=== PATIENT | female | born 2005 | race Caucasian/White ===

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

== ENCOUNTER 2024-01-27 23:32 | Emergency (ER) | payer OTHER ==
--- OUTSIDE RECORDS SUMMARY | 2024-01-27 23:41 | XMS REPORT | Continuity of Care Document ---
Author Name Unknown Address [address] [facility] [address] [place] [address] [facility] thconnect Address [address] [facility]. 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 Role Phone Oul Maldonado Primary Care Physicia n OLU DA SILVA Attending Clinician Unavail ELAINE Vaughn Attending Clinician UnavailElaine Torres CNM Attending Clinician Doctor Unassigned, [place] Attending Clinician U cynthia Pryor RN, Leidy Attending Clinician UnavailSHREE Castro Attending Clinician Unavailable Marcos Quinn MD, Geeta Attending Clinician + GEETA CORONA Attending Clinician Yony Carpenter MD Attending Clinician [phone] Silvio Reyes MD Attending Clinician [phone] Olu Maldonado Attending Clinician + CAROLINE BOWER Attending Clinician CAROLINE Mccain Attending Clinician SAIDA Mcpherson Attending Clinician Unavailable Peng ROSA, Saida Diallo Attending Clinician [phone] Ultrasound, Ang-Mfm Attending Clinician Unavailgabby holloway GC_SWHAOMC_Black_D Attending Clinician Unavailab Alexandre Cancino DO Attending Clinician [phone] Mcwilliams LEAF CONDITIONER, Cecea R Attending Clinician + [phone] MCWILLIAMSDAYAHUNDA R Attending Clinician [facility]availab dian [facility] Sofia mateusz Petersen MD, Jaiden Attending Clinician [phone] JAIDEN PETERSEN Attending Clinician Unavailable JAIDEN PETERSEN Attending Clinician Unavailable JAGDEEP VELASQUEZ Attending Clinician Unavailable Jagdeep Velasquez PA-C Attending Clinician [phone] Ebjustin LEAF CONDITIONERTyler Attending Clinician [phone] Сергей LEAF CONDITIONERElke Attending Clinician [phone] ELKE BERGMAN Attending Clinician Unavailable 2, [facility] Attending Clinician Unavailable Braeden Hussein Attending Clinician Unavailabl maddi Lab, [facility] I Attending Clinician Unavailab Shree Maciel PA-C Attending Clinician [phone] Provider, [facility] Attending Clinician Un available BENJAMIN CONCEPCION Attending Clinician Unavailable Mckayla LEAF CONDITIONERBenjamin Attending Clinician [phone] Marcos Quinn MD, Geeta Admitting Clinician + GEETA CORONA Admitting Clinician CAROLINE Clemente Admitting Clinician SAIDA Mcpherson Admitting Clinician Unavailable Saida Rand MD Admitting Clinician [phone] Veronica Admitting Clinician Unavailab dian Payers Payer Name Policy Type Policy Number Effective Date Expirati on Date Source [facility] [id number] 2019 00:00:00 Problems Condition Name Condition Details Condition Category Status Onset Date Resolution Date Last Treatment Date Treating Clinician Comments Source Overweight (BMI 25.0-29.9) Overweight (BMI 25.0-29.9) Disease Active 7-13 00:00: 00 [facility] (spontaneo us vaginal delivery) (spontaneo us vaginal delivery) Disease Active 6- 00:00: 00 [facility] Single live Single live Disease Active 6 00:00: 00 [facility] Obstetrica l laceration Obstetrica l laceration Disease Active 6- 00:00: 00 [facility] Acute blood loss anemia Acute blood loss anemia Disease Active 6- 00:00: 00 [facility] 39 weeks gestation of 39 weeks gestation of Disease Active 5-31 00:00: 00 [facility] GBS (group B Streptococ cus carrier), +RV culture, currently GBS (group B Streptococ cus carrier), +RV culture, currently Disease Active 5-31 00:00: 00 [facility] Obesity (BMI 30-39.9) Obesity (BMI 30-39.9) Disease Active 5-22 00:00: 00 [facility] Anemia of mother in , antepartum Anemia of mother in , antepartum Disease Active 2-21 00:00: 00 [facility] Scoliosis Scoliosis Disease Active 2-21 00:00: 00 Overview: Formattin g of this note might be different from the original. Address Intrapart um [facility] Chlamydia infection affecting Chlamydia infection affecting Disease Active 2021-10 2-20 00:00: 00 Overview: Formattin g of this note might be different from the original. Drew neg [facility] Supervisio n of high risk , antepartum Supervisio n of high risk , antepartum Disease Active 9-27 00:00: 00 [facility] High risk teen in first trimester High risk teen in first trimester Disease Active 06-27 00:00: 00 [facility] Primigravi da in first trimester Primigravi da in first trimester Disease Active 06-27 00:00: 00 [facility] History of anxiety History of anxiety Disease Active 06-27 00:00: 00 [facility] No known active problems No known active problems Disease [facility] Allergies, Adverse Reactions, Alerts Allergy Name Allergy Type Status Severity Reaction(s) Onset Date Inactive Date Treating Clinician Comments Source No Known Allergie s DA Active U 01-18 00:00: 00 [facility] No Known Allergie s DA Active U 01-18 00:00: 00 [facility] NO KNOWN ALLERGIE S Drug Class Active [facility] Social History Social Habit Start Date Stop Date Quantity Comments Source ASSERTION 2022-06-11 00:00:00 [facility] Gender identity [facility] Sexual orientation [facility] Alcohol intake 2023-07-12 00:00:00 2023-07-12 00:00:00 Lifetime non-drinker (finding) [facility] History of Social function 2023-04-11 00:00:00 2023-04-11 00:00:00 [facility] Exposure to SARS-CoV-2 (event) 2023-02-17 00:00:00 2023-02-27 12:24:00 Not sure [facility] Tobacco use and exposure 2022-06-27 00:00:00 2022-06-27 00:00:00 Smokeless tobacco non-user [facility] Sex Assigned At 2005 00:00:00 2005 00:00:00 [facility] Smoking Status Start Date Stop Date Source Never smoked tobacco [facility] Medications Ordered Medication Name Filled Medication Name Start Date Stop Date Current Medication? Ordering Clinician Indication Dosage Frequency Signature (SIG) Comments Components Source metroNIDAZO LE 500 mg tablet 7-13 00:00: 00 04-20 04:59 :00 No [id number] 500mg Take 1 tablet by mouth in the morning and 1 tablet in the evening. Do all this for 7 days. [facility] Norethindro ne Acet-Ethiny l Est (ADDIE) 1.5-30 mg-mcg per tablet 04-11 00:00: 00 Yes [id number] 1{tbl} Take 1 tablet by mouth in the morning. [facility] [id number] fum-folic () 27 mg iron- 1 mg folic tablet 03-02 00:00: 00 Yes [id number] 1{tbl} Take 1 tablet by mouth in the morning. [facility] ferrous sulfate 325 mg (65 mg iron) tablet 03-02 00:00: 00 Yes [id number] 325mg Take 1 tablet by mouth in the morning. [facility] [id number] fum-folic () 27 mg iron- 1 mg folic tablet 03-02 00:00: 00 04-11 00:00 :00 No [id number] 1{tbl} Take 1 tablet by mouth in the morning. [facility] docusate 100 mg capsule 03-02 00:00: 00 04-11 00:00 :00 No [id number] 200mg Take 2 capsules by mouth once daily as needed for Constipati on. [facility] ibuprofen 600 mg tablet 03-02 00:00: 00 04-11 00:00 :00 No [id number] 600mg Take 1 tablet by mouth every 6 (six) hours as needed (Pain). Take with food or milk. [facility] varicella virus vaccine live (VARIVAX) injection and diluent vial 03-01 12:48: 14 Yes 1{each} 0.5 mL (1 Each), Subcutaneo us, ONCE-PRIOR TO DISCHARGE, 1 dose, Starting on Atiya 03/01/23 at 0748, Until Discontinu ed, Routine, Give vaccine prior to discharge [facility] rho(D) immune globulin (RHOGAM) syringe 300 mcg 03-01 06:35: 41 Yes 300ug 300 mcg, Intramuscu lar, ONCE, For 1 dose, Conditiona l, Routine [facility] ibuprofen (IBU) tablet 600 mg 03-01 06:35: 37 Yes 600mg 600 mg, Oral, Q6HPRN, Starting on Sun03/01/23 at 0135, Until Discontinu ed, Routine, Pain (scale 4-6), and pain 7-10 [facility] acetaminoph en (TYLENOL) tablet 650 mg 03-01 06:35: 37 Yes 650mg 650 mg, Oral, Q6HPRN, Starting on Sun03/01/23 at 0135, Until Discontinu ed, Routine, Pain (scale 1-3) [facility] diphenhydrA MINE (BENADRYL) tablet 25 mg 03-01 06:35: 37 Yes 25mg 25 mg, Oral, Q6HPRN, Starting on Sun03/01/23 at 013, Until Discontinu ed, Routine, Sleep, Itching [facility] ondansetron (ZOFRAN (PF)) injection 4 mg 03-01 06:35: 37 Yes 4mg 4 mg, Slow IV Push, Q8HPRN, Starting on Sun03/01/23 at 013, Until Discontinu ed, Routine, Nausea and Vomiting (N/V) [facility] simethicone (GAS RELIEF (SIMETHICON E)) chewable tablet 160 mg 03-01 06:35: 37 Yes 160mg 160 mg, Oral, PC+HSPRN, Starting on Sun03/01/23 at 0135, Until Discontinu ed, Routine, Gas [facility] docusate (COLACE) capsule 200 mg 03-01 06:35: 37 Yes 200mg 200 mg, Oral, QDAILYPRN, Starting on Sun03/01/23 at 0135, Until Discontinu ed, Routine, Constipati on [facility] magnesium hydroxide (MILK OF MAGNESIA) 400 mg/5 mL suspension 30 mL 03-01 06:35: 37 Yes 30mL 30 mL, Oral, QDAILYPRN, Starting on Sun03/01/23 at 0135, Until Discontinu ed, Routine, Constipati on [facility] benzocaine- menthol (DERMOPLAST ) 20-0.5 % topical spray 03-01 06:35: 37 Yes Topical, PRN, Starting on Sun03/01/23 at 0135, Until Discontinu ed, Routine, Perineum discomfort [facility] oxytocin (PITOCIN) 30 units in NS 500 mL IV infusion 02-28 22:29: 00 03-01 06:35 :39 No 2mU/min at 2-40 mL/hr, IV Infusion, TITRATE, Starting on Sun02/28/23 at 1729, Until Sun03/01/23 at 0135, JAMEL [facility] ropivacaine 0.2 % (NAROPIN (PF)) epidural infusion 02-28 17:40: 00 03-01 04:00 :18 No Epidural, CONTINUOUS PRN, Starting on Sun02/28/23 at 1240, Until Discontinu ed, Routine, Intra-op [facility] lidocaine-e pinephrine (XYLOCAINE W/EPINEPHRI NE) 2 %-1:200,000 injection 02-28 17:39: 00 03-01 04:00 :18 No Intravenou s, ONCE INTRA PROCEDURE, Starting on Sun02/28/23 at 1239, Until Discontinu ed, Routine, Intra-op [facility] lactated ringers IV infusion 500 mL 02-28 16:54: 54 02-28 17:19 :15 No 500mL at 999 mL/hr, 500 mL, IV Infusion, PRN - SEE INSTRUCTIO NS, 1 dose, Starting on Sun02/28/23 at 1154, Until Sun02/28/23 at 1219, Routine [facility] sodium citrate-cit lidya acid (BICITRA) 500-334 mg/5 mL solution 30 mL 02-28 16:54: 54 02-28 17:20 :00 No 30mL 30 mL, Oral, PRE-PROCED URE ONCE, 1 dose, Starting on Sun02/28/23 at 1154, Until Sun02/28/23 at 1220, Routine, Surgery/Pr ocedure [facility] lactated ringers IV infusion 500 mL 02-28 15:02: 38 03-01 06:35 :39 No 500mL at 999 mL/hr, 500 mL, IV Infusion, PRN - SEE INSTRUCTIO NS, Starting on Sun02/28/23 at 1002, Until Sun03/01/23 at 0135, Routine [facility] [id number]-[id number] IV infusion 1,000 mL 02-28 15:02: 38 03-01 06:35 :39 No 1000mL at 1-125 mL/hr, IV Infusion, TITRATE, Starting on Sun02/28/23 at 1002, Until Atiya 03/01/23 at 0135, Routine [facility] metroNIDAZO LE (FLAGYL) tablet 500 mg 02-01 03:55: 00 02-01 04:00 :00 No 500mg 500 mg, Oral, ONCE NOW, 1 dose, On Sun01/31/23 at 2300, Routine
Reason for Anti-Infec tive: Documented Infection< br>Documen patti Infection Site: Pelvic
Duration of Therapy: 7 days [facility] metroNIDAZO LE (FLAGYL) 500 mg tablet 02-01 00:00: 00 03-02 00:00 :00 No [id number] 500mg Take 1 tablet by mouth every 12 (twelve) hours. [facility] ferrous sulfate 325 mg (65 mg iron) tablet 11-21 00:00: 00 03-02 00:00 :00 No [id number] 325mg Take 1 tablet by mouth in the morning and 1 tablet in the evening. [facility] ascorbic acid, vitamin C, 500 mg tablet 11-21 00:00: 00 03-02 00:00 :00 No [id number] 500mg Take 1 tablet by mouth in the morning and 1 tablet at noon and 1 tablet in the evening. [facility] azithromyci n 500 mg tablet 06-29 00:00: 00 07-01 04:59 :00 No [id number] 1000mg Take 2 tablets by mouth in the morning for 1 day. [facility] vit 33-iron-fol ic-dha (SELECT-OB + DHA) 29 mg iron-1 mg -250 mg combo pack 9 00:00: 00 03-02 00:00 :00 No [id number] 1{packe t} Take 1 Packet by mouth in the morning. [facility] fluconazole (DIFLUCAN) 150 mg tablet 2020-10 2- 00:00: 00 06-29 00:00 :00 No [id number] Take one pill now and may repeat in 3 days if needed [facility] Norethindro ne Acet-Ethiny l Est (ADDIE) 1.5-30 mg-mcg per tablet 04-12 00:00: 00 Yes [id number] 1{tbl} Take 1 tablet by mouth daily. [facility] VYVANSE 40 mg capsule 04-08 00:00: 00 04-11 00:00 :00 No [facility] DENTA 5000 PLUS 1.1 % Crea 03-22 00:00: 00 03-02 00:00 :00 No BRUSH WITH A PEA SIZED AMOUNT [facility] Immunizations Ordered Immunization Name Filled Immunization Name Date Status Comments Source TDAP 2022-12-11 00:00:00 Completed [facility] TDAP 2022-12-11 00:00:00 Completed [facility] TDAP 2022-12-11 00:00:00 Completed [facility] TDAP 2022-12-11 00:00:00 Completed [facility] TDAP 2022-12-11 00:00:00 Completed [facility] TDAP 2022-12-11 00:00:00 Completed [facility] TDAP 2022-12-11 00:00:00 Completed [facility] TDAP 2022-12-11 00:00:00 Completed [facility] TDAP 2022-12-11 00:00:00 Completed [facility] TDAP 2022-12-11 00:00:00 [facility]pleted [facility] 2022-12-11 00:00:00 Completed [facility] TDAP 2022-12-11 00:00:00 Completed [facility] TDAP 2022-12-11 00:00:00 Completed [facility] TDAP 2022-12-11 00:00:00 Completed [facility] TDAP 2022-12-11 00:00:00 Completed [facility] TDAP 2022-12-11 00:00:00 Completed [facility] TDAP 2022-12-11 00:00:00 Completed [facility] TDAP 2022-12-11 00:00:00 Completed [facility] TDAP 2022-12-11 00:00:00 Completed [facility] TDAP 2022-12-11 00:00:00 Completed [facility] TDAP 2022-12-11 00:00:00 Completed [facility] TDAP 2022-12-11 00:00:00 Completed [facility] TDAP 2022-12-11 00:00:00 Completed [facility] TDAP 2022-12-11 00:00:00 Completed [facility] TDAP 2022-12-11 00:00:00 Completed [facility] TDAP 2022-12-11 00:00:00 Completed [facility] TDAP 2022-12-11 00:00:00 Completed [facility] TDAP 2022-12-11 00:00:00 Completed [facility] TDAP 2022-12-11 00:00:00 Completed [facility] TDAP 2022-12-11 00:00:00 Completed [facility] TDAP 2022-12-11 00:00:00 Completed [facility] HPV9 2018-08-29 00:00:00 Completed [facility] HPV9 2018-08-29 00:00:00 Completed [facility] HPV9 2018-08-29 00:00:00 Completed [facility] HPV9 2018-08-29 00:00:00 Completed [facility] HPV9 2018-08-29 00:00:00 [facility]pleted [facility] HPV9 2018-08-29 00:00:00 [facility]pleted [facility] HPV9 2018-08-29 00:00:00 Completed [facility] HPV9 2018-08-29 00:00:00 Completed [facility] HPV9 2018-08-29 00:00:00 Completed [facility] HPV9 2018-08-29 00:00:00 Completed [facility] HPV9 2018-08-29 00:00:00 Completed [facility] HPV9 2018-08-29 00:00:00 Completed [facility] HPV9 2018-08-29 00:00:00 Completed [facility] HPV9 2018-08-29 00:00:00 Completed [facility] HPV9 2018-08-29 00:00:00 Completed [facility] HPV9 2018-08-29 00:00:00 Completed [facility] HPV9 2018-08-29 00:00:00 Completed [facility] HPV9 2018-08-29 00:00:00 Completed [facility] HPV9 2018-08-29 00:00:00 Completed [facility] HPV9 2018-08-29 00:00:00 Completed [facility] HPV9 2018-08-29 00:00:00 Completed [facility] HPV9 2018-08-29 00:00:00 Completed [facility] HPV9 2018-08-29 00:00:00 Completed [facility] HPV9 2018-08-29 00:00:00 Completed [facility] HPV9 2018-08-29 00:00:00 Completed [facility] HPV9 2018-08-29 00:00:00 Completed [facility] HPV9 2018-08-29 00:00:00 Completed [facility] HPV9 2018-08-29 00:00:00 Completed [facility] HPV9 2018-08-29 00:00:00 Completed [facility] HPV9 2018-08-29 00:00:00 Completed [facility] HPV9 2018-08-29 00:00:00 Completed [facility] HPV9 2018-08-29 00:00:00 Completed [facility] HPV9 2017-01-02 00:00:00 Completed [facility] HPV9 2017-01-02 00:00:00 Completed [facility] HPV9 2017-01-02 00:00:00 Completed [facility] HPV9 2017-01-02 00:00:00 Completed [facility] HPV9 2017-01-02 00:00:00 Completed [facility] HPV9 2017-01-02 00:00:00 Completed [facility] HPV9 2017-01-02 00:00:00 Completed [facility] HPV9 2017-01-02 00:00:00 Completed [facility] HPV9 2017-01-02 00:00:00 Completed [facility] HPV9 2017-01-02 00:00:00 Completed [facility] HPV9 2017-01-02 00:00:00 Completed [facility] HPV9 2017-01-02 00:00:00 Completed [facility] HPV9 2017-01-02 00:00:00 Completed [facility] HPV9 2017-01-02 00:00:00 Completed [facility] HPV9 2017-01-02 00:00:00 Completed [facility] HPV9 2017-01-02 00:00:00 Completed [facility] HPV9 2017-01-02 00:00:00 Completed [facility] HPV9 2017-01-02 00:00:00 Completed [facility] HPV9 2017-01-02 00:00:00 Completed [facility] HPV9 2017-01-02 00:00:00 Completed [facility] HPV9 2017-01-02 00:00:00 Completed [facility] HPV9 2017-01-02 00:00:00 Completed [facility] HPV9 2017-01-02 00:00:00 Completed [facility] HPV9 2017-01-02 00:00:00 Completed [facility] HPV9 2017-01-02 00:00:00 Completed [facility] HPV9 2017-01-02 00:00:00 Completed [facility] HPV9 2017-01-02 00:00:00 Completed [facility] HPV9 2017-01-02 00:00:00 Completed [facility] HPV9 2017-01-02 00:00:00 Completed [facility] HPV9 2017-01-02 00:00:00 Completed [facility] HPV9 2017-01-02 00:00:00 Completed [facility] HPV9 2017-01-02 00:00:00 Completed [facility] TDAP 2016-05-18 00:00:00 Completed [facility] TDAP 2016-05-18 00:00:00 Completed [facility] TDAP 2016-05-18 00:00:00 Completed [facility] TDAP 2016-05-18 00:00:00 Completed [facility] TDAP 2016-05-18 00:00:00 Completed [facility] TDAP 2016-05-18 00:00:00 Completed [facility] TDAP 2016-05-18 00:00:00 Completed [facility] TDAP 2016-05-18 00:00:00 Completed [facility] TDAP 2016-05-18 00:00:00 Completed [facility] TDAP 2016-05-18 00:00:00 Completed [facility] TDAP 2016-05-18 00:00:00 Completed [facility] TDAP 2016-05-18 00:00:00 Completed [facility] TDAP 2016-05-18 00:00:00 Completed [facility] TDAP 2016-05-18 00:00:00 Completed [facility] TDAP 2016-05-18 00:00:00 Completed [facility] TDAP 2016-05-18 00:00:00 Completed [facility] TDAP 2016-05-18 00:00:00 Completed [facility] TDAP 2016-05-18 00:00:00 Completed [facility] TDAP 2016-05-18 00:00:00 Completed [facility] TDAP 2016-05-18 00:00:00 Completed [facility] TDAP 2016-05-18 00:00:00 Completed [facility] TDAP 2016-05-18 00:00:00 Completed [facility] TDAP 2016-05-18 00:00:00 Completed [facility] TDAP 2016-05-18 00:00:00 Completed [facility] TDAP 2016-05-18 00:00:00 Completed [facility] TDAP 2016-05-18 00:00:00 Completed [facility] TDAP 2016-05-18 00:00:00 Completed [facility] TDAP 2016-05-18 00:00:00 Completed [facility] TDAP 2016-05-18 00:00:00 Completed [facility] TDAP 2016-05-18 00:00:00 Completed [facility] TDAP 2016-05-18 00:00:00 Completed [facility] TDAP 2016-05-18 00:00:00 Completed [facility] HPV 2016-05-12 00:00:00 Completed [facility] Meningococcal Polysaccharide (groups A, C, Y and W-135) conjugate vaccine (MCV4P) 2016-05-12 00:00:00 Completed [facility] HPV 2016-05-12 00:00:00 Completed [facility] Meningococcal Polysaccharide (groups A, C, Y and W-135) conjugate vaccine (MCV4P) 2016-05-12 00:00:00 Completed [facility] HPV 2016-05-12 00:00:00 Completed [facility] Meningococcal Polysaccharide (groups A, C, Y and W-135) conjugate vaccine (MCV4P) 2016-05-12 00:00:00 Completed [facility] HPV 2016-05-12 00:00:00 Completed [facility] Meningococcal Polysaccharide (groups A, C, Y and W-135) conjugate vaccine (MCV4P) 2016-05-12 00:00:00 Completed [facility] HPV 2016-05-12 00:00:00 Completed [facility] Meningococcal Polysaccharide (groups A, C, Y and W-135) conjugate vaccine (MCV4P) 2016-05-12 00:00:00 Completed [facility] HPV 2016-05-12 00:00:00 Completed [facility] Meningococcal Polysaccharide (groups A, C, Y and W-135) conjugate vaccine (MCV4P) 2016-05-12 00:00:00 Completed [facility] HPV 2016-05-12 00:00:00 Completed [facility] Meningococcal Polysaccharide (groups A, C, Y and W-135) conjugate vaccine (MCV4P) 2016-05-12 00:00:00 Completed [facility] HPV 2016-05-12 00:00:00 Completed [facility] Meningococcal Polysaccharide (groups A, C, Y and W-135) conjugate vaccine (MCV4P) 2016-05-12 00:00:00 Completed [facility] HPV 2016-05-12 00:00:00 Completed [facility] Meningococcal Polysaccharide (groups A, C, Y and W-135) conjugate vaccine (MCV4P) 2016-05-12 00:00:00 Completed [facility] HPV 2016-05-12 00:00:00 Completed [facility] Meningococcal Polysaccharide (groups A, C, Y and W-135) conjugate vaccine (MCV4P) 2016-05-12 00:00:00 Completed [facility] HPV 2016-05-12 00:00:00 Completed [facility] Meningococcal Polysaccharide (groups A, C, Y and W-135) conjugate vaccine (MCV4P) 2016-05-12 00:00:00 Completed [facility] HPV 2016-05-12 00:00:00 Completed [facility] Meningococcal Polysaccharide (groups A, C, Y and W-135) conjugate vaccine (MCV4P) 2016-05-12 00:00:00 Completed [facility] HPV 2016-05-12 00:00:00 Completed [facility] Meningococcal Polysaccharide (groups A, C, Y and W-135) conjugate vaccine (MCV4P) 2016-05-12 00:00:00 Completed [facility] HPV 2016-05-12 00:00:00 Completed [facility] Meningococcal Polysaccharide (groups A, C, Y and W-135) conjugate vaccine (MCV4P) 2016-05-12 00:00:00 Completed [facility] HPV 2016-05-12 00:00:00 Completed [facility] Meningococcal Polysaccharide (groups A, C, Y and W-135) conjugate vaccine (MCV4P) 2016-05-12 00:00:00 Completed [facility] HPV 2016-05-12 00:00:00 Completed [facility] Meningococcal Polysaccharide (groups A, C, Y and W-135) conjugate vaccine (MCV4P) 2016-05-12 00:00:00 Completed [facility] HPV 2016-05-12 00:00:00 Completed [facility] Meningococcal Polysaccharide (groups A, C, Y and W-135) conjugate vaccine (MCV4P) 2016-05-12 00:00:00 Completed [facility] HPV 2016-05-12 00:00:00 Completed [facility] Meningococcal Polysaccharide (groups A, C, Y and W-135) conjugate vaccine (MCV4P) 2016-05-12 00:00:00 Completed [facility] HPV 2016-05-12 00:00:00 Completed [facility] Meningococcal Polysaccharide (groups A, C, Y and W-135) conjugate vaccine (MCV4P) 2016-05-12 00:00:00 Completed [facility] HPV 2016-05-12 00:00:00 Completed [facility] Meningococcal Polysaccharide (groups A, C, Y and W-135) conjugate vaccine (MCV4P) 2016-05-12 00:00:00 Completed [facility] HPV 2016-05-12 00:00:00 Completed [facility] Meningococcal Polysaccharide (groups A, C, Y and W-135) conjugate vaccine (MCV4P) 2016-05-12 00:00:00 Completed [facility] HPV 2016-05-12 00:00:00 Completed [facility] Meningococcal Polysaccharide (groups A, C, Y and W-135) conjugate vaccine (MCV4P) 2016-05-12 00:00:00 Completed [facility] HPV 2016-05-12 00:00:00 Completed [facility] Meningococcal Polysaccharide (groups A, C, Y and W-135) conjugate vaccine (MCV4P) 2016-05-12 00:00:00 Completed [facility] HPV 2016-05-12 00:00:00 Completed [facility] Meningococcal Polysaccharide (groups A, C, Y and W-135) conjugate vaccine (MCV4P) 2016-05-12 00:00:00 Completed [facility] HPV 2016-05-12 00:00:00 Completed [facility] Meningococcal Polysaccharide (groups A, C, Y and W-135) conjugate vaccine (MCV4P) 2016-05-12 00:00:00 Completed [facility] HPV 2016-05-12 00:00:00 Completed [facility] Meningococcal Polysaccharide (groups A, C, Y and W-135) conjugate vaccine (MCV4P) 2016-05-12 00:00:00 Completed [facility] HPV 2016-05-12 00:00:00 Completed [facility] Meningococcal Polysaccharide (groups A, C, Y and W-135) conjugate vaccine (MCV4P) 2016-05-12 00:00:00 Completed [facility] HPV 2016-05-12 00:00:00 Completed [facility] Meningococcal Polysaccharide (groups A, C, Y and W-135) conjugate vaccine (MCV4P) 2016-05-12 00:00:00 Completed [facility] HPV 2016-05-12 00:00:00 Completed [facility] Meningococcal Polysaccharide (groups A, C, Y and W-135) conjugate vaccine (MCV4P) 2016-05-12 00:00:00 Completed [facility] HPV 2016-05-12 00:00:00 Completed [facility] Meningococcal Polysaccharide (groups A, C, Y and W-135) conjugate vaccine (MCV4P) 2016-05-12 00:00:00 Completed [facility] HPV 2016-05-12 00:00:00 Completed [facility] Meningococcal Polysaccharide (groups A, C, Y and W-135) conjugate vaccine (MCV4P) 2016-05-12 00:00:00 Completed [facility] HPV 2016-05-12 00:00:00 Completed [facility] Meningococcal Polysaccharide (groups A, C, Y and W-135) conjugate vaccine (MCV4P) 2016-05-12 00:00:00 Completed [facility] IPV 2008-04-23 00:00:00 Completed [facility] Varicella (varivax)(chicken pox) 2008-04-23 00:00:00 Completed [facility] DTaP, Unspecified Formulation 2008-04-23 00:00:00 Completed [facility] MMR 2008-04-23 00:00:00 Completed [facility] IPV 2008-04-23 00:00:00 Completed [facility] Varicella (varivax)(chicken pox) 2008-04-23 00:00:00 Completed [facility] DTaP, Unspecified Formulation 2008-04-23 00:00:00 Completed [facility] MMR 2008-04-23 00:00:00 Completed [facility] IPV 2008-04-23 00:00:00 Completed [facility] Varicella (varivax)(chicken pox) 2008-04-23 00:00:00 Completed [facility] DTaP, Unspecified Formulation 2008-04-23 00:00:00 Completed [facility] MMR 2008-04-23 00:00:00 Completed [facility] IPV 2008-04-23 00:00:00 Completed [facility] Varicella (varivax)(chicken pox) 2008-04-23 00:00:00 Completed [facility] DTaP, Unspecified Formulation 2008-04-23 00:00:00 Completed [facility] MMR 2008-04-23 00:00:00 Completed [facility] IPV 2008-04-23 00:00:00 Completed [facility] Varicella (varivax)(chicken pox) 2008-04-23 00:00:00 Completed [facility] DTaP, Unspecified Formulation 2008-04-23 00:00:00 Completed [facility] MMR 2008-04-23 00:00:00 Completed [facility] IPV 2008-04-23 00:00:00 Completed [facility] Varicella (varivax)(chicken pox) 2008-04-23 00:00:00 Completed [facility] DTaP, Unspecified Formulation 2008-04-23 00:00:00 Completed [facility] MMR 2008-04-23 00:00:00 Completed [facility] IPV 2008-04-23 00:00:00 Completed [facility] Varicella (varivax)(chicken pox) 2008-04-23 00:00:00 Completed [facility] DTaP, Unspecified Formulation 2008-04-23 00:00:00 Completed [facility] MMR 2008-04-23 00:00:00 Completed [facility] IPV 2008-04-23 00:00:00 Completed [facility] Varicella (varivax)(chicken pox) 2008-04-23 00:00:00 Completed [facility] DTaP, Unspecified Formulation 2008-04-23 00:00:00 Completed [facility] MMR 2008-04-23 00:00:00 Completed [facility] IPV 2008-04-23 00:00:00 Completed [facility] Varicella (varivax)(chicken pox) 2008-04-23 00:00:00 Completed [facility] DTaP, Unspecified Formulation 2008-04-23 00:00:00 Completed [facility] MMR 2008-04-23 00:00:00 Completed [facility] IPV 2008-04-23 00:00:00 Completed [facility] Varicella (varivax)(chicken pox) 2008-04-23 00:00:00 Completed [facility] DTaP, Unspecified Formulation 2008-04-23 00:00:00 Completed [facility] MMR 2008-04-23 00:00:00 Completed [facility] IPV 2008-04-23 00:00:00 Completed [facility] Varicella (varivax)(chicken pox) 2008-04-23 00:00:00 Completed [facility] DTaP, Unspecified Formulation 2008-04-23 00:00:00 Completed [facility] MMR 2008-04-23 00:00:00 Completed [facility] IPV 2008-04-23 00:00:00 Completed [facility] Varicella (varivax)(chicken pox) 2008-04-23 00:00:00 Completed [facility] DTaP, Unspecified Formulation 2008-04-23 00:00:00 Completed [facility] MMR 2008-04-23 00:00:00 Completed [facility] IPV 2008-04-23 00:00:00 Completed [facility] Varicella (varivax)(chicken pox) 2008-04-23 00:00:00 Completed [facility] DTaP, Unspecified Formulation 2008-04-23 00:00:00 Completed [facility] MMR 2008-04-23 00:00:00 Completed [facility] IPV 2008-04-23 00:00:00 Completed [facility] Varicella (varivax)(chicken pox) 2008-04-23 00:00:00 Completed [facility] DTaP, Unspecified Formulation 2008-04-23 00:00:00 Completed [facility] MMR 2008-04-23 00:00:00 Completed [facility] IPV 2008-04-23 00:00:00 Completed [facility] Varicella (varivax)(chicken pox) 2008-04-23 00:00:00 Completed [facility] DTaP, Unspecified Formulation 2008-04-23 00:00:00 Completed [facility] MMR 2008-04-23 00:00:00 Completed [facility] IPV 2008-04-23 00:00:00 Completed [facility] Varicella (varivax)(chicken pox) 2008-04-23 00:00:00 Completed [facility] DTaP, Unspecified Formulation 2008-04-23 00:00:00 Completed [facility] MMR 2008-04-23 00:00:00 Completed [facility] IPV 2008-04-23 00:00:00 Completed [facility] Varicella (varivax)(chicken pox) 2008-04-23 00:00:00 Completed [facility] DTaP, Unspecified Formulation 2008-04-23 00:00:00 Completed [facility] MMR 2008-04-23 00:00:00 Completed [facility] IPV 2008-04-23 00:00:00 Completed [facility] Varicella (varivax)(chicken pox) 2008-04-23 00:00:00 Completed [facility] DTaP, Unspecified Formulation 2008-04-23 00:00:00 Completed [facility] MMR 2008-04-23 00:00:00 Completed [facility] IPV 2008-04-23 00:00:00 Completed [facility] Varicella (varivax)(chicken pox) 2008-04-23 00:00:00 Completed [facility] DTaP, Unspecified Formulation 2008-04-23 00:00:00 Completed [facility] MMR 2008-04-23 00:00:00 Completed [facility] IPV 2008-04-23 00:00:00 Completed [facility] Varicella (varivax)(chicken pox) 2008-04-23 00:00:00 Completed [facility] DTaP, Unspecified Formulation 2008-04-23 00:00:00 Completed [facility] MMR 2008-04-23 00:00:00 Completed [facility] IPV 2008-04-23 00:00:00 Completed [facility] Varicella (varivax)(chicken pox) 2008-04-23 00:00:00 Completed [facility] DTaP, Unspecified Formulation 2008-04-23 00:00:00 Completed [facility] MMR 2008-04-23 00:00:00 Completed [facility] IPV 2008-04-23 00:00:00 Completed [facility] Varicella (varivax)(chicken pox) 2008-04-23 00:00:00 Completed [facility] DTaP, Unspecified Formulation 2008-04-23 00:00:00 Completed [facility] MMR 2008-04-23 00:00:00 Completed [facility] IPV 2008-04-23 00:00:00 Completed [facility] Varicella (varivax)(chicken pox) 2008-04-23 00:00:00 Completed [facility] DTaP, Unspecified Formulation 2008-04-23 00:00:00 Completed [facility] MMR 2008-04-23 00:00:00 Completed [facility] IPV 2008-04-23 00:00:00 Completed [facility] Varicella (varivax)(chicken pox) 2008-04-23 00:00:00 Completed [facility] DTaP, Unspecified Formulation 2008-04-23 00:00:00 Completed [facility] MMR 2008-04-23 00:00:00 Completed [facility] IPV 2008-04-23 00:00:00 Completed [facility] Varicella (varivax)(chicken pox) 2008-04-23 00:00:00 Completed [facility] DTaP, Unspecified Formulation 2008-04-23 00:00:00 Completed [facility] MMR 2008-04-23 00:00:00 Completed [facility] IPV 2008-04-23 00:00:00 Completed [facility] Varicella (varivax)(chicken pox) 2008-04-23 00:00:00 Completed [facility] DTaP, Unspecified Formulation 2008-04-23 00:00:00 Completed [facility] MMR 2008-04-23 00:00:00 Completed [facility] IPV 2008-04-23 00:00:00 Completed [facility] Varicella (varivax)(chicken pox) 2008-04-23 00:00:00 Completed [facility] DTaP, Unspecified Formulation 2008-04-23 00:00:00 Completed [facility] MMR 2008-04-23 00:00:00 Completed [facility] IPV 2008-04-23 00:00:00 Completed [facility] Varicella (varivax)(chicken pox) 2008-04-23 00:00:00 Completed [facility] DTaP, Unspecified Formulation 2008-04-23 00:00:00 Completed [facility] MMR 2008-04-23 00:00:00 Completed [facility] IPV 2008-04-23 00:00:00 Completed [facility] Varicella (varivax)(chicken pox) 2008-04-23 00:00:00 Completed [facility] DTaP, Unspecified Formulation 2008-04-23 00:00:00 Completed [facility] MMR 2008-04-23 00:00:00 Completed [facility] IPV 2008-04-23 00:00:00 Completed [facility] Varicella (varivax)(chicken pox) 2008-04-23 00:00:00 Completed [facility] DTaP, Unspecified Formulation 2008-04-23 00:00:00 Completed [facility] MMR 2008-04-23 00:00:00 Completed [facility] IPV 2008-04-23 00:00:00 Completed [facility] Varicella (varivax)(chicken pox) 2008-04-23 00:00:00 Completed [facility] DTaP, Unspecified Formulation 2008-04-23 00:00:00 Completed [facility] MMR 2008-04-23 00:00:00 Completed [facility] IPV 2008-04-23 00:00:00 Completed [facility] Varicella (varivax)(chicken pox) 2008-04-23 00:00:00 Completed [facility] DTaP, Unspecified Formulation 2008-04-23 00:00:00 Completed [facility] MMR 2008-04-23 00:00:00 Completed [facility] HEPATITIS A 2007-04-16 00:00:00 Completed [facility] HEPATITIS A 2007-04-16 00:00:00 Completed [facility] HEPATITIS A 2007-04-16 00:00:00 Completed [facility] HEPATITIS A 2007-04-16 00:00:00 Completed [facility] HEPATITIS A 2007-04-16 00:00:00 Completed [facility] HEPATITIS A 2007-04-16 00:00:00 Completed [facility] HEPATITIS A 2007-04-16 00:00:00 Completed [facility] HEPATITIS A 2007-04-16 00:00:00 Completed [facility] HEPATITIS A 2007-04-16 00:00:00 Completed [facility] HEPATITIS A 2007-04-16 00:00:00 Completed [facility] HEPATITIS A 2007-04-16 00:00:00 Completed [facility] HEPATITIS A 2007-04-16 00:00:00 Completed [facility] HEPATITIS A 2007-04-16 00:00:00 Completed [facility] HEPATITIS A 2007-04-16 00:00:00 Completed [facility] HEPATITIS A 2007-04-16 00:00:00 Completed [facility] HEPATITIS A 2007-04-16 00:00:00 Completed [facility] HEPATITIS A 2007-04-16 00:00:00 Completed [facility] HEPATITIS A 2007-04-16 00:00:00 Completed [facility] HEPATITIS A 2007-04-16 00:00:00 Completed [facility] HEPATITIS A 2007-04-16 00:00:00 Completed [facility] HEPATITIS A 2007-04-16 00:00:00 Completed [facility] HEPATITIS A 2007-04-16 00:00:00 Completed [facility] HEPATITIS A 2007-04-16 00:00:00 Completed [facility] HEPATITIS A 2007-04-16 00:00:00 Completed [facility] HEPATITIS A 2007-04-16 00:00:00 Completed [facility] HEPATITIS A 2007-04-16 00:00:00 Completed [facility] HEPATITIS A 2007-04-16 00:00:00 Completed [facility] HEPATITIS A 2007-04-16 00:00:00 Completed [facility] HEPATITIS A 2007-04-16 00:00:00 Completed [facility] HEPATITIS A 2007-04-16 00:00:00 Completed [facility] HEPATITIS A 2007-04-16 00:00:00 Completed [facility] HEPATITIS A 2007-04-16 00:00:00 Completed [facility] Pneumococcal 7 Conjugate, PCV7 (Prevnar7) 2006-11-01 00:00:00 Completed [facility] DTaP, Unspecified Formulation 2006-11-01 00:00:00 Completed [facility] HIB 4 Dose Schedule 2006-11-01 00:00:00 Completed [facility] MMR 2006-11-01 00:00:00 Completed [facility] Pneumococcal 7 Conjugate, PCV7 (Prevnar7) 2006-11-01 00:00:00 Completed [facility] DTaP, Unspecified Formulation 2006-11-01 00:00:00 Completed [facility] HIB 4 Dose Schedule 2006-11-01 00:00:00 Completed [facility] MMR 2006-11-01 00:00:00 Completed [facility] Pneumococcal 7 Conjugate, PCV7 (Prevnar7) 2006-11-01 00:00:00 Completed [facility] DTaP, Unspecified Formulation 2006-11-01 00:00:00 Completed [facility] HIB 4 Dose Schedule 2006-11-01 00:00:00 Completed [facility] MMR 2006-11-01 00:00:00 Completed [facility] Pneumococcal 7 Conjugate, PCV7 (Prevnar7) 2006-11-01 00:00:00 Completed [facility] DTaP, Unspecified Formulation 2006-11-01 00:00:00 Completed [facility] HIB 4 Dose Schedule 2006-11-01 00:00:00 Completed [facility] MMR 2006-11-01 00:00:00 Completed [facility] Pneumococcal 7 Conjugate, PCV7 (Prevnar7) 2006-11-01 00:00:00 Completed [facility] DTaP, Unspecified Formulation 2006-11-01 00:00:00 Completed [facility] HIB 4 Dose Schedule 2006-11-01 00:00:00 Completed [facility] MMR 2006-11-01 00:00:00 Completed [facility] Pneumococcal 7 Conjugate, PCV7 (Prevnar7) 2006-11-01 00:00:00 Completed [facility] DTaP, Unspecified Formulation 2006-11-01 00:00:00 Completed [facility] HIB 4 Dose Schedule 2006-11-01 00:00:00 Completed [facility] MMR 2006-11-01 00:00:00 Completed [facility] Pneumococcal 7 Conjugate, PCV7 (Prevnar7) 2006-11-01 00:00:00 Completed [facility] DTaP, Unspecified Formulation 2006-11-01 00:00:00 Completed [facility] HIB 4 Dose Schedule 2006-11-01 00:00:00 Completed [facility] MMR 2006-11-01 00:00:00 Completed [facility] Pneumococcal 7 Conjugate, PCV7 (Prevnar7) 2006-11-01 00:00:00 Completed [facility] DTaP, Unspecified Formulation 2006-11-01 00:00:00 Completed [facility] HIB 4 Dose Schedule 2006-11-01 00:00:00 Completed [facility] MMR 2006-11-01 00:00:00 Completed [facility] Pneumococcal 7 Conjugate, PCV7 (Prevnar7) 2006-11-01 00:00:00 Completed [facility] DTaP, Unspecified Formulation 2006-11-01 00:00:00 Completed [facility] HIB 4 Dose Schedule 2006-11-01 00:00:00 Completed [facility] MMR 2006-11-01 00:00:00 Completed [facility] Pneumococcal 7 Conjugate, PCV7 (Prevnar7) 2006-11-01 00:00:00 Completed [facility] DTaP, Unspecified Formulation 2006-11-01 00:00:00 Completed [facility] HIB 4 Dose Schedule 2006-11-01 00:00:00 Completed [facility] MMR 2006-11-01 00:00:00 Completed [facility] Pneumococcal 7 Conjugate, PCV7 (Prevnar7) 2006-11-01 00:00:00 Completed [facility] DTaP, Unspecified Formulation 2006-11-01 00:00:00 Completed [facility] HIB 4 Dose Schedule 2006-11-01 00:00:00 Completed [facility] MMR 2006-11-01 00:00:00 Completed [facility] Pneumococcal 7 Conjugate, PCV7 (Prevnar7) 2006-11-01 00:00:00 Completed [facility] DTaP, Unspecified Formulation 2006-11-01 00:00:00 Completed [facility] HIB 4 Dose Schedule 2006-11-01 00:00:00 Completed [facility] MMR 2006-11-01 00:00:00 Completed [facility] Pneumococcal 7 Conjugate, PCV7 (Prevnar7) 2006-11-01 00:00:00 Completed [facility] DTaP, Unspecified Formulation 2006-11-01 00:00:00 Completed [facility] HIB 4 Dose Schedule 2006-11-01 00:00:00 Completed [facility] MMR 2006-11-01 00:00:00 Completed [facility] Pneumococcal 7 Conjugate, PCV7 (Prevnar7) 2006-11-01 00:00:00 Completed [facility] DTaP, Unspecified Formulation 2006-11-01 00:00:00 Completed [facility] HIB 4 Dose Schedule 2006-11-01 00:00:00 Completed [facility] MMR 2006-11-01 00:00:00 Completed [facility] Pneumococcal 7 Conjugate, PCV7 (Prevnar7) 2006-11-01 00:00:00 Completed [facility] DTaP, Unspecified Formulation 2006-11-01 00:00:00 Completed [facility] HIB 4 Dose Schedule 2006-11-01 00:00:00 Completed [facility] MMR 2006-11-01 00:00:00 Completed [facility] Pneumococcal 7 Conjugate, PCV7 (Prevnar7) 2006-11-01 00:00:00 Completed [facility] DTaP, Unspecified Formulation 2006-11-01 00:00:00 Completed [facility] HIB 4 Dose Schedule 2006-11-01 00:00:00 Completed [facility] MMR 2006-11-01 00:00:00 Completed [facility] Pneumococcal 7 Conjugate, PCV7 (Prevnar7) 2006-11-01 00:00:00 Completed [facility] DTaP, Unspecified Formulation 2006-11-01 00:00:00 Completed [facility] HIB 4 Dose Schedule 2006-11-01 00:00:00 Completed [facility] MMR 2006-11-01 00:00:00 Completed [facility] Pneumococcal 7 Conjugate, PCV7 (Prevnar7) 2006-11-01 00:00:00 Completed [facility] DTaP, Unspecified Formulation 2006-11-01 00:00:00 Completed [facility] HIB 4 Dose Schedule 2006-11-01 00:00:00 Completed [facility] MMR 2006-11-01 00:00:00 Completed [facility] Pneumococcal 7 Conjugate, PCV7 (Prevnar7) 2006-11-01 00:00:00 Completed [facility] DTaP, Unspecified Formulation 2006-11-01 00:00:00 Completed [facility] HIB 4 Dose Schedule 2006-11-01 00:00:00 Completed [facility] MMR 2006-11-01 00:00:00 Completed [facility] Pneumococcal 7 Conjugate, PCV7 (Prevnar7) 2006-11-01 00:00:00 Completed [facility] DTaP, Unspecified Formulation 2006-11-01 00:00:00 Completed [facility] HIB 4 Dose Schedule 2006-11-01 00:00:00 Completed [facility] MMR 2006-11-01 00:00:00 Completed [facility] Pneumococcal 7 Conjugate, PCV7 (Prevnar7) 2006-11-01 00:00:00 Completed [facility] DTaP, Unspecified Formulation 2006-11-01 00:00:00 Completed [facility] HIB 4 Dose Schedule 2006-11-01 00:00:00 Completed [facility] MMR 2006-11-01 00:00:00 Completed [facility] Pneumococcal 7 Conjugate, PCV7 (Prevnar7) 2006-11-01 00:00:00 Completed [facility] DTaP, Unspecified Formulation 2006-11-01 00:00:00 Completed [facility] HIB 4 Dose Schedule 2006-11-01 00:00:00 Completed [facility] MMR 2006-11-01 00:00:00 Completed [facility] Pneumococcal 7 Conjugate, PCV7 (Prevnar7) 2006-11-01 00:00:00 Completed [facility] DTaP, Unspecified Formulation 2006-11-01 00:00:00 Completed [facility] HIB 4 Dose Schedule 2006-11-01 00:00:00 Completed [facility] MMR 2006-11-01 00:00:00 Completed [facility] Pneumococcal 7 Conjugate, PCV7 (Prevnar7) 2006-11-01 00:00:00 Completed [facility] DTaP, Unspecified Formulation 2006-11-01 00:00:00 Completed [facility] HIB 4 Dose Schedule 2006-11-01 00:00:00 Completed [facility] MMR 2006-11-01 00:00:00 Completed [facility] Pneumococcal 7 Conjugate, PCV7 (Prevnar7) 2006-11-01 00:00:00 Completed [facility] DTaP, Unspecified Formulation 2006-11-01 00:00:00 Completed [facility] HIB 4 Dose Schedule 2006-11-01 00:00:00 Completed [facility] MMR 2006-11-01 00:00:00 Completed [facility] Pneumococcal 7 Conjugate, PCV7 (Prevnar7) 2006-11-01 00:00:00 Completed [facility] DTaP, Unspecified Formulation 2006-11-01 00:00:00 Completed [facility] HIB 4 Dose Schedule 2006-11-01 00:00:00 Completed [facility] MMR 2006-11-01 00:00:00 Completed [facility] Pneumococcal 7 Conjugate, PCV7 (Prevnar7) 2006-11-01 00:00:00 Completed [facility] DTaP, Unspecified Formulation 2006-11-01 00:00:00 Completed [facility] HIB 4 Dose Schedule 2006-11-01 00:00:00 Completed [facility] MMR 2006-11-01 00:00:00 Completed [facility] Pneumococcal 7 Conjugate, PCV7 (Prevnar7) 2006-11-01 00:00:00 Completed [facility] DTaP, Unspecified Formulation 2006-11-01 00:00:00 Completed [facility] HIB 4 Dose Schedule 2006-11-01 00:00:00 Completed [facility] MMR 2006-11-01 00:00:00 Completed [facility] Pneumococcal 7 Conjugate, PCV7 (Prevnar7) 2006-11-01 00:00:00 Completed [facility] DTaP, Unspecified Formulation 2006-11-01 00:00:00 Completed [facility] HIB 4 Dose Schedule 2006-11-01 00:00:00 Completed [facility] MMR 2006-11-01 00:00:00 Completed [facility] Pneumococcal 7 Conjugate, PCV7 (Prevnar7) 2006-11-01 00:00:00 Completed [facility] DTaP, Unspecified Formulation 2006-11-01 00:00:00 Completed [facility] HIB 4 Dose Schedule 2006-11-01 00:00:00 Completed [facility] MMR 2006-11-01 00:00:00 Completed [facility] Pneumococcal 7 Conjugate, PCV7 (Prevnar7) 2006-11-01 00:00:00 Completed [facility] DTaP, Unspecified Formulation 2006-11-01 00:00:00 Completed [facility] HIB 4 Dose Schedule 2006-11-01 00:00:00 Completed [facility] MMR 2006-11-01 00:00:00 Completed [facility] Pneumococcal 7 Conjugate, PCV7 (Prevnar7) 2006-11-01 00:00:00 Completed [facility] DTaP, Unspecified Formulation 2006-11-01 00:00:00 Completed [facility] HIB 4 Dose Schedule 2006-11-01 00:00:00 Completed [facility] MMR 2006-11-01 00:00:00 Completed [facility] HEPATITIS A 2006-04-02 00:00:00 Completed [facility] HEPATITIS A 2006-04-02 00:00:00 Completed [facility] HEPATITIS A 2006-04-02 00:00:00 Completed [facility] HEPATITIS A 2006-04-02 00:00:00 Completed [facility] HEPATITIS A 2006-04-02 00:00:00 Completed [facility] HEPATITIS A 2006-04-02 00:00:00 Completed [facility] HEPATITIS A 2006-04-02 00:00:00 Completed [facility] HEPATITIS A 2006-04-02 00:00:00 Completed [facility] HEPATITIS A 2006-04-02 00:00:00 Completed [facility] HEPATITIS A 2006-04-02 00:00:00 Completed [facility] HEPATITIS A 2006-04-02 00:00:00 Completed [facility] HEPATITIS A 2006-04-02 00:00:00 Completed [facility] HEPATITIS A 2006-04-02 00:00:00 Completed [facility] HEPATITIS A 2006-04-02 00:00:00 Completed [facility] HEPATITIS A 2006-04-02 00:00:00 Completed [facility] HEPATITIS A 2006-04-02 00:00:00 Completed [facility] HEPATITIS A 2006-04-02 00:00:00 Completed [facility] HEPATITIS A 2006-04-02 00:00:00 Completed [facility] HEPATITIS A 2006-04-02 00:00:00 Completed [facility] HEPATITIS A 2006-04-02 00:00:00 Completed [facility] HEPATITIS A 2006-04-02 00:00:00 Completed [facility] HEPATITIS A 2006-04-02 00:00:00 Completed [facility] HEPATITIS A 2006-04-02 00:00:00 Completed [facility] HEPATITIS A 2006-04-02 00:00:00 Completed [facility] HEPATITIS A 2006-04-02 00:00:00 Completed [facility] HEPATITIS A 2006-04-02 00:00:00 Completed [facility] HEPATITIS A 2006-04-02 00:00:00 Completed [facility] HEPATITIS A 2006-04-02 00:00:00 Completed [facility] HEPATITIS A 2006-04-02 00:00:00 Completed [facility] HEPATITIS A 2006-04-02 00:00:00 Completed [facility] HEPATITIS A 2006-04-02 00:00:00 Completed [facility] HEPATITIS A 2006-04-02 00:00:00 Completed [facility] IPV 2005-04-04 00:00:00 Completed [facility] Varicella (varivax)(chicken pox) 2005-04-04 00:00:00 Completed [facility] IPV 2005-04-04 00:00:00 Completed [facility] Varicella (varivax)(chicken pox) 2005-04-04 00:00:00 Completed [facility] IPV 2005-04-04 00:00:00 Completed [facility] Varicella (varivax)(chicken pox) 2005-04-04 00:00:00 Completed [facility] IPV 2005-04-04 00:00:00 Completed [facility] Varicella (varivax)(chicken pox) 2005-04-04 00:00:00 Completed [facility] IPV 2005-04-04 00:00:00 Completed [facility] Varicella (varivax)(chicken pox) 2005-04-04 00:00:00 Completed [facility] IPV 2005-04-04 00:00:00 Completed [facility] Varicella (varivax)(chicken pox) 2005-04-04 00:00:00 Completed [facility] IPV 2005-04-04 00:00:00 Completed [facility] Varicella (varivax)(chicken pox) 2005-04-04 00:00:00 Completed [facility] IPV 2005-04-04 00:00:00 Completed [facility] Varicella (varivax)(chicken pox) 2005-04-04 00:00:00 Completed [facility] IPV 2005-04-04 00:00:00 Completed [facility] Varicella (varivax)(chicken pox) 2005-04-04 00:00:00 Completed [facility] IPV 2005-04-04 00:00:00 Completed [facility] Varicella (varivax)(chicken pox) 2005-04-04 00:00:00 Completed [facility] IPV 2005-04-04 00:00:00 Completed [facility] Varicella (varivax)(chicken pox) 2005-04-04 00:00:00 Completed [facility] IPV 2005-04-04 00:00:00 Completed [facility] Varicella (varivax)(chicken pox) 2005-04-04 00:00:00 Completed [facility] IPV 2005-04-04 00:00:00 Completed [facility] Varicella (varivax)(chicken pox) 2005-04-04 00:00:00 Completed [facility] IPV 2005-04-04 00:00:00 Completed [facility] Varicella (varivax)(chicken pox) 2005-04-04 00:00:00 Completed [facility] IPV 2005-04-04 00:00:00 Completed [facility] Varicella (varivax)(chicken pox) 2005-04-04 00:00:00 Completed [facility] IPV 2005-04-04 00:00:00 Completed [facility] Varicella (varivax)(chicken pox) 2005-04-04 00:00:00 Completed [facility] IPV 2005-04-04 00:00:00 Completed [facility] Varicella (varivax)(chicken pox) 2005-04-04 00:00:00 Completed [facility] IPV 2005-04-04 00:00:00 Completed [facility] Varicella (varivax)(chicken pox) 2005-04-04 00:00:00 Completed [facility] IPV 2005-04-04 00:00:00 Completed [facility] Varicella (varivax)(chicken pox) 2005-04-04 00:00:00 Completed [facility] IPV 2005-04-04 00:00:00 Completed [facility] Varicella (varivax)(chicken pox) 2005-04-04 00:00:00 Completed [facility] IPV 2005-04-04 00:00:00 Completed [facility] Varicella (varivax)(chicken pox) 2005-04-04 00:00:00 Completed [facility] IPV 2005-04-04 00:00:00 Completed [facility] Varicella (varivax)(chicken pox) 2005-04-04 00:00:00 Completed [facility] IPV 2005-04-04 00:00:00 Completed [facility] Varicella (varivax)(chicken pox) 2005-04-04 00:00:00 Completed [facility] IPV 2005-04-04 00:00:00 Completed [facility] Varicella (varivax)(chicken pox) 2005-04-04 00:00:00 Completed [facility] IPV 2005-04-04 00:00:00 Completed [facility] Varicella (varivax)(chicken pox) 2005-04-04 00:00:00 Completed [facility] IPV 2005-04-04 00:00:00 Completed [facility] Varicella (varivax)(chicken pox) 2005-04-04 00:00:00 Completed [facility] IPV 2005-04-04 00:00:00 Completed [facility] Varicella (varivax)(chicken pox) 2005-04-04 00:00:00 Completed [facility] IPV 2005-04-04 00:00:00 Completed [facility] Varicella (varivax)(chicken pox) 2005-04-04 00:00:00 Completed [facility] IPV 2005-04-04 00:00:00 Completed [facility] Varicella (varivax)(chicken pox) 2005-04-04 00:00:00 Completed [facility] IPV 2005-04-04 00:00:00 Completed [facility] Varicella (varivax)(chicken pox) 2005-04-04 00:00:00 Completed [facility] IPV 2005-04-04 00:00:00 Completed [facility] Varicella (varivax)(chicken pox) 2005-04-04 00:00:00 Completed [facility] IPV 2005-04-04 00:00:00 Completed [facility] Varicella (varivax)(chicken pox) 2005-04-04 00:00:00 Completed [facility] Pediarix (dtap/hep B/ipv) 2004 00:00:00 Completed [facility] HIB 4 Dose Schedule 2004 00:00:00 Completed [facility] Pediarix (dtap/hep B/ipv) 2004 00:00:00 Completed [facility] HIB 4 Dose Schedule 2004 00:00:00 Completed [facility] Pediarix (dtap/hep B/ipv) 2004 00:00:00 Completed [facility] HIB 4 Dose Schedule 2004 00:00:00 Completed [facility] Pediarix (dtap/hep B/ipv) 2004 00:00:00 Completed [facility] HIB 4 Dose Schedule 2004 00:00:00 Completed [facility] Pediarix (dtap/hep B/ipv) 2004 00:00:00 Completed [facility] HIB 4 Dose Schedule 2004 00:00:00 Completed [facility] Pediarix (dtap/hep B/ipv) 2004 00:00:00 Completed [facility] HIB 4 Dose Schedule 2004 00:00:00 Completed [facility] Pediarix (dtap/hep B/ipv) 2004 00:00:00 Completed [facility] HIB 4 Dose Schedule 2004 00:00:00 Completed [facility] Pediarix (dtap/hep B/ipv) 2004 00:00:00 Completed [facility] HIB 4 Dose Schedule 2004 00:00:00 Completed [facility] Pediarix (dtap/hep B/ipv) 2004 00:00:00 Completed [facility] HIB 4 Dose Schedule 2004 00:00:00 Completed [facility] Pediarix (dtap/hep B/ipv) 2004 00:00:00 Completed [facility] HIB 4 Dose Schedule 2004 00:00:00 Completed [facility] Pediarix (dtap/hep B/ipv) 2004 00:00:00 Completed [facility] HIB 4 Dose Schedule 2004 00:00:00 Completed [facility] Pediarix (dtap/hep B/ipv) 2004 00:00:00 Completed [facility] HIB 4 Dose Schedule 2004 00:00:00 Completed [facility] Pediarix (dtap/hep B/ipv) 2004 00:00:00 Completed [facility] HIB 4 Dose Schedule 2004 00:00:00 Completed [facility] Pediarix (dtap/hep B/ipv) 2004 00:00:00 Completed [facility] HIB 4 Dose Schedule 2004 00:00:00 Completed [facility] Pediarix (dtap/hep B/ipv) 2004 00:00:00 Completed [facility] HIB 4 Dose Schedule 2004 00:00:00 Completed [facility] Pediarix (dtap/hep B/ipv) 2004 00:00:00 Completed [facility] HIB 4 Dose Schedule 2004 00:00:00 Completed [facility] Pediarix (dtap/hep B/ipv) 2004 00:00:00 Completed [facility] HIB 4 Dose Schedule 2004 00:00:00 Completed [facility] Pediarix (dtap/hep B/ipv) 2004 00:00:00 Completed [facility] HIB 4 Dose Schedule 2004 00:00:00 Completed [facility] Pediarix (dtap/hep B/ipv) 2004 00:00:00 Completed [facility] HIB 4 Dose Schedule 2004 00:00:00 Completed [facility] Pediarix (dtap/hep B/ipv) 2004 00:00:00 Completed [facility] HIB 4 Dose Schedule 2004 00:00:00 Completed [facility] Pediarix (dtap/hep B/ipv) 2004 00:00:00 Completed [facility] HIB 4 Dose Schedule 2004 00:00:00 Completed [facility] Pediarix (dtap/hep B/ipv) 2004 00:00:00 Completed [facility] HIB 4 Dose Schedule 2004 00:00:00 Completed [facility] Pediarix (dtap/hep B/ipv) 2004 00:00:00 Completed [facility] HIB 4 Dose Schedule 2004 00:00:00 Completed [facility] Pediarix (dtap/hep B/ipv) 2004 00:00:00 Completed [facility] HIB 4 Dose Schedule 2004 00:00:00 Completed [facility] Pediarix (dtap/hep B/ipv) 2004 00:00:00 Completed [facility] HIB 4 Dose Schedule 2004 00:00:00 Completed [facility] Pediarix (dtap/hep B/ipv) 2004 00:00:00 Completed [facility] HIB 4 Dose Schedule 2004 00:00:00 Completed [facility] Pediarix (dtap/hep B/ipv) 2004 00:00:00 Completed [facility] HIB 4 Dose Schedule 2004 00:00:00 Completed [facility] Pediarix (dtap/hep B/ipv) 2004 00:00:00 Completed [facility] HIB 4 Dose Schedule 2004 00:00:00 Completed [facility] Pediarix (dtap/hep B/ipv) 2004 00:00:00 Completed [facility] HIB 4 Dose Schedule 2004 00:00:00 Completed [facility] Pediarix (dtap/hep B/ipv) 2004 00:00:00 Completed [facility] HIB 4 Dose Schedule 2004 00:00:00 Completed [facility] Pediarix (dtap/hep B/ipv) 2004 00:00:00 Completed [facility] HIB 4 Dose Schedule 2004 00:00:00 Completed [facility] Pediarix (dtap/hep B/ipv) 2004 00:00:00 Completed [facility] HIB 4 Dose Schedule 2004 00:00:00 Completed [facility] DTaP, Unspecified Formulation 2004 00:00:00 Completed [facility] Pneumococcal 7 Conjugate, PCV7 (Prevnar7) 2004 00:00:00 Completed [facility] DTaP, Unspecified Formulation 2004 00:00:00 Completed [facility] Pneumococcal 7 Conjugate, PCV7 (Prevnar7) 2004 00:00:00 Completed [facility] DTaP, Unspecified Formulation 2004 00:00:00 Completed [facility] Pneumococcal 7 Conjugate, PCV7 (Prevnar7) 2004 00:00:00 Completed [facility] DTaP, Unspecified Formulation 2004 00:00:00 Completed [facility] Pneumococcal 7 Conjugate, PCV7 (Prevnar7) 2004 00:00:00 Completed [facility] DTaP, Unspecified Formulation 2004 00:00:00 Completed [facility] Pneumococcal 7 Conjugate, PCV7 (Prevnar7) 2004 00:00:00 Completed [facility] DTaP, Unspecified Formulation 2004 00:00:00 Completed [facility] Pneumococcal 7 Conjugate, PCV7 (Prevnar7) 2004 00:00:00 Completed [facility] DTaP, Unspecified Formulation 2004 00:00:00 Completed [facility] Pneumococcal 7 Conjugate, PCV7 (Prevnar7) 2004 00:00:00 Completed [facility] DTaP, Unspecified Formulation 2004 00:00:00 Completed [facility] Pneumococcal 7 Conjugate, PCV7 (Prevnar7) 2004 00:00:00 Completed [facility] DTaP, Unspecified Formulation 2004 00:00:00 Completed [facility] Pneumococcal 7 Conjugate, PCV7 (Prevnar7) 2004 00:00:00 Completed [facility] DTaP, Unspecified Formulation 2004 00:00:00 Completed [facility] Pneumococcal 7 Conjugate, PCV7 (Prevnar7) 2004 00:00:00 Completed [facility] DTaP, Unspecified Formulation 2004 00:00:00 Completed [facility] Pneumococcal 7 Conjugate, PCV7 (Prevnar7) 2004 00:00:00 Completed [facility] DTaP, Unspecified Formulation 2004 00:00:00 Completed [facility] Pneumococcal 7 Conjugate, PCV7 (Prevnar7) 2004 00:00:00 Completed [facility] DTaP, Unspecified Formulation 2004 00:00:00 Completed [facility] Pneumococcal 7 Conjugate, PCV7 (Prevnar7) 2004 00:00:00 Completed [facility] DTaP, Unspecified Formulation 2004 00:00:00 Completed [facility] Pneumococcal 7 Conjugate, PCV7 (Prevnar7) 2004 00:00:00 Completed [facility] DTaP, Unspecified Formulation 2004 00:00:00 Completed [facility] Pneumococcal 7 Conjugate, PCV7 (Prevnar7) 2004 00:00:00 Completed [facility] DTaP, Unspecified Formulation 2004 00:00:00 Completed [facility] Pneumococcal 7 Conjugate, PCV7 (Prevnar7) 2004 00:00:00 Completed [facility] DTaP, Unspecified Formulation 2004 00:00:00 Completed [facility] Pneumococcal 7 Conjugate, PCV7 (Prevnar7) 2004 00:00:00 Completed [facility] DTaP, Unspecified Formulation 2004 00:00:00 Completed [facility] Pneumococcal 7 Conjugate, PCV7 (Prevnar7) 2004 00:00:00 Completed [facility] DTaP, Unspecified Formulation 2004 00:00:00 Completed [facility] Pneumococcal 7 Conjugate, PCV7 (Prevnar7) 2004 00:00:00 Completed [facility] DTaP, Unspecified Formulation 2004 00:00:00 Completed [facility] Pneumococcal 7 Conjugate, PCV7 (Prevnar7) 2004 00:00:00 Completed [facility] DTaP, Unspecified Formulation 2004 00:00:00 Completed [facility] Pneumococcal 7 Conjugate, PCV7 (Prevnar7) 2004 00:00:00 Completed [facility] DTaP, Unspecified Formulation 2004 00:00:00 Completed [facility] Pneumococcal 7 Conjugate, PCV7 (Prevnar7) 2004 00:00:00 Completed [facility] DTaP, Unspecified Formulation 2004 00:00:00 Completed [facility] Pneumococcal 7 Conjugate, PCV7 (Prevnar7) 2004 00:00:00 Completed [facility] DTaP, Unspecified Formulation 2004 00:00:00 Completed [facility] Pneumococcal 7 Conjugate, PCV7 (Prevnar7) 2004 00:00:00 Completed [facility] DTaP, Unspecified Formulation 2004 00:00:00 Completed [facility] Pneumococcal 7 Conjugate, PCV7 (Prevnar7) 2004 00:00:00 Completed [facility] DTaP, Unspecified Formulation 2004 00:00:00 Completed [facility] Pneumococcal 7 Conjugate, PCV7 (Prevnar7) 2004 00:00:00 Completed [facility] DTaP, Unspecified Formulation 2004 00:00:00 Completed [facility] Pneumococcal 7 Conjugate, PCV7 (Prevnar7) 2004 00:00:00 Completed [facility] DTaP, Unspecified Formulation 2004 00:00:00 Completed [facility] Pneumococcal 7 Conjugate, PCV7 (Prevnar7) 2004 00:00:00 Completed [facility] DTaP, Unspecified Formulation 2004 00:00:00 Completed [facility] Pneumococcal 7 Conjugate, PCV7 (Prevnar7) 2004 00:00:00 Completed [facility] DTaP, Unspecified Formulation 2004 00:00:00 Completed [facility] Pneumococcal 7 Conjugate, PCV7 (Prevnar7) 2004 00:00:00 Completed [facility] DTaP, Unspecified Formulation 2004 00:00:00 Completed [facility] Pneumococcal 7 Conjugate, PCV7 (Prevnar7) 2004 00:00:00 Completed [facility] DTaP, Unspecified Formulation 2004 00:00:00 Completed [facility] Pneumococcal 7 Conjugate, PCV7 (Prevnar7) 2004 00:00:00 Completed [facility] HIB 4 Dose Schedule 2004 00:00:00 Completed [facility] Pneumococcal 7 Conjugate, PCV7 (Prevnar7) 2004 00:00:00 Completed [facility] HIB 4 Dose Schedule 2004 00:00:00 Completed [facility] Pneumococcal 7 Conjugate, PCV7 (Prevnar7) 2004 00:00:00 Completed [facility] HIB 4 Dose Schedule 2004 00:00:00 Completed [facility] Pneumococcal 7 Conjugate, PCV7 (Prevnar7) 2004 00:00:00 Completed [facility] HIB 4 Dose Schedule 2004 00:00:00 Completed [facility] Pneumococcal 7 Conjugate, PCV7 (Prevnar7) 2004 00:00:00 Completed [facility] HIB 4 Dose Schedule 2004 00:00:00 Completed [facility] Pneumococcal 7 Conjugate, PCV7 (Prevnar7) 2004 00:00:00 Completed [facility] HIB 4 Dose Schedule 2004 00:00:00 Completed [facility] Pneumococcal 7 Conjugate, PCV7 (Prevnar7) 2004 00:00:00 Completed [facility] HIB 4 Dose Schedule 2004 00:00:00 Completed [facility] Pneumococcal 7 Conjugate, PCV7 (Prevnar7) 2004 00:00:00 Completed [facility] HIB 4 Dose Schedule 2004 00:00:00 Completed [facility] Pneumococcal 7 Conjugate, PCV7 (Prevnar7) 2004 00:00:00 Completed [facility] HIB 4 Dose Schedule 2004 00:00:00 Completed [facility] Pneumococcal 7 Conjugate, PCV7 (Prevnar7) 2004 00:00:00 Completed [facility] HIB 4 Dose Schedule 2004 00:00:00 Completed [facility] Pneumococcal 7 Conjugate, PCV7 (Prevnar7) 2004 00:00:00 Completed [facility] HIB 4 Dose Schedule 2004 00:00:00 Completed [facility] Pneumococcal 7 Conjugate, PCV7 (Prevnar7) 2004 00:00:00 Completed [facility] HIB 4 Dose Schedule 2004 00:00:00 Completed [facility] Pneumococcal 7 Conjugate, PCV7 (Prevnar7) 2004 00:00:00 Completed [facility] HIB 4 Dose Schedule 2004 00:00:00 Completed [facility] Pneumococcal 7 Conjugate, PCV7 (Prevnar7) 2004 00:00:00 Completed [facility] HIB 4 Dose Schedule 2004 00:00:00 Completed [facility] Pneumococcal 7 Conjugate, PCV7 (Prevnar7) 2004 00:00:00 Completed [facility] HIB 4 Dose Schedule 2004 00:00:00 Completed [facility] Pneumococcal 7 Conjugate, PCV7 (Prevnar7) 2004 00:00:00 Completed [facility] HIB 4 Dose Schedule 2004 00:00:00 Completed [facility] Pneumococcal 7 Conjugate, PCV7 (Prevnar7) 2004 00:00:00 Completed [facility] HIB 4 Dose Schedule 2004 00:00:00 Completed [facility] Pneumococcal 7 Conjugate, PCV7 (Prevnar7) 2004 00:00:00 Completed [facility] HIB 4 Dose Schedule 2004 00:00:00 Completed [facility] Pneumococcal 7 Conjugate, PCV7 (Prevnar7) 2004 00:00:00 Completed [facility] HIB 4 Dose Schedule 2004 00:00:00 Completed [facility] Pneumococcal 7 Conjugate, PCV7 (Prevnar7) 2004 00:00:00 Completed [facility] HIB 4 Dose Schedule 2004 00:00:00 Completed [facility] Pneumococcal 7 Conjugate, PCV7 (Prevnar7) 2004 00:00:00 Completed [facility] HIB 4 Dose Schedule 2004 00:00:00 Completed [facility] Pneumococcal 7 Conjugate, PCV7 (Prevnar7) 2004 00:00:00 Completed [facility] HIB 4 Dose Schedule 2004 00:00:00 Completed [facility] Pneumococcal 7 Conjugate, PCV7 (Prevnar7) 2004 00:00:00 Completed [facility] HIB 4 Dose Schedule 2004 00:00:00 Completed [facility] Pneumococcal 7 Conjugate, PCV7 (Prevnar7) 2004 00:00:00 Completed [facility] HIB 4 Dose Schedule 2004 00:00:00 Completed [facility] Pneumococcal 7 Conjugate, PCV7 (Prevnar7) 2004 00:00:00 Completed [facility] HIB 4 Dose Schedule 2004 00:00:00 Completed [facility] Pneumococcal 7 Conjugate, PCV7 (Prevnar7) 2004 00:00:00 Completed [facility] HIB 4 Dose Schedule 2004 00:00:00 Completed [facility] Pneumococcal 7 Conjugate, PCV7 (Prevnar7) 2004 00:00:00 Completed [facility] HIB 4 Dose Schedule 2004 00:00:00 Completed [facility] Pneumococcal 7 Conjugate, PCV7 (Prevnar7) 2004 00:00:00 Completed [facility] HIB 4 Dose Schedule 2004 00:00:00 Completed [facility] Pneumococcal 7 Conjugate, PCV7 (Prevnar7) 2004 00:00:00 Completed [facility] HIB 4 Dose Schedule 2004 00:00:00 Completed [facility] Pneumococcal 7 Conjugate, PCV7 (Prevnar7) 2004 00:00:00 Completed [facility] HIB 4 Dose Schedule 2004 00:00:00 Completed [facility] Pneumococcal 7 Conjugate, PCV7 (Prevnar7) 2004 00:00:00 Completed [facility] HIB 4 Dose Schedule 2004 00:00:00 Completed [facility] Pneumococcal 7 Conjugate, PCV7 (Prevnar7) 2004 00:00:00 Completed [facility] HIB 4 Dose Schedule 2004 00:00:00 Completed [facility] Pneumococcal 7 Conjugate, PCV7 (Prevnar7) 2004 00:00:00 Completed [facility] Pneumococcal 7 Conjugate, PCV7 (Prevnar7) 2004 00:00:00 Completed [facility] Pediarix (dtap/hep B/ipv) 2004 00:00:00 Completed [facility] HIB 4 Dose Schedule 2004 00:00:00 Completed [facility] Pneumococcal 7 Conjugate, PCV7 (Prevnar7) 2004 00:00:00 Completed [facility] Pediarix (dtap/hep B/ipv) 2004 00:00:00 Completed [facility] HIB 4 Dose Schedule 2004 00:00:00 Completed [facility] Pneumococcal 7 Conjugate, PCV7 (Prevnar7) 2004 00:00:00 Completed [facility] Pediarix (dtap/hep B/ipv) 2004 00:00:00 Completed [facility] HIB 4 Dose Schedule 2004 00:00:00 Completed [facility] Pneumococcal 7 Conjugate, PCV7 (Prevnar7) 2004 00:00:00 Completed [facility] Pediarix (dtap/hep B/ipv) 2004 00:00:00 Completed [facility] HIB 4 Dose Schedule 2004 00:00:00 Completed [facility] Pneumococcal 7 Conjugate, PCV7 (Prevnar7) 2004 00:00:00 Completed [facility] Pediarix (dtap/hep B/ipv) 2004 00:00:00 Completed [facility] HIB 4 Dose Schedule 2004 00:00:00 Completed [facility] Pneumococcal 7 Conjugate, PCV7 (Prevnar7) 2004 00:00:00 Completed [facility] Pediarix (dtap/hep B/ipv) 2004 00:00:00 Completed [facility] HIB 4 Dose Schedule 2004 00:00:00 Completed [facility] Pneumococcal 7 Conjugate, PCV7 (Prevnar7) 2004 00:00:00 Completed [facility] Pediarix (dtap/hep B/ipv) 2004 00:00:00 Completed [facility] HIB 4 Dose Schedule 2004 00:00:00 Completed [facility] Pneumococcal 7 Conjugate, PCV7 (Prevnar7) 2004 00:00:00 Completed [facility] Pediarix (dtap/hep B/ipv) 2004 00:00:00 Completed [facility] HIB 4 Dose Schedule 2004 00:00:00 Completed [facility] Pneumococcal 7 Conjugate, PCV7 (Prevnar7) 2004 00:00:00 Completed [facility] Pediarix (dtap/hep B/ipv) 2004 00:00:00 Completed [facility] HIB 4 Dose Schedule 2004 00:00:00 Completed [facility] Pneumococcal 7 Conjugate, PCV7 (Prevnar7) 2004 00:00:00 Completed [facility] Pediarix (dtap/hep B/ipv) 2004 00:00:00 Completed [facility] HIB 4 Dose Schedule 2004 00:00:00 Completed [facility] Pneumococcal 7 Conjugate, PCV7 (Prevnar7) 2004 00:00:00 Completed [facility] Pediarix (dtap/hep B/ipv) 2004 00:00:00 Completed [facility] HIB 4 Dose Schedule 2004 00:00:00 Completed [facility] Pneumococcal 7 Conjugate, PCV7 (Prevnar7) 2004 00:00:00 Completed [facility] Pediarix (dtap/hep B/ipv) 2004 00:00:00 Completed [facility] HIB 4 Dose Schedule 2004 00:00:00 Completed [facility] Pneumococcal 7 Conjugate, PCV7 (Prevnar7) 2004 00:00:00 Completed [facility] Pediarix (dtap/hep B/ipv) 2004 00:00:00 Completed [facility] HIB 4 Dose Schedule 2004 00:00:00 Completed [facility] Pneumococcal 7 Conjugate, PCV7 (Prevnar7) 2004 00:00:00 Completed [facility] Pediarix (dtap/hep B/ipv) 2004 00:00:00 Completed [facility] HIB 4 Dose Schedule 2004 00:00:00 Completed [facility] Pneumococcal 7 Conjugate, PCV7 (Prevnar7) 2004 00:00:00 Completed [facility] Pediarix (dtap/hep B/ipv) 2004 00:00:00 Completed [facility] HIB 4 Dose Schedule 2004 00:00:00 Completed [facility] Pneumococcal 7 Conjugate, PCV7 (Prevnar7) 2004 00:00:00 Completed [facility] Pediarix (dtap/hep B/ipv) 2004 00:00:00 Completed [facility] HIB 4 Dose Schedule 2004 00:00:00 Completed [facility] Pneumococcal 7 Conjugate, PCV7 (Prevnar7) 2004 00:00:00 Completed [facility] Pediarix (dtap/hep B/ipv) 2004 00:00:00 Completed [facility] HIB 4 Dose Schedule 2004 00:00:00 Completed [facility] Pneumococcal 7 Conjugate, PCV7 (Prevnar7) 2004 00:00:00 Completed [facility] Pediarix (dtap/hep B/ipv) 2004 00:00:00 Completed [facility] HIB 4 Dose Schedule 2004 00:00:00 Completed [facility] Pneumococcal 7 Conjugate, PCV7 (Prevnar7) 2004 00:00:00 Completed [facility] Pediarix (dtap/hep B/ipv) 2004 00:00:00 Completed [facility] HIB 4 Dose Schedule 2004 00:00:00 Completed [facility] Pneumococcal 7 Conjugate, PCV7 (Prevnar7) 2004 00:00:00 Completed [facility] Pediarix (dtap/hep B/ipv) 2004 00:00:00 Completed [facility] HIB 4 Dose Schedule 2004 00:00:00 Completed [facility] Pneumococcal 7 Conjugate, PCV7 (Prevnar7) 2004 00:00:00 Completed [facility] Pediarix (dtap/hep B/ipv) 2004 00:00:00 Completed [facility] HIB 4 Dose Schedule 2004 00:00:00 Completed [facility] Pneumococcal 7 Conjugate, PCV7 (Prevnar7) 2004 00:00:00 Completed [facility] Pediarix (dtap/hep B/ipv) 2004 00:00:00 Completed [facility] HIB 4 Dose Schedule 2004 00:00:00 Completed [facility] Pneumococcal 7 Conjugate, PCV7 (Prevnar7) 2004 00:00:00 Completed [facility] Pediarix (dtap/hep B/ipv) 2004 00:00:00 Completed [facility] HIB 4 Dose Schedule 2004 00:00:00 Completed [facility] Pneumococcal 7 Conjugate, PCV7 (Prevnar7) 2004 00:00:00 Completed [facility] Pediarix (dtap/hep B/ipv) 2004 00:00:00 Completed [facility] HIB 4 Dose Schedule 2004 00:00:00 Completed [facility] Pneumococcal 7 Conjugate, PCV7 (Prevnar7) 2004 00:00:00 Completed [facility] Pediarix (dtap/hep B/ipv) 2004 00:00:00 Completed [facility] HIB 4 Dose Schedule 2004 00:00:00 Completed [facility] Pneumococcal 7 Conjugate, PCV7 (Prevnar7) 2004 00:00:00 Completed [facility] Pediarix (dtap/hep B/ipv) 2004 00:00:00 Completed [facility] HIB 4 Dose Schedule 2004 00:00:00 Completed [facility] Pneumococcal 7 Conjugate, PCV7 (Prevnar7) 2004 00:00:00 Completed [facility] Pediarix (dtap/hep B/ipv) 2004 00:00:00 Completed [facility] HIB 4 Dose Schedule 2004 00:00:00 Completed [facility] Pneumococcal 7 Conjugate, PCV7 (Prevnar7) 2004 00:00:00 Completed [facility] Pediarix (dtap/hep B/ipv) 2004 00:00:00 Completed [facility] HIB 4 Dose Schedule 2004 00:00:00 Completed [facility] Pneumococcal 7 Conjugate, PCV7 (Prevnar7) 2004 00:00:00 Completed [facility] Pediarix (dtap/hep B/ipv) 2004 00:00:00 Completed [facility] HIB 4 Dose Schedule 2004 00:00:00 Completed [facility] Pneumococcal 7 Conjugate, PCV7 (Prevnar7) 2004 00:00:00 Completed [facility] Pediarix (dtap/hep B/ipv) 2004 00:00:00 Completed [facility] HIB 4 Dose Schedule 2004 00:00:00 Completed [facility] Pneumococcal 7 Conjugate, PCV7 (Prevnar7) 2004 00:00:00 Completed [facility] Pediarix (dtap/hep B/ipv) 2004 00:00:00 Completed [facility] HIB 4 Dose Schedule 2004 00:00:00 Completed [facility] Pneumococcal 7 Conjugate, PCV7 (Prevnar7) 2004 00:00:00 Completed [facility] Pediarix (dtap/hep B/ipv) 2004 00:00:00 Completed [facility] HIB 4 Dose Schedule 2004 00:00:00 Completed [facility] Hep B, Adol or Pedi Dosage 2004 00:00:00 Completed [facility] Hep B, Adol or Pedi Dosage 2004 00:00:00 Completed [facility] Hep B, Adol or Pedi Dosage 2004 00:00:00 Completed [facility] Hep B, Adol or Pedi Dosage 2004 00:00:00 Completed [facility] Hep B, Adol or Pedi Dosage 2004 00:00:00 Completed [facility] Hep B, Adol or Pedi Dosage 2004 00:00:00 Completed [facility] Hep B, Adol or Pedi Dosage 2004 00:00:00 Completed [facility] Hep B, Adol or Pedi Dosage 2004 00:00:00 Completed [facility] Hep B, Adol or Pedi Dosage 2004 00:00:00 Completed [facility] Hep B, Adol or Pedi Dosage 2004 00:00:00 Completed [facility] Hep B, Adol or Pedi Dosage 2004 00:00:00 Completed [facility] Hep B, Adol or Pedi Dosage 2004 00:00:00 Completed [facility] Hep B, Adol or Pedi Dosage 2004 00:00:00 Completed [facility] Hep B, Adol or Pedi Dosage 2004 00:00:00 Completed [facility] Hep B, Adol or Pedi Dosage 2004 00:00:00 Completed [facility] Hep B, Adol or Pedi Dosage 2004 00:00:00 Completed [facility] Hep B, Adol or Pedi Dosage 2004 00:00:00 Completed [facility] Hep B, Adol or Pedi Dosage 2004 00:00:00 Completed [facility] Hep B, Adol or Pedi Dosage 2004 00:00:00 Completed [facility] Hep B, Adol or Pedi Dosage 2004 00:00:00 Completed [facility] Hep B, Adol or Pedi Dosage 2004 00:00:00 Completed [facility] Hep B, Adol or Pedi Dosage 2004 00:00:00 Completed [facility] Hep B, Adol or Pedi Dosage 2004 00:00:00 Completed [facility] Hep B, Adol or Pedi Dosage 2004 00:00:00 Completed [facility] Hep B, Adol or Pedi Dosage 2004 00:00:00 Completed [facility] Hep B, Adol or Pedi Dosage 2004 00:00:00 Completed [facility] Hep B, Adol or Pedi Dosage 2004 00:00:00 Completed [facility] Hep B, Adol or Pedi Dosage 2004 00:00:00 Completed [facility] Hep B, Adol or Pedi Dosage 2004 00:00:00 Completed [facility] Hep B, Adol or Pedi Dosage 2004 00:00:00 Completed [facility] Hep B, Adol or Pedi Dosage 2004 00:00:00 Completed [facility] Hep B, Adol or Pedi Dosage 2004 00:00:00 Completed [facility] DTaP, Unspecified Formulation Unknown Completed [facility] DTaP, Unspecified Formulation Unknown Completed [facility] DTaP, Unspecified Formulation Unknown Completed [facility] Pediarix (dtap/hep B/ipv) Unknown Completed [facility] Pediarix (dtap/hep B/ipv) Unknown Completed [facility] HEPATITIS A Unknown Completed [facility] HEPATITIS A Unknown Completed [facility] Hep B, Adol or Pedi Dosage Unknown Completed [facility] HIB 4 Dose Schedule Unknown Completed [facility] HIB 4 Dose Schedule Unknown Completed [facility] HIB 4 Dose Schedule Unknown Completed [facility] HIB 4 Dose Schedule Unknown Completed [facility] HPV Unknown Completed [facility] HPV9 Unknown Completed [facility] HPV9 Unknown Completed [facility] Meningococcal Polysaccharide (groups A, C, Y and W-135) conjugate vaccine (MCV4P) Unknown Completed [facility] MMR Unknown Completed [facility] MMR Unknown Completed [facility] Pneumococcal 7 Conjugate, PCV7 (Prevnar7) Unknown Completed [facility] Pneumococcal 7 Conjugate, PCV7 (Prevnar7) Unknown Completed [facility] Pneumococcal 7 Conjugate, PCV7 (Prevnar7) Unknown Completed [facility] Pneumococcal 7 Conjugate, PCV7 (Prevnar7) Unknown Completed [facility] IPV Unknown Completed [facility] IPV Unknown Completed [facility] TDAP Unknown Completed [facility] Varicella (varivax)(chicken pox) Unknown Completed [facility] Varicella (varivax)(chicken pox) Unknown Completed [facility] TDAP Unknown Completed [facility] DTaP, Unspecified Formulation Unknown Completed [facility] DTaP, Unspecified Formulation Unknown Completed [facility] DTaP, Unspecified Formulation Unknown Completed [facility] Pediarix (dtap/hep B/ipv) Unknown Completed [facility] Pediarix (dtap/hep B/ipv) Unknown Completed [facility] HEPATITIS A Unknown Completed [facility] HEPATITIS A Unknown Completed [facility] Hep B, Adol or Pedi Dosage Unknown Completed [facility] HIB 4 Dose Schedule Unknown Completed [facility] HIB 4 Dose Schedule Unknown Completed [facility] HIB 4 Dose Schedule Unknown Completed [facility] HIB 4 Dose Schedule Unknown Completed [facility] HPV Unknown Completed [facility] HPV9 Unknown Completed [facility] HPV9 Unknown Completed [facility] Meningococcal Polysaccharide (groups A, C, Y and W-135) conjugate vaccine (MCV4P) Unknown Completed [facility] MMR Unknown Completed [facility] MMR Unknown Completed [facility] Pneumococcal 7 Conjugate, PCV7 (Prevnar7) Unknown Completed [facility] Pneumococcal 7 Conjugate, PCV7 (Prevnar7) Unknown Completed [facility] Pneumococcal 7 Conjugate, PCV7 (Prevnar7) Unknown Completed [facility] Pneumococcal 7 Conjugate, PCV7 (Prevnar7) Unknown Completed [facility] IPV Unknown Completed [facility] IPV Unknown Completed [facility] TDAP Unknown Completed [facility] Varicella (varivax)(chicken pox) Unknown Completed [facility] Varicella (varivax)(chicken pox) Unknown Completed [facility] TDAP Unknown Completed [facility] DTaP, Unspecified Formulation Unknown Completed [facility] DTaP, Unspecified Formulation Unknown Completed [facility] DTaP, Unspecified Formulation Unknown Completed [facility] Pediarix (dtap/hep B/ipv) Unknown Completed [facility] Pediarix (dtap/hep B/ipv) Unknown Completed [facility] HEPATITIS A Unknown Completed [facility] HEPATITIS A Unknown Completed [facility] Hep B, Adol or Pedi Dosage Unknown Completed [facility] HIB 4 Dose Schedule Unknown Completed [facility] HIB 4 Dose Schedule Unknown Completed [facility] HIB 4 Dose Schedule Unknown Completed [facility] HIB 4 Dose Schedule Unknown Completed [facility] HPV Unknown Completed [facility] HPV9 Unknown Completed [facility] HPV9 Unknown Completed [facility] Meningococcal Polysaccharide (groups A, C, Y and W-135) conjugate vaccine (MCV4P) Unknown Completed [facility] MMR Unknown Completed [facility] MMR Unknown Completed [facility] Pneumococcal 7 Conjugate, PCV7 (Prevnar7) Unknown Completed [facility] Pneumococcal 7 Conjugate, PCV7 (Prevnar7) Unknown Completed [facility] Pneumococcal 7 Conjugate, PCV7 (Prevnar7) Unknown Completed [facility] Pneumococcal 7 Conjugate, PCV7 (Prevnar7) Unknown Completed [facility] IPV Unknown Completed [facility] IPV Unknown Completed [facility] TDAP Unknown Completed [facility] Varicella (varivax)(chicken pox) Unknown Completed [facility] Varicella (varivax)(chicken pox) Unknown Completed [facility] TDAP Unknown Completed [facility] Vital Signs Vital Name Observation Time Observation Value Comments S ource Systolic blood pressure 2023-07-12 18:14:00 130 mm[Hg] [facility] Diastolic blood pressure 2023-07-12 18:14:00 81 mm[Hg] [facility] Heart rate 2023-07-12 18:14:00 87 /min [facility] Body temperature 2023-07-12 18:14:00 36.67 Priya [facility] Respiratory rate 2023-07-12 18:14:00 18 /min [facility] Body height 2023-07-12 18:14:00 170.2 cm [facility] Body weight 2023-07-12 18:14:00 79.833 kg [facility] BMI 2023-07-12 18:14:00 27.57 kg/m2 [facility] Systolic blood pressure 2023-04-11 19:44:00 109 mm[Hg] [facility] Diastolic blood pressure 2023-04-11 19:44:00 65 mm[Hg] [facility] Heart rate 2023-04-11 19:44:00 82 [facility] 2023-04-11 19:44:00 36.11 Priya [facility] Respiratory rate 2023-04-11 19:44:00 18 /min [facility] Body height 2023-04-11 19:44:00 170.2 cm [facility] Body weight 2023-04-11 19:44:00 82.243 kg [facility] BMI 2023-04-11 19:44:00 28.40 kg/m2 [facility] Systolic blood pressure 2023-03-21 15:27:00 114 mm[Hg] [facility] Diastolic blood pressure 2023-03-21 15:27:00 76 mm[Hg] [facility] Heart rate 2023-03-21 15:27:00 61 /[facility] Body temperature 2023-03-21 15:27:00 36.78 Priya [facility] Respiratory rate 2023-03-21 15:27:00 18 /min [facility] Body height 2023-03-21 15:27:00 170.2 cm [facility] Body weight 2023-03-21 15:27:00 81.194 kg [facility] BMI 2023-03-21 15:27:00 28.04 kg/m2 [facility] Body mass index (BMI) [Percentile] Per age and sex 2023-03-21 15:27:00 90.72 % [facility] Systolic blood pressure 2023-03-02 13:33:00 104 mm[Hg] [facility] Diastolic blood pressure 2023-03-02 13:33:00 56 mm[Hg] [facility] Heart rate 2023-03-02 13:33:00 68 /min [facility] Body temperature 2023-03-02 13:33:00 36.89 Priya [facility] Respiratory rate 2023-03-02 13:33:00 18 /min [facility] Oxygen saturation in Arterial blood by Pulse oximetry 2023-03-02 13:33:00 95 /min [facility] Body height 2023-02-28 14:33:00 170.2 cm [facility] Body weight 2023-02-28 14:33:00 91.717 kg [facility] BMI 2023-02-28 14:33:00 31.67 kg/m2 [facility] Body mass index (BMI) [Percentile] Per age and sex 2023-02-28 14:33:00 95.64 % [facility] Systolic blood pressure 2023-02-27 17:43:00 120 mm[Hg] [facility] Diastolic blood pressure 2023-02-27 17:43:00 74 mm[Hg] [facility] Heart rate 2023-02-27 17:43:00 82 /min [facility] Body temperature 2023-02-27 17:43:00 36.39 Priya [facility] Respiratory rate 2023-02-27 17:43:00 18 /min [facility] Body height 2023-02-27 17:43:00 170.2 cm [facility] Body weight 2023-02-27 17:43:00 91.371 kg [facility] BMI 2023-02-27 17:43:00 31.55 kg/m2 [facility] Body mass index (BMI) [Percentile] Per age and sex 2023-02-27 17:43:00 95.55 % [facility] Systolic blood pressure 2023-02-24 04:50:00 106 mm[Hg] [facility] Diastolic blood pressure 2023-02-24 04:50:00 62 mm[Hg] [facility] Heart rate 2023-02-24 04:50:00 65 /min [facility] Oxygen saturation in Arterial blood by Pulse oximetry 2023-02-24 04:50:00 99 /min [facility] Body temperature 2023-02-24 04:45:00 36.61 Priya [facility] Respiratory rate 2023-02-24 04:24:00 18 /min [facility] Body height 2023-02-24 04:24:00 170.2 cm [facility] Body weight 2023-02-24 04:24:00 89.948 kg [facility] BMI 2023-02-24 04:24:00 31.06 kg/m2 [facility] Body mass index (BMI) [Percentile] Per age and sex 2023-02-24 04:24:00 95.13 % [facility] Systolic blood pressure 2023-02-21 17:52:00 117 mm[Hg] [facility] Diastolic blood pressure 2023-02-21 17:52:00 70 mm[Hg] [facility] Heart rate 2023-02-21 17:52:00 74 /[facility] Body temperature 2023-02-21 17:52:00 36.39 Priya [facility] Respiratory rate 2023-02-21 17:52:00 20 /min [facility] Body height 2023-02-21 17:52:00 170.2 cm [facility] Body weight 2023-02-21 17:52:00 89.812 kg [facility] BMI 2023-02-21 17:52:00 31.01 kg/m2 [facility] Body mass index (BMI) [Percentile] Per age and sex 2023-02-21 17:52:00 95.09 % [facility] Heart rate 2023-02-20 02:30:00 68 /min [facility] Oxygen saturation in Arterial blood by Pulse oximetry 2023-02-20 02:30:00 100 /min [facility] Systolic blood pressure 2023-02-20 00:45:00 109 mm[Hg] [facility] Diastolic blood pressure 2023-02-20 00:45:00 61 mm[Hg] [facility] Body temperature 2023-02-20 00:33:00 37.61 Priya [facility] Respiratory rate 2023-02-20 00:33:00 18 /min [facility] Body height 2023-02-20 00:33:00 170.2 cm [facility] Body weight 2023-02-20 00:09:00 89.858 kg [facility] BMI 2023-02-20 00:09:00 31.02 kg/m2 [facility] Body mass index (BMI) [Percentile] Per age and sex 2023-02-20 00:09:00 95.10 % [facility] Systolic blood pressure 2023-02-14 20:48:00 125 mm[Hg] [facility] Diastolic blood pressure 2023-02-14 20:48:00 79 mm[Hg] [facility] Heart rate 2023-02-14 20:48:00 99 /min [facility] Body temperature 2023-02-14 20:48:00 35.17 Priya [facility] Respiratory rate 2023-02-14 20:48:00 18 /min [facility] Body height 2023-02-14 20:48:00 170.2 cm [facility] Body weight 2023-02-14 20:48:00 89.223 kg [facility] BMI 2023-02-14 20:48:00 30.81 kg/m2 [facility] Body mass index (BMI) [Percentile] Per age and sex 2023-02-14 20:48:00 94.91 % [facility] Systolic blood pressure 2023-02-07 19:05:00 120 mm[Hg] [facility] Diastolic blood pressure 2023-02-07 19:05:00 90 mm[Hg] [facility] Heart rate 2023-02-07 19:05:00 98 /min [facility] Body temperature 2023-02-07 19:05:00 35.89 Priya [facility] Respiratory rate 2023-02-07 19:05:00 18 /min [facility] Body height 2023-02-07 19:05:00 170.2 cm [facility] Body weight 2023-02-07 19:05:00 88.27 kg [facility] BMI 2023-02-07 19:05:00 30.48 kg/m2 [facility] Body mass index (BMI) [Percentile] Per age and sex 2023-02-07 19:05:00 94.58 % [facility] Systolic blood pressure 2023-02-01 02:46:00 134 mm[Hg] [facility] Diastolic blood pressure 2023-02-01 02:46:00 85 mm[Hg] [facility] Heart rate 2023-02-01 02:46:00 99 /min [facility] Body temperature 2023-02-01 02:46:00 36.89 Priya [facility] Respiratory rate 2023-02-01 02:46:00 18 /min [facility] Body height 2023-02-01 02:46:00 170.2 cm [facility] Body weight 2023-02-01 02:46:00 88.043 kg [facility] BMI 2023-02-01 02:46:00 30.40 kg/m2 [facility] Body mass index (BMI) [Percentile] Per age and sex 2023-02-01 02:46:00 94.51 % [facility] Oxygen saturation in Arterial blood by Pulse oximetry 2023-02-01 02:46:00 99 /min [facility] Systolic blood pressure 2023-01-24 19:58:00 113 mm[Hg] [facility] Diastolic blood pressure 2023-01-24 19:58:00 64 mm[Hg] [facility] Heart rate 2023-01-24 19:58:00 78 /min [facility] Body temperature 2023-01-24 19:58:00 36.11 Priya [facility] Respiratory rate 2023-01-24 19:58:00 18 /min [facility] Body height 2023-01-24 19:58:00 170.2 cm [facility] Body weight 2023-01-24 19:58:00 86.183 kg [facility] BMI 2023-01-24 19:58:00 29.76 kg/m2 [facility] Body mass index (BMI) [Percentile] Per age and sex 2023-01-24 19:58:00 93.76 % [facility] Systolic blood pressure 2023-01-08 20:11:00 127 mm[Hg] [facility] Diastolic blood pressure 2023-01-08 20:11:00 74 mm[Hg] [facility] Heart rate 2023-01-08 20:11:00 87 /min [facility] Body temperature 2023-01-08 20:11:00 36.17 Priya [facility] Respiratory rate 2023-01-08 20:11:00 18 /min [facility] Body height 2023-01-08 20:11:00 170.2 cm [facility] Body weight 2023-01-08 20:11:00 84.46 kg [facility] BMI 2023-01-08 20:11:00 29.16 kg/m2 [facility] Body mass index (BMI) [Percentile] Per age and sex 2023-01-08 20:11:00 92.95 % [facility] Systolic blood pressure 2022-12-25 19:37:00 121 mm[Hg] [facility] Diastolic blood pressure 2022-12-25 19:37:00 74 mm[Hg] [facility] Heart rate 2022-12-25 19:37:00 101 /min [facility] Body temperature 2022-12-25 19:37:00 36.22 Priya [facility] Respiratory rate 2022-12-25 19:37:00 18 /min [facility] Body weight 2022-12-25 19:37:00 82.963 kg [facility] Systolic blood pressure 2022-12-11 17:56:00 96 mm[Hg] [facility] Diastolic blood pressure 2022-12-11 17:56:00 64 mm[Hg] [facility] Heart rate 2022-12-11 17:56:00 70 /min [facility] Body temperature 2022-12-11 17:56:00 35.72 Priya [facility] Respiratory rate 2022-12-11 17:56:00 18 /min [facility] Body height 2022-12-11 17:56:00 170.2 cm [facility] Body weight 2022-12-11 17:56:00 81.058 kg [facility] BMI 2022-12-11 17:56:00 27.99 kg/m2 [facility] Body mass index (BMI) [Percentile] Per age and sex 2022-12-11 17:56:00 90.92 % [facility] Systolic blood pressure 2022-11-20 19:01:00 114 mm[Hg] [facility] Diastolic blood pressure 2022-11-20 19:01:00 59 mm[Hg] [facility] Heart rate 2022-11-20 19:01:00 82 /min [facility] Body temperature 2022-11-20 19:01:00 36.61 Priya [facility] Respiratory rate 2022-11-20 19:01:00 16 /min [facility] Body height 2022-11-20 19:01:00 170.2 cm [facility] Body weight 2022-11-20 19:01:00 76.522 kg [facility] BMI 2022-11-20 19:01:00 26.42 kg/m2 [facility] Body mass index (BMI) [Percentile] Per age and sex 2022-11-20 19:01:00 86.76 % [facility] Systolic blood pressure 2022-10-23 21:30:00 110 mm[Hg] [facility] Diastolic blood pressure 2022-10-23 21:30:00 72 mm[Hg] [facility] Heart rate 2022-10-23 21:30:00 85 /min [facility] Body temperature 2022-10-23 21:30:00 36.39 Priya [facility] Respiratory rate 2022-10-23 21:30:00 18 /min [facility] Body height 2022-10-23 21:30:00 170.2 cm [facility] Body weight 2022-10-23 21:30:00 73.284 kg [facility] BMI 2022-10-23 21:30:00 25.30 kg/m2 [facility] Body mass index (BMI) [Percentile] Per age and sex 2022-10-23 21:30:00 82.42 % [facility] Systolic blood pressure 2022-09-19 21:42:00 114 mm[Hg] [facility] Diastolic blood pressure 2022-09-19 21:42:00 81 mm[Hg] [facility] Heart rate 2022-09-19 21:42:00 88 /min [facility] Body temperature 2022-09-19 21:42:00 36.89 Priya [facility] Respiratory rate 2022-09-19 21:42:00 18 /min [facility] Body height 2022-09-19 21:42:00 170.2 cm [facility] Body weight 2022-09-19 21:42:00 72.15 kg [facility] BMI 2022-09-19 21:42:00 24.91 kg/m2 [facility] Body mass index (BMI) [Percentile] Per age and sex 2022-09-19 21:42:00 80.66 % [facility] Systolic blood pressure 2022-08-22 22:11:00 125 mm[Hg] [facility] Diastolic blood pressure 2022-08-22 22:11:00 84 mm[Hg] [facility] Heart rate 2022-08-22 22:11:00 84 /min [facility] Body temperature 2022-08-22 22:11:00 36.28 Priya [facility] Respiratory rate 2022-08-22 22:11:00 18 /min [facility] Body height 2022-08-22 22:11:00 170.2 cm [facility] Body weight 2022-08-22 22:11:00 70.478 kg [facility] BMI 2022-08-22 22:11:00 24.34 kg/m2 [facility] Body mass index (BMI) [Percentile] Per age and sex 2022-08-22 22:11:00 77.58 % [facility] Systolic blood pressure 2022-07-25 19:39:00 130 mm[Hg] [facility] Diastolic blood pressure 2022-07-25 19:39:00 68 mm[Hg] [facility] Heart rate 2022-07-25 19:39:00 80 /min [facility] Body temperature 2022-07-25 19:39:00 37.06 Priya [facility] Respiratory rate 2022-07-25 19:39:00 18 /min [facility] Body height 2022-07-25 19:39:00 170.2 cm [facility] Body weight 2022-07-25 19:39:00 71.385 kg [facility] BMI 2022-07-25 19:39:00 24.65 kg/m2 [facility] Body mass index (BMI) [Percentile] Per age and sex 2022-07-25 19:39:00 79.58 % [facility] Systolic blood pressure 2022-06-27 19:42:00 123 mm[Hg] [facility] Diastolic blood pressure 2022-06-27 19:42:00 72 mm[Hg] [facility] Heart rate 2022-06-27 19:42:00 72 /min Un[facility] Body temperature 2022-06-27 19:42:00 36.67 Priya [facility] Respiratory rate 2022-06-27 19:42:00 18 /min [facility] Body height 2022-06-27 19:42:00 170.2 cm [facility] Body weight 2022-06-27 19:42:00 69.57 kg [facility] BMI 2022-06-27 19:42:00 24.02 kg/m2 [facility] Body mass index (BMI) [Percentile] Per age and sex 2022-06-27 19:42:00 75.89 % [facility] Systolic blood pressure 2021-11-28 20:44:00 125 mm[Hg] [facility] Diastolic blood pressure 2021-11-28 20:44:00 84 mm[Hg] [facility] Heart rate 2021-11-28 20:44:00 99 /min [facility] Body temperature 2021-11-28 20:44:00 36.94 Priya [facility] Respiratory rate 2021-11-28 20:44:00 18 /min [facility] Body height 2021-11-28 20:44:00 170.2 cm [facility] Body weight 2021-11-28 20:44:00 62.596 kg [facility] BMI 2021-11-28 20:44:00 21.61 kg/m2 [facility] Body mass index (BMI) [Percentile] Per age and sex 2021-11-28 20:44:00 55.74 % [place] [facility] Procedures Procedure Date / Time Performed Performing Clinicia n Source POCT TEST 2023-07-12 18:29:00 Emma Zhang [facility] PATIENT FINANCIAL POLICY 2023-07-12 18:05:06 Doctor Unassigned, [place] [facility] GALV ONLY - VAGINAL PATHOGENS BY NUCLEIC ACID TESTING 2023-04-11 20:35:00 Elaine Zhang [facility] POCT TEST 2023-04-11 20:34:00 Emma Zhang [facility] CBC WITH DIFF 2023-03-21 16:42:00 Elaine Zhang [facility] CBC WITH DIFF 2023-03-01 09:42:00 Bernadette Wall [facility] VENOUS CORD GAS 2023-03-01 03:15:00 Mariajose Cortez [facility] CENTRAL NEURAXIAL BLOCK 2023-02-28 17:35:00 Yony Valiente [facility] CBC WITH DIFF 2023-02-28 15:06:00 Mariajose Cortez [facility] HEPATITIS B SURFACE ANTIGEN 2023-02-28 15:06:00 Diego Mariajose [facility] HB ABO GROUPING 2023-02-28 15:06:00 Diego Mariajose [facility] RHO (D) IMMUNE GLOBULIN 2023-02-28 15:06:00 Bernadette Wall [facility] SYPHILIS IGG/IGM 2023-02-28 15:06:00 Mariajose Cortez [facility] HOSPITAL ADMISSION 2023-02-28 05:01:00 Doctor Un assigned, [place] [facility] POCT URINALYSIS 2023-02-27 17:44:00 Ezequiel Mcwilliams [facility] ADC ONLY - FERN TEST 2023-02-24 05:32:00 Caroline Bower [facility] ASSIGNMENT OF BENEFITS 2023-02-24 04:18:27 Docto r Unassigned, [place] [facility] NON-STRESS TEST 2023-02-21 18:39:51 Laron Da Silva [facility] POCT URINALYSIS 2023-02-21 00:00:00 Ezequiel Mcwilliams [facility] ASSIGNMENT OF BENEFITS 2023-02-20 00:00:06 Docto r Unassigned, [place] [facility] CONSENT/REFUSAL FOR DIAGNOSIS AND TREATMENT 2023-02-19 23:59:41 Doctor Unassigned, [place] [facility] POCT URINALYSIS 2023-02-14 20:49:00 Ezequiel Mcwilliams [facility] POCT URINALYSIS 2023-02-07 19:12:00 Ezequiel Mcwilliams [facility] ADC ONLY - FERN TEST 2023-02-01 03:11:00 Saida Rand [facility] NOTICE OF PRIVACY PRACTICES 2023-02-01 02:26:54 Doctor Unassigned, [place] [facility] ASSIGNMENT OF BENEFITS 2023-02-01 02:21:13 Docto r Unassigned, [place] [facility] L&D VISIT (NON-DELIVERED) 2023-01-31 05:01:00 Doctor Unassigned, [place] [facility] POCT URINALYSIS 2023-01-24 20:00:00 Ezequiel Mcwilliams [facility] POCT URINALYSIS 2023-01-08 20:12:00 Ezequiel Mcwilliams [facility] POCT URINALYSIS 2022-12-25 19:38:00 Ezequiel Mcwilliams [facility] TDAP VACCINE, >11 YRS, IM 2022-12-11 18:22:35 Olu Da Silva [facility] POCT URINALYSIS 2022-12-11 18:01:00 Ezequiel Mcwilliams [facility] GLUCOSE 1 HOUR POST PRANDIAL 2022-11-20 07:56:00 Olu Da Silva [facility] CBC WITH DIFF 2022-11-20 07:56:00 Olu Da Silva [facility] POCT URINALYSIS 2022-11-20 00:00:00 Ezequiel Mcwilliams [facility] POCT URINALYSIS 2022-10-23 21:31:00 Ezequiel Mcwilliams [facility] POCT URINALYSIS 2022-09-19 21:44:00 Ezequiel Mcwilliams [facility] POCT URINALYSIS 2022-08-22 22:12:00 Ezequiel Mcwilliams [facility] POCT URINALYSIS 2022-07-25 19:40:00 Ezequiel Mcwilliams [facility] POCT TEST 2022-06-27 19:36:00 Charly Mcwilliams [facility] POCT URINALYSIS W/O SPECIFIC GRAVITY 2022-06-27 19:36:00 Ezequiel Mcwilliams [facility] ASSIGNMENT OF BENEFITS 2022-06-27 19:11:21 Docto r Unassigned, [place] [facility] POCT TEST 2021-11-28 00:00:00 Christopher Velasquez [facility] Encounters Start Date/Time End Date/Time Encounter Type Admission Type Attending [facility] Care Facility Care Department Encounter ID Source 2023-07-12 13:30:00 2023-07-12 13:48:13 Outpatient R ELAINE ZHANG [facility] [id number] [facility] 2023-07-12 13:30:00 2023-07-12 13:48:13 Office Visit Elaine Zhang [facility] 1.2.840.114 350.1.13.10 4.2.7.2.686 [id number] [facility] 2023-07-12 00:00:00 2023-07-12 00:00:00 Orders Only Doctor Unassigned, [place] [facility] 1.840.114 350.1.13.10 4.2.7.2.686 [id number] [facility] 2023-04-12 00:00:00 2023-04-12 00:00:00 Telephone Elaine Zhang [facility] 1.0.114 350.1.13.10 4.2.7.2.686 [id number] [facility] 2023-04-11 14:15:00 2023-04-11 15:22:39 Outpatient R ELAINE ZHANG [facility] [id number] [facility] 2023-04-11 14:15:00 2023-04-11 15:22:39 [facility] 1.0.114 350.1.13.10 4.2.7.2.686 [id number] [facility] 2023-03-26 00:00:00 2023-03-26 00:00:00 Nurse Triage Leidy Pryor [facility] 1.840.114 350.1.13.10 4.2.7.2.686 [id number] [facility] 2023-03-21 10:30:00 2023-03-21 11:39:29 Outpatient R ELAINE ZHANG [facility] [id number] [facility] 2023-03-21 10:30:00 2023-03-21 11:39:29 Routine Visit Elaine Zhang [facility] 1.840.114 350.1.13.10 4.2.7.2.686 [id number] [facility] 2023-02-28 09:22:00 2023-03-02 16:40:00 Hospital Encounter Marcos peter [facility] 1.2.840.114 350.1.13.10 4.2.7.2.686 [id number] [facility] 2023-02-28 09:22:00 2023-03-02 16:40:00 Inpatient X MARCOS Peter [facility] [id number] [facility] 2023-02-28 12:20:00 2023-02-28 23:00:00 Anesthesia Event Yony Valiente [facility] 1.2.840.114 350.1.13.10 4.2.7.2.686 [id number] [facility] 2023-02-28 00:00:00 2023-02-28 00:00:00 Orders Only Doctor Unassigned, [place] [facility] 1.2.840.114 350.1.13.10 4.2.7.2.686 [id number] [facility] 2023-02-27 12:45:00 2023-02-27 13:06:14 Outpatient R OLU DA SILVA [facility] [id number] [facility] 2023-02-27 12:45:00 2023-02-27 13:06:14 Routine Visit Olu Da Silva [facility] 1.2.840.114 350.1.13.10 4.2.7.2.686 [id number] [facility] 2023-02-23 23:37:00 2023-02-24 01:00:00 Outpatient P LINCOLN-AURY S, CAROLINE LINCOLN-AURY S, CAROLINE [facility] [id number] [facility] 2023-02-23 23:37:00 2023-02-24 01:00:00 Hospital Encounter Lincoln-Aury s, Caroline [facility] 1.2.840.114 350.1.13.10 4.2.7.2.686 [id number] [facility] 2023-02-23 00:00:00 2023-02-23 00:00:00 Orders Only Doctor Unassigned, [place] [facility] 1.2.840.114 350.1.13.10 4.2.7.2.686 [id number] [facility] 2023-02-21 15:00:00 2023-02-21 15:00:00 Routine Visit Olu Da Silva [facility] 1.2840.114 350.1.13.10 4.2.7.2.686 [id number] [facility] 2023-02-21 15:00:00 2023-02-21 13:50:28 Outpatient R OLU DA SILVA [facility] [id number] [facility] 2023-02-21 00:00:00 2023-02-21 00:00:00 Telephone Olu Da Silva [facility] 1.2840.114 350.1.13.10 4.2.7.2.686 [id number] [facility] 2023-02-19 19:13:00 2023-02-19 21:33:00 Outpatient X LINCOLN-AURY S, CAROLINE LINCOLN-AURY S, CAROLINE [facility] [id number] [facility] 2023-02-19 19:13:00 2023-02-19 21:33:00 Emergency Lincoln-Aury s, Caroline [facility] 1.2840.114 350.1.13.10 4.2.7.2.686 [id number] [facility] 2023-02-19 00:00:00 2023-02-19 00:00:00 Telephone Olu Da Silva [facility] 1.284.114 350.1.13.10 4.2.7.2.686 [id number] [facility] 2023-02-19 00:00:00 2023-02-19 00:00:00 Orders Only Doctor Unassigned, [place] [facility] 1.0.114 350.1.13.10 4.2.7.2.686 [id number] [facility] 2023-02-14 15:45:00 2023-02-14 16:05:13 Routine Visit Olu Da Silva [facility] 1.840.114 350.1.13.10 4.2.7.2.686 [id number] [facility] 2023-02-14 15:45:00 2023-02-14 16:05:13 Outpatient R OLU DA SILVA [facility] [id number] [facility] 2023-02-09 00:00:00 2023-02-09 00:00:00 Telephone Olu Da Silva [facility] 1.84.114 350.1.13.10 4.2.7.2.686 [id number] [facility] 2023-02-07 14:15:00 2023-02-07 14:37:07 Outpatient R OLU DA SILVA [facility] [id number] [facility] 2023-02-07 14:15:00 2023-02-07 14:37:07 Routine Visit Olu Da Silva [facility] 1.84.114 350.1.13.10 4.2.7.2.686 [id number] [facility] 2023-01-31 21:27:00 2023-01-31 23:03:00 Outpatient X SAIDA RAND [facility] [id number] [facility] 2023-01-31 21:27:00 2023-01-31 23:03:00 Emergency Saida Rand [facility] 1.840.114 350.1.13.10 4.2.7.2.686 [id number] [facility] 2023-01-31 00:00:00 2023-01-31 00:00:00 Orders Only Doctor Unassigned, [place] [facility] 1.840.114 350.1.13.10 4.2.7.2.686 [id number] [facility] 2023-01-24 15:00:00 2023-01-24 15:20:50 Outpatient R OLU DA SILVA [facility] [id number] [facility] 2023-01-24 15:00:00 2023-01-24 15:20:50 Routine Visit Olu Da Silva [facility] 1.0.114 350.1.13.10 4.2.7.2.686 [id number] [facility] 2023-01-08 15:15:00 2023-01-08 15:27:33 Outpatient R OLU DA SILVA [facility] [id number] [facility] 2023-01-08 15:15:00 2023-01-08 15:27:33 Routine Visit Olu Da Silva [facility] 1.0.114 350.1.13.10 4.2.7.2.686 [id number] [facility] 2022-12-28 15:15:00 2022-12-28 16:00:00 Industrial Hygiene Technician Visit Ultrasound, Ang-Mfm Marcos Dutta romeGeeta [facility] 1..840.114 350.1.13.10 4.2.7.2.686 [id number] [facility] 2022-12-28 15:15:00 2022-12-28 15:15:00 Outpatient P MARCOS DUTTA GEETA Peter [facility] [id number] [facility] 2022-12-25 14:45:00 2022-12-25 14:52:51 Outpatient R OLU DA SILVA [facility] [id number] [facility] 2022-12-25 14:45:00 2022-12-25 14:52:51 Routine Visit Olu Da Silva [facility] .840.114 350.1.13.10 4.2.7.2.686 [id number] [facility] 2022-12-20 14:45:00 2022-12-20 14:45:00 Outpatient P MARCOS DUTTA GEETA Peter [facility] [id number] [facility] 2022-12-12 00:00:00 2022-12-12 00:00:00 Outpatient GC_S[facility]AOMC_ Black_D [facility] [id number] [facility] 2022-12-11 12:45:00 2022-12-11 13:47:04 Outpatient R OLU DA SILVA [facility] [id number] [facility] 2022-12-11 12:45:00 2022-12-11 13:47:04 Routine Visit Olu Da Silva [facility] ..840.114 350.1.13.10 4.2.7.2.686 [id number] [facility] 2022-11-20 12:45:00 2022-11-20 14:00:54 Outpatient R OLU DA SILVA [facility] [id number] [facility] 2022-11-20 12:45:00 2022-11-20 14:00:54 Routine Visit Olu Da Silva [facility] [id number] 350.1.13.10 [id number] [id number] [facility] 2022-11-14 09:00:00 2022-11-14 09:00:00 Outpatient R OLU DA SILVA [facility] [id number] [facility] 2022-11-03 00:00:00 2022-11-03 00:00:00 Case Management Elaine Zhang [facility] 1..840.114 350.1.13.10 [id number] [id number] [facility] 2022-10-23 15:30:00 2022-10-23 16:03:50 Outpatient R OLU DA SILVA [facility] [id number] [facility] 2022-10-23 15:30:00 2022-10-23 16:03:50 Routine Visit Olu Da Silva [facility] ..840.114 350.1.13.10 4.2.7.2.686 [id number] [facility] 2022-10-17 14:00:00 2022-10-17 14:00:00 Outpatient R OLU DA SILVA [facility] [id number] [facility] 2022-10-13 13:00:00 2022-10-13 14:00:00 Industrial Hygiene Technician Visit Ultrasound, Alexandre Gunn [facility] 1..840.114 350.1.13.10 4.2.7.2.686 [id number] [facility] 2022-10-13 13:00:00 2022-10-13 13:00:00 Outpatient P ALEXANDRE SO [facility] [id number] [facility] 2022-09-19 15:45:00 2022-09-19 16:08:33 Outpatient R OLU DA SILVA [facility] [id number] [facility] 2022-09-19 15:45:00 2022-09-19 16:08:33 Routine Visit Olu Da Silva [facility] 1..840.114 350.1.13.10 4.2.7.2.686 [id number] [facility] 2022-09-14 13:00:00 2022-09-14 13:00:00 Outpatient P SARAYALEXANDRE CHURCH [facility] [id number] [facility] 2022-08-22 15:45:00 2022-08-22 16:30:53 Outpatient R OLU DA SILVA [facility] [id number] [facility] 2022-08-22 15:45:00 2022-08-22 16:30:53 Routine Visit Olu Da Silva Roshunda R [facility] 1..840.114 350.1.13.10 4.2.7.2.686 [id number] [facility] 2022-08-22 15:45:00 2022-08-22 15:45:00 Outpatient EZEQUIEL CARTER [facility] [id number] [facility] 2022-07-28 00:00:00 2022-07-28 00:00:00 Abstract Olu Da Silva [facility] 1..840.114 350.1.13.10 4.2.7.2.686 [id number] [facility] 2022-07-25 14:30:00 2022-07-25 15:15:16 Outpatient R EZEQUIEL MCWILLIAMS [facility] [id number] [facility] 2022-07-25 14:30:00 2022-07-25 15:15:16 Routine Visit Provider, Ezequiel Mansfield [facility] 1..840.114 350.1.13.10 4.2.7.2.686 [id number] [facility] 2022-07-19 08:30:00 2022-07-19 09:00:00 Industrial Hygiene Technician Visit Ultrasound, Jaiden Murcia [facility] 1..840.114 350.1.13.10 4.2.7.2.686 [id number] [facility] 2022-07-19 08:30:00 2022-07-19 08:30:00 Outpatient JAIDEN HALL SANGEETA [facility] [id number] [facility] 2022-06-29 00:00:00 2022-06-29 00:00:00 Telephone Ezequiel Mcwilliams [facility] ..840.114 350.1.13.10 4.2.7.2.686 [id number] [facility] 2022-06-27 14:45:00 2022-06-27 15:49:45 Outpatient R EZEQUIEL MCWILLIAMS [facility] [id number] [facility] 2022-06-27 14:45:00 2022-06-27 15:49:45 Initial Visit Ezequiel Mcwilliams [facility] 1.2840.114 350.1.13.10 4.2.7.2.686 [id number] 107 [id number] [facility] 2022-06-27 00:00:00 2022-06-27 00:00:00 Orders Only Doctor Unassigned, [place] [facility] 1.2840.114 350.1.13.10 4.2.7.2.686 [id number] [facility] 2022-04-12 13:30:00 2022-04-12 13:30:00 Outpatient R [facility]ON [facility] [id number] [facility] 2021-11-28 14:30:00 2021-11-28 14:55:01 Office Visit Ron [facility] 1.840.114 350.1.13.10 4.2.7.2.686 [id number] [facility] 2021-11-28 14:30:00 2021-11-28 14:55:01 Outpatient R [facility] [id number] [facility] 2021-11-28 14:30:00 2021-11-28 14:30:00 Outpatient Nahomy VELASQUEZ [facility] [id number] [facility] 2021-11-28 00:00:00 2021-11-28 00:00:00 Orders Only Doctor Unassigned, [place] [facility] 1.20.114 350.1.13.10 4.2.7.2.686 [id number] [facility] 2021-11-23 00:00:00 2021-11-23 00:00:00 Telephone Finnpearljosh [facility] 1.2.840.114 350.1.13.10 4.2.7.2.686 [id number] [facility] 2021-09-09 00:00:00 2021-09-09 00:00:00 Letter (Out) [facility] 1.2.840.114 350.1.13.10 4.2.7.2.686 [id number] [facility] 2021-09-08 16:47:28 2021-09-08 17:07:28 Urgent Care Tyler Ontiveros [facility] MICKEY[facility] 1..840.114 350.1.13.10 4.2.7.2.686 [id number] [facility] 2021-09-08 17:00:00 2021-09-08 17:00:00 Outpatient R ELKE BERGMAN [facility] [id number] [facility] 2021-09-08 00:00:00 2021-09-08 00:00:00 Telephone Jagdeep Velasquez [facility] 1..840.114 350.1.13.10 4.2.7.2.686 [id number] [facility] 2021-07-27 00:00:00 2021-07-27 00:00:00 Telephone Jagdeep Velasquez [facility] 1..840.114 350.1.13.10 4.2.7.2.686 [id number] [facility] 2021-06-17 16:00:00 2021-06-17 16:00:00 Outpatient R [facility] [id number] [facility] 2021-05-24 00:00:00 2021-05-24 00:00:00 Case Management Pauljosh Jagdeep [facility] 1..840.114 350.1.13.10 4.2.7.2.686 [id number] [facility] 2021-05-23 14:39:42 2021-05-23 14:54:42 Industrial Hygiene Technician Visit 2, Adc Lab Jagdeep Velasquez [facility] Billy Vazquez [facility] 1.2.840.114 350.1.13.10 4.2.7.2.686 [id number] [facility] 2021-05-23 14:45:00 2021-05-23 14:45:00 Outpatient R [facility] [id number] [facility] 2021-05-23 14:30:00 2021-05-23 14:30:00 Outpatient R JAGDEEP VELASQUEZ [facility] [id number] [facility] 2021-05-23 00:00:00 2021-05-23 00:00:00 Case Management Jagdeep Velasquez [facility] 1.2.840.114 350.1.13.10 4.2.7.2.686 [id number] [facility] 2021-04-21 00:00:00 2021-04-21 00:00:00 Telephone [facility] [place] 1.2.840.114 350.1.13.10 4.2.7.2.686 [id number] [facility] 2021-04-14 00:00:00 2021-04-14 00:00:00 Case Management Jagdeep Velasquez [facility] 1.2.840.114 350.1.13.10 4.2.7.2.686 [id number] [facility] 2021-04-12 12:43:44 2021-04-12 14:08:08 Office Visit Jagdeep Velasquez [facility] 1.2.840.114 350.1.13.10 4.2.7.2.686 [id number] 134 [id number] [facility] 2021-04-12 13:00:00 2021-04-12 13:00:00 Outpatient R JAGDEEP VELASQUEZ [facility] [id number] [facility] 2021-04-12 00:00:00 2021-04-12 00:00:00 Orders Only Doctor Unassigned, [place] [facility] 1..114 350.1.13.10 4.2.7.2.686 [id number] [facility] 2021-01-14 11:10:21 2021-01-14 11:10:21 Outpatient Braeden Hussein [facility] [id number] [facility] 2020-10-08 18:30:00 2020-10-08 18:30:00 Outpatient R [facility] [id number] [facility] 2020-10-08 17:51:43 2020-10-08 18:11:43 Laboratory Only Lab, [facility] Fam Pob I Arslan [facility] 1.114 350.1.13.10 4.2.7.2.686 [id number] [facility] 2020-10-08 17:51:43 2020-10-08 18:11:43 Laboratory Only Lab, [facility] 1.114 350.1.13.10 4.2.7.2.686 [id number] 2020-07-21 00:00:00 2020-07-21 00:00:00 Telephone Provider, Jeramie Urgent [facility] Office [facility] .114 350.1.13.10 4.2.7.2.686 [id number] [facility] 2020-07-21 00:00:00 2020-07-21 00:00:00 Telephone Provider, [facility] Office [facility] 1.114 350.1.13.10 4.2.7.2.686 [id number] 2020-07-20 15:20:00 2020-07-20 15:20:00 Outpatient R BENJAMIN CONCEPCION [facility] [id number] [facility] 2020-07-20 14:50:44 2020-07-20 15:10:44 Laboratory Only Lab, Adc Fam Pob Benjamin Dominique [facility] Office [facility] 1.114 350.1.13.10 4.2.7.2.686 [id number] [facility] 2020-07-20 14:50:44 2020-07-20 15:10:44 Laboratory Only Lab, Adc Fam Pob I [facility] Office [facility] 1.114 350.1.13.10 4.2.7.2.686 [id number] Results Test Description Test Time Test Comments Results Result Co mments Source [facility] [id number] 18:29:00* Test Item Value Reference Range Interpretation Comme nts POCT PREG (test code = 1605) Negative On board controls acceptable with C Line (test code = 3574) Yes POCT PREG LOT # (test code = 3575) POCT PREG TEST DATE ( test code = 3576[id number] 20:34:00* Test Item Value Reference Range Interpretation Comme nts POCT PREG (test code = 1605) Negative On board controls acceptable with C Line (test code = 3574) Yes POCT PREG LOT # (test code = 3575) POCT PREG TEST DATE ( test code = 3576) [facility] [id number] 20:34:00* Test Item Value Reference Range Interpretation Comme nts POCT PREG (test code = 1605) Negative On board controls acceptable with C Line (test code = 3574) Yes POCT PREG LOT # (test code = 3575) POCT PREG TEST DATE ( test code = 3576) [facility] WITH [id number] 05:34:01* Test Item Value Reference Range Interpretation Comme nts WBC (test code = 6690-2) 8.24 See_Comment [Automated messa ge] The system which generated this result transmitted reference range: 4.50 - 13.50 10*3/?L. The reference range was not used to interpret this result as normal/abnormal. RBC (test code = 789-8) 4.15 See_Comment [Automated messa ge] The system which generated this result transmitted reference range: 4.10 - 5.10 10*6/?L. The reference range was not used to interpret this result as normal/abnormal. HGB (test code = 718-7) 11.1 g/dL 12.0-16.0 L HCT (test code = 4544-3) 36.6 % 36.0-45.0 MCV (test code = 787-2) 88.2 fL 78.0-95.0 MCH (test code = 785-6) 26.7 pg 26.0-32.0 MCHC (test code = 786-4) 30.3 g/dL 32.0-36.0 L RDW-SD (test code = 63601-6) 43.4 fL 38.5-49.0 RDW-CV (test code = 788-0) 13.4 % 11.5-14.0 PLT (test code = 777-3) 459 See_Comment H [Automated messa ge] The system which generated this result transmitted reference range: 135 - 361 10*3/?L. The reference range was not used to interpret this result as normal/abnormal. MPV (test code = 98488-9) 11.2 fL 9.4-13.3 NRBC/100 WBC (test code = 1897199078) 0.0 See_Comment [Automated me ssage] The system which generated this result transmitted reference range: 0.0 - 10.0 /100 WBCs. The reference range was not used to interpret this result as normal/abnormal. NRBC x10^3 (test code = 2403768693) See_Comment [Automated messa ge] The system which generated this result transmitted reference range: 10*3/?L. The reference range was not used to interpret this result as normal/abnormal. GRAN MAT (NEUT) % (test code = 770-8) 56.6 % IMM GRAN % (test code = 9263167646) 0.20 % LYMPH % (test code = 736-9) 28.6 % MONO % (test code = 5905-5) 6.2 % EOS % (test code = 713-8) 7.3 % BASO % (test code = 706-2) 1.1 % GRAN MAT x10^3(ANC) (test code = 4058725563) 4.66 10*3/uL 1.50-10.30 IMM GRAN x10^3 (test code = 3827946173) 0.00-0.06 LYMPH x10^3 (test code = 731-0) 2.36 10*3/uL 0.70-7.40 MONO x10^3 (test code = 742-7) 0.51 10*3/uL 0.00-0.50 H EOS x10^3 (test code = 711-2) 0.60 10*3/uL 0.00-0.40 H BASO x10^3 (test code = 704-7) 0.09 10*3/uL 0.00-0.10 Lab Interpretation (test code = 72642-9) [facility] [id number] 06:47:31* Test Item Value Reference Range Interpretation Comme nts RHIG CANDIDATE? (test code = 5188) No- see comment Patient is not a candidate for RhIg- Patient is Rh Positive.Performed at [facility] Laboratory Services - [facility] [address] [place] [address]Fafj Free: [phone] No. [id number] [facility] Cord [id number] 03:30:20* Test Item Value Reference Range Interpretation Comme nts VENOUS BASE EXCESS, CORD (test code = 7129163058) -4.8 mEq/L VENOUS PH, CORD (test code = 8748766616) 7.32 7.25-7.45 VENOUS PC02, CORD (test code = 9226583962) 42 See_Comment [Automated messa ge] The system which generated this result transmitted reference range: 27 - 49 mmHg. The reference range was not used to interpret this result as normal/abnormal. VENOUS PO2, CORD (test code = 0318190558) 23 See_Comment [Automated me ssage] The system which generated this result transmitted reference range: 17 - 41 mmHg. The reference range was not used to interpret this result as normal/abnormal. VENOUS BICARBONATE, CORD (test code = 6542734666) 21 See_Comment QUES [Automated message] The system which generated this result transmitted reference range: 12 - 29 mEq/L. The reference range was not used to interpret this result as normal/abnormal. [facility] [id number] 03:29:55* Test Item Value Reference Range Interpretation Comme nts BASE EXCESS, CORD (test code = 2625681184) -2.7 mEq/L QUES AC PH, CORD (BEAKER) (test code = 8284972366) 7.27 7.18-7.38 PC02, CORD (test code = 9210304540) 56 See_Comment [Automated messa ge] The system which generated this result transmitted reference range: 32 - 66 mmHg. The reference range was not used to interpret this result as normal/abnormal. PO2, CORD (test code = 0002446681) 18 See_Comment [Automated messa ge] The system which generated this result transmitted reference range: 10 - 30 mmHg. The reference range was not used to interpret this result as normal/abnormal. BICARBONATE, CORD (test code = 6889944782) 26 See_Comment [Automated messa ge] The system which generated this result transmitted reference range: 17 - 27 mEq/L. The reference range was not used to interpret this result as normal/abnormal. [facility] URINALYSIS W SPECIFIC [id number] 17:44:00* Test Item Value Reference Range Interpretation Comme nts POCT U SP GRAV (test code = 3255) . 1.005-1.025 POCT PH U (test code = 3254) . 5-8 POCT U LEUK EST (test code = 3263) . Negative - N egative POCT U NIT (test code = 3262) . Negative - Negati ve POCT U PROT (test code = 3259) 1+ Negative - Negat fozia POCT U GLU (test code = 3256) Neg Negative - Negati ve POCT U KETONE (test code = 3258) . Negative - Neg ative POCT U UROBILI (test code = 3260) . 0.2-1 POCT U BILI (test code = 3261) . Negative - Negat fozia POCT U BLD (test code = 3257) . Negative - Negati ve POCT U COLOR (test code = 3266) . POCT U APPEAR (test code = 3267) ... [facility] URINALYSIS W SPECIFIC [id number] 17:54:00* Test Item Value Reference Range Interpretation Comme nts POCT U SP GRAV (test code = 3255) . 1.005-1.025 POCT PH U (test code = 3254) . 5-8 POCT U LEUK EST (test code = 3263) . Negative - Negative POCT U NIT (test code = 3262) . Negative - Negati ve POCT U PROT (test code = 3259) trace Negative - Negat fozia POCT U GLU (test code = 3256) negative Negative - Negati ve POCT U KETONE (test code = 3258) . Negative - Neg ative POCT U UROBILI (test code = 3260) . 0.2-1 POCT U BILI (test code = 3261) . Negative - Negat fozia POCT U BLD (test code = 3257) . Negative - Negati ve POCT U COLOR (test code = 3266) . POCT U APPEAR (test code = 3267) . [facility] URINALYSIS W SPECIFIC [id number] 20:50:00* Test Item Value Reference Range Interpretation Comme nts POCT U SP GRAV (test code = 3255) . 1.005-1.025 POCT PH U (test code = 3254) . 5-8 POCT U LEUK EST (test code = 3263) . Negative - N egative POCT U NIT (test code = 3262) . Negative - Negati ve POCT U PROT (test code = 3259) TRACE Negative - Negat fozia POCT U GLU (test code = 3256) NEG Negative - Negati ve POCT U KETONE (test code = 3258) . Negative - Neg ative POCT U UROBILI (test code = 3260) . 0.2-1 POCT U BILI (test code = 3261) . Negative - Negat fozia POCT U BLD (test code = 3257) . Negative - Negati ve POCT U COLOR (test code = 3266) . POCT U APPEAR (test code = 3267) . [facility] URINALYSIS W SPECIFIC [id number] 19:13:00* Test Item Value Reference Range Interpretation Comme nts POCT U SP GRAV (test code = 3255) . 1.005-1.025 POCT PH U (test code = 3254) . 5-8 POCT U LEUK EST (test code = 3263) . Negative - N egative POCT U NIT (test code = 3262) . Negative - Negati ve POCT U PROT (test code = 3259) trace Negative - Negat fozia POCT U GLU (test code = 3256) neg Negative - Negati ve POCT U KETONE (test code = 3258) . Negative - Neg ative POCT U UROBILI (test code = 3260) . 0.2-1 POCT U BILI (test code = 3261) . Negative - Negat fozia POCT U BLD (test code = 3257) . Negative - Negati ve POCT U COLOR (test code = 3266) . POCT U APPEAR (test code = 3267) . [facility] URINALYSIS W SPECIFIC [id number] 20:00:00* Test Item Value Reference Range Interpretation Comme nts POCT U SP GRAV (test code = 3255) . 1.005-1.025 POCT PH U (test code = 3254) . 5-8 POCT U LEUK EST (test code = 3263) . Negative - N egative POCT U NIT (test code = 3262) . Negative - Negati ve POCT U PROT (test code = 3259) trace Negative - Negat fozia POCT U GLU (test code = 3256) neg Negative - Negati ve POCT U KETONE (test code = 3258) . Negative - Neg ative POCT U UROBILI (test code = 3260) . 0.2-1 POCT U BILI (test code = 3261) . Negative - Negat fozia POCT U BLD (test code = 3257) . Negative - Negati ve POCT U COLOR (test code = 3266) . POCT U APPEAR (test code = 3267) . [facility] URINALYSIS W SPECIFIC [id number] 20:00:00* Test Item Value Reference Range Interpretation Comme nts POCT U SP GRAV (test code = 3255) . 1.005-1.025 POCT PH U (test code = 3254) . 5-8 POCT U LEUK EST (test code = 3263) . Negative - N egative POCT U NIT (test code = 3262) . Negative - Negati ve POCT U PROT (test code = 3259) trace Negative - Negat fozia POCT U GLU (test code = 3256) neg Negative - Negati ve POCT U KETONE (test code = 3258) . Negative - Neg ative POCT U UROBILI (test code = 3260) . 0.2-1 POCT U BILI (test code = 3261) . Negative - Negat fozia POCT U BLD (test code = 3257) . Negative - Negati ve POCT U COLOR (test code = 3266) . POCT U APPEAR (test code = 3267) . [facility] URINALYSIS W SPECIFIC [id number] 20:00:00* Test Item Value Reference Range Interpretation Comme nts POCT U SP GRAV (test code = 3255) . 1.005-1.025 POCT PH U (test code = 3254) . 5-8 POCT U LEUK EST (test code = 3263) . Negative - N egative POCT U NIT (test code = 3262) . Negative - Negati ve POCT U PROT (test code = 3259) trace Negative - Negat fozia POCT U GLU (test code = 3256) neg Negative - Negati ve POCT U KETONE (test code = 3258) . Negative - Neg ative POCT U UROBILI (test code = 3260) . 0.2-1 POCT U BILI (test code = 3261) . Negative - Negat fozia POCT U BLD (test code = 3257) . Negative - Negati ve POCT U COLOR (test code = 3266) . POCT U APPEAR (test code = 3267) . [facility] URINALYSIS W SPECIFIC [id number] 20:13:00* Test Item Value Reference Range Interpretation Comme nts POCT U SP GRAV (test code = 3255) . 1.005-1.025 POCT PH U (test code = 3254) . 5-8 POCT U LEUK EST (test code = 3263) . Negative - N egative POCT U NIT (test code = 3262) . Negative - Negati ve POCT U PROT (test code = 3259) trace Negative - Negat fozia POCT U GLU (test code = 3256) neg Negative - Negati ve POCT U KETONE (test code = 3258) . Negative - Neg ative POCT U UROBILI (test code = 3260) . 0.2-1 POCT U BILI (test code = 3261) . Negative - Negat fozia POCT U BLD (test code = 3257) . Negative - Negati ve POCT U COLOR (test code = 3266) . POCT U APPEAR (test code = 3267) . [facility] URINALYSIS W SPECIFIC [id number] 19:39:00* Test Item Value Reference Range Interpretation Comme nts POCT U SP GRAV (test code = 3255) * 1.005-1.025 POCT PH U (test code = 3254) * 5-8 POCT U LEUK EST (test code = 3263) * Negative - Negative POCT U NIT (test code = 3262) * Negative - Negati ve POCT U PROT (test code = 3259) trace Negative - Negat fozia POCT U GLU (test code = 3256) negative Negative - Negati ve POCT U KETONE (test code = 3258) * Negative - Neg ative POCT U UROBILI (test code = 3260) * 0.2-1 POCT U BILI (test code = 3261) * Negative - Negat fozia POCT U BLD (test code = 3257) * Negative - Negati ve POCT U COLOR (test code = 3266) POCT U APPEAR (test code = 3267) [facility] URINALYSIS W SPECIFIC [id number] 18:01:00* Test Item Value Reference Range Interpretation Comme nts POCT U SP GRAV (test code = 3255) . 1.005-1.025 POCT PH U (test code = 3254) . 5-8 POCT U LEUK EST (test code = 3263) . Negative - N egative POCT U NIT (test code = 3262) . Negative - Negati ve POCT U PROT (test code = 3259) trace Negative - Negat fozia POCT U GLU (test code = 3256) neg Negative - Negati ve POCT U KETONE (test code = 3258) . Negative - Neg ative POCT U UROBILI (test code = 3260) . 0.2-1 POCT U BILI (test code = 3261) . Negative - Negat fozia POCT U BLD (test code = 3257) . Negative - Negati ve POCT U COLOR (test code = 3266) . POCT U APPEAR (test code = 3267) . [facility] with [id number] 07:52:47* Test Item Value Reference Range Interpretation Comme nts WBC (test code = 6690-2) 11.13 See_Comment [Automated Graph Storya ge] The system which generated this result transmitted reference range: 4.50 - 13.50 10*3/?L. The reference range was not used to interpret this result as normal/abnormal. RBC (test code = 789-8) 3.39 See_Comment L [Automated Graph Storya ge] The system which generated this result transmitted reference range: 4.10 - 5.10 10*6/?L. The reference range was not used to interpret this result as normal/abnormal. HGB (test code = 718-7) 10.3 g/dL 12.0-16.0 L HCT (test code = 4544-3) 31.2 % 36.0-45.0 L MCV (test code = 787-2) 92.0 fL 78.0-95.0 MCH (test code = 785-6) 30.4 pg 26.0-32.0 MCHC (test code = 786-4) 33.0 g/dL 32.0-36.0 RDW-SD (test code = 16937-0) 43.4 fL 38.5-49.0 RDW-CV (test code = 788-0) 13.0 % 11.5-14.0 PLT (test code = 777-3) 367 See_Comment H [Automated messa ge] The system which generated this result transmitted reference range: 135 - 361 10*3/?L. The reference range was not used to interpret this result as normal/abnormal. MPV (test code = 70465-4) 10.5 fL 9.4-13.3 NRBC/100 WBC (test code = [id number]) 0.0 See_Comment [Automated me ssage] The system which generated this result transmitted reference range: 0.0 - 10.0 /100 WBCs. The reference range was not used to interpret this result as normal/abnormal. NRBC x10^3 (test code = [id number]) See_Comment [Automated messa ge] The system which generated this result transmitted reference range: 10*3/?L. The reference range was not used to interpret this result as normal/abnormal. GRAN MAT (NEUT) % (test code = 770-8) 69.0 % IMM GRAN % (test code = [id number]) 0.50 % LYMPH % (test code = 736-9) 21.1 % MONO % (test code = 5905-5) 5.5 % EOS % (test code = 713-8) 3.5 % BASO % (test code = 706-2) 0.4 % GRAN MAT x10^3(ANC) (test code = [id number]) 7.67 10*3/uL 1.50-10.30 IMM GRAN x10^3 (test code = 0811589566) 0.06 10*3/uL 0.00-0.06 LYMPH x10^3 (test code = 731-0) 2.35 10*3/uL 0.70-7.40 MONO x10^3 (test code = 742-7) 0.61 10*3/uL 0.00-0.50 H EOS x10^3 (test code = 711-2) 0.39 10*3/uL 0.00-0.40 BASO x10^3 (test code = 704-7) 0.05 10*3/uL 0.00-0.10 Lab Interpretation (test code = 98393-6) [facility] [id number] 06:41:02* Test Item Value Reference Range Interpretation Comme nts GLUC 1 HR (test code = 3156308044) 88 mg/dL 120-170 L Lab Interpretation (test cod e = 94763-2) [facility]CIFIC [id number] 19:03:00* Test Item Value Reference Range Interpretation Comme nts POCT U SP GRAV (test code = 3255) . 1.005-1.025 POCT PH U (test code = 3254) . 5-8 POCT U LEUK EST (test code = 3263) . Negative - Negative POCT U NIT (test code = 3262) . Negative - Negati ve POCT U PROT (test code = 3259) trace Negative - Negat fozia POCT U GLU (test code = 3256) negative Negative - Negati ve POCT U KETONE (test code = 3258) . Negative - Neg ative POCT U UROBILI (test code = 3260) . 0.2-1 POCT U BILI (test code = 3261) . Negative - Negat fozia POCT U BLD (test code = 3257) . Negative - Negati ve POCT U COLOR (test code = 3266) . POCT U APPEAR (test code = 3267) . [facility]IFIC [id number] 21:31:00* Test Item Value Reference Range Interpretation Comme nts POCT U SP GRAV (test code = 3255) . 1.005-1.025 POCT PH U (test code = 3254) . 5-8 POCT U LEUK EST (test code = 3263) . Negative - N egative POCT U NIT (test code = 3262) . Negative - Negati ve POCT U PROT (test code = 3259) Trace Negative - Negat fozia POCT U GLU (test code = 3256) Neg Negative - Negati ve POCT U KETONE (test code = 3258) . Negative - Neg ative POCT U UROBILI (test code = 3260) . 0.2-1 POCT U BILI (test code = 3261) . Negative - Negat fozia POCT U BLD (test code = 3257) . Negative - Negati ve POCT U COLOR (test code = 3266) . POCT U APPEAR (test code = 3267) . [facility] URINALYSIS W SPECIFIC [id number] 21:44:00* Test Item Value Reference Range Interpretation Comme nts POCT U SP GRAV (test code = 3255) . 1.005-1.025 POCT PH U (test code = 3254) . 5-8 POCT U LEUK EST (test code = 3263) . Negative - N egative POCT U NIT (test code = 3262) . Negative - Negati ve POCT U PROT (test code = 3259) Trace Negative - Negat fozia POCT U GLU (test code = 3256) Neg Negative - Negati ve POCT U KETONE (test code = 3258) . Negative - Neg ative POCT U UROBILI (test code = 3260) . 0.2-1 POCT U BILI (test code = 3261) . Negative - Negat fozia POCT U BLD (test code = 3257) . Negative - Negati ve POCT U COLOR (test code = 3266) . POCT U APPEAR (test code = 3267) [facility] URINALYSIS W SPECIFIC [id number] 22:12:00* Test Item Value Reference Range Interpretation Comme nts POCT U SP GRAV (test code = 3255) . 1.005-1.025 POCT PH U (test code = 3254) . 5-8 POCT U LEUK EST (test code = 3263) . Negative - N egative POCT U NIT (test code = 3262) . Negative - Negati ve POCT U PROT (test code = 3259) Trace Negative - Negat fozia POCT U GLU (test code = 3256) Neg Negative - Negati ve POCT U KETONE (test code = 3258) . Negative - Neg ative POCT U UROBILI (test code = 3260) . 0.2-1 POCT U BILI (test code = 3261) . Negative - Negat fozia POCT U BLD (test code = 3257) . Negative - Negati ve POCT U COLOR (test code = 3266) POCT U APPEAR (test code = 3267) [facility] URINALYSIS W SPECIFIC [id number] 19:40:00* Test Item Value Reference Range Interpretation Comme nts POCT U SP GRAV (test code = 3255) . 1.005-1.025 POCT PH U (test code = 3254) . 5-8 POCT U LEUK EST (test code = 3263) . Negative - N egative POCT U NIT (test code = 3262) . Negative - Negati ve POCT U PROT (test code = 3259) Trace Negative - Negat fozia POCT U GLU (test code = 3256) Neg Negative - Negati ve POCT U KETONE (test code = 3258) . Negative - Neg ative POCT U UROBILI (test code = 3260) . 0.2-1 POCT U BILI (test code = 3261) . Negative - Negat fozia POCT U BLD (test code = 3257) . Negative - Negati ve POCT U COLOR (test code = 3266) POCT U APPEAR (test code = 3267) [facility] [id number] 19:36:00* Test Item Value Reference Range Interpretation Comme nts POCT PREG (test code = 1605) Positive On board controls acceptable with C Line (test code = 3574) Yes POCT PREG LOT # (test code = 3575) POCT PREG TEST DATE ( test code = 3576) [facility] URINALYSIS W/O SPECIFIC [id number] 19:36:00* Test Item Value Reference Range Interpretation Comme nts POCT PH U (test code = 3254) 5 mg/dl 5-8 POCT U LEUK EST (test code = 3263) Trace Negative - Negative POCT U NIT (test code = 3262) Neg Negative - Negati ve POCT U PROT (test code = 3259) Trace Negative - Negat fozia POCT U GLU (test code = 3256) Neg Negative - Negati ve POCT U KETONE (test code = 3258) None Negative - Neg ative POCT U BLD (test code = 3257) Trace Negative - Negati ve [facility] [id number] 21:24:00* Test Item Value Reference Range Interpretation Comme nts POCT PREG (test code = 1605) Negative On board controls acceptable with C Line (test code = 3574) Yes POCT PREG LOT # (test code = 3575) POCT PREG TEST DATE ( test code = 3576) [facility] [id number] 21:24:00* Test Item Value Reference Range Interpretation Comme nts POCT PREG (test code = 1605) Negative On board controls acceptable with C Line (test code = 3574) Yes POCT PREG LOT # (test code = 3575) POCT PREG TEST DATE ( test code = 3576) [facility]ympt[facility] [id number] 15:05:00 * Test Item Value Reference Range Interpretation Comme nts COVID 19 Asymptomatic IH AG (test code = COVNONPUIAG) NEGATIVE NEGATIVE This test has be en authorized only for the detection ofproteins from SARS-CoV-2, not for any other viruses orpathogens. Negative results should be treated as presumptive andconfirmed with a molecular assay, if necessary for patientmanagement. Negative results do not rule out COVID-19 andshould not be used as the sole basis for treatment orpatient management decisions, including infection controldecisions. Negative results should be considered in thecontext of a patient's recent exposures, history and thepresence of clinical signs and symptoms consistent withCOVID-19. This test has not been FDA cleared or approved; the test hasbeen authorized by FDA under an Emergency Use Authorization(EUA) for use by laboratories certified under the CLIA thatmeet the requirements to perform moderate, high or waivedcomplexity tests. This test is authorized for use at thePoint of Care (POC), i.e., in patient care settingsoperating under a CLIA Certificate of Waiver, Certificate ofCompliance, or Certificate of Accreditation. This test is only authorized for the duration of thedeclaration that circumstances exist justifying theauthorization of emergency use of in vitro diagnostic testsfor detection and/or diagnosis of COVID-19 under Jkashsz926(b)(1) of the Act, 21 U.S.C. 360bbb-3(b)(1), unless theauthorization is terminated or revoked sooner. UR HCG [id number] 12:36:00* Test Item Value Reference Range Interpretation Comme nts UR HCG QUAL (test code = HCGQLU) NEGATIVE 1. Very dilute u rine specimens, as indicated by a lowspecific gravity, may not contain hospital insurance representative levels ofhCG. 2. False negative results may occur when the levels of hCGare below the sensitivity level of the test. If is still suspected, a first morningurine specimen should be collected 48 hours later andtested. Notes Date/Time Note Provider Source 2021-01-18 17:01:00 [id number]:[id number] 1:[id number] [place] [id number] PATIENT NAME: CATRACHITO ALBA ADMIT DATE: 01/18/21ACCOUNT NO: [id number] ROOM NO: AGE: 15 SEX: F ADMITTING PHYSICIAN: ATTENDING PHYSICIAN: Braeden Hussein Jr, MD PREOPERATIVE DIAGNOSES: Adenotonsillar hypertrophy and chronic infection. POSTOPERATIVE DIAGNOSES: Adenotonsillar hypertrophy and chronic infection. PROCEDURES: Tonsil and adenoidectomy. SURGEON: Braeden Hussein Jr, MD ANESTHESIA: General. DESCRIPTION OF PROCEDURE: The child was positioned in the standard fashion fororopharyngeal surgery. The tonsils were removed using a Coblator using anintracapsular technique. The palate was retracted superiorly. The adenoidswere removed using a suction cautery. Good hemostasis was obtained, 0.2%ropivacaine was widely infiltrated into the peripharyngeal musculature. Thechild tolerated the procedure without complication and was awoken and taken torecovery in stable fashion. Dictated By: Braeden Hussein Jr, MD WT: OP:F.DAYSI/FEMI/NTSDD: 01/18/2021 17:01:33DT: 01/18/2021 20:58:54Conf#: [id number]/DID#: [id number] Authenticated and Edited by Braeden Hussein MD On 02/09/21 7:46:38 AM at 0749 PATIENT NAME: CATRACHITO ALBA [id number]:58:[id number] lable for patient [id number]:49:57 [facility]
[2024-01-28 00:32] LABS: Specific Gravity 1.015 (1.005-1.030)
[2024-01-28 00:41] LABS: Sqamous Epithelial <5 /HPF (None Seen); Urine Bacteria None Seen /HPF (<20); Urine Culture Reflex Order NOT NEEDED; Urine Micro Reflex YN NO BILL MICROSCOPIC; Urine Mucus Slight /HPF (None Seen); Urine RBC <5 /HPF (None Seen); Urine WBC <5 /HPF (<5)
--- NOTE | 2024-01-28 00:57 | ER ---
Nurse's Notes [facility] Name: Angela Dong Age: 18 yrs Sex: Female : 2005 Arrival Date: 01/27/2024 Time: 23:32 Bed 15 Private MD: Diagnosis: Encounter for screening for infections with a predominantly sexual mode of transmission;Encounter for test, result positive Presentation: 01/26 23:54 Chief complaint: Patient states: Found out that she was exposed to an STD 12/29/23. cm10 Unknown what STD, no symptoms. Pt also reports that she had a positive test at home 1 week ago, no bleeding, no pain. Coronavirus screen: Client denies travel out of the [place] in the last 14 days. At this time, the client does not indicate any symptoms associated with coronavirus-19. Ebola Screen: Patient denies travel to an Ebola-affected area in the 21 days before illness onset. No symptoms or risks identified at this time. Initial Sepsis Screen: Does the patient meet any 2 criteria? HR > 90 bpm. Does the patient have a suspected source of infection? No. Patient's initial sepsis screen is negative. Risk Assessment: Do you want to hurt yourself or someone else? Patient reports no desire to harm self or others. Onset of symptoms was January 27, 2024. 23:54 Method Of Arrival: Ambulatory cm10 23:54 Acuity: CECILIA 4 cm10 Triage Assessment: 23:56 General: Appears in no apparent distress. comfortable, Behavior is calm, cooperative. cm10 Pain: Denies pain. GI: No deficits noted. No signs and/or symptoms were reported involving the gastrointestinal system. 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 - Infectious Disease History:: Denies. - Social history:: Smoking status: Reported history of juuling and/or vaping. Screenin/29 00:53 [facility] ED Fall Risk Assessment (Adult) History of falling in the last 3 months, ha1 including since admission No falls in past 3 months (0 pts) Confusion or Disorientation No (0 pts) Intoxicated or Sedated No (0 pts) Impaired Gait No (0 pts) Mobility Assist Device Used No (0 pt) Altered Elimination No (0 pt) Score/Fall Risk Level 0 - 2 = Low Risk Oriented to surroundings, Maintained a safe environment, Educated pt \T\ family on fall prevention, incl call for assistance when getting out of bed, Hourly rounding (assess needs \T\ fall precautionary measures) done. Abuse screen: Denies threats or abuse. Denies injuries from another. Nutritional screening: No deficits noted. Tuberculosis screening: No symptoms or risk factors identified. Assessment: 01/26 23:40 General: Appears comfortable, Behavior is calm, cooperative. Pain: Denies pain. Neuro: ha1 Level of Consciousness is awake, alert, obeys commands, Oriented to person, place, time, situation. Cardiovascular: Patient's skin is warm and dry. Respiratory: Airway is patent Respiratory effort is even, unlabored, Respiratory pattern is regular, symmetrical. GI: No signs and/or symptoms were reported involving the gastrointestinal system. : Reports possible exposure to STD. Musculoskeletal: Circulation, motion, and sensation intact. Range of motion: intact in all extremities. 01/27 00:40 Reassessment: Patient and/or family updated on plan of care and expected duration. Pain ha1 level reassessed. Patient is alert, oriented x 3, equal unlabored respirations, skin warm/dry/pink. Vital Signs: 01/26 23:54 BP 99 / 88; Pulse 91; Resp 18; Temp 98.4; Pulse Ox 99% on R/A; Pain 0/10; cm10 01/27 00:30 BP 101 / 79; Pulse 81; Resp 17 S; Pulse Ox 99% on R/A; ha1 01/26 23:54 Pain Scale: Adult cm10 ED Course: 01/26 23:37 Patient arrived in ED. ra3 23:40 Patient has correct armband on for positive identification. Bed in low position. Call ha1 light in reach. Side rails up X 1. 23:43 Alexnadre Choudhury PA is PHCP. cp 23:43 Serge Marie MD is Attending Physician. cp 23:51 Denia Varela, RN is Primary Nurse. ha1 23:56 Triage completed. cm10 23:56 Arm band placed on Patient placed in an exam room, on a stretcher. cm10 01/27 00:54 No provider procedures requiring assistance completed. Patient did not have IV access ha1 during this emergency room visit. 01:07 Provided Education on: medication administration . ha1 Administered Medications: 00:46 Drug: AZITHromycin PO 1 grams PO once Route: PO; ha1 01:06 Follow up: Response: No adverse reaction ha1 00:54 Not Given (Patient Refused): rocephin (ceftriaxone)250 mg IM once cp Medication: 00:54 VIS not applicable for this client. ha1 Outcome: 00:56 Discharge ordered by MD. cp 01:07 Discharged to home ambulatory, ha1 01:07 Condition: stable 01:07 Discharge instructions given to patient, Instructed on discharge instructions, follow up and referral plans. safe sex practices, Demonstrated understanding of instructions, follow-up care, 01:08 Patient left the ED. ha1 Signatures: Alexandre Choudhury PA PA Denia Perez, RN RN 1 Maris Olson RN RN 10 Mary Alice Laird 3
--- NOTE | 2024-01-28 00:57 | EDPHYS ---
Physician Documentation [facility] Name: Angela Dong Age: 18 yrs Sex: Female : 2005 Arrival Date: 01/27/2024 Time: 23:32 Bed 15 Private MD: ED Physician Serge Marie HPI: 01/26 23:55 This 18 yrs old Female presents to ER via Ambulatory with complaints of STD Exposure - cp psbl 5wks preg. 23:55 The patient presents with a possible exposure to a sexually transmitted disease, cp gonorrhea, chlamydia, herpes, positive home test 1 week ago. Associated signs and symptoms: Pertinent negatives: cramping, fever, vaginal bleeding, vaginal discharge, vomiting, abdominal pain. Severity of symptoms: in the emergency department the symptoms. The patient is sexually active. The patient's method of control includes nothing. 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 - Infectious Disease History:: Denies. - Social history:: Smoking status: Reported history of juuling and/or vaping. ROS: 23:57 All other systems are negative, cp Exam: 23:57 Head/Face: Normocephalic, atraumatic. cp 23:57 Constitutional: The patient appears in no acute distress, alert, awake, comfortable, non-toxic, well developed, well nourished, 23:57 Eyes: Periorbital structures: appear normal, Conjunctiva: normal, no exudate, no injection, Sclera: no appreciated abnormality, Lids and lashes: appear normal, bilaterally, 23:57 ENT: External ear(s): are unremarkable, Nose: is normal, Mouth: Lips: moist, Oral mucosa: pink and intact, moist, Posterior pharynx: Airway: no evidence of obstruction, patent, 23:57 Chest/axilla: Inspection: normal, 23:57 Cardiovascular: Rate: normal, 23:57 Respiratory: the patient does not display signs of respiratory distress, Respirations: normal, no use of accessory muscles, no retractions, labored breathing, is not present, 23:57 Abdomen/GI: Exam negative for discomfort, distension, guarding, Inspection: abdomen appears normal, 23:57 Back: pain, is absent, ROM is normal, Vital Signs: 23:54 BP 99 / 88; Pulse 91; Resp 18; Temp 98.4; Pulse Ox 99% on R/A; Pain 0/10; cm10 01/27 00:30 BP 101 / 79; Pulse 81; Resp 17 S; Pulse Ox 99% on R/A; ha1 01/26 23:54 Pain Scale: Adult cm10 MDM: 01/26 23:43 Patient medically screened. cp 01/27 00:55 Data reviewed: vital signs, nurses notes, lab test result(s), and as a result, I will cp discharge patient. 00:55 I considered the following discharge prescriptions or medication management in the emergency department Medications were administered in the Emergency Department. See MAR. Counseling: I had a detailed discussion with the patient and/or guardian regarding the historical points, exam findings, and any diagnostic results supporting the discharge/admit diagnosis, lab results, the need for outpatient follow up, an OB/Gyne specialist, to return to the emergency department if symptoms worsen or persist or if there are any questions or concerns that arise at home. 01/26 23:53 Order name: Urine Microscopic Only; Complete Time: 00:44 cp 01/26 23:53 Order name: Test, Urine; Complete Time: 00:44 cp 01/27 00:44 Interpretation: Reviewed. cp Administered Medications: 00:46 Drug: AZITHromycin PO 1 grams PO once Route: PO; ha1 01:06 Follow up: Response: No adverse reaction ha1 00:54 Not Given (Patient Refused): rocephin (ceftriaxone)250 mg IM once cp Disposition Summary: 01/28/24 00:56 Discharge Ordered Notes: Location: Home cp Problem: new cp Symptoms: have improved cp Condition: Stable cp Diagnosis - Encounter for screening for infections with a predominantly sexual mode of cp transmission - Encounter for test, result positive cp Followup: cp - With: Private Physician - When: 2 - 3 days - Reason: Recheck today's complaints Discharge Instructions: - Discharge Summary Sheet cp - and Sexually Transmitted Infections cp - Home Test Information cp - Health Maintenance, Female cp - Warning Signs During cp - Preventing Sexually Transmitted Infections, Adult cp Forms: - Medication Reconciliation Form cp - Antibiotic Education cp - Prescription Opioid Use cp - Patient Portal Instructions cp - Leadership Thank You Letter cp Addendum: 01/29/2024 21:18 Co-signature as Attending Physician, Serge Marie MD I agree with the assessment s p4 and plan of care. I reviewed the patient's care provided by the Advanced Practice Provider and agree with the diagnosis and treatment plan. Signatures: Dispatcher [employer] EDPA Alexandre Choudhury PA PA cp Ayala, Heidy, RN RN ha1 Serge Marie MD MD sp4 Maris Olson RN RN cm10
[2024-01-28] MEDS ORDERED: AZITHROMYCIN 250 MG TAB ONE (01:02)
[2024-01-28 01:33] VITALS: BP 101/79; TEMP 98.4; O2SAT 99
== END 2024-01-28 01:08 | disposition home or self-care (01) ==
LOC: ER 23:32
DX: Z11.3 Encounter for screening for infections with a predominantly sexual mode of transmission (principal); Z32.01 Encounter for pregnancy test, result positive
CPT/HCPCS: 81015; 81025; 99283

== ENCOUNTER 2024-03-23 00:08 | Emergency (ER) | payer OTHER, SELFPAY ==
--- OUTSIDE RECORDS SUMMARY | 2024-03-23 00:25 | XMS REPORT | Continuity of Care Document ---
Author Name Unknown Address [address] [facility] [address] [place] [address] [facility] thconnect Address [address] [facility] [place] [address] Care Team Providers Care Deputy Chief Executive Name Role Phone OLU DA SILVA Primary Care Physician Unav ailable OLU DA SILVA Attending Clinician Unavail able Rekha Olu MORAN Attending Clinician + , [facility] Room Attending Clinician UnavailJaiden Chaves MD Attending Clinician [phone] JAIDEN PETERSEN Attending Clinician Unavailable JAIDEN PETERSEN Attending Clinician Unavailable Lab, [facility] Attending Clinician Unavailable ELAINE ZHANG Attending Clinician Elaine Franklin CNM Attending Clinician [phone] Doctor Unassigned, [place] Attending Clinician U cynthia Pryor RN, Leidy Attending Clinician UnavailSHREE Castro Attending Clinician Unavailable Marcos Quinn MD, Geeta Attending Clinician + GEETA CORONA Attending Clinician Luke Valiente MD, Yony Attending Clinician [phone] Stephanie ROSA, Silvio Yates Attending Clinician + [phone] CAROLINE BOWER Attending Clinician CAROLINE Mccain Attending Clinician SAIDA Mcpherson Attending Clinician Unavailable Peng ROSA, Saida Diallo Attending Clinician [phone] Ultrasound, [facility] Attending Clinician Unavaila ble GC_SWHAOMC_Black_D Attending Clinician Unavailab Alexandre Cancino DO Attending Clinician [phone] Klever PARTS PROCESSOREzequiel Stewart Attending Clinician + [phone] EZEQUIEL MCWILLIAMS Attending Clinician Unavailab le Provider, [facility] Temp Attending Clinician Sofia JAGDEEP Key Attending Clinician Unavailable Jagdeep Velasquez PA-C Attending Clinician [phone] [place] PARTS PROCESSORTyler Attending Clinician [phone] Elke Storey Attending Clinician [phone] ELKE BERGMAN Attending Clinician Unavailable 2, [facility] Attending Clinician Unavailable Braeden Hussein Attending Clinician Unavailabl e Lab, [facility] Attending Clinician Unavailab Shree Maciel PA-C Attending Clinician [phone] Provider, [facility] Attending Clinician Un available BENJAMIN CONCEPCION Attending Clinician Unavailable Anehanane PARTS PROCESSOR, Benjamin Attending Clinician [phone] Marcos Quinn MD, Geeta Admitting Clinician + GEETA CORONA Admitting Clinician CAROLINE Clemente Admitting Clinician SAIDA Mcpherson Admitting Clinician Unavailable Peng ROSA, Saida Diallo Admitting Clinician [phone] [email or web address]_Edenilson Admitting Clinician Unavailab le Payers Payer Name Policy Type Policy Number Effective Date Expirati on Date Source [facility] [id number] 2019 00:00:00 Problems Condition Name Condition Details Condition Category Status Onset Date Resolution Date Last Treatment Date Treating Clinician Comments Source Chlamydia infection during Chlamydia infection during Disease Active 01-30 00:00: 00 Overview: Formattin g of this note might be different from the original. Pending melquiades [facility] Susceptibl e to varicella (non-immun e), currently Susceptibl e to varicella (non-immun e), currently Disease Active 01-29 00:00: 00 Overview: Formattin g of this note might be different from the original. Address pp [facility] Supervisio n of high-risk Supervisio n of high-risk Disease Active 01-28 00:00: 00 [facility] Multiparit y Multiparit y Disease Active 01-28 00:00: 00 [facility] Overweight (BMI 25.0-29.9) Overweight (BMI 25.0-29.9) Disease Active 7-13 00:00: 00 [facility] (spontaneo us vaginal delivery) (spontaneo us vaginal delivery) Disease Active 03-01 00:00: 00 [facility] Single live Single live Disease Active 03-01 00:00: 00 [facility] Obstetrica l laceration Obstetrica l laceration Disease Active 03-01 00:00: 00 [facility] Acute blood loss anemia Acute blood loss anemia Disease Active 03-01 00:00: 00 [facility] 39 weeks gestation of 39 weeks gestation of Disease Active 02-28 00:00: 00 [facility] GBS (group B Streptococ cus carrier), +RV culture, currently GBS (group B Streptococ cus carrier), +RV culture, currently Disease Active - 00:00: 00 [facility] Obesity (BMI 30-39.9) Obesity (BMI 30-39.9) Disease Active 2023-0 5-22 00:00: 00 [facility] Anemia of mother in , antepartum Anemia of mother in , antepartum Disease Active 2-21 00:00: 00 [facility] Scoliosis Scoliosis Disease Active 2-21 00:00: 00 Overview: Formattin g of this note might be different from the original. Address Intrapart um [facility] Chlamydia infection affecting Chlamydia infection affecting Disease Active 2021-10 2 00:00: 00 Overview: Formattin g of this note might be different from the original. Melquiades neg [facility] Supervisio n of high risk , antepartum Supervisio n of high risk , antepartum Disease Active 06-27 00:00: 00 [facility] High risk teen in first trimester High risk teen in first trimester Disease Active 06-27 00:00: 00 [facility] Primigravi da in first trimester Primigravi da in first trimester Disease Active 06-27 00:00: 00 [facility] History of anxiety History of anxiety Disease Active 06-27 00:00: 00 [facility] No known active problems No known active problems Disease [facility] Allergies, Adverse Reactions, Alerts Allergy Name Allergy Type Status Severity Reaction(s) Onset Date Inactive Date Treating Clinician Comments Source No Known Allergie s DA Active U 01-18 00:00: 00 [facility] No Known Allergie s DA Active U 20 00:00: 00 [facility] NO KNOWN ALLERGIE S Drug Class Active [facility] Social History Social Habit Start Date Stop Date Quantity Comments Source ASSERTION 2023-12-30 00:00:00 [facility] Gender identity [facility] Alcoholic beverage intake 2024-02-26 00:00:00 2024-02-26 00:00:00 Lifetime non-drinker (finding) [facility] History of Social function 2024-01-29 00:00:00 2024-01-29 00:00:00 [facility] Alcohol intake 2024-01-29 00:00:00 2024-01-29 00:00:00 Lifetime non-drinker (finding) [facility] Exposure to SARS-CoV-2 (event) 2023-02-17 00:00:00 2023-02-27 12:24:00 Not sure [facility] Tobacco use and exposure 2022-06-27 00:00:00 2022-06-27 00:00:00 Smokeless tobacco non-user [facility] Sex assigned at 2004 00:00:00 2005 00:00:00 [facility] Smoking Status Start Date Stop Date Source Never smoked tobacco [facility] Medications Ordered Medication Name Filled Medication Name Start Date Stop Date Current Medication? Ordering Clinician Indication Dosage Frequency Signature (SIG) Comments Components Source azithromyci n 500 mg tablet 01-30 00:00: 00 01-31 04:59 :00 Yes [id number] 1000mg Take 2 tablets by mouth once now for 1 dose. [facility] metroNIDAZO LE 500 mg tablet 04-12 00:00: 00 04-20 04:59 :00 No [id number] 500mg Take 1 tablet by mouth in the morning and 1 tablet in the evening. Do all this for 7 days. [facility] Norethindro ne Acet-Ethiny l Est (ADDIE) 1.5-30 mg-mcg per tablet -12 00:00: 00 01-28 00:00 :00 No [id number] 1{tbl} Take 1 tablet by mouth in the morning. [facility] [id number] fum-folic () 27 mg iron- 1 mg folic tablet 03-02 00:00: 00 Yes [id number] 1{tbl} Take 1 tablet by mouth in the morning. [facility] ferrous sulfate 325 mg (65 mg iron) tablet 03-02 00:00: 00 Yes [id number] 325mg Take 1 tablet by mouth in the morning. [facility] [id number] fum-folic () 27 mg iron- 1 mg folic tablet 03-02 00:00: 00 04-11 00:00 :00 No [id number] 1{tbl} Take 1 tablet by mouth in the morning. [facility] docusate 100 mg capsule 03-02 00:00: 00 04-11 00:00 :00 No [id number] 200mg Take 2 capsules by mouth once daily as needed for Constipati on. [facility] ibuprofen 600 mg tablet 03-02 00:00: 00 04-11 00:00 :00 No [id number] 600mg Take 1 tablet by mouth every 6 (six) hours as needed (Pain). Take with food or milk. [facility] varicella virus vaccine live (VARIVAX) injection and diluent vial 03-01 12:48: 14 Yes 1{each} 0.5 mL (1 Each), Subcutaneo us, ONCE-PRIOR TO DISCHARGE, 1 dose, Starting on Sun03/01/23 at 0748, Until Discontinu ed, Routine, Give vaccine prior to discharge [facility] rho(D) immune globulin (RHOGAM) syringe 300 mcg 03-01 06:35: 41 Yes 300ug 300 mcg, Intramuscu lar, ONCE, For 1 dose, Conditiona l, Routine [facility] ibuprofen (IBU) tablet 600 mg 03-01 06:35: 37 Yes 600mg 600 mg, Oral, Q6HPRN, Starting on Sun03/01/23 at 0135, Until Discontinu ed, Routine, Pain (scale 4-6), and pain 7-10 [facility] acetaminoph en (TYLENOL) tablet 650 mg 03-01 06:35: 37 Yes 650mg 650 mg, Oral, Q6HPRN, Starting on Sun03/01/23 at 0135, Until Discontinu ed, Routine, Pain (scale 1-3) [facility] diphenhydrA MINE (BENADRYL) tablet 25 mg 03-01 06:35: 37 Yes 25mg 25 mg, Oral, Q6HPRN, Starting on Sun03/01/23 at 0135, Until Discontinu ed, Routine, Sleep, Itching [facility] ondansetron (ZOFRAN (PF)) injection 4 mg 03-01 06:35: 37 Yes 4mg 4 mg, Slow IV Push, Q8HPRN, Starting on Sun03/01/23 at 0135, Until Discontinu ed, Routine, Nausea and Vomiting (N/V) [facility] simethicone (GAS RELIEF (SIMETHICON E)) chewable tablet 160 mg 03-01 06:35: 37 Yes 160mg 160 mg, Oral, PC+HSPRN, Starting on Sun03/01/23 at 013, Until Discontinu ed, Routine, Gas [facility] docusate (COLACE) capsule 200 mg 03-01 06:35: 37 Yes 200mg 200 mg, Oral, QDAILYPRN, Starting on Sun03/01/23 at 013, Until Discontinu ed, Routine, Constipati on [facility] magnesium hydroxide (MILK OF MAGNESIA) 400 mg/5 mL suspension 30 mL 03-01 06:35: 37 Yes 30mL 30 mL, Oral, QDAILYPRN, Starting on Sun03/01/23 at 0135, Until Discontinu ed, Routine, Constipati on [facility] benzocaine- menthol (DERMOPLAST ) 20-0.5 % topical spray 03-01 06:35: 37 Yes Topical, PRN, Starting on Sun03/01/23 at 0135, Until Discontinu ed, Routine, Perineum discomfort [facility] oxytocin (PITOCIN) 30 units in NS 500 mL IV infusion 02-28 22:29: 00 03-01 06:35 :39 No 2mU/min at 2-40 mL/hr, IV Infusion, TITRATE, Starting on Sun02/28/23 at 1729, Until Sun03/01/23 at 0135, JAMEL [facility] ropivacaine 0.2 % (NAROPIN (PF)) epidural infusion 02-28 17:40: 00 03-01 04:00 :18 No Epidural, CONTINUOUS PRN, Starting on Sun02/28/23 at 1240, Until Discontinu ed, Routine, Intra-op [facility] lidocaine-e pinephrine (XYLOCAINE W/EPINEPHRI NE) 2 %-1:200,000 injection 02-28 17:39: 00 03-01 04:00 :18 No Intravenou s, ONCE INTRA PROCEDURE, Starting on Sun02/28/23 at 1239, Until Discontinu ed, Routine, Intra-op [facility] lactated ringers IV infusion 500 mL 02-28 16:54: 54 02-28 17:19 :15 No 500mL at 999 mL/hr, 500 mL, IV Infusion, PRN - SEE INSTRUCTIO NS, 1 dose, Starting on Sun02/28/23 at 1154, Until Sun02/28/23 at 1219, Routine [facility] sodium citrate-cit lidya acid (BICITRA) 500-334 mg/5 mL solution 30 mL 02-28 16:54: 54 02-28 17:20 :00 No 30mL 30 mL, Oral, PRE-PROCED URE ONCE, 1 dose, Starting on Sun02/28/23 at 1154, Until Sun02/28/23 at 1220, Routine, Surgery/Pr ocedure [facility] lactated ringers IV infusion 500 mL 02-28 15:02: 38 03-01 06:35 :39 No 500mL at 999 mL/hr, 500 mL, IV Infusion, PRN - SEE INSTRUCTIO NS, Starting on Sun02/28/23 at 1002, Until Atiya 03/01/23 at 0135, Routine [facility] D5W-LR IV infusion 1,000 mL 02-28 15:02: 38 03-01 06:35 :39 No 1000mL at 1-125 mL/hr, IV Infusion, TITRATE, Starting on Sun02/28/23 at 1002, Until Atiya 03/01/23 at 0135, Routine [facility] metroNIDAZO LE (FLAGYL) tablet 500 mg 02-01 03:55: 00 02-01 04:00 :00 No 500mg 500 mg, Oral, ONCE NOW, 1 dose, On Sun01/31/23 at 2300, Routine
Reason for Anti-Infec tive: Documented Infection< br>Documen patti Infection Site: Pelvic
Duration of Therapy: 7 days [facility] metroNIDAZO LE (FLAGYL) 500 mg tablet 02-01 00:00: 00 03-02 00:00 :00 No [id number] 500mg Take 1 tablet by mouth every 12 (twelve) hours. [facility] ferrous sulfate 325 mg (65 mg iron) tablet 11-21 00:00: 00 03-02 00:00 :00 No [id number] 325mg Take 1 tablet by mouth in the morning and 1 tablet in the evening. [facility] ascorbic acid, vitamin C, 500 mg tablet 11-21 00:00: 00 03-02 00:00 :00 No [id number] 500mg Take 1 tablet by mouth in the morning and 1 tablet at noon and 1 tablet in the evening. [facility] azithromyci n 500 mg tablet 06-29 00:00: 00 07-01 04:59 :00 No [id number] 1000mg Take 2 tablets by mouth in the morning for 1 day. [facility] vit 33-iron-fol ic-dha (SELECT-OB + DHA) 29 mg iron-1 mg -250 mg combo pack 06-27 00:00: 00 03-02 00:00 :00 No [id number] 1{packe t} Take 1 Packet by mouth in the morning. [facility] fluconazole (DIFLUCAN) 150 mg tablet 2020-10 00:00: 00 06-29 00:00 :00 No [id number] Take one pill now and may repeat in 3 days if needed [facility] Norethindro ne Acet-Ethiny l Est (ADDIE) 1.5-30 mg-mcg per tablet 04-12 00:00: 00 Yes [id number] 1{tbl} Take 1 tablet by mouth daily. [facility] VYVANSE 40 mg capsule 04-08 00:00: 00 04-11 00:00 :00 No [facility] DENTA 5000 PLUS 1.1 % Crea 03-22 00:00: 00 03-02 00:00 :00 No BRUSH WITH A PEA SIZED AMOUNT [facility] Immunizations Ordered Immunization Name Filled Immunization Name Date Status Comments Source TDAP 2022-12-11 00:00:00 Completed [facility] TDAP 2022-12-11 00:00:00 Completed [facility] TDAP 2022-12-11 00:00:00 Completed [facility] TDAP 2022-12-11 00:00:00 Completed [facility] TDAP 2022-12-11 00:00:00 Completed [facility] TDAP 2022-12-11 00:00:00 Completed [facility] TDAP 2022-12-11 00:00:00 Completed [facility] TDAP 2022-12-11 00:00:00 Completed [facility] TDAP 2022-12-11 00:00:00 Completed [facility] TDAP 2022-12-11 00:00:00 Completed [facility] TDAP 2022-12-11 00:00:00 Completed [facility] TDAP 2022-12-11 00:00:00 Completed [facility] TDAP 2022-12-11 00:00:00 Completed [facility] TDAP 2022-12-11 00:00:00 Completed [facility] TDAP 2022-12-11 00:00:00 Completed [facility] TDAP 2022-12-11 00:00:00 Completed [facility] TDAP 2022-12-11 00:00:00 Completed [facility] TDAP 2022-12-11 00:00:00 Completed [facility] TDAP 2022-12-11 00:00:00 Completed [facility] TDAP 2022-12-11 00:00:00 Completed [facility] TDAP 2022-12-11 00:00:00 Completed [facility] TDAP 2022-12-11 00:00:00 Completed [facility] TDAP 2022-12-11 00:00:00 Completed [facility] TDAP 2022-12-11 00:00:00 Completed [facility] TDAP 2022-12-11 00:00:00 Completed [facility] TDAP 2022-12-11 00:00:00 Completed [facility] TDAP 2022-12-11 00:00:00 Completed [facility] TDAP 2022-12-11 00:00:00 Completed [facility] TDAP 2022-12-11 00:00:00 Completed [facility] TDAP 2022-12-11 00:00:00 Completed [facility] TDAP 2022-12-11 00:00:00 Completed [facility] HPV9 2018-08-29 00:00:00 Completed [facility] HPV9 2018-08-29 00:00:00 Completed [facility] HPV9 2018-08-29 00:00:00 Completed [facility] HPV9 2018-08-29 00:00:00 Completed [facility] HPV9 2018-08-29 00:00:00 Completed [facility] HPV9 2018-08-29 00:00:00 Completed [facility] HPV9 2018-08-29 00:00:00 Completed [facility] HPV9 2018-08-29 00:00:00 Completed [facility] HPV9 2018-08-29 00:00:00 Completed [facility] HPV9 2018-08-29 00:00:00 Completed [facility] HPV9 2018-08-29 00:00:00 Completed [facility] HPV9 2018-08-29 00:00:00 Completed [facility] HPV9 2018-08-29 00:00:00 Completed [facility] HPV9 2018-08-29 00:00:00 Completed [facility] HPV9 2018-08-29 00:00:00 Completed [facility] HPV9 2018-08-29 00:00:00 Completed [facility] HPV9 2018-08-29 00:00:00 Completed [facility] HPV9 2018-08-29 00:00:00 Completed [facility] HPV9 2018-08-29 00:00:00 Completed [facility] HPV9 2018-08-29 00:00:00 Completed [facility] HPV9 2018-08-29 00:00:00 Completed [facility] HPV9 2018-08-29 00:00:00 Completed [facility] HPV9 2018-08-29 00:00:00 Completed [facility] HPV9 2018-08-29 00:00:00 Completed [facility] HPV9 2018-08-29 00:00:00 Completed [facility] HPV9 2018-08-29 00:00:00 Completed [facility] HPV9 2018-08-29 00:00:00 Completed [facility] HPV9 2018-08-29 00:00:00 Completed [facility] HPV9 2018-08-29 00:00:00 Completed [facility] HPV9 2018-08-29 00:00:00 Completed [facility] HPV9 2018-08-29 00:00:00 Completed [facility] HPV9 2018-08-29 00:00:00 Completed [facility] HPV9 2017-01-02 00:00:00 Completed [facility] HPV9 2017-01-02 00:00:00 Completed [facility] HPV9 2017-01-02 00:00:00 Completed [facility] HPV9 2017-01-02 00:00:00 Completed [facility] HPV9 2017-01-02 00:00:00 Completed [facility] HPV9 2017-01-02 00:00:00 Completed [facility] HPV9 2017-01-02 00:00:00 Completed [facility] HPV9 2017-01-02 00:00:00 Completed [facility] HPV9 2017-01-02 00:00:00 Completed [facility] HPV9 2017-01-02 00:00:00 Completed [facility] HPV9 2017-01-02 00:00:00 Completed [facility] HPV9 2017-01-02 00:00:00 Completed [facility] HPV9 2017-01-02 00:00:00 Completed [facility] HPV9 2017-01-02 00:00:00 Completed [facility] HPV9 2017-01-02 00:00:00 Completed [facility] HPV9 2017-01-02 00:00:00 Completed [facility] HPV9 2017-01-02 00:00:00 Completed [facility] HPV9 2017-01-02 00:00:00 Completed [facility] HPV9 2017-01-02 00:00:00 Completed [facility] HPV9 2017-01-02 00:00:00 Completed [facility] HPV9 2017-01-02 00:00:00 Completed [facility] HPV9 2017-01-02 00:00:00 Completed [facility] HPV9 2017-01-02 00:00:00 Completed [facility] HPV9 2017-01-02 00:00:00 Completed [facility] HPV9 2017-01-02 00:00:00 Completed [facility] HPV9 2017-01-02 00:00:00 Completed [facility] HPV9 2017-01-02 00:00:00 Completed [facility] HPV9 2017-01-02 00:00:00 Completed [facility] HPV9 2017-01-02 00:00:00 Completed [facility] HPV9 2017-01-02 00:00:00 Completed [facility] HPV9 2017-01-02 00:00:00 Completed [facility] HPV9 2017-01-02 00:00:00 Completed [facility] TDAP 2016-05-18 00:00:00 Completed [facility] TDAP 2016-05-18 00:00:00 Completed [facility] TDAP 2016-05-18 00:00:00 Completed [facility] TDAP 2016-05-18 00:00:00 Completed [facility] TDAP 2016-05-18 00:00:00 Completed [facility] TDAP 2016-05-18 00:00:00 Completed [facility] TDAP 2016-05-18 00:00:00 Completed [facility] TDAP 2016-05-18 00:00:00 Completed [facility] TDAP 2016-05-18 00:00:00 Completed [facility] TDAP 2016-05-18 00:00:00 Completed [facility] TDAP 2016-05-18 00:00:00 Completed [facility] TDAP 2016-05-18 00:00:00 Completed [facility] TDAP 2016-05-18 00:00:00 Completed [facility] TDAP 2016-05-18 00:00:00 Completed [facility] TDAP 2016-05-18 00:00:00 Completed [facility] TDAP 2016-05-18 00:00:00 Completed [facility] TDAP 2016-05-18 00:00:00 Completed [facility] TDAP 2016-05-18 00:00:00 Completed [facility] TDAP 2016-05-18 00:00:00 Completed [facility] TDAP 2016-05-18 00:00:00 Completed [facility] TDAP 2016-05-18 00:00:00 Completed [facility] TDAP 2016-05-18 00:00:00 Completed [facility] TDAP 2016-05-18 00:00:00 Completed [facility] TDAP 2016-05-18 00:00:00 Completed [facility] TDAP 2016-05-18 00:00:00 Completed [facility] TDAP 2016-05-18 00:00:00 Completed [facility] TDAP 2016-05-18 00:00:00 Completed [facility] TDAP 2016-05-18 00:00:00 Completed [facility] TDAP 2016-05-18 00:00:00 Completed [facility] TDAP 2016-05-18 00:00:00 Completed [facility] TDAP 2016-05-18 00:00:00 Completed [facility] TDAP 2016-05-18 00:00:00 Completed [facility] HPV 2016-05-12 00:00:00 Completed [facility] Meningococcal Polysaccharide (groups A, C, Y and W-135) conjugate vaccine (MCV4P) 2016-05-12 00:00:00 Completed [facility] HPV 2016-05-12 00:00:00 Completed [facility] Meningococcal Polysaccharide (groups A, C, Y and W-135) conjugate vaccine (MCV4P) 2016-05-12 00:00:00 Completed [facility] HPV 2016-05-12 00:00:00 Completed [facility] Meningococcal Polysaccharide (groups A, C, Y and W-135) conjugate vaccine (MCV4P) 2016-05-12 00:00:00 Completed [facility] HPV 2016-05-12 00:00:00 Completed [facility] Meningococcal Polysaccharide (groups A, C, Y and W-135) conjugate vaccine (MCV4P) 2016-05-12 00:00:00 Completed [facility] HPV 2016-05-12 00:00:00 Completed [facility] Meningococcal Polysaccharide (groups A, C, Y and W-135) conjugate vaccine (MCV4P) 2016-05-12 00:00:00 Completed [facility] HPV 2016-05-12 00:00:00 Completed [facility] Meningococcal Polysaccharide (groups A, C, Y and W-135) conjugate vaccine (MCV4P) 2016-05-12 00:00:00 Completed [facility] HPV 2016-05-12 00:00:00 Completed [facility] Meningococcal Polysaccharide (groups A, C, Y and W-135) conjugate vaccine (MCV4P) 2016-05-12 00:00:00 Completed [facility] HPV 2016-05-12 00:00:00 Completed [facility] Meningococcal Polysaccharide (groups A, C, Y and W-135) conjugate vaccine (MCV4P) 2016-05-12 00:00:00 Completed [facility] HPV 2016-05-12 00:00:00 Completed [facility] Meningococcal Polysaccharide (groups A, C, Y and W-135) conjugate vaccine (MCV4P) 2016-05-12 00:00:00 Completed [facility] HPV 2016-05-12 00:00:00 Completed [facility] Meningococcal Polysaccharide (groups A, C, Y and W-135) conjugate vaccine (MCV4P) 2016-05-12 00:00:00 Completed [facility] HPV 2016-05-12 00:00:00 Completed [facility] Meningococcal Polysaccharide (groups A, C, Y and W-135) conjugate vaccine (MCV4P) 2016-05-12 00:00:00 Completed [facility] HPV 2016-05-12 00:00:00 Completed [facility] Meningococcal Polysaccharide (groups A, C, Y and W-135) conjugate vaccine (MCV4P) 2016-05-12 00:00:00 Completed [facility] HPV 2016-05-12 00:00:00 Completed [facility] Meningococcal Polysaccharide (groups A, C, Y and W-135) conjugate vaccine (MCV4P) 2016-05-12 00:00:00 Completed [facility] HPV 2016-05-12 00:00:00 Completed [facility] Meningococcal Polysaccharide (groups A, C, Y and W-135) conjugate vaccine (MCV4P) 2016-05-12 00:00:00 Completed [facility] HPV 2016-05-12 00:00:00 Completed [facility] Meningococcal Polysaccharide (groups A, C, Y and W-135) conjugate vaccine (MCV4P) 2016-05-12 00:00:00 Completed [facility] HPV 2016-05-12 00:00:00 Completed [facility] Meningococcal Polysaccharide (groups A, C, Y and W-135) conjugate vaccine (MCV4P) 2016-05-12 00:00:00 Completed [facility] HPV 2016-05-12 00:00:00 Completed [facility] Meningococcal Polysaccharide (groups A, C, Y and W-135) conjugate vaccine (MCV4P) 2016-05-12 00:00:00 Completed [facility] HPV 2016-05-12 00:00:00 Completed [facility] Meningococcal Polysaccharide (groups A, C, Y and W-135) conjugate vaccine (MCV4P) 2016-05-12 00:00:00 Completed [facility] HPV 2016-05-12 00:00:00 Completed [facility] Meningococcal Polysaccharide (groups A, C, Y and W-135) conjugate vaccine (MCV4P) 2016-05-12 00:00:00 Completed [facility] HPV 2016-05-12 00:00:00 Completed [facility] Meningococcal Polysaccharide (groups A, C, Y and W-135) conjugate vaccine (MCV4P) 2016-05-12 00:00:00 Completed [facility] HPV 2016-05-12 00:00:00 Completed [facility] Meningococcal Polysaccharide (groups A, C, Y and W-135) conjugate vaccine (MCV4P) 2016-05-12 00:00:00 Completed [facility] HPV 2016-05-12 00:00:00 Completed [facility] Meningococcal Polysaccharide (groups A, C, Y and W-135) conjugate vaccine (MCV4P) 2016-05-12 00:00:00 Completed [facility] HPV 2016-05-12 00:00:00 Completed [facility] Meningococcal Polysaccharide (groups A, C, Y and W-135) conjugate vaccine (MCV4P) 2016-05-12 00:00:00 Completed [facility] HPV 2016-05-12 00:00:00 Completed [facility] Meningococcal Polysaccharide (groups A, C, Y and W-135) conjugate vaccine (MCV4P) 2016-05-12 00:00:00 Completed [facility] HPV 2016-05-12 00:00:00 Completed [facility] Meningococcal Polysaccharide (groups A, C, Y and W-135) conjugate vaccine (MCV4P) 2016-05-12 00:00:00 Completed [facility] HPV 2016-05-12 00:00:00 Completed [facility] Meningococcal Polysaccharide (groups A, C, Y and W-135) conjugate vaccine (MCV4P) 2016-05-12 00:00:00 Completed [facility] HPV 2016-05-12 00:00:00 Completed [facility] Meningococcal Polysaccharide (groups A, C, Y and W-135) conjugate vaccine (MCV4P) 2016-05-12 00:00:00 Completed [facility] HPV 2016-05-12 00:00:00 Completed [facility] Meningococcal Polysaccharide (groups A, C, Y and W-135) conjugate vaccine (MCV4P) 2016-05-12 00:00:00 Completed [facility] HPV 2016-05-12 00:00:00 Completed [facility] Meningococcal Polysaccharide (groups A, C, Y and W-135) conjugate vaccine (MCV4P) 2016-05-12 00:00:00 Completed [facility] HPV 2016-05-12 00:00:00 Completed [facility] Meningococcal Polysaccharide (groups A, C, Y and W-135) conjugate vaccine (MCV4P) 2016-05-12 00:00:00 Completed [facility] HPV 2016-05-12 00:00:00 Completed [facility] Meningococcal Polysaccharide (groups A, C, Y and W-135) conjugate vaccine (MCV4P) 2016-05-12 00:00:00 Completed [facility] HPV 2016-05-12 00:00:00 Completed [facility] Meningococcal Polysaccharide (groups A, C, Y and W-135) conjugate vaccine (MCV4P) 2016-05-12 00:00:00 Completed [facility] Varicella (varivax)(chicken pox) 2008-04-23 00:00:00 Completed [facility] DTaP, Unspecified Formulation 2008-04-23 00:00:00 Completed [facility] MMR 2008-04-23 00:00:00 Completed [facility] IPV 2008-04-23 00:00:00 Completed [facility] Varicella (varivax)(chicken pox) 2008-04-23 00:00:00 Completed [facility] DTaP, Unspecified Formulation 2008-04-23 00:00:00 Completed [facility] MMR 2008-04-23 00:00:00 Completed [facility] IPV 2008-04-23 00:00:00 Completed [facility] Varicella (varivax)(chicken pox) 2008-04-23 00:00:00 Completed [facility] DTaP, Unspecified Formulation 2008-04-23 00:00:00 Completed [facility] MMR 2008-04-23 00:00:00 Completed [facility] IPV 2008-04-23 00:00:00 Completed [facility] Varicella (varivax)(chicken pox) 2008-04-23 00:00:00 Completed [facility] DTaP, Unspecified Formulation 2008-04-23 00:00:00 Completed [facility] MMR 2008-04-23 00:00:00 Completed [facility] IPV 2008-04-23 00:00:00 Completed [facility] Varicella (varivax)(chicken pox) 2008-04-23 00:00:00 Completed [facility] DTaP, Unspecified Formulation 2008-04-23 00:00:00 Completed [facility] MMR 2008-04-23 00:00:00 Completed [facility] IPV 2008-04-23 00:00:00 Completed [facility] Varicella (varivax)(chicken pox) 2008-04-23 00:00:00 Completed [facility] DTaP, Unspecified Formulation 2008-04-23 00:00:00 Completed [facility] MMR 2008-04-23 00:00:00 Completed [facility] IPV 2008-04-23 00:00:00 Completed [facility] Varicella (varivax)(chicken pox) 2008-04-23 00:00:00 Completed [facility] DTaP, Unspecified Formulation 2008-04-23 00:00:00 Completed [facility] MMR 2008-04-23 00:00:00 Completed [facility] IPV 2008-04-23 00:00:00 Completed [facility] Varicella (varivax)(chicken pox) 2008-04-23 00:00:00 Completed [facility] DTaP, Unspecified Formulation 2008-04-23 00:00:00 Completed [facility] MMR 2008-04-23 00:00:00 Completed [facility] IPV 2008-04-23 00:00:00 Completed [facility] Varicella (varivax)(chicken pox) 2008-04-23 00:00:00 Completed [facility] DTaP, Unspecified Formulation 2008-04-23 00:00:00 Completed [facility] MMR 2008-04-23 00:00:00 Completed [facility] IPV 2008-04-23 00:00:00 Completed [facility] Varicella (varivax)(chicken pox) 2008-04-23 00:00:00 Completed [facility] DTaP, Unspecified Formulation 2008-04-23 00:00:00 Completed [facility] MMR 2008-04-23 00:00:00 Completed [facility] IPV 2008-04-23 00:00:00 Completed [facility] Varicella (varivax)(chicken pox) 2008-04-23 00:00:00 Completed [facility] DTaP, Unspecified Formulation 2008-04-23 00:00:00 Completed [facility] MMR 2008-04-23 00:00:00 Completed [facility] IPV 2008-04-23 00:00:00 Completed [facility] Varicella (varivax)(chicken pox) 2008-04-23 00:00:00 Completed [facility] DTaP, Unspecified Formulation 2008-04-23 00:00:00 Completed [facility] MMR 2008-04-23 00:00:00 Completed [facility] IPV 2008-04-23 00:00:00 Completed [facility] Varicella (varivax)(chicken pox) 2008-04-23 00:00:00 Completed [facility] DTaP, Unspecified Formulation 2008-04-23 00:00:00 Completed [facility] MMR 2008-04-23 00:00:00 Completed [facility] IPV 2008-04-23 00:00:00 Completed [facility] Varicella (varivax)(chicken pox) 2008-04-23 00:00:00 Completed [facility] DTaP, Unspecified Formulation 2008-04-23 00:00:00 Completed [facility] MMR 2008-04-23 00:00:00 Completed [facility] IPV 2008-04-23 00:00:00 Completed [facility] Varicella (varivax)(chicken pox) 2008-04-23 00:00:00 Completed [facility] DTaP, Unspecified Formulation 2008-04-23 00:00:00 Completed [facility] MMR 2008-04-23 00:00:00 Completed [facility] IPV 2008-04-23 00:00:00 Completed [facility] Varicella (varivax)(chicken pox) 2008-04-23 00:00:00 Completed [facility] DTaP, Unspecified Formulation 2008-04-23 00:00:00 Completed [facility] MMR 2008-04-23 00:00:00 Completed [facility] IPV 2008-04-23 00:00:00 Completed [facility] Varicella (varivax)(chicken pox) 2008-04-23 00:00:00 Completed [facility] DTaP, Unspecified Formulation 2008-04-23 00:00:00 Completed [facility] MMR 2008-04-23 00:00:00 Completed [facility] IPV 2008-04-23 00:00:00 Completed [facility] Varicella (varivax)(chicken pox) 2008-04-23 00:00:00 Completed [facility] DTaP, Unspecified Formulation 2008-04-23 00:00:00 Completed [facility] MMR 2008-04-23 00:00:00 Completed [facility] IPV 2008-04-23 00:00:00 Completed [facility] Varicella (varivax)(chicken pox) 2008-04-23 00:00:00 Completed [facility] DTaP, Unspecified Formulation 2008-04-23 00:00:00 Completed [facility] MMR 2008-04-23 00:00:00 Completed [facility] IPV 2008-04-23 00:00:00 Completed [facility] Varicella (varivax)(chicken pox) 2008-04-23 00:00:00 Completed [facility] DTaP, Unspecified Formulation 2008-04-23 00:00:00 Completed [facility] MMR 2008-04-23 00:00:00 Completed [facility] IPV 2008-04-23 00:00:00 Completed [facility] Varicella (varivax)(chicken pox) 2008-04-23 00:00:00 Completed [facility] DTaP, Unspecified Formulation 2008-04-23 00:00:00 Completed [facility] MMR 2008-04-23 00:00:00 Completed [facility] IPV 2008-04-23 00:00:00 Completed [facility] Varicella (varivax)(chicken pox) 2008-04-23 00:00:00 Completed [facility] DTaP, Unspecified Formulation 2008-04-23 00:00:00 Completed [facility] MMR 2008-04-23 00:00:00 Completed [facility] IPV 2008-04-23 00:00:00 Completed [facility] Varicella (varivax)(chicken pox) 2008-04-23 00:00:00 Completed [facility] DTaP, Unspecified Formulation 2008-04-23 00:00:00 Completed [facility] MMR 2008-04-23 00:00:00 Completed [facility] IPV 2008-04-23 00:00:00 Completed [facility] Varicella (varivax)(chicken pox) 2008-04-23 00:00:00 Completed [facility] DTaP, Unspecified Formulation 2008-04-23 00:00:00 Completed [facility] MMR 2008-04-23 00:00:00 Completed [facility] IPV 2008-04-23 00:00:00 Completed [facility] Varicella (varivax)(chicken pox) 2008-04-23 00:00:00 Completed [facility] DTaP, Unspecified Formulation 2008-04-23 00:00:00 Completed [facility] MMR 2008-04-23 00:00:00 Completed [facility] IPV 2008-04-23 00:00:00 Completed [facility] Varicella (varivax)(chicken pox) 2008-04-23 00:00:00 Completed [facility] DTaP, Unspecified Formulation 2008-04-23 00:00:00 Completed [facility] MMR 2008-04-23 00:00:00 Completed [facility] IPV 2008-04-23 00:00:00 Completed [facility] Varicella (varivax)(chicken pox) 2008-04-23 00:00:00 Completed [facility] DTaP, Unspecified Formulation 2008-04-23 00:00:00 Completed [facility] MMR 2008-04-23 00:00:00 Completed [facility] IPV 2008-04-23 00:00:00 Completed [facility] Varicella (varivax)(chicken pox) 2008-04-23 00:00:00 Completed [facility] DTaP, Unspecified Formulation 2008-04-23 00:00:00 Completed [facility] MMR 2008-04-23 00:00:00 Completed [facility] IPV 2008-04-23 00:00:00 Completed [facility] Varicella (varivax)(chicken pox) 2008-04-23 00:00:00 Completed [facility] DTaP, Unspecified Formulation 2008-04-23 00:00:00 Completed [facility] MMR 2008-04-23 00:00:00 Completed [facility] IPV 2008-04-23 00:00:00 Completed [facility] Varicella (varivax)(chicken pox) 2008-04-23 00:00:00 Completed [facility] DTaP, Unspecified Formulation 2008-04-23 00:00:00 Completed [facility] MMR 2008-04-23 00:00:00 Completed [facility] IPV 2008-04-23 00:00:00 Completed [facility] Varicella (varivax)(chicken pox) 2008-04-23 00:00:00 Completed [facility] DTaP, Unspecified Formulation 2008-04-23 00:00:00 Completed [facility] MMR 2008-04-23 00:00:00 Completed [facility] IPV 2008-04-23 00:00:00 Completed [facility] Varicella (varivax)(chicken pox) 2008-04-23 00:00:00 Completed [facility] DTaP, Unspecified Formulation 2008-04-23 00:00:00 Completed [facility] MMR 2008-04-23 00:00:00 Completed [facility] IPV 2008-04-23 00:00:00 Completed [facility] HEPATITIS A 2007-04-16 00:00:00 Completed [facility] HEPATITIS A 2007-04-16 00:00:00 Completed [facility] HEPATITIS A 2007-04-16 00:00:00 Completed [facility] HEPATITIS A 2007-04-16 00:00:00 Completed [facility] HEPATITIS A 2007-04-16 00:00:00 Completed [facility] HEPATITIS A 2007-04-16 00:00:00 Completed [facility] HEPATITIS A 2007-04-16 00:00:00 Completed [facility] HEPATITIS A 2007-04-16 00:00:00 Completed [facility] HEPATITIS A 2007-04-16 00:00:00 Completed [facility] HEPATITIS A 2007-04-16 00:00:00 Completed [facility] HEPATITIS A 2007-04-16 00:00:00 Completed [facility] HEPATITIS A 2007-04-16 00:00:00 Completed [facility] HEPATITIS A 2007-04-16 00:00:00 Completed [facility] HEPATITIS A 2007-04-16 00:00:00 Completed [facility] HEPATITIS A 2007-04-16 00:00:00 Completed [facility] HEPATITIS A 2007-04-16 00:00:00 Completed [facility] HEPATITIS A 2007-04-16 00:00:00 Completed [facility] HEPATITIS A 2007-04-16 00:00:00 Completed [facility] HEPATITIS A 2007-04-16 00:00:00 Completed [facility] HEPATITIS A 2007-04-16 00:00:00 Completed [facility] HEPATITIS A 2007-04-16 00:00:00 Completed [facility] HEPATITIS A 2007-04-16 00:00:00 Completed [facility] HEPATITIS A 2007-04-16 00:00:00 Completed [facility] HEPATITIS A 2007-04-16 00:00:00 Completed [facility] HEPATITIS A 2007-04-16 00:00:00 Completed [facility] HEPATITIS A 2007-04-16 00:00:00 Completed [facility] HEPATITIS A 2007-04-16 00:00:00 Completed [facility] HEPATITIS A 2007-04-16 00:00:00 Completed [facility] HEPATITIS A 2007-04-16 00:00:00 Completed [facility] HEPATITIS A 2007-04-16 00:00:00 Completed [facility] HEPATITIS A 2007-04-16 00:00:00 Completed [facility] HEPATITIS A 2007-04-16 00:00:00 Completed [facility] Pneumococcal 7 Conjugate, PCV7 (Prevnar7) 2006-11-01 00:00:00 Completed [facility] DTaP, Unspecified Formulation 2006-11-01 00:00:00 Completed [facility] HIB 4 Dose Schedule 2006-11-01 00:00:00 Completed [facility] MMR 2006-11-01 00:00:00 Completed [facility] Pneumococcal 7 Conjugate, PCV7 (Prevnar7) 2006-11-01 00:00:00 Completed [facility] DTaP, Unspecified Formulation 2006-11-01 00:00:00 Completed [facility] HIB 4 Dose Schedule 2006-11-01 00:00:00 Completed [facility] MMR 2006-11-01 00:00:00 Completed [facility] Pneumococcal 7 Conjugate, PCV7 (Prevnar7) 2006-11-01 00:00:00 Completed [facility] DTaP, Unspecified Formulation 2006-11-01 00:00:00 Completed [facility] HIB 4 Dose Schedule 2006-11-01 00:00:00 Completed [facility] MMR 2006-11-01 00:00:00 Completed [facility] Pneumococcal 7 Conjugate, PCV7 (Prevnar7) 2006-11-01 00:00:00 Completed [facility] DTaP, Unspecified Formulation 2006-11-01 00:00:00 Completed [facility] HIB 4 Dose Schedule 2006-11-01 00:00:00 Completed [facility] MMR 2006-11-01 00:00:00 Completed [facility] Pneumococcal 7 Conjugate, PCV7 (Prevnar7) 2006-11-01 00:00:00 Completed [facility] DTaP, Unspecified Formulation 2006-11-01 00:00:00 Completed [facility] HIB 4 Dose Schedule 2006-11-01 00:00:00 Completed [facility] MMR 2006-11-01 00:00:00 Completed [facility] Pneumococcal 7 Conjugate, PCV7 (Prevnar7) 2006-11-01 00:00:00 Completed [facility] DTaP, Unspecified Formulation 2006-11-01 00:00:00 Completed [facility] HIB 4 Dose Schedule 2006-11-01 00:00:00 Completed [facility] MMR 2006-11-01 00:00:00 Completed [facility] Pneumococcal 7 Conjugate, PCV7 (Prevnar7) 2006-11-01 00:00:00 Completed [facility] DTaP, Unspecified Formulation 2006-11-01 00:00:00 Completed [facility] HIB 4 Dose Schedule 2006-11-01 00:00:00 Completed [facility] MMR 2006-11-01 00:00:00 Completed [facility] Pneumococcal 7 Conjugate, PCV7 (Prevnar7) 2006-11-01 00:00:00 Completed [facility] DTaP, Unspecified Formulation 2006-11-01 00:00:00 Completed [facility] HIB 4 Dose Schedule 2006-11-01 00:00:00 Completed [facility] MMR 2006-11-01 00:00:00 Completed [facility] Pneumococcal 7 Conjugate, PCV7 (Prevnar7) 2006-11-01 00:00:00 Completed [facility] DTaP, Unspecified Formulation 2006-11-01 00:00:00 Completed [facility] HIB 4 Dose Schedule 2006-11-01 00:00:00 Completed [facility] MMR 2006-11-01 00:00:00 Completed [facility] Pneumococcal 7 Conjugate, PCV7 (Prevnar7) 2006-11-01 00:00:00 Completed [facility] DTaP, Unspecified Formulation 2006-11-01 00:00:00 Completed [facility] HIB 4 Dose Schedule 2006-11-01 00:00:00 Completed [facility] MMR 2006-11-01 00:00:00 Completed [facility] Pneumococcal 7 Conjugate, PCV7 (Prevnar7) 2006-11-01 00:00:00 Completed [facility] DTaP, Unspecified Formulation 2006-11-01 00:00:00 Completed [facility] HIB 4 Dose Schedule 2006-11-01 00:00:00 Completed [facility] MMR 2006-11-01 00:00:00 Completed [facility] Pneumococcal 7 Conjugate, PCV7 (Prevnar7) 2006-11-01 00:00:00 Completed [facility] DTaP, Unspecified Formulation 2006-11-01 00:00:00 Completed [facility] HIB 4 Dose Schedule 2006-11-01 00:00:00 Completed [facility] MMR 2006-11-01 00:00:00 Completed [facility] Pneumococcal 7 Conjugate, PCV7 (Prevnar7) 2006-11-01 00:00:00 Completed [facility] DTaP, Unspecified Formulation 2006-11-01 00:00:00 Completed [facility] HIB 4 Dose Schedule 2006-11-01 00:00:00 Completed [facility] MMR 2006-11-01 00:00:00 Completed [facility] Pneumococcal 7 Conjugate, PCV7 (Prevnar7) 2006-11-01 00:00:00 Completed [facility] DTaP, Unspecified Formulation 2006-11-01 00:00:00 Completed [facility] HIB 4 Dose Schedule 2006-11-01 00:00:00 Completed [facility] MMR 2006-11-01 00:00:00 Completed [facility] Pneumococcal 7 Conjugate, PCV7 (Prevnar7) 2006-11-01 00:00:00 Completed [facility] DTaP, Unspecified Formulation 2006-11-01 00:00:00 Completed [facility] HIB 4 Dose Schedule 2006-11-01 00:00:00 Completed [facility] MMR 2006-11-01 00:00:00 Completed [facility] Pneumococcal 7 Conjugate, PCV7 (Prevnar7) 2006-11-01 00:00:00 Completed [facility] DTaP, Unspecified Formulation 2006-11-01 00:00:00 Completed [facility] HIB 4 Dose Schedule 2006-11-01 00:00:00 Completed [facility] MMR 2006-11-01 00:00:00 Completed [facility] Pneumococcal 7 Conjugate, PCV7 (Prevnar7) 2006-11-01 00:00:00 Completed [facility] DTaP, Unspecified Formulation 2006-11-01 00:00:00 Completed [facility] HIB 4 Dose Schedule 2006-11-01 00:00:00 Completed [facility] MMR 2006-11-01 00:00:00 Completed [facility] Pneumococcal 7 Conjugate, PCV7 (Prevnar7) 2006-11-01 00:00:00 Completed [facility] DTaP, Unspecified Formulation 2006-11-01 00:00:00 Completed [facility] HIB 4 Dose Schedule 2006-11-01 00:00:00 Completed [facility] MMR 2006-11-01 00:00:00 Completed [facility] Pneumococcal 7 Conjugate, PCV7 (Prevnar7) 2006-11-01 00:00:00 Completed [facility] DTaP, Unspecified Formulation 2006-11-01 00:00:00 Completed [facility] HIB 4 Dose Schedule 2006-11-01 00:00:00 Completed [facility] MMR 2006-11-01 00:00:00 Completed [facility] Pneumococcal 7 Conjugate, PCV7 (Prevnar7) 2006-11-01 00:00:00 Completed [facility] DTaP, Unspecified Formulation 2006-11-01 00:00:00 Completed [facility] HIB 4 Dose Schedule 2006-11-01 00:00:00 Completed [facility] MMR 2006-11-01 00:00:00 Completed [facility] Pneumococcal 7 Conjugate, PCV7 (Prevnar7) 2006-11-01 00:00:00 Completed [facility] DTaP, Unspecified Formulation 2006-11-01 00:00:00 Completed [facility] HIB 4 Dose Schedule 2006-11-01 00:00:00 Completed [facility] MMR 2006-11-01 00:00:00 Completed [facility] Pneumococcal 7 Conjugate, PCV7 (Prevnar7) 2006-11-01 00:00:00 Completed [facility] DTaP, Unspecified Formulation 2006-11-01 00:00:00 Completed [facility] HIB 4 Dose Schedule 2006-11-01 00:00:00 Completed [facility] MMR 2006-11-01 00:00:00 Completed [facility] Pneumococcal 7 Conjugate, PCV7 (Prevnar7) 2006-11-01 00:00:00 Completed [facility] DTaP, Unspecified Formulation 2006-11-01 00:00:00 Completed [facility] HIB 4 Dose Schedule 2006-11-01 00:00:00 Completed [facility] MMR 2006-11-01 00:00:00 Completed [facility] Pneumococcal 7 Conjugate, PCV7 (Prevnar7) 2006-11-01 00:00:00 Completed [facility] DTaP, Unspecified Formulation 2006-11-01 00:00:00 Completed [facility] HIB 4 Dose Schedule 2006-11-01 00:00:00 Completed [facility] MMR 2006-11-01 00:00:00 Completed [facility] Pneumococcal 7 Conjugate, PCV7 (Prevnar7) 2006-11-01 00:00:00 Completed [facility] DTaP, Unspecified Formulation 2006-11-01 00:00:00 Completed [facility] HIB 4 Dose Schedule 2006-11-01 00:00:00 Completed [facility] MMR 2006-11-01 00:00:00 Completed [facility] Pneumococcal 7 Conjugate, PCV7 (Prevnar7) 2006-11-01 00:00:00 Completed [facility] DTaP, Unspecified Formulation 2006-11-01 00:00:00 Completed [facility] HIB 4 Dose Schedule 2006-11-01 00:00:00 Completed [facility] MMR 2006-11-01 00:00:00 Completed [facility] Pneumococcal 7 Conjugate, PCV7 (Prevnar7) 2006-11-01 00:00:00 Completed [facility] DTaP, Unspecified Formulation 2006-11-01 00:00:00 Completed [facility] HIB 4 Dose Schedule 2006-11-01 00:00:00 Completed [facility] MMR 2006-11-01 00:00:00 Completed [facility] Pneumococcal 7 Conjugate, PCV7 (Prevnar7) 2006-11-01 00:00:00 Completed [facility] DTaP, Unspecified Formulation 2006-11-01 00:00:00 Completed [facility] HIB 4 Dose Schedule 2006-11-01 00:00:00 Completed [facility] MMR 2006-11-01 00:00:00 Completed [facility] Pneumococcal 7 Conjugate, PCV7 (Prevnar7) 2006-11-01 00:00:00 Completed [facility] DTaP, Unspecified Formulation 2006-11-01 00:00:00 Completed [facility] HIB 4 Dose Schedule 2006-11-01 00:00:00 Completed [facility] MMR 2006-11-01 00:00:00 Completed [facility] Pneumococcal 7 Conjugate, PCV7 (Prevnar7) 2006-11-01 00:00:00 Completed [facility] DTaP, Unspecified Formulation 2006-11-01 00:00:00 Completed [facility] HIB 4 Dose Schedule 2006-11-01 00:00:00 Completed [facility] MMR 2006-11-01 00:00:00 Completed [facility] Pneumococcal 7 Conjugate, PCV7 (Prevnar7) 2006-11-01 00:00:00 Completed [facility] DTaP, Unspecified Formulation 2006-11-01 00:00:00 Completed [facility] HIB 4 Dose Schedule 2006-11-01 00:00:00 Completed [facility] MMR 2006-11-01 00:00:00 Completed [facility] Pneumococcal 7 Conjugate, PCV7 (Prevnar7) 2006-11-01 00:00:00 Completed [facility] DTaP, Unspecified Formulation 2006-11-01 00:00:00 Completed [facility] HIB 4 Dose Schedule 2006-11-01 00:00:00 Completed [facility] MMR 2006-11-01 00:00:00 Completed [facility] HEPATITIS A 2006-04-02 00:00:00 Completed [facility] HEPATITIS A 2006-04-02 00:00:00 Completed [facility] HEPATITIS A 2006-04-02 00:00:00 Completed [facility] HEPATITIS A 2006-04-02 00:00:00 Completed [facility] HEPATITIS A 2006-04-02 00:00:00 Completed [facility] HEPATITIS A 2006-04-02 00:00:00 Completed [facility] HEPATITIS A 2006-04-02 00:00:00 Completed [facility] HEPATITIS A 2006-04-02 00:00:00 Completed [facility] HEPATITIS A 2006-04-02 00:00:00 Completed [facility] HEPATITIS A 2006-04-02 00:00:00 Completed [facility] HEPATITIS A 2006-04-02 00:00:00 Completed [facility] HEPATITIS A 2006-04-02 00:00:00 Completed [facility] HEPATITIS A 2006-04-02 00:00:00 Completed [facility] HEPATITIS A 2006-04-02 00:00:00 Completed [facility] HEPATITIS A 2006-04-02 00:00:00 Completed [facility] HEPATITIS A 2006-04-02 00:00:00 Completed [facility] HEPATITIS A 2006-04-02 00:00:00 Completed [facility] HEPATITIS A 2006-04-02 00:00:00 Completed [facility] HEPATITIS A 2006-04-02 00:00:00 Completed [facility] HEPATITIS A 2006-04-02 00:00:00 Completed [facility] HEPATITIS A 2006-04-02 00:00:00 Completed [facility] HEPATITIS A 2006-04-02 00:00:00 Completed [facility] HEPATITIS A 2006-04-02 00:00:00 Completed [facility] HEPATITIS A 2006-04-02 00:00:00 Completed [facility] HEPATITIS A 2006-04-02 00:00:00 Completed [facility] HEPATITIS A 2006-04-02 00:00:00 Completed [facility] HEPATITIS A 2006-04-02 00:00:00 Completed [facility] HEPATITIS A 2006-04-02 00:00:00 Completed [facility] HEPATITIS A 2006-04-02 00:00:00 Completed [facility] HEPATITIS A 2006-04-02 00:00:00 Completed [facility] HEPATITIS A 2006-04-02 00:00:00 Completed [facility] HEPATITIS A 2006-04-02 00:00:00 Completed [facility] IPV 2005-04-04 00:00:00 Completed [facility] Varicella (varivax)(chicken pox) 2005-04-04 00:00:00 Completed [facility] IPV 2005-04-04 00:00:00 Completed [facility] Varicella (varivax)(chicken pox) 2005-04-04 00:00:00 Completed [facility] IPV 2005-04-04 00:00:00 Completed [facility] Varicella (varivax)(chicken pox) 2005-04-04 00:00:00 Completed [facility] IPV 2005-04-04 00:00:00 Completed [facility] Varicella (varivax)(chicken pox) 2005-04-04 00:00:00 Completed [facility] IPV 2005-04-04 00:00:00 Completed [facility] Varicella (varivax)(chicken pox) 2005-04-04 00:00:00 Completed [facility] IPV 2005-04-04 00:00:00 Completed [facility] Varicella (varivax)(chicken pox) 2005-04-04 00:00:00 Completed [facility] IPV 2005-04-04 00:00:00 Completed [facility] Varicella (varivax)(chicken pox) 2005-04-04 00:00:00 Completed [facility] IPV 2005-04-04 00:00:00 Completed [facility] Varicella (varivax)(chicken pox) 2005-04-04 00:00:00 Completed [facility] IPV 2005-04-04 00:00:00 Completed [facility] Varicella (varivax)(chicken pox) 2005-04-04 00:00:00 Completed [facility] IPV 2005-04-04 00:00:00 Completed [facility] Varicella (varivax)(chicken pox) 2005-04-04 00:00:00 Completed [facility] IPV 2005-04-04 00:00:00 Completed [facility] Varicella (varivax)(chicken pox) 2005-04-04 00:00:00 Completed [facility] IPV 2005-04-04 00:00:00 Completed [facility] Varicella (varivax)(chicken pox) 2005-04-04 00:00:00 Completed [facility] IPV 2005-04-04 00:00:00 Completed [facility] Varicella (varivax)(chicken pox) 2005-04-04 00:00:00 Completed [facility] IPV 2005-04-04 00:00:00 Completed [facility] Varicella (varivax)(chicken pox) 2005-04-04 00:00:00 Completed [facility] IPV 2005-04-04 00:00:00 Completed [facility] Varicella (varivax)(chicken pox) 2005-04-04 00:00:00 Completed [facility] IPV 2005-04-04 00:00:00 Completed [facility] Varicella (varivax)(chicken pox) 2005-04-04 00:00:00 Completed [facility] IPV 2005-04-04 00:00:00 Completed [facility] Varicella (varivax)(chicken pox) 2005-04-04 00:00:00 Completed [facility] IPV 2005-04-04 00:00:00 Completed [facility] Varicella (varivax)(chicken pox) 2005-04-04 00:00:00 Completed [facility] IPV 2005-04-04 00:00:00 Completed [facility] Varicella (varivax)(chicken pox) 2005-04-04 00:00:00 Completed [facility] IPV 2005-04-04 00:00:00 Completed [facility] Varicella (varivax)(chicken pox) 2005-04-04 00:00:00 Completed [facility] IPV 2005-04-04 00:00:00 Completed [facility] Varicella (varivax)(chicken pox) 2005-04-04 00:00:00 Completed [facility] IPV 2005-04-04 00:00:00 Completed [facility] Varicella (varivax)(chicken pox) 2005-04-04 00:00:00 Completed [facility] IPV 2005-04-04 00:00:00 Completed [facility] Varicella (varivax)(chicken pox) 2005-04-04 00:00:00 Completed [facility] IPV 2005-04-04 00:00:00 Completed [facility] Varicella (varivax)(chicken pox) 2005-04-04 00:00:00 Completed [facility] IPV 2005-04-04 00:00:00 Completed [facility] Varicella (varivax)(chicken pox) 2005-04-04 00:00:00 Completed [facility] IPV 2005-04-04 00:00:00 Completed [facility] Varicella (varivax)(chicken pox) 2005-04-04 00:00:00 Completed [facility] IPV 2005-04-04 00:00:00 Completed [facility] Varicella (varivax)(chicken pox) 2005-04-04 00:00:00 Completed [facility] IPV 2005-04-04 00:00:00 Completed [facility] Varicella (varivax)(chicken pox) 2005-04-04 00:00:00 Completed [facility] IPV 2005-04-04 00:00:00 Completed [facility] Varicella (varivax)(chicken pox) 2005-04-04 00:00:00 Completed [facility] IPV 2005-04-04 00:00:00 Completed [facility] Varicella (varivax)(chicken pox) 2005-04-04 00:00:00 Completed [facility] IPV 2005-04-04 00:00:00 Completed [facility] Varicella (varivax)(chicken pox) 2005-04-04 00:00:00 Completed [facility] IPV 2005-04-04 00:00:00 Completed [facility] Varicella (varivax)(chicken pox) 2005-04-04 00:00:00 Completed [facility] Pediarix (dtap/hep B/ipv) 2004 00:00:00 Completed [facility] HIB 4 Dose Schedule 2004 00:00:00 Completed [facility] Pediarix (dtap/hep B/ipv) 2004 00:00:00 Completed [facility] HIB 4 Dose Schedule 2004 00:00:00 Completed [facility] Pediarix (dtap/hep B/ipv) 2004 00:00:00 Completed [facility] HIB 4 Dose Schedule 2004 00:00:00 Completed [facility] Pediarix (dtap/hep B/ipv) 2004 00:00:00 Completed [facility] HIB 4 Dose Schedule 2004 00:00:00 Completed [facility] Pediarix (dtap/hep B/ipv) 2004 00:00:00 Completed [facility] HIB 4 Dose Schedule 2004 00:00:00 Completed [facility] Pediarix (dtap/hep B/ipv) 2004 00:00:00 Completed [facility] HIB 4 Dose Schedule 2004 00:00:00 Completed [facility] Pediarix (dtap/hep B/ipv) 2004 00:00:00 Completed [facility] HIB 4 Dose Schedule 2004 00:00:00 Completed [facility] Pediarix (dtap/hep B/ipv) 2004 00:00:00 Completed [facility] HIB 4 Dose Schedule 2004 00:00:00 Completed [facility] Pediarix (dtap/hep B/ipv) 2004 00:00:00 Completed [facility] HIB 4 Dose Schedule 2004 00:00:00 Completed [facility] Pediarix (dtap/hep B/ipv) 2004 00:00:00 Completed [facility] HIB 4 Dose Schedule 2004 00:00:00 Completed [facility] Pediarix (dtap/hep B/ipv) 2004 00:00:00 Completed [facility] HIB 4 Dose Schedule 2004 00:00:00 Completed [facility] Pediarix (dtap/hep B/ipv) 2004 00:00:00 Completed [facility] HIB 4 Dose Schedule 2004 00:00:00 Completed [facility] Pediarix (dtap/hep B/ipv) 2004 00:00:00 Completed [facility] HIB 4 Dose Schedule 2004 00:00:00 Completed [facility] Pediarix (dtap/hep B/ipv) 2004 00:00:00 Completed [facility] HIB 4 Dose Schedule 2004 00:00:00 Completed [facility] Pediarix (dtap/hep B/ipv) 2004 00:00:00 Completed [facility] HIB 4 Dose Schedule 2004 00:00:00 Completed [facility] Pediarix (dtap/hep B/ipv) 2004 00:00:00 Completed [facility] HIB 4 Dose Schedule 2004 00:00:00 Completed [facility] Pediarix (dtap/hep B/ipv) 2004 00:00:00 Completed [facility] HIB 4 Dose Schedule 2004 00:00:00 Completed [facility] Pediarix (dtap/hep B/ipv) 2004 00:00:00 Completed [facility] HIB 4 Dose Schedule 2004 00:00:00 Completed [facility] Pediarix (dtap/hep B/ipv) 2004 00:00:00 Completed [facility] HIB 4 Dose Schedule 2004 00:00:00 Completed [facility] Pediarix (dtap/hep B/ipv) 2004 00:00:00 Completed [facility] HIB 4 Dose Schedule 2004 00:00:00 Completed [facility] Pediarix (dtap/hep B/ipv) 2004 00:00:00 Completed [facility] HIB 4 Dose Schedule 2004 00:00:00 Completed [facility] Pediarix (dtap/hep B/ipv) 2004 00:00:00 Completed [facility] HIB 4 Dose Schedule 2004 00:00:00 Completed [facility] Pediarix (dtap/hep B/ipv) 2004 00:00:00 Completed [facility] HIB 4 Dose Schedule 2004 00:00:00 Completed [facility] Pediarix (dtap/hep B/ipv) 2004 00:00:00 Completed [facility] HIB 4 Dose Schedule 2004 00:00:00 Completed [facility] Pediarix (dtap/hep B/ipv) 2004 00:00:00 Completed [facility] HIB 4 Dose Schedule 2004 00:00:00 Completed [facility] Pediarix (dtap/hep B/ipv) 2004 00:00:00 Completed [facility] HIB 4 Dose Schedule 2004 00:00:00 Completed [facility] Pediarix (dtap/hep B/ipv) 2004 00:00:00 Completed [facility] HIB 4 Dose Schedule 2004 00:00:00 Completed [facility] Pediarix (dtap/hep B/ipv) 2004 00:00:00 Completed [facility] HIB 4 Dose Schedule 2004 00:00:00 Completed [facility] Pediarix (dtap/hep B/ipv) 2004 00:00:00 Completed [facility] HIB 4 Dose Schedule 2004 00:00:00 Completed [facility] Pediarix (dtap/hep B/ipv) 2004 00:00:00 Completed [facility] HIB 4 Dose Schedule 2004 00:00:00 Completed [facility] Pediarix (dtap/hep B/ipv) 2004 00:00:00 Completed [facility] HIB 4 Dose Schedule 2004 00:00:00 Completed [facility] Pediarix (dtap/hep B/ipv) 2004 00:00:00 Completed [facility] HIB 4 Dose Schedule 2004 00:00:00 Completed [facility] DTaP, Unspecified Formulation 2004 00:00:00 Completed [facility] Pneumococcal 7 Conjugate, PCV7 (Prevnar7) 2004 00:00:00 Completed [facility] DTaP, Unspecified Formulation 2004 00:00:00 Completed [facility] Pneumococcal 7 Conjugate, PCV7 (Prevnar7) 2004 00:00:00 Completed [facility] DTaP, Unspecified Formulation 2004 00:00:00 Completed [facility] Pneumococcal 7 Conjugate, PCV7 (Prevnar7) 2004 00:00:00 Completed [facility] DTaP, Unspecified Formulation 2004 00:00:00 Completed [facility] Pneumococcal 7 Conjugate, PCV7 (Prevnar7) 2004 00:00:00 Completed [facility] DTaP, Unspecified Formulation 2004 00:00:00 Completed [facility] Pneumococcal 7 Conjugate, PCV7 (Prevnar7) 2004 00:00:00 Completed [facility] DTaP, Unspecified Formulation 2004 00:00:00 Completed [facility] Pneumococcal 7 Conjugate, PCV7 (Prevnar7) 2004 00:00:00 Completed [facility] DTaP, Unspecified Formulation 2004 00:00:00 Completed [facility] Pneumococcal 7 Conjugate, PCV7 (Prevnar7) 2004 00:00:00 Completed [facility] DTaP, Unspecified Formulation 2004 00:00:00 Completed [facility] Pneumococcal 7 Conjugate, PCV7 (Prevnar7) 2004 00:00:00 Completed [facility] DTaP, Unspecified Formulation 2004 00:00:00 Completed [facility] Pneumococcal 7 Conjugate, PCV7 (Prevnar7) 2004 00:00:00 Completed [facility] DTaP, Unspecified Formulation 2004 00:00:00 Completed [facility] Pneumococcal 7 Conjugate, PCV7 (Prevnar7) 2004 00:00:00 Completed [facility] DTaP, Unspecified Formulation 2004 00:00:00 Completed [facility] Pneumococcal 7 Conjugate, PCV7 (Prevnar7) 2004 00:00:00 Completed [facility] DTaP, Unspecified Formulation 2004 00:00:00 Completed [facility] Pneumococcal 7 Conjugate, PCV7 (Prevnar7) 2004 00:00:00 Completed [facility] DTaP, Unspecified Formulation 2004 00:00:00 Completed [facility] Pneumococcal 7 Conjugate, PCV7 (Prevnar7) 2004 00:00:00 Completed [facility] DTaP, Unspecified Formulation 2004 00:00:00 Completed [facility] Pneumococcal 7 Conjugate, PCV7 (Prevnar7) 2004 00:00:00 Completed [facility] DTaP, Unspecified Formulation 2004 00:00:00 Completed [facility] Pneumococcal 7 Conjugate, PCV7 (Prevnar7) 2004 00:00:00 Completed [facility] DTaP, Unspecified Formulation 2004 00:00:00 Completed [facility] Pneumococcal 7 Conjugate, PCV7 (Prevnar7) 2004 00:00:00 Completed [facility] DTaP, Unspecified Formulation 2004 00:00:00 Completed [facility] Pneumococcal 7 Conjugate, PCV7 (Prevnar7) 2004 00:00:00 Completed [facility] DTaP, Unspecified Formulation 2004 00:00:00 Completed [facility] Pneumococcal 7 Conjugate, PCV7 (Prevnar7) 2004 00:00:00 Completed [facility] DTaP, Unspecified Formulation 2004 00:00:00 Completed [facility] Pneumococcal 7 Conjugate, PCV7 (Prevnar7) 2004 00:00:00 Completed [facility] DTaP, Unspecified Formulation 2004 00:00:00 Completed [facility] Pneumococcal 7 Conjugate, PCV7 (Prevnar7) 2004 00:00:00 Completed [facility] DTaP, Unspecified Formulation 2004 00:00:00 Completed [facility] Pneumococcal 7 Conjugate, PCV7 (Prevnar7) 2004 00:00:00 Completed [facility] DTaP, Unspecified Formulation 2004 00:00:00 Completed [facility] Pneumococcal 7 Conjugate, PCV7 (Prevnar7) 2004 00:00:00 Completed [facility] DTaP, Unspecified Formulation 2004 00:00:00 Completed [facility] Pneumococcal 7 Conjugate, PCV7 (Prevnar7) 2004 00:00:00 Completed [facility] DTaP, Unspecified Formulation 2004 00:00:00 Completed [facility] Pneumococcal 7 Conjugate, PCV7 (Prevnar7) 2004 00:00:00 Completed [facility] DTaP, Unspecified Formulation 2004 00:00:00 Completed [facility] Pneumococcal 7 Conjugate, PCV7 (Prevnar7) 2004 00:00:00 Completed [facility] DTaP, Unspecified Formulation 2004 00:00:00 Completed [facility] Pneumococcal 7 Conjugate, PCV7 (Prevnar7) 2004 00:00:00 Completed [facility] DTaP, Unspecified Formulation 2004 00:00:00 Completed [facility] Pneumococcal 7 Conjugate, PCV7 (Prevnar7) 2004 00:00:00 Completed [facility] DTaP, Unspecified Formulation 2004 00:00:00 [facility] [facility] Pneumococcal 7 Conjugate, PCV7 (Prevnar7) 2004 00:00:00 Completed [facility] DTaP, Unspecified Formulation 2004 00:00:00 Completed [facility] Pneumococcal 7 Conjugate, PCV7 (Prevnar7) 2004 00:00:00 Completed [facility] DTaP, Unspecified Formulation 2004 00:00:00 Completed [facility] Pneumococcal 7 Conjugate, PCV7 (Prevnar7) 2004 00:00:00 Completed [facility] DTaP, Unspecified Formulation 2004 00:00:00 Completed [facility] Pneumococcal 7 Conjugate, PCV7 (Prevnar7) 2004 00:00:00 Completed [facility] DTaP, Unspecified Formulation 2004 00:00:00 Completed [facility] Pneumococcal 7 Conjugate, PCV7 (Prevnar7) 2004 00:00:00 Completed [facility] HIB 4 Dose Schedule 2004 00:00:00 Completed [facility] Pneumococcal 7 Conjugate, PCV7 (Prevnar7) 2004 00:00:00 Completed [facility] HIB 4 Dose Schedule 2004 00:00:00 Completed [facility] Pneumococcal 7 Conjugate, PCV7 (Prevnar7) 2004 00:00:00 Completed [facility] HIB 4 Dose Schedule 2004 00:00:00 Completed [facility] Pneumococcal 7 Conjugate, PCV7 (Prevnar7) 2004 00:00:00 Completed [facility] HIB 4 Dose Schedule 2004 00:00:00 Completed [facility] Pneumococcal 7 Conjugate, PCV7 (Prevnar7) 2004 00:00:00 Completed [facility] HIB 4 Dose Schedule 2004 00:00:00 Completed [facility] Pneumococcal 7 Conjugate, PCV7 (Prevnar7) 2004 00:00:00 Completed [facility] HIB 4 Dose Schedule 2004 00:00:00 Completed [facility] Pneumococcal 7 Conjugate, PCV7 (Prevnar7) 2004 00:00:00 Completed [facility] HIB 4 Dose Schedule 2004 00:00:00 Completed [facility] Pneumococcal 7 Conjugate, PCV7 (Prevnar7) 2004 00:00:00 Completed [facility] HIB 4 Dose Schedule 2004 00:00:00 Completed [facility] Pneumococcal 7 Conjugate, PCV7 (Prevnar7) 2004 00:00:00 Completed [facility] HIB 4 Dose Schedule 2004 00:00:00 Completed [facility] Pneumococcal 7 Conjugate, PCV7 (Prevnar7) 2004 00:00:00 Completed [facility] HIB 4 Dose Schedule 2004 00:00:00 Completed [facility] Pneumococcal 7 Conjugate, PCV7 (Prevnar7) 2004 00:00:00 Completed [facility] HIB 4 Dose Schedule 2004 00:00:00 Completed [facility] Pneumococcal 7 Conjugate, PCV7 (Prevnar7) 2004 00:00:00 Completed [facility] HIB 4 Dose Schedule 2004 00:00:00 Completed [facility] Pneumococcal 7 Conjugate, PCV7 (Prevnar7) 2004 00:00:00 Completed [facility] HIB 4 Dose Schedule 2004 00:00:00 Completed [facility] Pneumococcal 7 Conjugate, PCV7 (Prevnar7) 2004 00:00:00 Completed [facility] HIB 4 Dose Schedule 2004 00:00:00 Completed [facility] Pneumococcal 7 Conjugate, PCV7 (Prevnar7) 2004 00:00:00 Completed [facility] HIB 4 Dose Schedule 2004 00:00:00 Completed [facility] Pneumococcal 7 Conjugate, PCV7 (Prevnar7) 2004 00:00:00 Completed [facility] HIB 4 Dose Schedule 2004 00:00:00 Completed [facility] Pneumococcal 7 Conjugate, PCV7 (Prevnar7) 2004 00:00:00 Completed [facility] HIB 4 Dose Schedule 2004 00:00:00 Completed [facility] Pneumococcal 7 Conjugate, PCV7 (Prevnar7) 2004 00:00:00 Completed [facility] HIB 4 Dose Schedule 2004 00:00:00 Completed [facility] Pneumococcal 7 Conjugate, PCV7 (Prevnar7) 2004 00:00:00 Completed [facility] HIB 4 Dose Schedule 2004 00:00:00 Completed [facility] Pneumococcal 7 Conjugate, PCV7 (Prevnar7) 2004 00:00:00 Completed [facility] HIB 4 Dose Schedule 2004 00:00:00 Completed [facility] Pneumococcal 7 Conjugate, PCV7 (Prevnar7) 2004 00:00:00 Completed [facility] HIB 4 Dose Schedule 2004 00:00:00 Completed [facility] Pneumococcal 7 Conjugate, PCV7 (Prevnar7) 2004 00:00:00 Completed [facility] HIB 4 Dose Schedule 2004 00:00:00 Completed [facility] Pneumococcal 7 Conjugate, PCV7 (Prevnar7) 2004 00:00:00 Completed [facility] HIB 4 Dose Schedule 2004 00:00:00 Completed [facility] Pneumococcal 7 Conjugate, PCV7 (Prevnar7) 2004 00:00:00 Completed [facility] HIB 4 Dose Schedule 2004 00:00:00 Completed [facility] Pneumococcal 7 Conjugate, PCV7 (Prevnar7) 2004 00:00:00 Completed [facility] HIB 4 Dose Schedule 2004 00:00:00 Completed [facility] Pneumococcal 7 Conjugate, PCV7 (Prevnar7) 2004 00:00:00 Completed [facility] HIB 4 Dose Schedule 2004 00:00:00 Completed [facility] Pneumococcal 7 Conjugate, PCV7 (Prevnar7) 2004 00:00:00 Completed [facility] HIB 4 Dose Schedule 2004 00:00:00 Completed [facility] Pneumococcal 7 Conjugate, PCV7 (Prevnar7) 2004 00:00:00 Completed [facility] HIB 4 Dose Schedule 2004 00:00:00 Completed [facility] Pneumococcal 7 Conjugate, PCV7 (Prevnar7) 2004 00:00:00 Completed [facility] HIB 4 Dose Schedule 2004 00:00:00 Completed [facility] Pneumococcal 7 Conjugate, PCV7 (Prevnar7) 2004 00:00:00 Completed [facility] HIB 4 Dose Schedule 2004 00:00:00 Completed [facility] Pneumococcal 7 Conjugate, PCV7 (Prevnar7) 2004 00:00:00 Completed [facility] HIB 4 Dose Schedule 2004 00:00:00 Completed [facility] Pneumococcal 7 Conjugate, PCV7 (Prevnar7) 2004 00:00:00 Completed [facility] HIB 4 Dose Schedule 2004 00:00:00 Completed [facility] Pneumococcal 7 Conjugate, PCV7 (Prevnar7) 2004 00:00:00 Completed [facility] Pneumococcal 7 Conjugate, PCV7 (Prevnar7) 2004 00:00:00 Completed [facility] Pediarix (dtap/hep B/ipv) 2004 00:00:00 Completed [facility] HIB 4 Dose Schedule 2004 00:00:00 Completed [facility] Pneumococcal 7 Conjugate, PCV7 (Prevnar7) 2004 00:00:00 Completed [facility] Pediarix (dtap/hep B/ipv) 2004 00:00:00 Completed [facility] HIB 4 Dose Schedule 2004 00:00:00 Completed [facility] Pneumococcal 7 Conjugate, PCV7 (Prevnar7) 2004 00:00:00 Completed [facility] Pediarix (dtap/hep B/ipv) 2004 00:00:00 Completed [facility] HIB 4 Dose Schedule 2004 00:00:00 Completed [facility] Pneumococcal 7 Conjugate, PCV7 (Prevnar7) 2004 00:00:00 Completed [facility] Pediarix (dtap/hep B/ipv) 2004 00:00:00 Completed [facility] HIB 4 Dose Schedule 2004 00:00:00 Completed [facility] Pneumococcal 7 Conjugate, PCV7 (Prevnar7) 2004 00:00:00 Completed [facility] Pediarix (dtap/hep B/ipv) 2004 00:00:00 Completed [facility] HIB 4 Dose Schedule 2004 00:00:00 Completed [facility] Pneumococcal 7 Conjugate, PCV7 (Prevnar7) 2004 00:00:00 Completed [facility] Pediarix (dtap/hep B/ipv) 2004 00:00:00 Completed [facility] HIB 4 Dose Schedule 2004 00:00:00 Completed [facility] Pneumococcal 7 Conjugate, PCV7 (Prevnar7) 2004 00:00:00 Completed [facility] Pediarix (dtap/hep B/ipv) 2004 00:00:00 Completed [facility] HIB 4 Dose Schedule 2004 00:00:00 Completed [facility] Pneumococcal 7 Conjugate, PCV7 (Prevnar7) 2004 00:00:00 Completed [facility] Pediarix (dtap/hep B/ipv) 2004 00:00:00 Completed [facility] HIB 4 Dose Schedule 2004 00:00:00 Completed [facility] Pneumococcal 7 Conjugate, PCV7 (Prevnar7) 2004 00:00:00 Completed [facility] Pediarix (dtap/hep B/ipv) 2004 00:00:00 Completed [facility] HIB 4 Dose Schedule 2004 00:00:00 Completed [facility] Pneumococcal 7 Conjugate, PCV7 (Prevnar7) 2004 00:00:00 Completed [facility] Pediarix (dtap/hep B/ipv) 2004 00:00:00 Completed [facility] HIB 4 Dose Schedule 2004 00:00:00 Completed [facility] Pneumococcal 7 Conjugate, PCV7 (Prevnar7) 2004 00:00:00 Completed [facility] Pediarix (dtap/hep B/ipv) 2004 00:00:00 Completed [facility] HIB 4 Dose Schedule 2004 00:00:00 Completed [facility] Pneumococcal 7 Conjugate, PCV7 (Prevnar7) 2004 00:00:00 Completed [facility] Pediarix (dtap/hep B/ipv) 2004 00:00:00 Completed [facility] HIB 4 Dose Schedule 2004 00:00:00 Completed [facility] Pneumococcal 7 Conjugate, PCV7 (Prevnar7) 2004 00:00:00 Completed [facility] Pediarix (dtap/hep B/ipv) 2004 00:00:00 Completed [facility] HIB 4 Dose Schedule 2004 00:00:00 Completed [facility] Pneumococcal 7 Conjugate, PCV7 (Prevnar7) 2004 00:00:00 Completed [facility] Pediarix (dtap/hep B/ipv) 2004 00:00:00 Completed [facility] HIB 4 Dose Schedule 2004 00:00:00 Completed [facility] Pneumococcal 7 Conjugate, PCV7 (Prevnar7) 2004 00:00:00 Completed [facility] Pediarix (dtap/hep B/ipv) 2004 00:00:00 Completed [facility] HIB 4 Dose Schedule 2004 00:00:00 Completed [facility] Pneumococcal 7 Conjugate, PCV7 (Prevnar7) 2004 00:00:00 Completed [facility] Pediarix (dtap/hep B/ipv) 2004 00:00:00 Completed [facility] HIB 4 Dose Schedule 2004 00:00:00 Completed [facility] Pneumococcal 7 Conjugate, PCV7 (Prevnar7) 2004 00:00:00 Completed [facility] Pediarix (dtap/hep B/ipv) 2004 00:00:00 Completed [facility] HIB 4 Dose Schedule 2004 00:00:00 Completed [facility] Pneumococcal 7 Conjugate, PCV7 (Prevnar7) 2004 00:00:00 Completed [facility] Pediarix (dtap/hep B/ipv) 2004 00:00:00 Completed [facility] HIB 4 Dose Schedule 2004 00:00:00 Completed [facility] Pneumococcal 7 Conjugate, PCV7 (Prevnar7) 2004 00:00:00 Completed [facility] Pediarix (dtap/hep B/ipv) 2004 00:00:00 Completed [facility] HIB 4 Dose Schedule 2004 00:00:00 Completed [facility] Pneumococcal 7 Conjugate, PCV7 (Prevnar7) 2004 00:00:00 Completed [facility] Pediarix (dtap/hep B/ipv) 2004 00:00:00 Completed [facility] HIB 4 Dose Schedule 2004 00:00:00 Completed [facility] Pneumococcal 7 Conjugate, PCV7 (Prevnar7) 2004 00:00:00 Completed [facility] Pediarix (dtap/hep B/ipv) 2004 00:00:00 Completed [facility] HIB 4 Dose Schedule 2004 00:00:00 Completed [facility] Pneumococcal 7 Conjugate, PCV7 (Prevnar7) 2004 00:00:00 Completed [facility] Pediarix (dtap/hep B/ipv) 2004 00:00:00 Completed [facility] HIB 4 Dose Schedule 2004 00:00:00 Completed [facility] Pneumococcal 7 Conjugate, PCV7 (Prevnar7) 2004 00:00:00 Completed [facility] Pediarix (dtap/hep B/ipv) 2004 00:00:00 Completed [facility] HIB 4 Dose Schedule 2004 00:00:00 Completed [facility] Pneumococcal 7 Conjugate, PCV7 (Prevnar7) 2004 00:00:00 Completed [facility] Pediarix (dtap/hep B/ipv) 2004 00:00:00 Completed [facility] HIB 4 Dose Schedule 2004 00:00:00 Completed [facility] Pneumococcal 7 Conjugate, PCV7 (Prevnar7) 2004 00:00:00 Completed [facility] Pediarix (dtap/hep B/ipv) 2004 00:00:00 Completed [facility] HIB 4 Dose Schedule 2004 00:00:00 Completed [facility] Pneumococcal 7 Conjugate, PCV7 (Prevnar7) 2004 00:00:00 Completed [facility] Pediarix (dtap/hep B/ipv) 2004 00:00:00 Completed [facility] HIB 4 Dose Schedule 2004 00:00:00 Completed [facility] Pneumococcal 7 Conjugate, PCV7 (Prevnar7) 2004 00:00:00 Completed [facility] Pediarix (dtap/hep B/ipv) 2004 00:00:00 Completed [facility] HIB 4 Dose Schedule 2004 00:00:00 Completed [facility] Pneumococcal 7 Conjugate, PCV7 (Prevnar7) 2004 00:00:00 Completed [facility] Pediarix (dtap/hep B/ipv) 2004 00:00:00 Completed [facility] HIB 4 Dose Schedule 2004 00:00:00 Completed [facility] Pneumococcal 7 Conjugate, PCV7 (Prevnar7) 2004 00:00:00 Completed [facility] Pediarix (dtap/hep B/ipv) 2004 00:00:00 Completed [facility] HIB 4 Dose Schedule 2004 00:00:00 Completed [facility] Pneumococcal 7 Conjugate, PCV7 (Prevnar7) 2004 00:00:00 Completed [facility] Pediarix (dtap/hep B/ipv) 2004 00:00:00 Completed [facility] HIB 4 Dose Schedule 2004 00:00:00 Completed [facility] Pneumococcal 7 Conjugate, PCV7 (Prevnar7) 2004 00:00:00 Completed [facility] Pediarix (dtap/hep B/ipv) 2004 00:00:00 Completed [facility] HIB 4 Dose Schedule 2004 00:00:00 Completed [facility] Pneumococcal 7 Conjugate, PCV7 (Prevnar7) 2004 00:00:00 Completed [facility] Pediarix (dtap/hep B/ipv) 2004 00:00:00 Completed [facility] HIB 4 Dose Schedule 2004 00:00:00 Completed [facility] Hep B, Adol or Pedi Dosage 2004 00:00:00 Completed [facility] Hep B, Adol or Pedi Dosage 2004 00:00:00 Completed [facility] Hep B, Adol or Pedi Dosage 2004 00:00:00 Completed [facility] Hep B, Adol or Pedi Dosage 2004 00:00:00 Completed [facility] Hep B, Adol or Pedi Dosage 2004 00:00:00 Completed [facility] Hep B, Adol or Pedi Dosage 2004 00:00:00 Completed [facility] Hep B, Adol or Pedi Dosage 2004 00:00:00 Completed [facility] Hep B, Adol or Pedi Dosage 2004 00:00:00 Completed [facility] Hep B, Adol or Pedi Dosage 2004 00:00:00 Completed [facility] Hep B, Adol or Pedi Dosage 2004 00:00:00 Completed [facility] Hep B, Adol or Pedi Dosage 2004 00:00:00 Completed [facility] Hep B, Adol or Pedi Dosage 2004 00:00:00 Completed [facility] Hep B, Adol or Pedi Dosage 2004 00:00:00 Completed [facility] Hep B, Adol or Pedi Dosage 2004 00:00:00 Completed [facility] Hep B, Adol or Pedi Dosage 2004 00:00:00 Completed [facility] Hep B, Adol or Pedi Dosage 2004 00:00:00 Completed [facility] Hep B, Adol or Pedi Dosage 2004 00:00:00 Completed [facility] Hep B, Adol or Pedi Dosage 2004 00:00:00 Completed [facility] Hep B, Adol or Pedi Dosage 2004 00:00:00 Completed [facility] Hep B, Adol or Pedi Dosage 2004 00:00:00 Completed [facility] Hep B, Adol or Pedi Dosage 2004 00:00:00 Completed [facility] Hep B, Adol or Pedi Dosage 2004 00:00:00 Completed [facility] Hep B, Adol or Pedi Dosage 2004 00:00:00 Completed [facility] Hep B, Adol or Pedi Dosage 2004 00:00:00 Completed [facility] Hep B, Adol or Pedi Dosage 2004 00:00:00 Completed [facility] Hep B, Adol or Pedi Dosage 2004 00:00:00 Completed [facility] Hep B, Adol or Pedi Dosage 2004 00:00:00 Completed [facility] Hep B, Adol or Pedi Dosage 2004 00:00:00 Completed [facility] Hep B, Adol or Pedi Dosage 2004 00:00:00 Completed [facility] Hep B, Adol or Pedi Dosage 2004 00:00:00 Completed [facility] Hep B, Adol or Pedi Dosage 2004 00:00:00 Completed [facility] Hep B, Adol or Pedi Dosage 2004 00:00:00 Completed [facility] DTaP, Unspecified Formulation Unknown Completed [facility] DTaP, Unspecified Formulation Unknown Completed [facility] DTaP, Unspecified Formulation Unknown Completed [facility] Pediarix (dtap/hep B/ipv) Unknown Completed [facility] Pediarix (dtap/hep B/ipv) Unknown Completed [facility] HEPATITIS A Unknown Completed [facility] HEPATITIS A Unknown Completed [facility] Hep B, Adol or Pedi Dosage Unknown Completed [facility] HIB 4 Dose Schedule Unknown Completed [facility] HIB 4 Dose Schedule Unknown Completed [facility] HIB 4 Dose Schedule Unknown Completed [facility] HIB 4 Dose Schedule Unknown Completed [facility] HPV Unknown Completed [facility] HPV9 Unknown Completed [facility] HPV9 Unknown Completed [facility] Meningococcal Polysaccharide (groups A, C, Y and W-135) conjugate vaccine (MCV4P) Unknown Completed [facility] MMR Unknown Completed [facility] MMR Unknown Completed [facility] Pneumococcal 7 Conjugate, PCV7 (Prevnar7) Unknown Completed [facility] Pneumococcal 7 Conjugate, PCV7 (Prevnar7) Unknown Completed [facility] Pneumococcal 7 Conjugate, PCV7 (Prevnar7) Unknown Completed [facility] Pneumococcal 7 Conjugate, PCV7 (Prevnar7) Unknown Completed [facility] IPV Unknown Completed [facility] IPV Unknown Completed [facility] TDAP Unknown Completed [facility] Varicella (varivax)(chicken pox) Unknown Completed [facility] Varicella (varivax)(chicken pox) Unknown Completed [facility] TDAP Unknown Completed [facility] DTaP, Unspecified Formulation Unknown Completed [facility] DTaP, Unspecified Formulation Unknown Completed [facility] DTaP, Unspecified Formulation Unknown Completed [facility] Pediarix (dtap/hep B/ipv) Unknown Completed [facility] Pediarix (dtap/hep B/ipv) Unknown Completed [facility] HEPATITIS A Unknown Completed [facility] HEPATITIS A Unknown Completed [facility] Hep B, Adol or Pedi Dosage Unknown Completed [facility] HIB 4 Dose Schedule Unknown Completed [facility] HIB 4 Dose Schedule Unknown Completed [facility] HIB 4 Dose Schedule Unknown Completed [facility] HIB 4 Dose Schedule Unknown Completed [facility] HPV Unknown Completed [facility] HPV9 Unknown Completed [facility] HPV9 Unknown Completed [facility] Meningococcal Polysaccharide (groups A, C, Y and W-135) conjugate vaccine (MCV4P) Unknown Completed [facility] MMR Unknown Completed [facility] MMR Unknown Completed [facility] Pneumococcal 7 Conjugate, PCV7 (Prevnar7) Unknown Completed [facility] Pneumococcal 7 Conjugate, PCV7 (Prevnar7) Unknown Completed [facility] Pneumococcal 7 Conjugate, PCV7 (Prevnar7) Unknown Completed [facility] Pneumococcal 7 Conjugate, PCV7 (Prevnar7) Unknown Completed [facility] IPV Unknown Completed [facility] IPV Unknown Completed [facility] TDAP Unknown Completed [facility] Varicella (varivax)(chicken pox) Unknown Completed [facility] Varicella (varivax)(chicken pox) Unknown Completed [facility] TDAP Unknown Completed [facility] DTaP, Unspecified Formulation Unknown Completed [facility] DTaP, Unspecified Formulation Unknown Completed [facility] DTaP, Unspecified Formulation Unknown Completed [facility] Pediarix (dtap/hep B/ipv) Unknown Completed [facility] Pediarix (dtap/hep B/ipv) Unknown Completed [facility] HEPATITIS A Unknown Completed [facility] HEPATITIS A Unknown Completed [facility] Hep B, Adol or Pedi Dosage Unknown Completed [facility] HIB 4 Dose Schedule Unknown Completed [facility] HIB 4 Dose Schedule Unknown Completed [facility] HIB 4 Dose Schedule Unknown Completed [facility] HIB 4 Dose Schedule Unknown Completed [facility] HPV Unknown Completed [facility] HPV9 Unknown Completed [facility] HPV9 Unknown Completed [facility] Meningococcal Polysaccharide (groups A, C, Y and W-135) conjugate vaccine (MCV4P) Unknown Completed [facility] MMR Unknown Completed [facility] MMR Unknown Completed [facility] Pneumococcal 7 Conjugate, PCV7 (Prevnar7) Unknown Completed [facility] Pneumococcal 7 Conjugate, PCV7 (Prevnar7) Unknown Completed [facility] Pneumococcal 7 Conjugate, PCV7 (Prevnar7) Unknown Completed [facility] Pneumococcal 7 Conjugate, PCV7 (Prevnar7) Unknown Completed [facility] IPV Unknown Completed [facility] IPV Unknown Completed [facility] TDAP Unknown Completed [facility] Varicella (varivax)(chicken pox) Unknown Completed [facility] Varicella (varivax)(chicken pox) Unknown Completed [facility] TDAP Unknown Completed [facility] DTaP, Unspecified Formulation Unknown Completed [facility] DTaP, Unspecified Formulation Unknown Completed [facility] DTaP, Unspecified Formulation Unknown Completed [facility] Pediarix (dtap/hep B/ipv) Unknown Completed [facility] Pediarix (dtap/hep B/ipv) Unknown Completed [facility] HEPATITIS A Unknown Completed [facility] HEPATITIS A Unknown Completed [facility] Hep B, Adol or Pedi Dosage Unknown Completed [facility] HIB 4 Dose Schedule Unknown Completed [facility] HIB 4 Dose Schedule Unknown Completed [facility] HIB 4 Dose Schedule Unknown Completed [facility] HIB 4 Dose Schedule Unknown Completed [facility] HPV Unknown Completed [facility] HPV9 Unknown Completed [facility] HPV9 Unknown Completed [facility] Meningococcal Polysaccharide (groups A, C, Y and W-135) conjugate vaccine (MCV4P) Unknown Completed [facility] MMR Unknown Completed [facility] MMR Unknown Completed [facility] Pneumococcal 7 Conjugate, PCV7 (Prevnar7) Unknown Completed [facility] Pneumococcal 7 Conjugate, PCV7 (Prevnar7) Unknown Completed [facility] Pneumococcal 7 Conjugate, PCV7 (Prevnar7) Unknown Completed [facility] Pneumococcal 7 Conjugate, PCV7 (Prevnar7) Unknown Completed [facility] IPV Unknown Completed [facility] IPV Unknown Completed [facility] TDAP Unknown Completed [facility] Varicella (varivax)(chicken pox) Unknown Completed [facility] Varicella (varivax)(chicken pox) Unknown Completed [facility] TDAP Unknown Completed [facility] DTaP, Unspecified Formulation Unknown Completed [facility] DTaP, Unspecified Formulation Unknown Completed [facility] DTaP, Unspecified Formulation Unknown Completed [facility] Pediarix (dtap/hep B/ipv) Unknown Completed [facility] Pediarix (dtap/hep B/ipv) Unknown Completed [facility] HEPATITIS A Unknown Completed [facility] HEPATITIS A Unknown Completed [facility] Hep B, Adol or Pedi Dosage Unknown Completed [facility] HIB 4 Dose Schedule Unknown Completed [facility] HIB 4 Dose Schedule Unknown Completed [facility] HIB 4 Dose Schedule Unknown Completed [facility] HIB 4 Dose Schedule Unknown Completed [facility] HPV Unknown Completed [facility] HPV9 Unknown Completed [facility] HPV9 Unknown Completed [facility] Meningococcal Polysaccharide (groups A, C, Y and W-135) conjugate vaccine (MCV4P) Unknown Completed [facility] MMR Unknown Completed [facility] MMR Unknown Completed [facility] Pneumococcal 7 Conjugate, PCV7 (Prevnar7) Unknown Completed [facility] Pneumococcal 7 Conjugate, PCV7 (Prevnar7) Unknown Completed [facility] Pneumococcal 7 Conjugate, PCV7 (Prevnar7) Unknown Completed [facility] Pneumococcal 7 Conjugate, PCV7 (Prevnar7) Unknown Completed [facility] IPV Unknown Completed [facility] IPV Unknown Completed [facility] TDAP Unknown Completed [facility] Varicella (varivax)(chicken pox) Unknown Completed [facility] Varicella (varivax)(chicken pox) Unknown Completed [facility] TDAP Unknown Completed [facility] DTaP, Unspecified Formulation Unknown Completed [facility] DTaP, Unspecified Formulation Unknown Completed [facility] DTaP, Unspecified Formulation Unknown Completed [facility] Pediarix (dtap/hep B/ipv) Unknown Completed [facility] Pediarix (dtap/hep B/ipv) Unknown Completed [facility] HEPATITIS A Unknown Completed [facility] HEPATITIS A Unknown Completed [facility] Hep B, Adol or Pedi Dosage Unknown Completed [facility] HIB 4 Dose Schedule Unknown Completed [facility] HIB 4 Dose Schedule Unknown Completed [facility] HIB 4 Dose Schedule Unknown Completed [facility] HIB 4 Dose Schedule Unknown Completed [facility] HPV Unknown Completed [facility] HPV9 Unknown Completed [facility] HPV9 Unknown Completed [facility] Meningococcal Polysaccharide (groups A, C, Y and W-135) conjugate vaccine (MCV4P) Unknown Completed [facility] MMR Unknown Completed [facility] MMR Unknown Completed [facility] Pneumococcal 7 Conjugate, PCV7 (Prevnar7) Unknown Completed [facility] Pneumococcal 7 Conjugate, PCV7 (Prevnar7) Unknown Completed [facility] Pneumococcal 7 Conjugate, PCV7 (Prevnar7) Unknown Completed [facility] Pneumococcal 7 Conjugate, PCV7 (Prevnar7) Unknown Completed [facility] IPV Unknown Completed [facility] IPV Unknown Completed [facility] TDAP Unknown Completed [facility] Varicella (varivax)(chicken pox) Unknown Completed [facility] Varicella (varivax)(chicken pox) Unknown Completed [facility] TDAP Unknown Completed [facility] DTaP, Unspecified Formulation Unknown Completed [facility] DTaP, Unspecified Formulation Unknown Completed [facility] DTaP, Unspecified Formulation Unknown Completed [facility] Pediarix (dtap/hep B/ipv) Unknown Completed [facility] Pediarix (dtap/hep B/ipv) Unknown Completed [facility] HEPATITIS A Unknown Completed [facility] HEPATITIS A Unknown Completed [facility] Hep B, Adol or Pedi Dosage Unknown Completed [facility] HIB 4 Dose Schedule Unknown Completed [facility] HIB 4 Dose Schedule Unknown Completed [facility] HIB 4 Dose Schedule Unknown Completed [facility] HIB 4 Dose Schedule Unknown Completed [facility] HPV Unknown Completed [facility] HPV9 Unknown Completed [facility] HPV9 Unknown Completed [facility] Meningococcal Polysaccharide (groups A, C, Y and W-135) conjugate vaccine (MCV4P) Unknown Completed [facility] MMR Unknown Completed [facility] MMR Unknown Completed [facility] Pneumococcal 7 Conjugate, PCV7 (Prevnar7) Unknown Completed [facility] Pneumococcal 7 Conjugate, PCV7 (Prevnar7) Unknown Completed [facility] Pneumococcal 7 Conjugate, PCV7 (Prevnar7) Unknown Completed [facility] Pneumococcal 7 Conjugate, PCV7 (Prevnar7) Unknown Completed [facility] IPV Unknown Completed [facility] IPV Unknown Completed [facility] TDAP Unknown Completed [facility] Varicella (varivax)(chicken pox) Unknown Completed [facility] Varicella (varivax)(chicken pox) Unknown Completed [facility] TDAP Unknown Completed [facility] DTaP, Unspecified Formulation Unknown Completed [facility] DTaP, Unspecified Formulation Unknown Completed [facility] DTaP, Unspecified Formulation Unknown Completed [facility] Pediarix (dtap/hep B/ipv) Unknown Completed [facility] Pediarix (dtap/hep B/ipv) Unknown Completed [facility] HEPATITIS A Unknown Completed [facility] HEPATITIS A Unknown Completed [facility] Hep B, Adol or Pedi Dosage Unknown Completed [facility] HIB 4 Dose Schedule Unknown Completed [facility] HIB 4 Dose Schedule Unknown Completed [facility] HIB 4 Dose Schedule Unknown Completed [facility] HIB 4 Dose Schedule Unknown Completed [facility] HPV Unknown Completed [facility] HPV9 Unknown Completed [facility] HPV9 Unknown Completed [facility] Meningococcal Polysaccharide (groups A, C, Y and W-135) conjugate vaccine (MCV4P) Unknown Completed [facility] MMR Unknown Completed [facility] MMR Unknown Completed [facility] Pneumococcal 7 Conjugate, PCV7 (Prevnar7) Unknown Completed [facility] Pneumococcal 7 Conjugate, PCV7 (Prevnar7) Unknown Completed [facility] Pneumococcal 7 Conjugate, PCV7 (Prevnar7) Unknown Completed [facility] Pneumococcal 7 Conjugate, PCV7 (Prevnar7) Unknown Completed [facility] IPV Unknown Completed [facility] IPV Unknown Completed [facility] TDAP Unknown Completed [facility] Varicella (varivax)(chicken pox) Unknown Completed [facility] Varicella (varivax)(chicken pox) Unknown Completed [facility] TDAP Unknown Completed [facility] DTaP, Unspecified Formulation Unknown Completed [facility] DTaP, Unspecified Formulation Unknown Completed [facility] DTaP, Unspecified Formulation Unknown Completed [facility] Pediarix (dtap/hep B/ipv) Unknown Completed [facility] Pediarix (dtap/hep B/ipv) Unknown Completed [facility] HEPATITIS A Unknown Completed [facility] HEPATITIS A Unknown Completed [facility] Hep B, Adol or Pedi Dosage Unknown Completed [facility] HIB 4 Dose Schedule Unknown Completed [facility] HIB 4 Dose Schedule Unknown Completed [facility] HIB 4 Dose Schedule Unknown Completed [facility] HIB 4 Dose Schedule Unknown Completed [facility] HPV Unknown Completed [facility] HPV9 Unknown Completed [facility] HPV9 Unknown Completed [facility] Meningococcal Polysaccharide (groups A, C, Y and W-135) conjugate vaccine (MCV4P) Unknown Completed [facility] MMR Unknown Completed [facility] MMR Unknown Completed [facility] Pneumococcal 7 Conjugate, PCV7 (Prevnar7) Unknown Completed [facility] Pneumococcal 7 Conjugate, PCV7 (Prevnar7) Unknown Completed [facility] Pneumococcal 7 Conjugate, PCV7 (Prevnar7) Unknown Completed [facility] Pneumococcal 7 Conjugate, PCV7 (Prevnar7) Unknown Completed [facility] IPV Unknown Completed [facility] IPV Unknown Completed [facility] TDAP Unknown Completed [facility] Varicella (varivax)(chicken pox) Unknown Completed [facility] Varicella (varivax)(chicken pox) Unknown Completed [facility] TDAP Unknown Completed [facility] DTaP, Unspecified Formulation Unknown Completed [facility] DTaP, Unspecified Formulation Unknown Completed [facility] DTaP, Unspecified Formulation Unknown Completed [facility] Pediarix (dtap/hep B/ipv) Unknown Completed [facility] Pediarix (dtap/hep B/ipv) Unknown Completed [facility] HEPATITIS A Unknown Completed [facility] HEPATITIS A Unknown Completed [facility] Hep B, Adol or Pedi Dosage Unknown Completed [facility] HIB 4 Dose Schedule Unknown Completed [facility] HIB 4 Dose Schedule Unknown Completed [facility] HIB 4 Dose Schedule Unknown Completed [facility] HIB 4 Dose Schedule Unknown Completed [facility] HPV Unknown Completed [facility] HPV9 Unknown Completed [facility] HPV9 Unknown Completed [facility] Meningococcal Polysaccharide (groups A, C, Y and W-135) conjugate vaccine (MCV4P) Unknown Completed [facility] MMR Unknown Completed [facility] MMR Unknown Completed [facility] Pneumococcal 7 Conjugate, PCV7 (Prevnar7) Unknown Completed [facility] Pneumococcal 7 Conjugate, PCV7 (Prevnar7) Unknown Completed [facility] Pneumococcal 7 Conjugate, PCV7 (Prevnar7) Unknown Completed [facility] Pneumococcal 7 Conjugate, PCV7 (Prevnar7) Unknown Completed [facility] IPV Unknown Completed [facility] IPV Unknown Completed [facility] TDAP Unknown Completed [facility] Varicella (varivax)(chicken pox) Unknown Completed [facility] Varicella (varivax)(chicken pox) Unknown Completed [facility] TDAP Unknown Completed [facility] DTaP, Unspecified Formulation Unknown Completed [facility] DTaP, Unspecified Formulation Unknown Completed [facility] DTaP, Unspecified Formulation Unknown Completed [facility] Pediarix (dtap/hep B/ipv) Unknown Completed [facility] Pediarix (dtap/hep B/ipv) Unknown Completed [facility] HEPATITIS A Unknown Completed [facility] HEPATITIS A Unknown Completed [facility] Hep B, Adol or Pedi Dosage Unknown Completed [facility] HIB 4 Dose Schedule Unknown Completed [facility] HIB 4 Dose Schedule Unknown Completed [facility] HIB 4 Dose Schedule Unknown Completed [facility] HIB 4 Dose Schedule Unknown Completed [facility] HPV Unknown Completed [facility] HPV9 Unknown Completed [facility] HPV9 Unknown Completed [facility] Meningococcal Polysaccharide (groups A, C, Y and W-135) conjugate vaccine (MCV4P) Unknown Completed [facility] MMR Unknown Completed [facility] MMR Unknown Completed [facility] Pneumococcal 7 Conjugate, PCV7 (Prevnar7) Unknown Completed [facility] Pneumococcal 7 Conjugate, PCV7 (Prevnar7) Unknown Completed [facility] Pneumococcal 7 Conjugate, PCV7 (Prevnar7) Unknown Completed [facility] Pneumococcal 7 Conjugate, PCV7 (Prevnar7) Unknown Completed [facility] IPV Unknown Completed [facility] IPV Unknown Completed [facility] TDAP Unknown Completed [facility] Varicella (varivax)(chicken pox) Unknown Completed [facility] Varicella (varivax)(chicken pox) Unknown Completed [facility] TDAP Unknown Completed [facility] DTaP, Unspecified Formulation Unknown Completed [facility] DTaP, Unspecified Formulation Unknown Completed [facility] DTaP, Unspecified Formulation Unknown Completed [facility] Pediarix (dtap/hep B/ipv) Unknown Completed [facility] Pediarix (dtap/hep B/ipv) Unknown Completed [facility] HEPATITIS A Unknown Completed [facility] HEPATITIS A Unknown Completed [facility] Hep B, Adol or Pedi Dosage Unknown Completed [facility] HIB 4 Dose Schedule Unknown Completed [facility] HIB 4 Dose Schedule Unknown Completed [facility] HIB 4 Dose Schedule Unknown Completed [facility] HIB 4 Dose Schedule Unknown Completed [facility] HPV Unknown Completed [facility] HPV9 Unknown Completed [facility] HPV9 Unknown Completed [facility] Meningococcal Polysaccharide (groups A, C, Y and W-135) conjugate vaccine (MCV4P) Unknown Completed [facility] MMR Unknown Completed [facility] MMR Unknown Completed [facility] Pneumococcal 7 Conjugate, PCV7 (Prevnar7) Unknown Completed [facility] Pneumococcal 7 Conjugate, PCV7 (Prevnar7) Unknown Completed [facility] Pneumococcal 7 Conjugate, PCV7 (Prevnar7) Unknown Completed [facility] Pneumococcal 7 Conjugate, PCV7 (Prevnar7) Unknown Completed [facility] IPV Unknown Completed [facility] IPV Unknown Completed [facility] TDAP Unknown Completed [facility] Varicella (varivax)(chicken pox) Unknown Completed [facility] Varicella (varivax)(chicken pox) Unknown Completed [facility] TDAP Unknown Completed [facility] Vital Signs Vital Name Observation Time Observation Value Comments S ource Systolic blood pressure 2024-02-26 17:26:00 126 mm[Hg] [facility] Diastolic blood pressure 2024-02-26 17:26:00 78 mm[Hg] [facility] Heart rate 2024-02-26 17:26:00 84 [facility] Body temperature 2024-02-26 17:26:00 36.56 Priya [facility] Respiratory rate 2024-02-26 17:26:00 18 /min [facility] Body weight 2024-02-26 17:26:00 [facility]39 [facility] 2024-01-29 18:44:00 92 mm[Hg] [facility] Diastolic blood pressure 2024-01-29 18:44:00 61 mm[Hg] [facility] Heart rate 2024-01-29 18:44:00 61 /min [facility] 2024-01-29 18:44:00 36.56 Priya [facility] Body height 2024-01-29 18:44:00 170.2 cm [facility] weight 2024-01-29 18:44:00 74.662 kg [facility] BMI 2024-01-29 18:44:00 25.78 kg/m2 [facility] Systolic blood pressure 2023-07-12 18:14:00 130 mm[Hg] [facility] Diastolic blood pressure 2023-07-12 18:14:00 81 mm[Hg] [facility] Heart rate 2023-07-12 18:14:00 87 /min [facility] 2023-07-12 18:14:00 36.67 Priya [facility] Respiratory rate 2023-07-12 18:14:00 18 /min [facility] Body height 2023-07-12 18:14:00 170.2 cm [facility] Body weight 2023-07-12 18:14:00 79.833 kg [facility] BMI 2023-07-12 18:14:00 27.57 kg/m2 [facility] Systolic blood pressure 2023-04-11 19:44:00 109 mm[Hg] [facility] Diastolic blood pressure 2023-04-11 19:44:00 65 mm[Hg] [facility] Heart rate 2023-04-11 19:44:00 82 /min Unive [facility] Body temperature 2023-04-11 19:44:00 36.11 Priya [facility] Respiratory rate 2023-04-11 19:44:00 18 /min [facility] Body height 2023-04-11 19:44:00 170.2 cm [facility] weight 2023-04-11 19:44:00 82.243 kg [facility] BMI 2023-04-11 19:44:00 28.40 kg/m2 [facility] Systolic blood pressure 2023-03-21 15:27:00 114 mm[Hg] [facility] Diastolic blood pressure 2023-03-21 15:27:00 76 mm[Hg] [facility] Heart rate 2023-03-21 15:27:00 61 /min [facility] Body temperature 2023-03-21 15:27:00 36.78 Priya [facility] Respiratory rate 2023-03-21 15:27:00 18 /min [facility] Body height 2023-03-21 15:27:00 170.2 cm [facility] Body weight 2023-03-21 15:27:00 81.194 kg [facility] BMI 2023-03-21 15:27:00 28.04 kg/m2 [facility] Body mass index (BMI) [Percentile] Per age and sex 2023-03-21 15:27:00 90.72 % [facility] Systolic blood pressure 2023-03-02 13:33:00 104 mm[Hg] [facility] Diastolic blood pressure 2023-03-02 13:33:00 56 mm[Hg] [facility] Heart rate 2023-03-02 13:33:00 68 /min [facility] Body temperature 2023-03-02 13:33:00 36.89 Priya [facility] Respiratory rate 2023-03-02 13:33:00 18 /min [facility] Oxygen saturation in Arterial blood by Pulse oximetry 2023-03-02 13:33:00 95 /min [facility] Body height 2023-02-28 14:33:00 170.2 cm [facility] Body weight 2023-02-28 14:33:00 91.717 kg [facility] BMI 2023-02-28 14:33:00 31.67 kg/m2 [facility] Body mass index (BMI) [Percentile] Per age and sex 2023-02-28 14:33:00 95.64 % [facility] Systolic blood pressure 2023-02-27 17:43:00 120 mm[Hg] [facility] Diastolic blood pressure 2023-02-27 17:43:00 74 mm[Hg] [facility] Heart rate 2023-02-27 17:43:00 82 /[facility] Body temperature 2023-02-27 17:43:00 36.39 Priya [facility] Respiratory rate 2023-02-27 17:43:00 18 /min [facility] Body height 2023-02-27 17:43:00 170.2 cm [facility] Body weight 2023-02-27 17:43:00 91.371 kg [facility] BMI 2023-02-27 17:43:00 31.55 kg/m2 [facility] Body mass index (BMI) [Percentile] Per age and sex 2023-02-27 17:43:00 95.55 % [facility] Systolic blood pressure 2023-02-24 04:50:00 106 mm[Hg] [facility] Diastolic blood pressure 2023-02-24 04:50:00 62 mm[Hg] [facility] Heart rate 2023-02-24 04:50:00 65 /min [facility] Oxygen saturation in Arterial blood by Pulse oximetry 2023-02-24 04:50:00 99 /min [facility] Body temperature 2023-02-24 04:45:00 36.61 Priya [facility] Respiratory rate 2023-02-24 04:24:00 18 /min [facility] Body height 2023-02-24 04:24:00 170.2 cm [facility] Body weight 2023-02-24 04:24:00 89.948 kg [facility] BMI 2023-02-24 04:24:00 31.06 kg/m2 [facility] Body mass index (BMI) [Percentile] Per age and sex 2023-02-24 04:24:00 95.13 % [facility] Systolic blood pressure 2023-02-21 17:52:00 117 mm[Hg] [facility] Diastolic blood pressure 2023-02-21 17:52:00 70 mm[Hg] [facility] Heart rate 2023-02-21 17:52:00 74 /min [facility] Body temperature 2023-02-21 17:52:00 36.39 Priya [facility] Respiratory rate 2023-02-21 17:52:00 20 /min [facility] Body height 2023-02-21 17:52:00 170.2 cm [facility] Body weight 2023-02-21 17:52:00 89.812 kg [facility] BMI 2023-02-21 17:52:00 31.01 kg/m2 [facility] Body mass index (BMI) [Percentile] Per age and sex 2023-02-21 17:52:00 95.09 % [facility] Heart rate 2023-02-20 02:30:00 68 /min [facility] Oxygen saturation in Arterial blood by Pulse oximetry 2023-02-20 02:30:00 100 /min [facility] Systolic blood pressure 2023-02-20 00:45:00 109 mm[Hg] [facility] Diastolic blood pressure 2023-02-20 00:45:00 61 mm[Hg] [facility] Body temperature 2023-02-20 00:33:00 37.61 Priya [facility] Respiratory rate 2023-02-20 00:33:00 18 /min [facility] Body height 2023-02-20 00:33:00 170.2 cm [facility] Body weight 2023-02-20 00:09:00 89.858 kg [facility] BMI 2023-02-20 00:09:00 31.02 kg/m2 [facility] Body mass index (BMI) [Percentile] Per age and sex 2023-02-20 00:09:00 95.10 % [facility] Systolic blood pressure 2023-02-14 20:48:00 125 mm[Hg] [facility] Diastolic blood pressure 2023-02-14 20:48:00 79 mm[Hg] [facility] Heart rate 2023-02-14 20:48:00 99 /min Unive [facility] Body temperature 2023-02-14 20:48:00 35.17 Priya [facility] Respiratory rate 2023-02-14 20:48:00 18 /min [facility] Body height 2023-02-14 20:48:00 170.2 cm [facility] Body weight 2023-02-14 20:48:00 89.223 kg [facility] BMI 2023-02-14 20:48:00 30.81 kg/m2 [facility] Body mass index (BMI) [Percentile] Per age and sex 2023-02-14 20:48:00 94.91 % [facility] Systolic blood pressure 2023-02-07 19:05:00 120 mm[Hg] [facility] Diastolic blood pressure 2023-02-07 19:05:00 90 mm[Hg] [facility] Heart rate 2023-02-07 19:05:00 98 /min Unive [facility] Body temperature 2023-02-07 19:05:00 35.89 Priya [facility] Respiratory rate 2023-02-07 19:05:00 18 /min [facility] Body height 2023-02-07 19:05:00 170.2 cm [facility] Body weight 2023-02-07 19:05:00 88.27 kg [facility] BMI 2023-02-07 19:05:00 30.48 kg/m2 [facility] Body mass index (BMI) [Percentile] Per age and sex 2023-02-07 19:05:00 94.58 % [facility] Systolic blood pressure 2023-02-01 02:46:00 134 mm[Hg] [facility] Diastolic blood pressure 2023-02-01 02:46:00 85 mm[Hg] [facility] Heart rate 2023-02-01 02:46:00 99 /min Unive [facility] Body temperature 2023-02-01 02:46:00 36.89 Priya [facility] Respiratory rate 2023-02-01 02:46:00 18 /min [facility] Body height 2023-02-01 02:46:00 170.2 cm [facility] Body weight 2023-02-01 02:46:00 88.043 kg [facility] BMI 2023-02-01 02:46:00 30.40 kg/m2 [facility] Body mass index (BMI) [Percentile] Per age and sex 2023-02-01 02:46:00 94.51 % [facility] Oxygen saturation in Arterial blood by Pulse oximetry 2023-02-01 02:46:00 99 /min [facility] Systolic blood pressure 2023-01-24 19:58:00 113 mm[Hg] [facility] Diastolic blood pressure 2023-01-24 19:58:00 64 mm[Hg] [facility] Heart rate 2023-01-24 19:58:00 78 /min [facility] Body temperature 2023-01-24 19:58:00 36.11 Priya [facility] Respiratory rate 2023-01-24 19:58:00 18 /min [facility] Body height 2023-01-24 19:58:00 170.2 cm [facility] Body weight 2023-01-24 19:58:00 86.183 kg [facility] BMI 2023-01-24 19:58:00 29.76 kg/m2 [facility] Body mass index (BMI) [Percentile] Per age and sex 2023-01-24 19:58:00 93.76 % [facility] Systolic blood pressure 2023-01-08 20:11:00 127 mm[Hg] [facility] Diastolic blood pressure 2023-01-08 20:11:00 74 mm[Hg] [facility] Heart rate 2023-01-08 20:11:00 87 /min [facility] Body temperature 2023-01-08 20:11:00 36.17 Priya [facility] Respiratory rate 2023-01-08 20:11:00 18 /min [facility] Body height 2023-01-08 20:11:00 170.2 cm [facility] Body weight 2023-01-08 20:11:00 84.46 kg [facility] BMI 2023-01-08 20:11:00 29.16 kg/m2 [facility] Body mass index (BMI) [Percentile] Per age and sex 2023-01-08 20:11:00 92.95 % [facility] Systolic blood pressure 2022-12-25 19:37:00 121 mm[Hg] [facility] Diastolic blood pressure 2022-12-25 19:37:00 74 mm[Hg] [facility] Heart rate 2022-12-25 19:37:00 101 /min [facility] Body temperature 2022-12-25 19:37:00 36.22 Priya [facility] Respiratory rate 2022-12-25 19:37:00 18 /min [facility] Body weight 2022-12-25 19:37:00 82.963 kg [facility] Systolic blood pressure 2022-12-11 17:56:00 96 mm[Hg] [facility] Diastolic blood pressure 2022-12-11 17:56:00 64 mm[Hg] [facility] Heart rate 2022-12-11 17:56:00 70 /min [facility] Body temperature 2022-12-11 17:56:00 35.72 Priya [facility] Respiratory rate 2022-12-11 17:56:00 18 /min [facility] Body height 2022-12-11 17:56:00 170.2 cm [facility] Body weight 2022-12-11 17:56:00 81.058 kg [facility] BMI 2022-12-11 17:56:00 27.99 kg/m2 [facility] Body mass index (BMI) [Percentile] Per age and sex 2022-12-11 17:56:00 90.92 % [facility] Systolic blood pressure 2022-11-20 19:01:00 114 mm[Hg] [facility] Diastolic blood pressure 2022-11-20 19:01:00 59 mm[Hg] [facility] Heart rate 2022-11-20 19:01:00 82 /min Unive [facility] Body temperature 2022-11-20 19:01:00 36.61 Priya [facility] Respiratory rate 2022-11-20 19:01:00 16 /min [facility] Body height 2022-11-20 19:01:00 170.2 cm [facility] Body weight 2022-11-20 19:01:00 76.522 kg [facility] BMI 2022-11-20 19:01:00 26.42 kg/m2 [facility] Body mass index (BMI) [Percentile] Per age and sex 2022-11-20 19:01:00 86.76 % [facility] Systolic blood pressure 2022-10-23 21:30:00 110 mm[Hg] [facility] Diastolic blood pressure 2022-10-23 21:30:00 72 mm[Hg] [facility] Heart rate 2022-10-23 21:30:00 85 /min Unive [facility] Body temperature 2022-10-23 21:30:00 36.39 Pryia [facility] Respiratory rate 2022-10-23 21:30:00 18 /min [facility] Body height 2022-10-23 21:30:00 170.2 cm [facility] Body weight 2022-10-23 21:30:00 73.284 kg [facility] BMI 2022-10-23 21:30:00 25.30 kg/m2 [facility] Body mass index (BMI) [Percentile] Per age and sex 2022-10-23 21:30:00 82.42 % [facility] Systolic blood pressure 2022-09-19 21:42:00 114 mm[Hg] [facility] Diastolic blood pressure 2022-09-19 21:42:00 81 mm[Hg] [facility] Heart rate 2022-09-19 21:42:00 88 /min Unive [facility] Body temperature 2022-09-19 21:42:00 36.89 Priya [facility] Respiratory rate 2022-09-19 21:42:00 18 /min [facility] Body height 2022-09-19 21:42:00 170.2 cm [facility] Body weight 2022-09-19 21:42:00 72.15 kg [facility] BMI 2022-09-19 21:42:00 24.91 kg/m2 [facility] Body mass index (BMI) [Percentile] Per age and sex 2022-09-19 21:42:00 80.66 % [facility] Systolic blood pressure 2022-08-22 22:11:00 125 mm[Hg] [facility] Diastolic blood pressure 2022-08-22 22:11:00 84 mm[Hg] [facility] Heart rate 2022-08-22 22:11:00 84 /min Unive [facility] Body temperature 2022-08-22 22:11:00 36.28 Priya [facility] Respiratory rate 2022-08-22 22:11:00 18 /min [facility] Body height 2022-08-22 22:11:00 170.2 cm [facility] Body weight 2022-08-22 22:11:00 70.478 kg [facility] BMI 2022-08-22 22:11:00 24.34 kg/m2 [facility] Body mass index (BMI) [Percentile] Per age and sex 2022-08-22 22:11:00 77.58 % [facility] Systolic blood pressure 2022-07-25 19:39:00 130 mm[Hg] [facility] Diastolic blood pressure 2022-07-25 19:39:00 68 mm[Hg] [facility] Heart rate 2022-07-25 19:39:00 80 /min Unive [facility] Body temperature 2022-07-25 19:39:00 37.06 Priya [facility] Respiratory rate 2022-07-25 19:39:00 18 /min [facility] Body height 2022-07-25 19:39:00 170.2 cm [facility] Body weight 2022-07-25 19:39:00 71.385 kg [facility] BMI 2022-07-25 19:39:00 24.65 kg/m2 [facility] Body mass index (BMI) [Percentile] Per age and sex 2022-07-25 19:39:00 79.58 % [facility] Systolic blood pressure 2022-06-27 19:42:00 123 mm[Hg] [facility] Diastolic blood pressure 2022-06-27 19:42:00 72 mm[Hg] [facility] Heart rate 2022-06-27 19:42:00 72 /min Unive [facility] Body temperature 2022-06-27 19:42:00 36.67 Priya [facility] Respiratory rate 2022-06-27 19:42:00 18 /min [facility] Body height 2022-06-27 19:42:00 170.2 cm [facility] Body weight 2022-06-27 19:42:00 69.57 kg [facility] BMI 2022-06-27 19:42:00 24.02 kg/m2 [facility] Body mass index (BMI) [Percentile] Per age and sex 2022-06-27 19:42:00 75.89 % [facility] Systolic blood pressure 2021-11-28 20:44:00 125 mm[Hg] [facility] Diastolic blood pressure 2021-11-28 20:44:00 84 mm[Hg] [facility] Heart rate 2021-11-28 20:44:00 99 /min [facility] Body temperature 2021-11-28 20:44:00 36.94 Priya [facility] Respiratory rate 2021-11-28 20:44:00 18 /min [facility] Body height 2021-11-28 20:44:00 170.2 cm [facility] Body weight 2021-11-28 20:44:00 62.596 kg [facility] BMI 2021-11-28 20:44:00 21.61 kg/m2 [facility] Body mass index (BMI) [Percentile] Per age and sex 2021-11-28 20:44:00 55.74 % [facility] Procedures Procedure Date / Time Performed Performing Clinicia n Source POCT URINALYSIS 2024-02-26 17:33:00 Olu Da Silva [facility] FIRST TRIMESTER ULTRASOUND 2024-02-15 20:04:00 Olu Da Silva [facility] CBC WITH DIFF 2024-01-29 19:57:00 Olu Da Silva [facility] RUBELLA SCREEN IGG 2024-01-29 19:57:00 Thee Da Silva [facility] VZV ANTIBODY SCREEN 2024-01-29 19:57:00 Augustin Da Silva [facility] HEPATITIS B SURFACE ANTIGEN 2024-01-29 19:57:00 Olu Da Silva [facility] HCV ANTIBODY 2024-01-29 19:57:00 Olu Da Silva [facility] HB ABO GROUPING 2024-01-29 19:57:00 Olu Da Silva [facility] URINE CULTURE 2024-01-29 19:57:00 Olu Da Silva [facility] GC & CHLAMYDIA AMPLIFIED ASSAY 2024-01-29 19:57:00 Olu Da Silva [facility] HIV 1/2 AG-AB WITH REFLEX 2024-01-29 19:57:00 Olu Da Silva [facility] SYPHILIS IGG/IGM 2024-01-29 19:57:00 Jose Da Silva [facility] POCT TEST 2024-01-29 18:39:00 Augustin Da Silva [facility] POCT URINALYSIS W/O SPECIFIC GRAVITY 2024-01-29 18:39:00 Olu Da Silva [facility] POCT TEST 2023-07-12 18:29:00 Emma Zhang [facility] PATIENT FINANCIAL POLICY 2023-07-12 18:05:06 Doctor Unassigned, [place] [facility] GALV ONLY - VAGINAL PATHOGENS BY NUCLEIC ACID TESTING 2023-04-11 20:35:00 Elaine Zhang [facility] POCT TEST 2023-04-11 20:34:00 Emma Zhang [facility] CBC WITH DIFF 2023-03-21 16:42:00 Elaine Zhang [facility] CBC WITH DIFF 2023-03-01 09:42:00 Bernadette Wall [facility] VENOUS CORD GAS 2023-03-01 03:15:00 [facility] CENTRAL NEURAXIAL BLOCK 2023-02-28 17:35:00 Yony Valiente [facility] CBC WITH DIFF 2023-02-28 15:06:00 Pike [facility] HEPATITIS B SURFACE ANTIGEN 2023-02-28 15:06:00 Pike [facility] HB ABO GROUPING 2023-02-28 15:06:00 Pike [facility] RHO (D) IMMUNE GLOBULIN 2023-02-28 15:06:00 Bernadette Wall [facility] SYPHILIS IGG/IGM 2023-02-28 15:06:00 Diego Mariajose [facility] HOSPITAL ADMISSION 2023-02-28 05:01:00 Doctor Un assigned, [place] [facility] POCT URINALYSIS 2023-02-27 17:44:00 Ezequiel Mcwilliams [facility] ADC ONLY - FERN TEST 2023-02-24 05:32:00 Caroline Bower [facility] ASSIGNMENT OF BENEFITS 2023-02-24 04:18:27 Duc de los santos Unassigned, [place] [facility] NON-STRESS TEST 2023-02-21 18:39:51 Laron Da Silva [facility] POCT URINALYSIS 2023-02-21 00:00:00 Ezequiel Mcwilliams [facility] ASSIGNMENT OF BENEFITS 2023-02-20 00:00:06 Docto r Unassigned, [place] [facility] CONSENT/REFUSAL FOR DIAGNOSIS AND TREATMENT 2023-02-19 23:59:41 Doctor Unassigned, [place] [facility] POCT URINALYSIS 2023-02-14 20:49:00 Ezequiel Mcwilliams [facility] POCT URINALYSIS 2023-02-07 19:12:00 Ezequiel Mcwilliams [facility] ADC ONLY - FERN TEST 2023-02-01 03:11:00 Saida Rand [facility] NOTICE OF PRIVACY PRACTICES 2023-02-01 02:26:54 Doctor Unassigned, [place] [facility] ASSIGNMENT OF BENEFITS 2023-02-01 02:21:13 Duc r Unassigned, [place] [facility] L&D VISIT (NON-DELIVERED) 2023-01-31 05:01:00 Doctor Unassigned, [place] [facility] POCT URINALYSIS 2023-01-24 20:00:00 Ezequiel Mcwilliams [facility] POCT URINALYSIS 2023-01-08 20:12:00 Ezequiel Mcwilliams [facility] POCT URINALYSIS 2022-12-25 19:38:00 Ezequiel Mcwilliams [facility] TDAP VACCINE, >11 YRS, IM 2022-12-11 18:22:35 Olu Da Silva [facility] POCT URINALYSIS 2022-12-11 18:01:00 Ezequiel Mcwilliams [facility] GLUCOSE 1 HOUR POST PRANDIAL 2022-11-20 07:56:00 Olu Da Silva [facility] CBC WITH DIFF 2022-11-20 07:56:00 Olu Da Silva [facility] POCT URINALYSIS 2022-11-20 00:00:00 Ezequiel Mcwilliams [facility] POCT URINALYSIS 2022-10-23 21:31:00 Ezequiel Mcwilliams [facility] POCT URINALYSIS 2022-09-19 21:44:00 Ezequiel Mcwilliams [facility] POCT URINALYSIS 2022-08-22 22:12:00 Ezequiel Mcwilliams [facility] POCT URINALYSIS 2022-07-25 19:40:00 Ezequiel Mcwilliams [facility] POCT TEST 2022-06-27 19:36:00 Charly Mcwilliams [facility] POCT URINALYSIS W/O SPECIFIC GRAVITY 2022-06-27 19:36:00 Ezequiel Mcwilliams [facility] ASSIGNMENT OF BENEFITS 2022-06-27 19:11:21 Docto r Unassigned, [place] [facility] POCT TEST 2021-11-28 00:00:00 Christopher Velasquez [facility] Encounters Start Date/Time End Date/Time Encounter Type Admission Type Attending [facility] Facility Care Department Encounter ID Source 2024-05-05 13:00:00 2024-05-05 13:00:00 Outpatient P [facility] [id number] [facility] 2024-03-25 12:45:00 2024-03-25 12:45:00 Outpatient R OLU DA SILVA [facility] [id number] [facility] 2024-02-26 12:45:00 2024-02-26 12:49:53 Outpatient R OLU DA SILVA [facility] [id number] [facility] 2024-02-26 12:45:00 2024-02-26 12:49:53 Routine Visit Olu Da Silva [facility] RUBBER TILE FLOOR LAYER [facility] MATERNAL & CHILD [facility] .840.114 350.1.13.10 4.2.7.2.686 [id number] 107 [id number] [facility] 2024-02-19 00:00:00 2024-02-19 14:14:24 Abstract Olu Da Silva [facility] RUBBER TILE FLOOR LAYER [facility] & CHILD [facility] 1..840.114 350.1.13.10 4.2.7.2.686 [id number] [facility] 2024-02-15 15:30:00 2024-02-15 15:30:00 Tnt Powder Worker Visit 3, [facility] Us Vira Crow Jaiden [facility] 1.20.114 350.1.13.10 4.2.7.2.686 [id number] [facility] 2024-02-15 15:30:00 2024-02-15 15:08:06 Outpatient P PETERSEN JAIDENALENA [facility] [id number] [facility] 2024-02-05 13:15:00 2024-02-05 14:12:15 Outpatient R OLU DA SILVA [facility] [id number] [facility] 2024-02-05 13:15:00 2024-02-05 14:12:15 Tnt Powder Worker Visit Lab, [facility] Olu Da Silva [facility] RUBBER TILE FLOOR LAYER [facility] & CHILD [facility] 1.840.114 350.1.13.10 4.2.7.2.686 [id number] 107 [id number] [facility] 2024-02-05 00:00:00 2024-02-05 13:05:02 Case Management Olu Da Silva [facility] CHILD [facility] 1.20.114 350.1.13.10 4.2.7.2.686 [id number] [facility] 2024-01-31 00:00:00 2024-01-31 00:00:00 Telephone Olu Da Silva [facility] RUBBER TILE FLOOR LAYER [facility] 1.2840.114 350.1.13.10 4.2.7.2.686 [id number] [facility] 2024-01-29 13:45:00 2024-01-29 14:57:28 Outpatient R OLU DA SILVA [facility] [id number] [facility] 2024-01-29 13:45:00 2024-01-29 14:57:28 Initial Visit Olu Da Silva [facility] RUBBER TILE FLOOR LAYER [facility] & CHILD [facility] 1.20.114 350.1.13.10 4.2.7.2.686 [id number] [facility] 2023-07-12 13:30:00 2023-07-12 13:48:13 Outpatient R ELAINE ZHANG [facility] [id number] [facility] 2023-07-12 13:30:00 2023-07-12 13:48:13 Office Visit Elaine Zhang [facility] RUBBER TILE FLOOR LAYER [facility] CHILD [facility] 1.84.114 350.1.13.10 4.2.7.2.686 [id number] 107 [id number] [facility] 2023-07-12 00:00:00 2023-07-12 00:00:00 Orders Only Doctor Unassigned, [place] [facility] 1..114 350.1.13.10 4.2.7.2.686 [id number] [facility] 2023-04-12 00:00:00 2023-04-12 00:00:00 Telephone Elaine Zahng [facility] RUBBER TILE FLOOR LAYER [facility] CHILD [facility] 1..114 350.1.13.10 4.2.7.2.686 [id number] [facility] 2023-04-11 14:15:00 2023-04-11 15:22:39 Outpatient R ELAINE ZHANG [facility] [id number] [facility] 2023-04-11 14:15:00 2023-04-11 15:22:39 Office Visit Elaine Zhang [facility] RUBBER TILE FLOOR LAYER [facility] & CHILD [facility] 1..114 350.1.13.10 4.2.7.2.686 [id number] [facility] 2023-03-26 00:00:00 2023-03-26 00:00:00 Nurse Triage DonnautetiffanieLeidy [facility] 1.840.114 350.1.13.10 4.2.7.2.686 [id number] [facility] 2023-03-21 10:30:00 2023-03-21 11:39:29 Outpatient R ELAINE ZHANG [facility] [id number] [facility] 2023-03-21 10:30:00 2023-03-21 11:39:29 Routine Visit Elaine Zhang [facility] RUBBER TILE FLOOR LAYER [facility] & [facility] 1.0.114 350.1.13.10 4.2.7.2.686 [id number] [facility] 2023-02-28 09:22:00 2023-03-02 16:40:00 Hospital Encounter Marcos [facility] 1..114 350.1.13.10 4.2.7.2.686 [id number] [facility] 2023-02-28 09:22:00 2023-03-02 16:40:00 Inpatient X MARCOS JACOBS Geoff [facility] J[facility] [id number] [facility] 2023-02-28 12:20:00 2023-02-28 23:00:00 Anesthesia Event Yony Valiente Rakesh Raj [facility] 1..114 350.1.13.10 4.2.7.2.686 [id number] [facility] 2023-02-28 00:00:00 2023-02-28 00:00:00 Orders Only Doctor Unassigned, [place] [facility] 1.0.114 350.1.13.10 4.2.7.2.686 [id number] [facility] 2023-02-27 12:45:00 2023-02-27 13:06:14 Outpatient R OLU DA SILVA [facility] [id number] [facility] 2023-02-27 12:45:00 2023-02-27 13:06:14 Routine Visit Olu Da Silva [facility] RUBBER TILE FLOOR LAYER [facility] MATERNAL & CHILD [facility] 1.2.840.114 350.1.13.10 4.2.7.2.686 [id number] [facility] 2023-02-23 23:37:00 2023-02-24 01:00:00 Outpatient P LINCOLN-AURY S, CAROLINE LINCOLN-AURY S, CAROLINE [facility] J[facility] [id number] [facility] 2023-02-23 23:37:00 2023-02-24 01:00:00 Hospital Encounter Lincoln-Aury s, Caroline [facility] 1.2.840.114 350.1.13.10 4.2.7.2.686 [id number] [facility] 2023-02-23 00:00:00 2023-02-23 00:00:00 Orders Only Doctor Unassigned, [place] [facility] 1.2.840.114 350.1.13.10 4.2.7.2.686 [id number] [facility] 2023-02-21 15:00:00 2023-02-21 15:00:00 Routine Visit Olu Da Silva [facility] RUBBER TILE FLOOR LAYER [facility] & CHILD [facility] 1.2.840.114 350.1.13.10 4.2.7.2.686 [id number] [facility] 2023-02-21 15:00:00 2023-02-21 13:50:28 Outpatient R OLU DA SILVA [facility] [id number] [facility] 2023-02-21 00:00:00 2023-02-21 00:00:00 Telephone Olu Da Silva [facility] RUBBER TILE FLOOR LAYER [facility] MATERNAL & CHILD [facility] 1.2.840.114 350.1.13.10 4.2.7.2.686 [id number] [facility] 2023-02-19 19:13:00 2023-02-19 21:33:00 Outpatient X LINCOLN-AURY S, CAROLINE LINCOLN-AURY S, CAROLINE [facility] J[facility] [id number] [facility] 2023-02-19 19:13:00 2023-02-19 21:33:00 Emergency Lincoln-Aury s, Caroline [facility] 1.2.840.114 350.1.13.10 4.2.7.2.686 [id number] [facility] 2023-02-19 00:00:00 2023-02-19 00:00:00 Telephone Olu Da Silva [facility] RUBBER TILE FLOOR LAYER [facility] [facility] 1.2840.114 350.1.13.10 4.2.7.2.686 [id number] 107 [id number] [facility] 2023-02-19 00:00:00 2023-02-19 00:00:00 Orders Only Doctor Unassigned, [place] [facility] 1.2840.114 350.1.13.10 4.2.7.2.686 [id number] [facility] 2023-02-14 15:45:00 2023-02-14 16:05:13 Routine Visit Olu Da Silva [facility] RUBBER TILE FLOOR LAYER [facility] 1.2.840.114 350.1.13.10 4.2.7.2.686 [id number] 107 [id number] [facility] 2023-02-14 15:45:00 2023-02-14 16:05:13 Outpatient R OLU DA SILVA [facility] [id number] [facility] 2023-02-09 00:00:00 2023-02-09 00:00:00 Telephone Olu Da Silva [facility] RUBBER TILE FLOOR [facility]AYER [facility] 1.2840.114 350.1.13.10 4.2.7.2.686 [id number] 107 [id number] [facility] 2023-02-07 14:15:00 2023-02-07 14:37:07 Outpatient R OLU DA SILVA [facility] [id number] [facility] 2023-02-07 14:15:00 2023-02-07 14:37:07 Routine Visit Olu Da Silva [facility] RUBBER TILE FLOOR [facility]AY[facility] 1.2840.114 350.1.13.10 4.2.7.2.686 [id number] 107 [id number] [facility] 2023-01-31 21:27:00 2023-01-31 23:03:00 Outpatient X SAIDA RAND [facility] [id number] [facility] 2023-01-31 21:27:00 2023-01-31 23:03:00 Emergency Saida Rand [facility] 1.840.114 350.1.13.10 4.2.7.2.686 [id number] [facility] 2023-01-31 00:00:00 2023-01-31 00:00:00 Orders Only Doctor Unassigned, [place] [facility] 1.20.114 350.1.13.10 4.2.7.2.686 [id number] [facility] 2023-01-24 15:00:00 2023-01-24 15:20:50 Outpatient R OLU DA SILVA [facility] [id number] [facility] 2023-01-24 15:00:00 2023-01-24 15:20:50 Routine Visit Olu Da Silva [facility] RUBBER TILE FLOOR [facility] 1.20.114 350.1.13.10 4.2.7.2.686 [id number] 107 [id number] [facility] 2023-01-08 15:15:00 2023-01-08 15:27:33 Outpatient R OLU DA SILVA [facility] [id number] [facility] 2023-01-08 15:15:00 2023-01-08 15:27:33 Routine Visit Olu Da Silva [facility] RUBBER TILE FLOOR [facility] 1..114 350.1.13.10 4.2.7.2.686 [id number] 107 [id number] [facility] 2022-12-28 15:15:00 2022-12-28 16:00:00 Tnt Powder Worker Visit Ultrasound, Jeramie-MfGeeta Shipman [facility] RUBBER TILE FLOOR LAYER [facility] 1..114 350.1.13.10 4.2.7.2.686 [id number] [facility] 2022-12-28 15:15:00 2022-12-28 15:15:00 Outpatient P GEETA PAGE [facility] [id number] [facility] 2022-12-25 14:45:00 2022-12-25 14:52:51 Outpatient R OLU DA SILVA [facility] [id number] [facility] 2022-12-25 14:45:00 2022-12-25 14:52:51 Routine Visit Olu Da Silva [facility] RUBBER TILE FLOOR [facility]AY[facility] 1.0.114 350.1.13.10 4.2.7.2.686 [id number] 107 [id number] [facility] 2022-12-20 14:45:00 2022-12-20 14:45:00 Outpatient P RODRÍGUEZ GEETA MCCORMACK [facility] [id number] [facility] 2022-12-12 00:00:00 2022-12-12 00:00:00 Outpatient GC_SWHAOMC_ Black_D [facility] [id number] [facility] 2022-12-11 12:45:00 2022-12-11 13:47:04 Outpatient R OLU DA SILVA [facility] [id number] [facility] 2022-12-11 12:45:00 2022-12-11 13:47:04 Routine Visit Olu Da Silva [facility] RUBBER TILE FLOOR LAYER [facility] ..840.114 350.1.13.10 4.2.7.2.686 [id number] [facility] 2022-11-20 12:45:00 2022-11-20 14:00:54 Outpatient R OLU DA SILVA [facility] [id number] [facility] 2022-11-20 12:45:00 2022-11-20 14:00:54 Routine Visit Olu Da Silva [facility] RUBBER TILE FLOOR LAYER [facility] MATERNAL & CHILD [facility] ..840.114 350.1.13.10 4.2.7.2.686 [id number] 107 [id number] [facility] 2022-11-14 09:00:00 2022-11-14 09:00:00 Outpatient R OLU DA SILVA [facility] [id number] [facility] 2022-11-03 00:00:00 2022-11-03 00:00:00 Case Management Elaine Zhang [facility] RUBBER TILE FLOOR LAYER [facility] MATERNAL & CHILD [facility] ..840.114 350.1.13.10 4.2.7.2.686 [id number] 107 [id number] [facility] 2022-10-23 15:30:00 2022-10-23 16:03:50 Outpatient R OLU DA SILVA [facility] [id number] [facility] 2022-10-23 15:30:00 2022-10-23 16:03:50 Routine Visit Olu Da Silva [facility] RUBBER TILE FLOOR LAYER [facility] MATERNAL & CHILD [facility] 1..840.114 350.1.13.10 4.2.7.2.686 [id number] 107 [id number] [facility] 2022-10-17 14:00:00 2022-10-17 14:00:00 Outpatient R OLU DA SILVA [facility] [id number] [facility] 2022-10-13 13:00:00 2022-10-13 14:00:00 Tnt Powder Worker Visit Ultrasound, Alexandre Gunn [facility] RUBBER TILE FLOOR LAYER [facility] ..840.114 350.1.13.10 4.2.7.2.686 [id number] [facility] 2022-10-13 13:00:00 2022-10-13 13:00:00 Outpatient ALEXANDRE LYLES [facility] [id number] [facility] 2022-09-19 15:45:00 2022-09-19 16:08:33 Outpatient R OLU DA SILVA [facility] [id number] [facility] 2022-09-19 15:45:00 2022-09-19 16:08:33 Routine Visit Olu Da Silva [facility] RUBBER TILE FLOOR LAYER [facility] ..840.114 350.1.13.10 4.2.7.2.686 [id number] 107 [id number] [facility] 2022-09-14 13:00:00 2022-09-14 13:00:00 Outpatient P ALEXANDRE SO [facility] [id number] [facility] 2022-08-22 15:45:00 2022-08-22 16:30:53 Outpatient R OLU DA SILVA [facility] [id number] [facility] 2022-08-22 15:45:00 2022-08-22 16:30:53 Routine Visit Olu Da Silva Roshunda R [facility] RUBBER TILE FLOOR LAYER [facility] MATERNAL & CHILD [facility] ..114 350.1.13.10 4.2.7.2.686 [id number] 107 [id number] [facility] 2022-08-22 15:45:00 2022-08-22 15:45:00 Outpatient R EZEQUIEL MCWILLIAMS [facility] [id number] [facility] 2022-07-28 00:00:00 2022-07-28 00:00:00 Abstract Olu Da Silva [facility] RUBB[facility] TI[facility] ..114 350.1.13.10 4.2.7.2.686 [id number] [facility] 2022-07-25 14:30:00 2022-07-25 15:15:16 Outpatient R EZEQUIEL MCWILLIAMS [facility] [id number] [facility] 2022-07-25 14:30:00 2022-07-25 15:15:16 Routine Visit Provider, Ezequiel Mansfield [facility] RUBBER TILE FLOOR LAYER [facility] ..114 350.1.13.10 4.2.7.2.686 [id number] 107 [id number] [facility] 2022-07-19 08:30:00 2022-07-19 09:00:00 Tnt Powder Worker Visit Ultrasound, Jaiden Murcia [facility] RUBBER TILE FLOOR LAYER [facility] .84.114 350.1.13.10 4.2.7.2.686 [id number] [facility] 2022-07-19 08:30:00 2022-07-19 08:30:00 Outpatient JAIDEN HALL SANGEETA [facility] [id number] [facility] 2022-06-29 00:00:00 2022-06-29 00:00:00 Telephone Ezequiel Mcwilliams [facility] RUBBER TILE FLOOR LAYER [facility] 1..840.114 350.1.13.10 4.2.7.2.686 [id number] 107 [id number] [facility] 2022-06-27 14:45:00 2022-06-27 15:49:45 Outpatient R EZEQUIEL MCWILLIAMS [facility] [id number] [facility] 2022-06-27 14:45:00 2022-06-27 15:49:45 Initial Visit Ezequiel Mcwilliams [facility] RUBBER TILE FLOOR LAYER [facility] 1..840.114 350.1.13.10 4.2.7.2.686 [id number] 107 [id number] [facility] 2022-06-27 00:00:00 2022-06-27 00:00:00 Orders Only Doctor Unassigned, [place] [facility] 1..840.114 350.1.13.10 4.2.7.2.686 [id number] [facility] 2022-04-12 13:30:00 2022-04-12 13:30:00 Outpatient R JAGDEEP VELASQUEZ [facility] [id number] [facility] 2021-11-28 14:30:00 2021-11-28 14:55:01 Office Visit Jagdeep Velasquez [facility] 1..840.114 350.1.13.10 4.2.7.2.686 [id number] [facility] 2021-11-28 14:30:00 2021-11-28 14:55:01 Outpatient JAGDEEP WOOD [facility] [id number] [facility] 2021-11-28 14:30:00 2021-11-28 14:30:00 Outpatient Nahomy VELASQUEZ JAGDEEP [facility] [id number] [facility] 2021-11-28 00:00:00 2021-11-28 00:00:00 Orders Only Doctor Unassigned, [place] [facility] 1.2.840.114 350.1.13.10 4.2.7.2.686 [id number] [facility] 2021-11-23 00:00:00 2021-11-23 00:00:00 Telephone Jagdeep Velasquez [facility] BUILDING 1.2.840.114 350.1.13.10 4.2.7.2.686 [id number] 134 [id number] [facility] 2021-09-09 00:00:00 2021-09-09 00:00:00 Letter (Out) Weston Tyler [facility] MED[facility] BUILDING 1.2.840.114 350.1.13.10 4.2.7.2.686 [id number] 370 [id number] [facility] 2021-09-08 16:47:28 2021-09-08 17:07:28 Urgent Care Tyler Ontiveros [facility] BU[facility] 1.2.840.114 350.1.13.10 4.2.7.2.686 [id number] 370 [id number] [facility] 2021-09-08 17:00:00 2021-09-08 17:00:00 Outpatient ELKE MONAE [facility] [id number] [facility] 2021-09-08 00:00:00 2021-09-08 00:00:00 Telephone Jagdeep Velasquez [facility] BU[facility] 1.2.840.114 350.1.13.10 4.2.7.2.686 [id number] 134 [id number] [facility] 2021-07-27 00:00:00 2021-07-27 00:00:00 Telephone [facility] 1.2.840.114 350.1.13.10 4.2.7.2.686 [id number] 134 [id number] [facility] 2021-06-17 16:00:00 2021-06-17 16:00:00 Outpatient R [facility] [id number] [facility] 2021-05-24 00:00:00 2021-05-24 00:00:00 Case Management Jagdeep Velasquez [facility] 1..840.114 350.1.13.10 4.2.7.2.686 [id number] 134 [id number] [facility] 2021-05-23 14:39:42 2021-05-23 14:54:42 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, 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 Lab Finnkaylene [facility] 1.2.840.114 350.1.13.10 4.2.7.2.686 [id number] [facility] 2021-05-23 14:45:00 2021-05-23 14:45:00 Outpatient R [facility] [id number] [facility] 2021-05-23 14:30:00 2021-05-23 14:30:00 Outpatient R JAGDEEP VELASQUEZ [facility] [id number] [facility] 2021-05-23 00:00:00 2021-05-23 00:00:00 Case Management Ron [facility] 1.2.840.114 350.1.13.10 4.2.7.2.686 [id number] 134 [id number] [facility] 2021-04-21 00:00:00 2021-04-21 00:00:00 Telephone Jagdeep Velasquez [facility] Building 1..840.114 350.1.13.10 4.2.7.2.686 [id number] [facility] 2021-04-14 00:00:00 2021-04-14 00:00:00 Case Management Jagdeep Velasquez [facility] Building 1.840.114 350.1.13.10 4.2.7.2.686 [id number] 134 [id number] [facility] 2021-04-12 12:43:44 2021-04-12 14:08:08 Office Visit Jagdeep Velasquez [facility] Building 1..840.114 350.1.13.10 4.2.7.2.686 [id number] 134 [id number] [facility] 2021-04-12 13:00:00 2021-04-12 13:00:00 Outpatient R RON [facility] [id number] [facility] 2021-04-12 00:00:00 2021-04-12 00:00:00 Orders Only Doctor Unassigned, [place] [facility] 1.840.114 350.1.13.10 4.2.7.2.686 [id number] [facility] 2021-01-14 11:10:21 2021-01-14 11:10:21 Outpatient [id number] [facility] 2020-10-08 18:30:00 2020-10-08 18:30:00 Outpatient R [facility] [id number] [facility] 2020-10-08 17:51:43 2020-10-08 18:11:43 Laboratory Only Lab, Adc Fam Pob I [facility] Office Building [facility] 1.0.114 350.1.13.10 4.2.7.2.686 [id number] 2020-10-08 17:51:43 2020-10-08 18:11:43 [facility] 1.840.114 350.1.13.10 4.2.7.2.686 [id number] [facility] 2020-07-21 00:00:00 2020-07-21 00:00:00 Telephone Provider, [facility] Office [facility] 1.0.114 350.1.13.10 4.2.7.2.686 [id number] [facility] 2020-07-21 00:00:00 2020-07-21 00:00:00 Telephone Provider, [facility] Office [facility] 1.0.114 350.1.13.10 4.2.7.2.686 [id number] 2020-07-20 15:20:00 2020-07-20 15:20:00 Outpatient R BENJAMIN CONCEPCION [facility] [id number] [facility] 2020-07-20 14:50:44 2020-07-20 15:10:44 Laboratory Only [facility] Ofe Dominiquethia [facility] 1..114 350.1.13.10 4.2.7.2.686 [id number] [facility] 2020-07-20 14:50:44 2020-07-20 15:10:44 Laboratory Only [facility] Office [facility] 1.840.114 350.1.13.10 4.2.7.2.686 [id number] Results Test Description Test Time Test Comments Results Result Co mments Source [facility] URINALYSIS W SPECIFIC [id number] 17:34:00* Test Item Value Reference Range Interpretation Comme [...] POCT U GLU (test code = 3256) Negative Negative - Negati ve POCT U KETONE (test code = 3258) * Negative - Neg ative POCT U UROBILI (test code = 3260) * 0.2-1 POCT U BILI (test code = 3261) * Negative - Negat fozia POCT U BLD (test code = 3257) * Negative - Negati ve POCT U COLOR (test code = 3266) POCT U APPEAR (test code = 3267) [facility] Urinalysis w/o Specific [id number] 18:40:00* Test Item Value Reference Range Interpretation Comme nts POCT PH U (test code = 3254) 7 mg/dl 5-8 POCT U LEUK EST (test code = 3263) ++ Negative - Negative POCT U NIT (test code = 3262) neg Negative - Negati ve POCT U PROT (test code = 3259) + Negative - Negat fozia POCT U GLU (test code = 3256) neg Negative - Negati ve POCT U KETONE (test code = 3258) neg Negative - Neg ative POCT U BLD (test code = 3257) neg Negative - Negati ve [facility] [id number] 18:39:00* Test Item Value Reference Range Interpretation Comme nts POCT PREG (test code = 1605) Positive On board controls acceptable with C Line (test code = 3574) Yes POCT PREG LOT # (test code = 3575) POCT PREG TEST DATE ( test code = 3576) [facility] [id number] 18:29:00* Test Item Value Reference Range Interpretation Comme nts POCT PREG (test code = 1605) Negative On board controls acceptable with C Line (test code = 3574) Yes POCT PREG LOT # (test code = 3575) POCT PREG TEST DATE ( test code = 3576) [facility] [id number] 18:29:00* Test Item Value Reference Range Interpretation Comme nts POCT PREG (test code = 1605) Negative On board controls acceptable with C Line (test code = 3574) Yes POCT PREG LOT # (test code = 3575) POCT PREG TEST DATE ( test code = 3576) [facility] [id number] 20:34:00* Test Item Value Reference Range Interpretation Comme nts POCT PREG (test code = 1605) Negative On board controls acceptable with C Line (test code = 3574) Yes POCT PREG LOT # (test code = 3575) POCT PREG TEST DATE ( test code = 3576) [facility] [id number] 20:34:00* Test Item Value Reference Range Interpretation Comme nts POCT PREG (test code = 1605) Negative On board controls acceptable with C Line (test code = 3574) Yes POCT PREG LOT # (test code = 3575) POCT PREG TEST DATE ( test code = 3576) [facility] WITH [id number] 05:34:01* Test Item Value Reference Range Interpretation Comme nts WBC (test code = 6690-2) 8.24 See_Comment [Automated [employer] ge] The system which generated this result transmitted reference range: 4.50 - 13.50 10*3/?L. The reference range was not used to interpret this result as normal/abnormal. RBC (test code = 789-8) 4.15 See_Comment [[employer] ge] The system which generated this result [...] g/dL 32.0-36.0 L RDW-SD (test code = 59771-0) 43.4 fL 38.5-49.0 RDW-CV (test code = 788-0) 13.4 % 11.5-14.0 PLT (test code = 777-3) 459 See_Comment H [Automated messa ge] The system which generated this result transmitted reference range: 135 - 361 10*3/?L. The reference range was not used to interpret this result as normal/abnormal. MPV (test code = 29673-7) 11.2 fL 9.4-13.3 NRBC/100 WBC (test code = 3553661956) 0.0 See_Comment [Automated [employer] ssage] The system which generated this result transmitted reference range: 0.0 - 10.0 /100 WBCs. The reference range was not used to interpret this result as normal/abnormal. NRBC x10^3 (test code = 1993126974) See_Comment [Automated messa ge] The system which generated this result transmitted reference range: 10*3/?L. The reference range was not used to interpret this result as normal/abnormal. GRAN MAT (NEUT) % (test code = 770-8) 56.6 % IMM GRAN % (test code = 9971452469) 0.20 % LYMPH % (test code = 736-9) 28.6 % MONO % (test code = 5905-5) 6.2 % EOS % (test code = 713-8) 7.3 % BASO % (test code = 706-2) 1.1 % GRAN MAT x10^3(ANC) (test code = 1312093153) 4.66 10*3/uL 1.50-10.30 IMM GRAN x10^3 (test code = 6152462211) 0.00-0.06 LYMPH x10^3 (test code = 731-0) 2.36 10*3/uL 0.70-7.40 MONO x10^3 (test code = 742-7) 0.51 10*3/uL 0.00-0.50 H EOS x10^3 (test code = 711-2) 0.60 10*3/uL 0.00-0.40 H BASO x10^3 (test code = 704-7) 0.09 10*3/uL 0.00-0.10 Lab Interpretation (test code = 68947-0) [facility]normal [facility] IMMUNE [id number] 06:47:31* Test Item Value Reference Range Interpretation Comme nts RHIG CANDIDATE? (test code = 5188) No- see comment Patient is not a candidate for RhIg- Patient is Rh Positive.Performed at [facility] Laboratory Services - [facility] Blood [address] [place] [id number] Free: [phone] No. [id number] [facility] Cord [id number] 03:30:20* Test Item Value Reference Range Interpretation Comme [facility] VENOUS BASE EXCESS, CORD (test code = 9825313505) -4.8 mEq/L VENOUS PH, CORD (test code = 0684430633) 7.32 7.25-7.45 VENOUS PC02, CORD (test code = 7299033681) 42 See_Comment [Automated messa ge] The system which generated this result transmitted reference range: 27 - 49 mmHg. The reference range was not used to interpret this result as normal/abnormal. VENOUS PO2, CORD (test code = 4100092568) 23 See_Comment [Automated me ssage] The system which generated this result transmitted reference range: 17 - 41 mmHg. The reference range was not used to interpret this result as normal/abnormal. VENOUS BICARBONATE, CORD (test code = 9932830245) 21 See_Comment QUES [Automated message] The system which generated this result transmitted reference range: 12 - 29 mEq/L. The reference range was not used to interpret this result as normal/abnormal. [facility] [id number] 03:29:55* Test Item Value Reference Range Interpretation Comme nts BASE EXCESS, CORD (test code = 8326003483) -2.7 mEq/L QUES AC PH, CORD (BEAKER) (test code = 5237950785) 7.27 7.18-7.38 PC02, CORD (test code = 1379096424) 56 See_Comment [Automated messa ge] The system which generated this result transmitted reference range: 32 - 66 mmHg. The reference range was not used to interpret this result as normal/abnormal. PO2, CORD (test code = 7728449388) 18 See_Comment [Automated messa ge] The system which generated this result transmitted reference range: 10 - 30 mmHg. The reference range was not used to interpret this result as normal/abnormal. BICARBONATE, CORD (test code = 7419950015) 26 See_Comment [Automated messa ge] The system which generated this result transmitted reference range: 17 - 27 mEq/L. The reference range was not used to interpret this result as normal/abnormal. [facility] URINALYSIS W SPECIFIC [id number] 17:44:00* Test Item Value Reference Range Interpretation [...] U APPEAR (test code = 3267) ... [facility] URINALYSIS W SPECIFIC [id number] 17:54:00* Test Item Value Reference Range Interpretation [...] U APPEAR (test code = 3267) . [facility] URINALYSIS W SPECIFIC [id number] 20:50:00* Test Item Value Reference Range Interpretation [...] U APPEAR (test code = 3267) . [facility] URINALYSIS W SPECIFIC [id number] 19:13:00* Test Item Value Reference Range Interpretation [...] U APPEAR (test code = 3267) . [facility] URINALYSIS W SPECIFIC [id number] 20:00:00* Test Item Value Reference Range Interpretation [...] U APPEAR (test code = 3267) . [facility] URINALYSIS W SPECIFIC [id number] 20:00:00* Test Item Value Reference Range Interpretation [...] U APPEAR (test code = 3267) . [facility] URINALYSIS W SPECIFIC [id number] 20:00:00* Test Item Value Reference Range Interpretation [...] U APPEAR (test code = 3267) . [facility] URINALYSIS W SPECIFIC [id number] 20:13:00* Test Item Value Reference Range Interpretation [...] U APPEAR (test code = 3267) . [facility] URINALYSIS W SPECIFIC [id number] 19:39:00* Test Item Value Reference Range Interpretation [...] POCT U APPEAR (test code = 3267) [facility] URINALYSIS W SPECIFIC [id number] 18:01:00* Test Item Value Reference Range Interpretation [...] U APPEAR (test code = 3267) . [facility] with [id number] 07:52:47* Test Item Value Reference Range Interpretation Comme nts WBC (test code = 6690-2) 11.13 See_Comment [Automated messa ge] The system which generated this result transmitted reference range: 4.50 - 13.50 10*3/?L. The reference range was not used to interpret this result as normal/abnormal. RBC (test code = 789-8) 3.39 See_Comment L [Automated messa ge] The system which generated [...] 33.0 g/dL 32.0-36.0 RDW-SD (test code = 96858-4) 43.4 fL 38.5-49.0 RDW-CV (test code = 788-0) 13.0 % 11.5-14.0 PLT (test code = 777-3) 367 See_Comment H [Automated messa ge] The system which generated this result transmitted reference range: 135 - 361 10*3/?L. The reference range was not used to interpret this result as normal/abnormal. MPV (test code = 59073-0) 10.5 fL 9.4-13.3 NRBC/100 WBC (test code = 3596349788) 0.0 See_Comment [Automated me ssage] The system which generated this result transmitted reference range: 0.0 - 10.0 /100 WBCs. The reference range was not used to interpret this result as normal/abnormal. NRBC x10^3 (test code = 9178425270) See_Comment [Automated messa ge] The system which generated this result transmitted reference range: 10*3/?L. The reference range was not used to interpret this result as normal/abnormal. GRAN MAT (NEUT) % (test code = 770-8) 69.0 % IMM GRAN % (test code = 7337365207) 0.50 % LYMPH % (test code = 736-9) 21.1 % MONO % (test code = 5905-5) 5.5 % EOS % (test code = 713-8) 3.5 % BASO % (test code = 706-2) 0.4 % GRAN MAT x10^3(ANC) (test code = 9970062131) 7.67 10*3/uL 1.50-10.30 IMM GRAN x10^3 (test code = 8163513840) 0.06 10*3/uL 0.00-0.06 LYMPH x10^3 (test code = 731-0) 2.35 10*3/uL 0.70-7.40 MONO x10^3 (test code = 742-7) 0.61 10*3/uL 0.00-0.50 H EOS x10^3 (test code = 711-2) 0.39 10*3/uL 0.00-0.40 BASO x10^3 (test code = 704-7) 0.05 10*3/uL 0.00-0.10 Lab Interpretation (test code = 51043-1) [facility]normal [facility] Spglxenr0170-95-41 06:41:02* Test Item Value Reference Range Interpretation Comme nts GLUC 1 HR (test code = 4378012899) 88 mg/dL 120-170 L Lab Interpretation (test cod e = 82995-6) Abnormal [facility] W SPECIFIC [id number] 19:03:00* Test Item Value Reference Range Interpretation [...] U APPEAR (test code = 3267) . [facility] URINALYSIS W SPECIFIC [id number] 21:31:00* Test Item Value Reference Range Interpretation [...] U APPEAR (test code = 3267) . [facility] URINALYSIS W SPECIFIC [id number] 21:44:00* Test Item Value Reference Range Interpretation [...] POCT U APPEAR (test code = 3267) [facility] URINALYSIS W SPECIFIC [id number] 22:12:00* Test Item Value Reference Range Interpretation [...] POCT U APPEAR (test code = 3267) [facility] URINALYSIS W SPECIFIC [id number] 19:40:00* Test Item Value Reference Range Interpretation [...] POCT U APPEAR (test code = 3267) [facility] [id number] 19:36:00* Test Item Value Reference Range Interpretation Comme nts POCT PREG (test code = 1605) Positive On board controls acceptable with C Line (test code = 3574) Yes POCT PREG LOT # (test code = 3575) POCT PREG TEST DATE ( test code = 3576) [facility] URINALYSIS W/O SPECIFIC [id number] 19:36:00* Test Item Value Reference Range Interpretation [...] = 3257) Trace Negative - Negati ve [facility] [id number] 21:24:00* Test Item Value Reference Range Interpretation Comme nts POCT PREG (test code = 1605) Negative On board controls acceptable with C Line (test code = 3574) Yes POCT PREG LOT # (test code = 3575) POCT PREG TEST DATE ( test code = 3576) [facility] [id number] 21:24:00* Test Item Value Reference Range Interpretation Comme nts POCT PREG (test code = 1605) Negative On board controls acceptable with C Line (test code = 3574) Yes POCT PREG LOT # (test code = 3575) POCT PREG TEST DATE ( test code = 3576) [facility] Asymptomatic IH [id number] 15:05:00 * Test Item Value Reference Range [...] testsfor detection and/or diagnosis of COVID-19 under Xqbxfoo399(b)(1) of the Act, 21 U.S.C. 360bbb-3(b)(1), unless theauthorization is terminated or revoked sooner. UR HCG [id number] 12:36:00* Test Item Value Reference Range Interpretation Comme nts UR HCG QUAL (test code = HCGQLU) NEGATIVE 1. Very dilute u rine specimens, as indicated by a lowspecific gravity, may not contain sales donor recruitment representative levels ofhCG. 2. False negative results may occur when the levels of hCGare below the sensitivity level of the test. If is still suspected, a first morningurine specimen should be collected 48 hours later andtested. Notes Date/Time Note Provider Source 2024-02-05 13:15:00 3516-87-80H95:15:00F ormatting of this note is different from the original.Images from the original note were not included.Venipuncture collection performed by clean technique on the right anticubitus. Total of 1 attempts were made. Slight pressure and a bandage/dressing were applied to the site(s). The patient experienced no complications. The following specimens were processed according to instructions and sent to [facility] laboratories per lab order on 02/05/24:LT BLUESST 1REDLAVPPTDK GREEN (LiHep)DK GREEN (SodH)GRAYDK BLUE (K2)DK BLUE (S)ACDBlood CultureNIPT/NTD 91418-8Snlnp ZazfOO6633-99-93X71:13:58Nurse NoteTXT1.2.840.611510.1.13.104.2.7 .2.351223|[id number] for patient komq60357-4Dypvm NoteLNNARRATIVEFormatted C-CDA narrative text[address] Nd[id number] 20WKXKARZDXJLLPPVGDERPUO8963-93-94 T14:13:581.2.840.074278.1.72.3.15| 1.2.840.325311.1.13.104.2.7.2.7278 [id number] [facility] 2024-01-31 13:18:21 0597-88-84J24:18:21F ormatting of this note might be different from the original.Notified the patient of her positive STI results chlamydia.Notified the patient her medication has been sent to her pharmacy on file.Educated patient she should complete the entire course, advised patient to practice safe sex practices and to remain abstinent for at least 1-2 weeks post treatment.Patient declines to have partner treated.Offered std pamphlet for partner education. Patient declined std pamphlet to be mailed to partner.Advised patient on HIV testing if she has not recently been tested.Advised MELQUIADES appointment in 3 months. Pt verbalized understanding. 27296-0Sopkdqhlu encounter ApnfLM3500-74-01T73:19:12Telephone encounter NoteTXT1.2.840.483261.1.13.104.2.7 .2.935267|[id number] for patient hikv63828-0LiecWLGPCZIWCMAPhhqcpvp d C-CDA narrative [id number] Garcia [address]GalvestonGalvestonTXTX[address] 69JWJIABCCDTZIITQOQMFTMK3143-85-10 T13:19:121.2.840.444313.1.72.3.15| 1.2.840.417163.1.13.104.2.7.2.7278 [id number] Alexia Figueredo [facility] 2024-01-31 12:48:56 0386-55-49O72:48:56F ormatting of this note might be different from the original.Please notify the patient of her positive STI results. Please notify the patient her medication has been sent to her pharmacy on file. She should complete the entire course.Please advise her on safe sex practices and to remain abstinent for at least 1-2 weeks post treatment. Her partner can be treated and tested per protocol. If she is not she will need a MELQUIADES in 3 months, and advise her on HIV testing if she has not recently been tested.MERI Irving 01/31/2024 12:49 PM 35040-5Gzbhnawco encounter ZwhbUL2121-88-53S82:07:45Telephone encounter NoteTXT1.2.840.456694.1.13.104.2.7 .2.495608|[id number] for patient dflf63970-0QlzxAREUEAAQHJIGfuhqqhq d C-CDA narrative text[address]GalvestonGalvestonTXTX[address] 40FPNPXWNPOEDNDPVGZIWZPO8084-01-86 T13:07:451.2.840.444261.1.72.3.15| 1.2.840.797294.1.13.104.2.7.2.7278 [id number] [facility] 2021-01-18 17:01:00 LJlkjzhruze64694343a M6QlaExjFqX/l/ FQ8HeWULaeV23jMjVt1hRZSVCb7On2j63N n+Oj2jQ0Pn2wniH6044-94-60D54:01:00 4836-6891 [facility] [address] [address] PATIENT NAME: CATRACHITO ALBA ADMIT DATE: 01/18/21ACCOUNT NO: [id number] ROOM NO: AGE: 15 SEX: F ADMITTING [...] Dictated By: Braeden Hussein Jr, MD WT: OP:FSTAN/FEMI/NTSDD: 01/18/2021 17:01:33DT: 01/18/2021 20:58:54Conf#: [id number]/DID#: [id number] Authenticated and Edited by Braeden Hussein MD On 02/09/21 7:46:38 AM at 0749 PATIENT NAME: CATRACHITO ALBA mqgcfs4436-08-52U03:58:00F.LMU9650 [id number] for patient moydVNOOSOBRDWFDOV3210-50-30B90:49 :57 [facility]"
--- NOTE | 2024-03-23 02:02 | ER ---
Nurse's Notes [facility] Name: Angela Dong Age: 18 yrs Sex: Female : 2005 Arrival Date: 03/23/2024 Time: 00:08 Bed 18 Private MD: Diagnosis: Retained Products of Conception;Incomplete spontaneous with other complications Presentation: 03/23 00:36 Chief complaint: Patient states: 14 weeks and cramping for 2-3 days with mucus vc1 discharge. No vaginal bleeding. Coronavirus screen: Client denies travel out of the [place] in the last 14 days. At this time, the client does not indicate any symptoms associated with coronavirus-19. Ebola Screen: Patient negative for fever greater than or equal to 101.5 degrees Fahrenheit, and additional compatible Ebola Virus Disease symptoms Patient denies exposure to infectious person. Patient denies travel to an Ebola-affected area in the 21 days before illness onset. No symptoms or risks identified at this time. Initial Sepsis Screen: Does the patient meet any 2 criteria? No. Patient's initial sepsis screen is negative. Does the patient have a suspected source of infection? No. Patient's initial sepsis screen is negative. Risk Assessment: Do you want to hurt yourself or someone else? Patient reports no desire to harm self or others. Onset of symptoms was March 21, 2024. 00:36 Method Of Arrival: Ambulatory vc1 00:36 Acuity: CECILIA 3 vc1 STRATEGIC CONSULTANT: 00:40 LMP 12/16/2023, Verified, EDC 09/21/2024, Gestational age from LMP: 14 weeks 0 vc1 days Historical: - Allergies: 00:39 No Known Allergies; vc1 - Home Meds: 00:39 None [Active]; vc1 - PMHx: 00:39 None; vc1 - PSHx: 00:39 Tonsillectomy; vc1 - Immunization history:: Client reports having NOT received the Covid vaccine. Flu vaccine is not up to date. - Infectious Disease History:: Denies. - Social history:: Smoking status: Reported history of juuling and/or vaping. Screenin:30 [facility] ED Fall Risk Assessment (Adult) History of falling in the last 3 months, jw7 including since admission No falls in past 3 months (0 pts) Confusion or Disorientation No (0 pts) Intoxicated or Sedated No (0 pts) Impaired Gait No (0 pts) Mobility Assist Device Used No (0 pt) Altered Elimination No (0 pt) Score/Fall Risk Level 0 - 2 = Low Risk Oriented to surroundings, Maintained a safe environment, Educated pt \T\ family on fall prevention, incl call for assistance when getting out of bed. 00:40 Abuse screen: Denies threats or abuse. Nutritional screening: No deficits noted. vc1 Tuberculosis screening: No symptoms or risk factors identified. Assessment: 00:30 General: Appears in no apparent distress. comfortable, Behavior is calm, cooperative, jw7 appropriate for age. Pain: Complains of pain in abdomen Pain does not radiate. Quality of pain is described as crampy, Is continuous. Neuro: Level of Consciousness is awake, alert, obeys commands, Oriented to person, place, time, situation, Appropriate for age. Cardiovascular: Heart tones S1 S2 present Capillary refill < 3 seconds Clubbing of nail beds is absent JVD is absent Patient's skin is warm and dry. 00:30 General: pt reports loosing copious amounts of vaginal fluid with discharge and jw7 abdominal cramping. . Respiratory: Airway is patent Trachea midline Respiratory effort is even, unlabored, Respiratory pattern is regular, symmetrical. GI: Abdomen is flat, non-distended, Bowel sounds present X 4 quads. Abd is soft and non tender X 4 quads. GI:. : No deficits noted. No signs and/or symptoms were reported regarding the genitourinary system. EENT: No deficits noted. No signs and/or symptoms were reported regarding the EENT system. Derm: Skin is intact, is healthy with good turgor, Skin is dry, Skin is normal, Skin temperature is warm. Musculoskeletal: Circulation, motion, and sensation intact. Range of motion: intact in all extremities. 01:20 General: Received call from Ultrasound that patient had a spontaneous of the jw7 fetus. Provider notified. Upon arrival to ultrasound room, aborted fetus noted on bed. Fetus was still attached to mother, Provider notified. Provider performed removal of remaining uterine products. Charge nurse at bedside. . 01:30 Reassessment: Patient appears in no apparent distress at this time. Patient and/or jw7 family updated on plan of care and expected duration. Pain level reassessed. Patient is alert, oriented x 3, equal unlabored respirations, skin warm/dry/pink. 02:30 Reassessment: Patient appears in no apparent distress at this time. Patient and/or jw7 family updated on plan of care and expected duration. Pain level reassessed. Patient is alert, oriented x 3, equal unlabored respirations, skin warm/dry/pink. 03:30 Reassessment: Patient appears in no apparent distress at this time. Patient and/or jw7 family updated on plan of care and expected duration. Pain level reassessed. Patient is alert, oriented x 3, equal unlabored respirations, skin warm/dry/pink. Vital Signs: 00:36 BP 116 / 76; Pulse 70; Resp 16; Temp 98.9; Pulse Ox 100% ; vc1 01:30 BP 120 / 75; Pulse 65; Resp 16 S; Pulse Ox 98% on R/A; jw7 02:30 BP 115 / 74; Pulse 68; Resp 17 S; Pulse Ox 97% on R/A; jw7 03:30 BP 103 / 75; Pulse 55; Resp 16 S; Pulse Ox 98% on R/A; jw7 ED Course: 00:12 Patient arrived in ED. gm2 00:18 Douglas Rogers MD is Attending Physician. ec2 00:30 Patient has correct armband on for positive identification. Bed in low position. Call 7 light in reach. Side rails up X 1. Provided Education on: Use of Call Light. 00:39 Triage completed. vc1 00:40 Arm band placed on left wrist. vc1 00:48 Joan Orozco RN is Primary Nurse. jw7 01:07 Initial lab(s) drawn, by me, sent to lab. Inserted saline lock: 22 gauge in right jw7 antecubital area, using aseptic technique. Blood collected. 01:07 HCG-Quantitative Sent. jw7 01:07 Abo/rh Typing Sent. jw7 01:07 CMP Sent. jw7 01:07 CBC with Diff Sent. jw7 01:37 Transvaginal OB US In Process Unspecified. EDMS 03:46 No provider procedures requiring assistance completed. Patient transferred, IV remains jw7 in place. 05:10 initiated transfer with cherelle at [facility] \T\ 0203, pt was accepted to [facility] \\ km f 0229. Admin approval given by Lee Thomas. Accepting Dr. Bower \T\0203. Number for nurse to nurse report [phone] pt will go to L\T\D. Administered Medications: No medications were administered Medication: 03:47 VIS not applicable for this client. jw7 Outcome: 02:01 ER care complete, transfer ordered by . ec2 03:46 Transferred by ground EMS to [facility], jw7 03:46 Condition: stable 03:46 Instructed on the need for transfer, Demonstrated understanding of instructions, 03:47 Patient left the ED. jw7 Signatures: Dispatcher [employer] EDMS Norma Nath RN RN 1 Joan Orozco RN RN jw7 Douglas Rogers MD MD ec2 Felipa Gagnon Di [facility] Corrections: (The following items were deleted from the chart) 02:45 01:20 General: Received call from Ultrasound that patient had a spontaneous of jw7 the fetus. Provider notified. Upon arrival to ultrasound room, aborted fetus noted on bed. Fetus was still attached to mother, Provider notified and . jw7 02:46 01:30 Reassessment: Patient appears in no apparent distress at this time. No changes jw7 from previously documented assessment. Patient and/or family updated on plan of care and expected duration. Pain level reassessed. Patient is alert, oriented x 3, equal unlabored respirations, skin warm/dry/pink. jw7 02:46 02:27 Reassessment: Patient appears in no apparent distress at this time. No changes jw7 from previously documented assessment. Patient and/or family updated on plan of care and expected duration. Pain level reassessed. Patient is alert, oriented x 3, equal unlabored respirations, skin warm/dry/pink. jw7
--- NOTE | 2024-03-23 02:02 | EDPHYS ---
Physician Documentation [facility] Name: Angela Dong Age: 18 yrs Sex: Female : 2005 Arrival Date: 03/23/2024 Time: 00:08 Bed 18 Private MD: ED Physician HPI: 03/23 00:39 This 18 yrs old Female presents to ER via Ambulatory with complaints of 14 WEEKS PREG ec2 AND LOST FLUID, Abdominal Cramping. 00:39 Patient arrives today for evaluation of abdominal cramping, states that she is ec2 approximately 14 weeks . She reports that she had some mucousy discharge from the vagina and wanted to be evaluated. Patient reports no vaginal bleeding. She is a , no issues with frequency.. 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 Flu vaccine is not up to date. - Infectious Disease History:: Denies. - Social history:: Smoking status: Reported history of juuling and/or vaping. ROS: 00:39 Constitutional: as per hpi ec2 Exam: 00:39 Constitutional: GEN: NAD Head: atraumatic Eyes: EOMI Ears: External ears are ec2 normal. CV: regular rate LUNGS: no respiratory distress ABD: non-distended, soft, nontender, no guarding, nonrigid. SKIN: no evidence of rashes MSK: no evidence of trauma NEURO: moves all extremities equally Vital Signs: 00:36 BP 116 / 76; Pulse 70; Resp 16; Temp 98.9; Pulse Ox 100% ; vc1 01:30 BP 120 / 75; Pulse 65; Resp 16 S; Pulse Ox 98% on R/A; jw7 02:30 BP 115 / 74; Pulse 68; Resp 17 S; Pulse Ox 97% on R/A; jw7 03:30 BP 103 / 75; Pulse 55; Resp 16 S; Pulse Ox 98% on R/A; jw7 MDM: 00:18 Patient medically screened. ec2 00:39 Data reviewed: vital signs. ED course: Patient arrives today for evaluation of vaginal ec2 discharge in the setting of 14 weeks of . Will obtain lab work and ultrasonography. Differential diagnosis include impending miscarriage, normal . 02:00 ED course: I was called to ultrasound, patient had spontaneous miscarriage, incomplete. ec2 Patient still had umbilical cord extending towards the uterus. I attempted evacuation with forceps however was unsuccessful. I will transfer the patient for retained products conception, . 02:21 ED course: I discussed case with OB faculty at [facility] who agrees accept the ec2 patient for transfer. . 03:36 ED course: MDM: Differential diagnosis as documented above in ED course; All lab tests ec2 ordered and reviewed as documented above; Discuss inpatient hospitalization: Yes; I discussed the case with: Hospitalist . 03/23 00:19 Order name: CBC with Diff; Complete Time: 03:29 ec2 03/23 00:19 Order name: CMP; Complete Time: 02:46 ec2 03/23 00:19 Order name: Abo/rh Typing ec2 03/23 00:39 Order name: HCG-Quantitative; Complete Time: 03:29 ec2 03/23 00:19 Order name: Transvaginal OB US ec2 Administered Medications: No medications were administered Disposition Summary: 03/23/24 02:01 Transfer Ordered Notes: Transfer Location: [facility] ec2 Reason: Higher level of care ec2 Condition: Stable ec2 Problem: new ec2 Symptoms: are unchanged ec2 Accepting Physician: transferring doc(03/23/24 03:47) jw7 Diagnosis - Retained Products of Conception ec2 - Incomplete spontaneous with other complications ec2 Forms: - Medication Reconciliation Form ec2 - SBAR form ec2 Signatures: Dispatcher [employer] EDMS Norma Nath RN RN vc1 Joan Orozco RN RN jw7 Douglas Rogers MD MD ec2 Corrections: (The following items were deleted from the chart) 00:39 00:39 Patient arrives today for evaluation of abdominal cramping, states that she is ec2 approximately 14 weeks .. ec2 00:43 00:39 Patient arrives today for evaluation of abdominal cramping, states that she is ec2 approximately 14 weeks . She reports that she had some mucousy discharge from the vagina and wanted to be evaluated. Patient reports no vaginal bleeding.. ec2 03:47 02:01 transferring doc ec2 jw7
[2024-03-23 02:29] LABS: Albumin 2.9 g/dL (3.4-5.0); Albumin/Globulin Ratio 0.7 (1.1-1.8); Alkaline Phosphatase 62 U/L (45-117); Anion Gap 8.5 mEq/L (5.0-15.0); BUN Blood Urea Nitrogen 6 mg/dL (7-18); Bicarbonate 25 mEq/L (21-32); Bilirubin Total 0.3 mg/dL (0.2-1.0); Globulin 4.1 g/dL (2.3-3.5); Glomerular Filtration Rate 128 ml/min (=/>90); Glucose Level 86 mg/dL (74-106); Potassium 3.5 mEq/L (3.5-5.1); Sodium Level 137 mEq/L (136-145)
[2024-03-23 02:38] LABS: ALT/SGPT < 14 U/L (13-56); AST/SGOT < 10 U/L (15-37)
[2024-03-23 02:53] LABS: Absolute Eosinophils 0.1 K/uL (0-0.5); Absolute Lymphocytes (CBC) 2.7 K/uL (0.7-4.9); Absolute Monocytes 0.5 K/uL (0.1-1.3); Absolute Neutrophil 6.3 K/uL (1.8-8.0); Basophils % 0.3 % (0-1.3); Eosinophils % 1.2 % (0-4.4); Hematocrit 35.6 % (36.0-45.0); Hemoglobin 12.2 g/dL (12.0-15.0); Lymphocytes % 27.9 % (15.3-44.8); MCH 30.1 pg (27.0-35.0); MCHC 34.3 g/dL (32.0-36.0); MCV 87.7 fL (80-100); MPV 9.8 fL (7.6-11.3); Monocytes % 5.6 % (3.3-12.3); Nucleated Red Blood Cells % 0.2 % (0-0); Platelets 326 thou/uL (152-406); RBC Red Blood Cell Count 4.06 M/uL (3.86-4.86); Red Cell Distribution Width 13.1 % (12.1-15.2)
[2024-03-23 04:40] VITALS: BP 103/75; TEMP 98.9; O2SAT 98
--- NOTE | 2024-03-24 22:08 | RAD REPORT ---
EXAM DESCRIPTION: US - Transvaginal OB - 03/23/2024 3:18 am CLINICAL HISTORY: 18 years, Female, ABD CRAMPING, COMPARISON: None TECHNIQUE: Utilizing a curved array transducer, real-time ultrasound evaluation of the female pelvis was performed. Color Doppler imaging was used to assess vascular flow. FINDINGS: The uterus anteverted and measures 10.8 x 6.3 x 7.5 cm. The endometrial stripe demonstra te to be thickened and with heterogeneous appearance and the endometrial stripe/lower uterine segment suggesting blood byproducts. Anechoic area area within the lower uterine segment, findings are highl y suggestive of in progress/miscarriage. The right ovary was not visualized. The left ovary measures 2.5 x 1.6 x 1.6 cm in length. There are no focal lesions seen. Normal color a nd doppler flow is visualized. No free fluid was identified in the posterior cul-de-sac, no adnexal masses seen. IMPRESSION: Abnormal thickened heterogeneous appearance of the endometrial stripe suggesting blood b yproducts/ in progress/miscarriage. Small anechoic structure lower portion of the uterus/cerv ix Right ovary was not visualized. Electronically signed by: Dinh Hankins MD 03/23/2024 03:11 AM CDT RP Due to temporary technical issues with the PACS/Fluency reporting system, reports are being signed by the in house radiologists without review as a courtesy to insure prompt reporting. The interpreting radiologist is fully responsible for the content of the report.
== END 2024-03-23 03:47 | disposition short-term general hospital (02) ==
LOC: ER 00:08
DX: O03.39 Incomplete spontaneous abortion with other complications (principal)
CPT/HCPCS: 36415; 76817; 80053; 84702; 85025; 86900; 86901; 88300; 99285

== ENCOUNTER 2024-09-20 18:10 | Emergency (ER) | payer SELFPAY ==
--- OUTSIDE RECORDS SUMMARY | 2024-09-20 18:18 | XMS REPORT | Continuity of Care Document ---
Author Name Unknown Address [address] [facility] 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 Name Role Phone Olu Maldonado Primary Care Physicia n CAROLINE BOWER Attending Clinician CAROLINE Mccain Attending Clinician OLU Russell Attending Clinician Unavail Olu North Attending Clinician + [phone], [facility] Room Attending Clinician Jaiden Ngo MD Attending Clinician [phone] JAIDEN PETERSEN Attending Clinician Unavailable JAIDEN PETERSEN Attending Clinician Unavailable Lab, Ang-Rmchp Attending Clinician Unavailable ELAINE ZHANG Attending Clinician Emma Franklin CNMnda A Attending Clinician [phone] Doctor Unassigned, Tiburones Attending Clinician U cynthia Pryor RN, Leidy Attending Clinician UnavailSHREE Castro Attending Clinician Unavailable Marcos Quinn MD, Geeta Attending Clinician + GEETA CORONA Attending Clinician Unav foster Valiente MD, Yony Attending Clinician [phone] Stephanie ROSA, Silvio Yates Attending Clinician + [phone] SAIDA RAND Attending Clinician Unavailable Keyona ROSA, Saida Diallo Attending Clinician [phone] Ultrasound, Ang-Mfm Attending Clinician Unavaila jewel PATIÑO_MYESHA_Black_D Attending Clinician Unavailab Alexandre Cancino DO Attending Clinician [phone] Ezequiel Valentino Attending Clinician [phone] EZEQUIEL MCWILLIAMS Attending Clinician Unavailab dian ProviderJeramie-Rmchp Temp Attending Clinician Sofia vailable JAGDEEP VELASQUEZ Attending Clinician Unavailable Jagdeep Velasquez PA-C Attending Clinician [phone] EbTyler Presley Attending Clinician [phone] Elke Storey Attending Clinician [phone] ELKE BERGMAN Attending Clinician Unavailable 2, [facility] Attending Clinician Unavailable Bradeen Hussein Attending Clinician Unavailrobert Almon[place], [facility] Pob I Attending Clinician Unavailab Shree Maciel PA-C Attending Clinician [phone] [facility] Attending Clinician Un available BENJAMIN BLOCK Attending Clinician Unavailable Anene INFORMATION TECHNOLOGY SECURITY ANALYST, Benjamin Attending Clinician [phone] CAROLINE BOWER Admitting Clinician Zulay Quinn MD, Geeta Admitting Clinician + GEETA CORONA Admitting Clinician Unav SAIDA Holbrook Admitting Clinician Unavailable Keyona ROSA, Saida Diallo Admitting Clinician [phone] NEIDAOMC_Black_D Admitting Clinician Unavailab le Payers Payer Name Policy Type Policy Number Effective Date Expirati on Date Source [facility] [employer] [facility] [id number] 2019 00:00:00 Problems Condition Name Condition Details Condition Category Status Onset Date Resolution Date Last Treatment Date Treating Clinician Comments Source Incomplete Incomplete Disease Active 03-23 00:00: 00 [facility] S/P D&C (status post dilation and curettage) S/P D&C (status post dilation and curettage) Disease Active 03-23 00:00: 00 [facility] Chlamydia infection during Chlamydia infection during Disease Active 01-30 00:00: 00 Overview: Formattin g of this note might be different from the original. neg drew [facility] Susceptibl e to varicella (non-immun e), currently Susceptibl e to varicella (non-immun e), currently Disease Active 01-29 00:00: 00 Overview: Formattin g of this note might be different from the original. Address pp [facility] Supervisio n of high-risk Supervisio n of high-risk Disease Active 01-28 00:00: 00 [facility] Multiparit y Multiparit y Disease Active 01-28 00:00: 00 [facility] Anemia of mother in , antepartum Anemia of mother in , antepartum Disease Active 2-21 00:00: 00 [facility] History of anxiety History of anxiety Disease Active 9-27 00:00: 00 [facility] No known active problems No known active problems Disease [facility] Overweight (BMI 25.0-29.9) Overweight (BMI 25.0-29.9) Disease Resolve d 7-13 00:00: 00 2024-01-29 00:00:00 2024-01-29 14:14:37 [facility] (spontaneo us vaginal delivery) (spontaneo us vaginal delivery) Disease Resolve d 03-01 00:00: 00 2023-03-25 00:00:00 2023-03-25 15:02:56 [facility] Single live Single live Disease Resolve d 6- 00:00: 00 2023-03-25 00:00:00 2023-03-25 15:02:54 [facility] Obstetrica l laceration Obstetrica l laceration Disease Resolve d 6- 00:00: 00 2023-03-25 00:00:00 2023-03-25 15:02:38 [facility] Acute blood loss anemia Acute blood loss anemia Disease Resolve d 6- 00:00: 00 2023-03-25 00:00:00 2023-03-25 15:02:41 [facility] 39 weeks gestation of 39 weeks gestation of Disease Resolve d 5-31 00:00: 00 2023-03-25 00:00:00 2023-03-25 15:02:39 [facility] GBS (group B Streptococ cus carrier), +RV culture, currently GBS (group B Streptococ cus carrier), +RV culture, currently Disease Resolve d 5-31 00:00: 00 2023-03-25 00:00:00 2023-03-25 15:02:43 [facility] Obesity (BMI 30-39.9) Obesity (BMI 30-39.9) Disease Resolve d 5-22 00:00: 00 2023-03-25 00:00:00 2023-03-25 15:02:47 [facility] Anemia of mother in , antepartum Anemia of mother in , antepartum Disease Resolve d 2-21 00:00: 00 2023-03-25 00:00:00 2023-03-25 15:02:42 [facility] Scoliosis Scoliosis Disease Resolve d 2-21 00:00: 00 2023-03-25 00:00:00 2023-03-25 15:02:52 Overview: Formattin g of this note might be different from the original. Address Intrapart um [facility] Chlamydia infection affecting Chlamydia infection affecting Disease Resolve d 2021-10 2-20 00:00: 00 2023-03-25 00:00:00 2023-03-25 15:02:35 Overview: Formattin g of this note might be different from the original. Drew neg [facility] Supervisio n of high risk , antepartum Supervisio n of high risk , antepartum Disease Resolve d 9- 00:00: 00 2023-03-25 00:00:00 2023-03-25 15:02:55 [facility] Primigravi da in first trimester Primigravi da in first trimester Disease Resolve d 9- 00:00: 00 2023-03-25 00:00:00 2023-03-25 15:02:49 [facility] High risk teen in first trimester High risk teen in first trimester Disease Resolve d 9- 00:00: 00 2022-08-22 00:00:00 2022-08-22 16:24:56 [facility] Allergies, Adverse Reactions, Alerts Allergy Name Allergy Type Status Severity Reaction(s) Onset Date Inactive Date Treating Clinician Comments Source No Known Allergie s DA Active U 01-18 00:00: 00 [facility] No Known Allergie s DA Active U 01-18 00:00: 00 [facility] NO KNOWN ALLERGIE S Drug Class Active [facility] Social History Social Habit Start Date Stop Date Quantity Comments Source ASSERTION 2023-12-30 00:00:00 [facility] Alcoholic beverage intake 2024-04-11 00:00:00 2024-04-11 00:00:00 Lifetime non-drinker (finding) [facility] Tobacco use and exposure 2024-03-23 00:00:00 2024-03-23 00:00:00 Smokeless tobacco non-user [facility] Tobacco Comment 2024-03-23 00:00:00 2024-03-23 00:00:00 Vaping-nicotine [facility] History of Social function 2024-01-29 00:00:00 2024-01-29 00:00:00 [facility] Alcohol intake 2024-01-29 00:00:00 2024-01-29 00:00:00 Lifetime non-drinker (finding) [facility] Exposure to SARS-CoV-2 (event) 2023-02-17 00:00:00 2023-02-27 12:24:00 Not sure [facility] Sex assigned at 2004 00:00:00 2005 00:00:00 [facility] Smoking Status Start Date Stop Date Source Never smoked tobacco [facility] Medications Ordered Medication Name Filled Medication Name Start Date Stop Date Current Medication? Ordering Clinician Indication Dosage Frequency Signature (SIG) Comments Components Source dasha ronestrad ioL-iron (LOESTRIN FE 10/20) 1 mg-20 mcg (21)/75 mg (7) tablet 04-11 00:00: 00 Yes [id number] 1{tbl} Take 1 tablet by mouth in the morning. [facility] HYDROcodone -acetaminop hen (NORCO 5) 5-325 mg tablet 1 tablet 03-23 12:47: 17 03-23 23:07 :24 No 1{tbl} [facility] ibuprofen (IBU) tablet 800 mg 03-23 12:47: 17 03-23 23:07 :24 No 800mg [facility] lactated ringers IV infusion 1,000 mL 03-23 12:00: 00 03-23 23:07 :24 No 1000mL at 100 mL/hr, 1,000 mL, IV Infusion, CONTINUOUS , Starting on 03/23/24 at 0700, Until Sun03/23/24 at 1807, Routine, PACU [facility] silver nitrate applicator 03-23 11:19: 00 03-23 11:43 :59 No PRN, Starting on 03/23/24 at 0619, Until 03/23/24 at 0643, Routine, Intra-op [facility] sodium chloride 0.9 % irrigation solution 03-23 11:08: 00 03-23 11:43 :59 No PRN, Starting on 03/23/24 at 0608, Until 03/23/24 at 0643, Intra-op [facility] miSOPROStoL (CYTOTEC) tablet 800 mcg 03-23 10:30: 00 03-23 09:51 :00 No 800ug 800 mcg, Oral, ONCE, 1 dose, On 03/23/24 at 0530, Routine [facility] lactated ringers IV infusion 1,000 mL 03-23 09:00: 00 03-23 23:07 :24 No 1000mL at 125 mL/hr, 1,000 mL, IV Infusion, CONTINUOUS , Starting on Sun03/23/24 at 0400, Until Sun03/23/24 at 1807, Routine [facility] metroNIDAZO LE 500 mg tablet 03-23 00:00: 00 03-31 04:59 :00 No [id number] 500mg Take 1 tablet by mouth in the morning and 1 tablet in the evening. Do all this for 7 days. [facility] azithromyci n 500 mg tablet 01-30 00:00: 00 01-31 04:59 :00 No [id number] 1000mg Take 2 tablets by mouth once now for 1 dose. [facility] metroNIDAZO LE 500 mg tablet 04-12 00:00: 00 04-20 04:59 :00 No [id number] 500mg Take 1 tablet by mouth in the morning and 1 tablet in the evening. Do all this for 7 days. [facility] Norethindro ne Acet-Ethiny l Est (ADDIE) 1.5-30 mg-mcg per tablet 04-11 00:00: 00 01-28 00:00 :00 No [id number] 1{tbl} Take 1 tablet by mouth in the morning. [facility] cyx040-dyhn fum-folic () 27 mg iron- 1 mg folic tablet 03-02 00:00: 00 Yes [id number] 1{tbl} Take 1 tablet by mouth in the morning. [facility] ferrous sulfate 325 mg (65 mg iron) tablet 03-02 00:00: 00 Yes [id number] 325mg Take 1 tablet by mouth in the morning. [facility] pbk630-zeis fum-folic () 27 mg iron- 1 mg folic tablet 03-02 00:00: 00 04-11 00:00 :00 No [id number] 1{tbl} Take 1 tablet by mouth in the morning. [facility] docusate 100 mg capsule 03-02 00:00: 00 04-11 00:00 :00 No [id number] 200mg Take 2 capsules by mouth once daily as needed for Constipati on. [facility] ibuprofen 600 mg tablet 03-02 00:00: 00 04-11 00:00 :00 No [id number] 600mg Take 1 tablet by mouth every 6 (six) hours as needed (Pain). Take with food or milk. [facility] varicella virus vaccine live (VARIVAX) injection and diluent vial 03-01 12:48: 14 Yes 1{each} 0.5 mL (1 Each), Subcutaneo us, ONCE-PRIOR TO DISCHARGE, 1 dose, Starting on Sun03/01/23 at 0748, Until Discontinu ed, Routine, Give vaccine prior to discharge [facility] rho(D) immune globulin (RHOGAM) syringe 300 mcg 03-01 06:35: 41 Yes 300ug 300 mcg, Intramuscu lar, ONCE, For 1 dose, Conditiona l, Routine [facility] ibuprofen (IBU) tablet 600 mg 03-01 06:35: 37 Yes 600mg 600 mg, Oral, Q6HPRN, Starting on Atiya 03/01/23 at 0135, Until Discontinu ed, Routine, Pain (scale 4-6), and pain 7-10 [facility] acetaminoph en (TYLENOL) tablet 650 mg 03-01 06:35: 37 Yes 650mg 650 mg, Oral, Q6HPRN, Starting on Sun03/01/23 at 0135, Until Discontinu ed, Routine, Pain (scale 1-3) [facility] diphenhydrA MINE (BENADRYL) tablet 25 mg 03-01 06:35: 37 Yes 25mg 25 mg, Oral, Q6HPRN, Starting on Sun03/01/23 at 0135, Until Discontinu ed, Routine, Sleep, Itching [facility] ondansetron (ZOFRAN (PF)) injection 4 mg 03-01 06:35: 37 Yes 4mg 4 mg, Slow IV Push, Q8HPRN, Starting on Sun03/01/23 at 013, Until Discontinu ed, Routine, Nausea and Vomiting (N/V) [facility] simethicone (GAS RELIEF (SIMETHICON E)) chewable tablet 160 mg 03-01 06:35: 37 Yes 160mg 160 mg, Oral, PC+HSPRN, Starting on Sun03/01/23 at 013, Until Discontinu ed, Routine, Gas [facility] docusate (COLACE) capsule 200 mg 03-01 06:35: 37 Yes 200mg 200 mg, Oral, QDAILYPRN, Starting on Sun03/01/23 at 013, Until Discontinu ed, Routine, Constipati on [facility] magnesium hydroxide (MILK OF MAGNESIA) 400 mg/5 mL suspension 30 mL 03-01 06:35: 37 Yes 30mL 30 mL, Oral, QDAILYPRN, Starting on Sun03/01/23 at 0135, Until Discontinu ed, Routine, Constipati on [facility] benzocaine- menthol (DERMOPLAST ) 20-0.5 % topical spray 03-01 06:35: 37 Yes Topical, PRN, Starting on Sun03/01/23 at 0135, Until Discontinu ed, Routine, Perineum discomfort [facility] oxytocin (PITOCIN) 30 units in NS 500 mL IV infusion 02-28 22:29: 00 03-01 06:35 :39 No 2mU/min at 2-40 mL/hr, IV Infusion, TITRATE, Starting on Sun02/28/23 at 1729, Until Atiya 03/01/23 at 0135, JAMEL [facility] ropivacaine 0.2 % (NAROPIN (PF)) epidural infusion 02-28 17:40: 00 03-01 04:00 :18 No Epidural, CONTINUOUS PRN, Starting on Sun02/28/23 at 1240, Until Discontinu ed, Routine, Intra-op [facility] lidocaine-e pinephrine (XYLOCAINE W/EPINEPHRI NE) 2 %-1:200,000 injection 02-28 17:39: 00 03-01 04:00 :18 No Intravenou s, ONCE INTRA PROCEDURE, Starting on Sun02/28/23 at 1239, Until Discontinu ed, Routine, Intra-op [facility] lactated ringers IV infusion 500 mL 02-28 16:54: 54 02-28 17:19 :15 No 500mL at 999 mL/hr, 500 mL, IV Infusion, PRN - SEE INSTRUCTIO NS, 1 dose, Starting on Sun02/28/23 at 1154, Until Sun02/28/23 at 1219, Routine [facility] sodium citrate-cit lidya acid (BICITRA) 500-334 mg/5 mL solution 30 mL 02-28 16:54: 54 02-28 17:20 :00 No 30mL 30 mL, Oral, PRE-PROCED URE ONCE, 1 dose, Starting on Sun02/28/23 at 1154, Until Sun02/28/23 at 1220, Routine, Surgery/Pr ocedure [facility] lactated ringers IV infusion 500 mL 02-28 15:02: 38 03-01 06:35 :39 No 500mL at 999 mL/hr, 500 mL, IV Infusion, PRN - SEE INSTRUCTIO NS, Starting on Sun02/28/23 at 1002, Until Atiya 03/01/23 at 0135, Routine [facility] D5W-LR IV infusion 1,000 mL 02-28 15:02: 38 03-01 06:35 :39 No 1000mL at 1-125 mL/hr, IV Infusion, TITRATE, Starting on Sun02/28/23 at 1002, Until Sun03/01/23 at 0135, Routine [facility] metroNIDAZO LE (FLAGYL) tablet 500 mg 02-01 03:55: 00 02-01 04:00 :00 No 500mg 500 mg, Oral, ONCE NOW, 1 dose, On Sun01/31/23 at 2300, Routine
Reason for Anti-Infec tive: Documented Infection< br>Documen patti Infection Site: Pelvic
Duration of Therapy: 7 days [facility] metroNIDAZO LE (FLAGYL) 500 mg tablet 02-01 00:00: 00 03-02 00:00 :00 No [id number] 500mg Take 1 tablet by mouth every 12 (twelve) hours. [facility] ferrous sulfate 325 mg (65 mg iron) tablet 11-21 00:00: 00 03-02 00:00 :00 No [id number] 325mg Take 1 tablet by mouth in the morning and 1 tablet in the evening. [facility] ascorbic acid, vitamin C, 500 mg tablet - 00:00: 00 03-02 00:00 :00 No [id number] 500mg Take 1 tablet by mouth in the morning and 1 tablet at noon and 1 tablet in the evening. [facility] azithromyci n 500 mg tablet 06-29 00:00: 00 07-01 04:59 :00 No [id number] 1000mg Take 2 tablets by mouth in the morning for 1 day. [facility] vit 33-iron-fol ic-dha (SELECT-OB + DHA) 29 mg iron-1 mg -250 mg combo pack 9- 00:00: 00 03-02 00:00 :00 No [id number] 1{packe t} Take 1 Packet by mouth in the morning. [facility] fluconazole (DIFLUCAN) 150 mg tablet 2020-10 00:00: 00 06-29 00:00 :00 No [id number] Take one pill now and may repeat in 3 days if needed [facility] Norethindro ne Acet-Ethiny l Est (ADDIE) 1.5-30 mg-mcg per tablet 04-12 00:00: 00 Yes [id number] 1{tbl} Take 1 tablet by mouth daily. [facility] VYVANSE 40 mg capsule 04-08 00:00: 00 04-11 00:00 :00 No [facility] DENTA 5000 PLUS 1.1 % Crea 03-22 00:00: 00 03-02 00:00 :00 No BRUSH WITH A PEA SIZED AMOUNT [facility] Immunizations Ordered Immunization Name Filled Immunization Name Date Status Comments Source TDAP 2022-12-11 00:00:00 Completed [facility] TDAP 2022-12-11 00:00:00 Completed [facility] TDAP 2022-12-11 00:00:00 Completed [facility] TDAP 2022-12-11 00:00:00 Completed [facility] TDAP 2022-12-11 00:00:00 Completed [facility] TDAP 2022-12-11 00:00:00 Completed [facility] TDAP 2022-12-11 00:00:00 Completed [facility] TDAP 2022-12-11 00:00:00 Completed [facility] TDAP 2022-12-11 00:00:00 Completed [facility] TDAP 2022-12-11 00:00:00 Completed [facility] TDAP 2022-12-11 00:00:00 Completed [facility] TDAP 2022-12-11 00:00:00 Completed [facility] TDAP 2022-12-11 00:00:00 Completed [facility] TDAP 2022-12-11 00:00:00 Completed [facility] TDAP 2022-12-11 00:00:00 Completed [facility] TDAP 2022-12-11 00:00:00 Completed [facility] TDAP 2022-12-11 00:00:00 Completed [facility] TDAP 2022-12-11 00:00:00 Completed [facility] TDAP 2022-12-11 00:00:00 Completed [facility] TDAP 2022-12-11 00:00:00 Completed [facility] TDAP 2022-12-11 00:00:00 Completed [facility] TDAP 2022-12-11 00:00:00 Completed [facility] TDAP 2022-12-11 00:00:00 Completed [facility] TDAP 2022-12-11 00:00:00 Completed [facility] TDAP 2022-12-11 00:00:00 Completed [facility] HPV9 2018-08-29 00:00:00 Completed [facility] HPV9 2018-08-29 00:00:00 Completed [facility] HPV9 2018-08-29 00:00:00 Completed [facility] HPV9 2018-08-29 00:00:00 Completed [facility] HPV9 2018-08-29 00:00:00 Completed [facility] HPV9 2018-08-29 00:00:00 Completed [facility] HPV9 2018-08-29 00:00:00 Completed [facility] HPV9 2018-08-29 00:00:00 Completed [facility] HPV9 2018-08-29 00:00:00 Completed [facility] HPV9 2018-08-29 00:00:00 Completed [facility] HPV9 2018-08-29 00:00:00 Completed [facility] HPV9 2018-08-29 00:00:00 Completed [facility] HPV9 2018-08-29 00:00:00 Completed [facility] HPV9 2018-08-29 00:00:00 Completed [facility] HPV9 2018-08-29 00:00:00 Completed [facility] HPV9 2018-08-29 00:00:00 Completed [facility] HPV9 2018-08-29 00:00:00 Completed [facility] HPV9 2018-08-29 00:00:00 Completed [facility] HPV9 2018-08-29 00:00:00 Completed [facility] HPV9 2018-08-29 00:00:00 Completed [facility] HPV9 2018-08-29 00:00:00 Completed [facility] HPV9 2018-08-29 00:00:00 Completed [facility] HPV9 2018-08-29 00:00:00 Completed [facility] HPV9 2018-08-29 00:00:00 Completed [facility] HPV9 2018-08-29 00:00:00 Completed [facility] HPV9 2018-08-29 00:00:00 Completed [facility] HPV9 2017-01-02 00:00:00 Completed [facility] HPV9 2017-01-02 00:00:00 Completed [facility] HPV9 2017-01-02 00:00:00 Completed [facility] HPV9 2017-01-02 00:00:00 Completed [facility] HPV9 2017-01-02 00:00:00 Completed [facility] HPV9 2017-01-02 00:00:00 Completed [facility] HPV9 2017-01-02 00:00:00 Completed [facility] HPV9 2017-01-02 00:00:00 Completed [facility] HPV9 2017-01-02 00:00:00 Completed [facility] HPV9 2017-01-02 00:00:00 Completed [facility] HPV9 2017-01-02 00:00:00 Completed [facility] HPV9 2017-01-02 00:00:00 Completed [facility] HPV9 2017-01-02 00:00:00 Completed [facility] HPV9 2017-01-02 00:00:00 Completed [facility] HPV9 2017-01-02 00:00:00 Completed [facility] HPV9 2017-01-02 00:00:00 Completed [facility] HPV9 2017-01-02 00:00:00 Completed [facility] HPV9 2017-01-02 00:00:00 Completed [facility] HPV9 2017-01-02 00:00:00 Completed [facility] HPV9 2017-01-02 00:00:00 Completed [facility] HPV9 2017-01-02 00:00:00 Completed [facility] HPV9 2017-01-02 00:00:00 Completed [facility] HPV9 2017-01-02 00:00:00 Completed [facility] HPV9 2017-01-02 00:00:00 Completed [facility] HPV9 2017-01-02 00:00:00 Completed [facility] HPV9 2017-01-02 00:00:00 Completed [facility] TDAP 2016-05-18 00:00:00 Completed [facility] TDAP 2016-05-18 00:00:00 Completed [facility] TDAP 2016-05-18 00:00:00 Completed [facility] TDAP 2016-05-18 00:00:00 Completed [facility] TDAP 2016-05-18 00:00:00 Completed [facility] TDAP 2016-05-18 00:00:00 Completed [facility] TDAP 2016-05-18 00:00:00 Completed [facility] TDAP 2016-05-18 00:00:00 Completed [facility] TDAP 2016-05-18 00:00:00 Completed [facility] TDAP 2016-05-18 00:00:00 Completed [facility] TDAP 2016-05-18 00:00:00 Completed [facility] TDAP 2016-05-18 00:00:00 Completed [facility] TDAP 2016-05-18 00:00:00 Completed [facility] TDAP 2016-05-18 00:00:00 Completed [facility] TDAP 2016-05-18 00:00:00 Completed [facility] TDAP 2016-05-18 00:00:00 Completed [facility] TDAP 2016-05-18 00:00:00 Completed [facility] TDAP 2016-05-18 00:00:00 Completed [facility] TDAP 2016-05-18 00:00:00 Completed [facility] TDAP 2016-05-18 00:00:00 Completed [facility] TDAP 2016-05-18 00:00:00 Completed [facility] TDAP 2016-05-18 00:00:00 Completed [facility] TDAP 2016-05-18 00:00:00 Completed [facility] TDAP 2016-05-18 00:00:00 Completed [facility] TDAP 2016-05-18 00:00:00 Completed [facility] TDAP 2016-05-18 00:00:00 Completed [facility] Meningococcal Polysaccharide (groups A, C, Y and W-135) conjugate vaccine (MCV4P) 2016-05-12 00:00:00 Completed [facility] HPV 2016-05-12 00:00:00 Completed [facility] Meningococcal Polysaccharide (groups A, C, Y and W-135) conjugate vaccine (MCV4P) 2016-05-12 00:00:00 Completed [facility] HPV 2016-05-12 00:00:00 Completed [facility] Meningococcal Polysaccharide (groups A, C, Y and W-135) conjugate vaccine (MCV4P) 2016-05-12 00:00:00 Completed [facility] HPV 2016-05-12 00:00:00 Completed [facility] Meningococcal Polysaccharide (groups A, C, Y and W-135) conjugate vaccine (MCV4P) 2016-05-12 00:00:00 Completed [facility] HPV 2016-05-12 00:00:00 Completed [facility] Meningococcal Polysaccharide (groups A, C, Y and W-135) conjugate vaccine (MCV4P) 2016-05-12 00:00:00 Completed [facility] HPV 2016-05-12 00:00:00 Completed [facility] Meningococcal Polysaccharide (groups A, C, Y and W-135) conjugate vaccine (MCV4P) 2016-05-12 00:00:00 Completed [facility] HPV 2016-05-12 00:00:00 Completed [facility] Meningococcal Polysaccharide (groups A, C, Y and W-135) conjugate vaccine (MCV4P) 2016-05-12 00:00:00 Completed [facility] HPV 2016-05-12 00:00:00 Completed [facility] Meningococcal Polysaccharide (groups A, C, Y and W-135) conjugate vaccine (MCV4P) 2016-05-12 00:00:00 Completed [facility] HPV 2016-05-12 00:00:00 Completed [facility] Meningococcal Polysaccharide (groups A, C, Y and W-135) conjugate vaccine (MCV4P) 2016-05-12 00:00:00 Completed [facility] HPV 2016-05-12 00:00:00 Completed [facility] Meningococcal Polysaccharide (groups A, C, Y and W-135) conjugate vaccine (MCV4P) 2016-05-12 00:00:00 Completed [facility] HPV 2016-05-12 00:00:00 Completed [facility] Meningococcal Polysaccharide (groups A, C, Y and W-135) conjugate vaccine (MCV4P) 2016-05-12 00:00:00 Completed [facility] HPV 2016-05-12 00:00:00 Completed [facility] Meningococcal Polysaccharide (groups A, C, Y and W-135) conjugate vaccine (MCV4P) 2016-05-12 00:00:00 Completed [facility] HPV 2016-05-12 00:00:00 Completed [facility] Meningococcal Polysaccharide (groups A, C, Y and W-135) conjugate vaccine (MCV4P) 2016-05-12 00:00:00 Completed [facility] HPV 2016-05-12 00:00:00 Completed [facility] Meningococcal Polysaccharide (groups A, C, Y and W-135) conjugate vaccine (MCV4P) 2016-05-12 00:00:00 Completed [facility] HPV 2016-05-12 00:00:00 Completed [facility] Meningococcal Polysaccharide (groups A, C, Y and W-135) conjugate vaccine (MCV4P) 2016-05-12 00:00:00 Completed [facility] HPV 2016-05-12 00:00:00 Completed [facility] Meningococcal Polysaccharide (groups A, C, Y and W-135) conjugate vaccine (MCV4P) 2016-05-12 00:00:00 Completed [facility] HPV 2016-05-12 00:00:00 Completed [facility] Meningococcal Polysaccharide (groups A, C, Y and W-135) conjugate vaccine (MCV4P) 2016-05-12 00:00:00 Completed [facility] HPV 2016-05-12 00:00:00 Completed [facility] Meningococcal Polysaccharide (groups A, C, Y and W-135) conjugate vaccine (MCV4P) 2016-05-12 00:00:00 Completed [facility] HPV 2016-05-12 00:00:00 Completed [facility] Meningococcal Polysaccharide (groups A, C, Y and W-135) conjugate vaccine (MCV4P) 2016-05-12 00:00:00 Completed [facility] HPV 2016-05-12 00:00:00 Completed [facility] Meningococcal Polysaccharide (groups A, C, Y and W-135) conjugate vaccine (MCV4P) 2016-05-12 00:00:00 Completed [facility] HPV 2016-05-12 00:00:00 Completed [facility] Meningococcal Polysaccharide (groups A, C, Y and W-135) conjugate vaccine (MCV4P) 2016-05-12 00:00:00 Completed [facility] HPV 2016-05-12 00:00:00 Completed [facility] Meningococcal Polysaccharide (groups A, C, Y and W-135) conjugate vaccine (MCV4P) 2016-05-12 00:00:00 Completed [facility] HPV 2016-05-12 00:00:00 Completed [facility] Meningococcal Polysaccharide (groups A, C, Y and W-135) conjugate vaccine (MCV4P) 2016-05-12 00:00:00 Completed [facility] HPV 2016-05-12 00:00:00 Completed [facility] Meningococcal Polysaccharide (groups A, C, Y and W-135) conjugate vaccine (MCV4P) 2016-05-12 00:00:00 Completed [facility] HPV 2016-05-12 00:00:00 Completed [facility] Meningococcal Polysaccharide (groups A, C, Y and W-135) conjugate vaccine (MCV4P) 2016-05-12 00:00:00 Completed [facility] HPV 2016-05-12 00:00:00 Completed [facility] Meningococcal Polysaccharide (groups A, C, Y and W-135) conjugate vaccine (MCV4P) 2016-05-12 00:00:00 Completed [facility] HPV 2016-05-12 00:00:00 Completed [facility] IPV 2008-04-23 00:00:00 Completed [facility] Varicella (varivax)(chicken pox) 2008-04-23 00:00:00 Completed [facility] DTaP, Unspecified Formulation 2008-04-23 00:00:00 Completed [facility] MMR 2008-04-23 00:00:00 Completed [facility] DTaP, Unspecified Formulation 2008-04-23 00:00:00 Completed [facility] MMR 2008-04-23 00:00:00 Completed [facility] IPV 2008-04-23 00:00:00 Completed [facility] Varicella (varivax)(chicken pox) 2008-04-23 00:00:00 Completed [facility] DTaP, Unspecified Formulation 2008-04-23 00:00:00 Completed [facility] MMR 2008-04-23 00:00:00 Completed [facility] IPV 2008-04-23 00:00:00 Completed [facility] Varicella (varivax)(chicken pox) 2008-04-23 00:00:00 Completed [facility] DTaP, Unspecified Formulation 2008-04-23 00:00:00 Completed [facility] MMR 2008-04-23 00:00:00 Completed [facility] IPV 2008-04-23 00:00:00 Completed [facility] Varicella (varivax)(chicken pox) 2008-04-23 00:00:00 Completed [facility] DTaP, Unspecified Formulation 2008-04-23 00:00:00 Completed [facility] MMR 2008-04-23 00:00:00 Completed [facility] IPV 2008-04-23 00:00:00 Completed [facility] Varicella (varivax)(chicken pox) 2008-04-23 00:00:00 Completed [facility] DTaP, Unspecified Formulation 2008-04-23 00:00:00 Completed [facility] MMR 2008-04-23 00:00:00 Completed [facility] IPV 2008-04-23 00:00:00 Completed [facility] Varicella (varivax)(chicken pox) 2008-04-23 00:00:00 Completed [facility] DTaP, Unspecified Formulation 2008-04-23 00:00:00 Completed [facility] MMR 2008-04-23 00:00:00 Completed [facility] IPV 2008-04-23 00:00:00 Completed [facility] Varicella (varivax)(chicken pox) 2008-04-23 00:00:00 Completed [facility] DTaP, Unspecified Formulation 2008-04-23 00:00:00 Completed [facility] MMR 2008-04-23 00:00:00 Completed [facility] IPV 2008-04-23 00:00:00 Completed [facility] Varicella (varivax)(chicken pox) 2008-04-23 00:00:00 Completed [facility] DTaP, Unspecified Formulation 2008-04-23 00:00:00 Completed [facility] MMR 2008-04-23 00:00:00 Completed [facility] IPV 2008-04-23 00:00:00 Completed [facility] Varicella (varivax)(chicken pox) 2008-04-23 00:00:00 Completed [facility] DTaP, Unspecified Formulation 2008-04-23 00:00:00 Completed [facility] MMR 2008-04-23 00:00:00 Completed [facility] IPV 2008-04-23 00:00:00 Completed [facility] Varicella (varivax)(chicken pox) 2008-04-23 00:00:00 Completed [facility] DTaP, Unspecified Formulation 2008-04-23 00:00:00 Completed [facility] MMR 2008-04-23 00:00:00 Completed [facility] IPV 2008-04-23 00:00:00 Completed [facility] Varicella (varivax)(chicken pox) 2008-04-23 00:00:00 Completed [facility] DTaP, Unspecified Formulation 2008-04-23 00:00:00 Completed [facility] MMR 2008-04-23 00:00:00 Completed [facility] IPV 2008-04-23 00:00:00 Completed [facility] Varicella (varivax)(chicken pox) 2008-04-23 00:00:00 Completed [facility] DTaP, Unspecified Formulation 2008-04-23 00:00:00 Completed [facility] MMR 2008-04-23 00:00:00 Completed [facility] IPV 2008-04-23 00:00:00 Completed [facility] Varicella (varivax)(chicken pox) 2008-04-23 00:00:00 Completed [facility] DTaP, Unspecified Formulation 2008-04-23 00:00:00 Completed [facility] MMR 2008-04-23 00:00:00 Completed [facility] IPV 2008-04-23 00:00:00 Completed [facility] Varicella (varivax)(chicken pox) 2008-04-23 00:00:00 Completed [facility] DTaP, Unspecified Formulation 2008-04-23 00:00:00 Completed [facility] MMR 2008-04-23 00:00:00 Completed [facility] IPV 2008-04-23 00:00:00 Completed [facility] Varicella (varivax)(chicken pox) 2008-04-23 00:00:00 Completed [facility] DTaP, Unspecified Formulation 2008-04-23 00:00:00 Completed [facility] MMR 2008-04-23 00:00:00 Completed [facility] IPV 2008-04-23 00:00:00 Completed [facility] Varicella (varivax)(chicken pox) 2008-04-23 00:00:00 Completed [facility] DTaP, Unspecified Formulation 2008-04-23 00:00:00 Completed [facility] MMR 2008-04-23 00:00:00 Completed [facility] IPV 2008-04-23 00:00:00 Completed [facility] Varicella (varivax)(chicken pox) 2008-04-23 00:00:00 Completed [facility] DTaP, Unspecified Formulation 2008-04-23 00:00:00 Completed [facility] MMR 2008-04-23 00:00:00 Completed [facility] IPV 2008-04-23 00:00:00 Completed [facility] Varicella (varivax)(chicken pox) 2008-04-23 00:00:00 Completed [facility] DTaP, Unspecified Formulation 2008-04-23 00:00:00 Completed [facility] MMR 2008-04-23 00:00:00 Completed [facility] IPV 2008-04-23 00:00:00 Completed [facility] Varicella (varivax)(chicken pox) 2008-04-23 00:00:00 Completed [facility] DTaP, Unspecified Formulation 2008-04-23 00:00:00 Completed [facility] MMR 2008-04-23 00:00:00 Completed [facility] IPV 2008-04-23 00:00:00 Completed [facility] Varicella (varivax)(chicken pox) 2008-04-23 00:00:00 Completed [facility] DTaP, Unspecified Formulation 2008-04-23 00:00:00 Completed [facility] MMR 2008-04-23 00:00:00 Completed [facility] IPV 2008-04-23 00:00:00 Completed [facility] Varicella (varivax)(chicken pox) 2008-04-23 00:00:00 Completed [facility] DTaP, Unspecified Formulation 2008-04-23 00:00:00 Completed [facility] MMR 2008-04-23 00:00:00 Completed [facility] IPV 2008-04-23 00:00:00 Completed [facility] Varicella (varivax)(chicken pox) 2008-04-23 00:00:00 Completed [facility] DTaP, Unspecified Formulation 2008-04-23 00:00:00 Completed [facility] MMR 2008-04-23 00:00:00 Completed [facility] IPV 2008-04-23 00:00:00 Completed [facility] Varicella (varivax)(chicken pox) 2008-04-23 00:00:00 Completed [facility] DTaP, Unspecified Formulation 2008-04-23 00:00:00 Completed [facility] MMR 2008-04-23 00:00:00 Completed [facility] IPV 2008-04-23 00:00:00 Completed [facility] Varicella (varivax)(chicken pox) 2008-04-23 00:00:00 Completed [facility] DTaP, Unspecified Formulation 2008-04-23 00:00:00 Completed [facility] MMR 2008-04-23 00:00:00 Completed [facility] IPV 2008-04-23 00:00:00 Completed [facility] Varicella (varivax)(chicken pox) 2008-04-23 00:00:00 Completed [facility] DTaP, Unspecified Formulation 2008-04-23 00:00:00 Completed [facility] MMR 2008-04-23 00:00:00 Completed [facility] IPV 2008-04-23 00:00:00 Completed [facility] Varicella (varivax)(chicken pox) 2008-04-23 00:00:00 Completed [facility] HEPATITIS A 2007-04-16 00:00:00 Completed [facility] HEPATITIS A 2007-04-16 00:00:00 Completed [facility] HEPATITIS A 2007-04-16 00:00:00 Completed [facility] HEPATITIS A 2007-04-16 00:00:00 Completed [facility] HEPATITIS A 2007-04-16 00:00:00 Completed [facility] HEPATITIS A 2007-04-16 00:00:00 Completed [facility] HEPATITIS A 2007-04-16 00:00:00 Completed [facility] HEPATITIS A 2007-04-16 00:00:00 Completed [facility] HEPATITIS A 2007-04-16 00:00:00 Completed [facility] HEPATITIS A 2007-04-16 00:00:00 Completed [facility] HEPATITIS A 2007-04-16 00:00:00 Completed [facility] HEPATITIS A 2007-04-16 00:00:00 Completed [facility] HEPATITIS A 2007-04-16 00:00:00 Completed [facility] HEPATITIS A 2007-04-16 00:00:00 Completed [facility] HEPATITIS A 2007-04-16 00:00:00 Completed [facility] HEPATITIS A 2007-04-16 00:00:00 Completed [facility] HEPATITIS A 2007-04-16 00:00:00 Completed [facility] HEPATITIS A 2007-04-16 00:00:00 Completed [facility] HEPATITIS A 2007-04-16 00:00:00 Completed [facility] HEPATITIS A 2007-04-16 00:00:00 Completed [facility] HEPATITIS A 2007-04-16 00:00:00 Completed [facility] HEPATITIS A 2007-04-16 00:00:00 Completed [facility] HEPATITIS A 2007-04-16 00:00:00 Completed [facility] HEPATITIS A 2007-04-16 00:00:00 Completed [facility] HEPATITIS A 2007-04-16 00:00:00 Completed [facility] HEPATITIS A 2007-04-16 00:00:00 Completed [facility] Pneumococcal 7 Conjugate, PCV7 (Prevnar7) 2006-11-01 00:00:00 Completed [facility] DTaP, Unspecified Formulation 2006-11-01 00:00:00 Completed [facility] HIB 4 Dose Schedule 2006-11-01 00:00:00 Completed [facility] MMR 2006-11-01 00:00:00 Completed [facility] DTaP, Unspecified Formulation 2006-11-01 00:00:00 Completed [facility] HIB 4 Dose Schedule 2006-11-01 00:00:00 Completed [facility] MMR 2006-11-01 00:00:00 Completed [facility] Pneumococcal 7 Conjugate, PCV7 (Prevnar7) 2006-11-01 00:00:00 Completed [facility] DTaP, Unspecified Formulation 2006-11-01 00:00:00 Completed [facility] HIB 4 Dose Schedule 2006-11-01 00:00:00 Completed [facility] MMR 2006-11-01 00:00:00 Completed [facility] Pneumococcal 7 Conjugate, PCV7 (Prevnar7) 2006-11-01 00:00:00 Completed [facility] DTaP, Unspecified Formulation 2006-11-01 00:00:00 Completed [facility] HIB 4 Dose Schedule 2006-11-01 00:00:00 Completed [facility] MMR 2006-11-01 00:00:00 Completed [facility] Pneumococcal 7 Conjugate, PCV7 (Prevnar7) 2006-11-01 00:00:00 Completed [facility] DTaP, Unspecified Formulation 2006-11-01 00:00:00 Completed [facility] HIB 4 Dose Schedule 2006-11-01 00:00:00 Completed [facility] MMR 2006-11-01 00:00:00 Completed [facility] Pneumococcal 7 Conjugate, PCV7 (Prevnar7) 2006-11-01 00:00:00 Completed [facility] DTaP, Unspecified Formulation 2006-11-01 00:00:00 Completed [facility] HIB 4 Dose Schedule 2006-11-01 00:00:00 Completed [facility] MMR 2006-11-01 00:00:00 Completed [facility] Pneumococcal 7 Conjugate, PCV7 (Prevnar7) 2006-11-01 00:00:00 Completed [facility] DTaP, Unspecified Formulation 2006-11-01 00:00:00 Completed [facility] HIB 4 Dose Schedule 2006-11-01 00:00:00 Completed [facility] MMR 2006-11-01 00:00:00 Completed [facility] Pneumococcal 7 Conjugate, PCV7 (Prevnar7) 2006-11-01 00:00:00 Completed [facility] DTaP, Unspecified Formulation 2006-11-01 00:00:00 Completed [facility] HIB 4 Dose Schedule 2006-11-01 00:00:00 Completed [facility] MMR 2006-11-01 00:00:00 Completed [facility] Pneumococcal 7 Conjugate, PCV7 (Prevnar7) 2006-11-01 00:00:00 Completed [facility] DTaP, Unspecified Formulation 2006-11-01 00:00:00 Completed [facility] HIB 4 Dose Schedule 2006-11-01 00:00:00 Completed [facility] MMR 2006-11-01 00:00:00 Completed [facility] Pneumococcal 7 Conjugate, PCV7 (Prevnar7) 2006-11-01 00:00:00 Completed [facility] DTaP, Unspecified Formulation 2006-11-01 00:00:00 Completed [facility] HIB 4 Dose Schedule 2006-11-01 00:00:00 Completed [facility] MMR 2006-11-01 00:00:00 Completed [facility] Pneumococcal 7 Conjugate, PCV7 (Prevnar7) 2006-11-01 00:00:00 Completed [facility] DTaP, Unspecified Formulation 2006-11-01 00:00:00 Completed [facility] HIB 4 Dose Schedule 2006-11-01 00:00:00 Completed [facility] MMR 2006-11-01 00:00:00 Completed [facility] Pneumococcal 7 Conjugate, PCV7 (Prevnar7) 2006-11-01 00:00:00 Completed [facility] DTaP, Unspecified Formulation 2006-11-01 00:00:00 Completed [facility] HIB 4 Dose Schedule 2006-11-01 00:00:00 Completed [facility] MMR 2006-11-01 00:00:00 Completed [facility] Pneumococcal 7 Conjugate, PCV7 (Prevnar7) 2006-11-01 00:00:00 Completed [facility] DTaP, Unspecified Formulation 2006-11-01 00:00:00 Completed [facility] HIB 4 Dose Schedule 2006-11-01 00:00:00 Completed [facility] MMR 2006-11-01 00:00:00 Completed [facility] Pneumococcal 7 Conjugate, PCV7 (Prevnar7) 2006-11-01 00:00:00 Completed [facility] DTaP, Unspecified Formulation 2006-11-01 00:00:00 Completed [facility] HIB 4 Dose Schedule 2006-11-01 00:00:00 Completed [facility] MMR 2006-11-01 00:00:00 Completed [facility] Pneumococcal 7 Conjugate, PCV7 (Prevnar7) 2006-11-01 00:00:00 Completed [facility] DTaP, Unspecified Formulation 2006-11-01 00:00:00 Completed [facility] HIB 4 Dose Schedule 2006-11-01 00:00:00 Completed [facility] MMR 2006-11-01 00:00:00 Completed [facility] Pneumococcal 7 Conjugate, PCV7 (Prevnar7) 2006-11-01 00:00:00 Completed [facility] DTaP, Unspecified Formulation 2006-11-01 00:00:00 Completed [facility] HIB 4 Dose Schedule 2006-11-01 00:00:00 Completed [facility] MMR 2006-11-01 00:00:00 Completed [facility] Pneumococcal 7 Conjugate, PCV7 (Prevnar7) 2006-11-01 00:00:00 Completed [facility] DTaP, Unspecified Formulation 2006-11-01 00:00:00 Completed [facility] HIB 4 Dose Schedule 2006-11-01 00:00:00 Completed [facility] MMR 2006-11-01 00:00:00 Completed [facility] Pneumococcal 7 Conjugate, PCV7 (Prevnar7) 2006-11-01 00:00:00 Completed [facility] DTaP, Unspecified Formulation 2006-11-01 00:00:00 Completed [facility] HIB 4 Dose Schedule 2006-11-01 00:00:00 Completed [facility] MMR 2006-11-01 00:00:00 Completed [facility] Pneumococcal 7 Conjugate, PCV7 (Prevnar7) 2006-11-01 00:00:00 Completed [facility] DTaP, Unspecified Formulation 2006-11-01 00:00:00 Completed [facility] [facility] HIB 4 Dose Schedule 2006-11-01 00:00:00 Completed [facility] MMR 2006-11-01 00:00:00 Completed [facility] Pneumococcal 7 Conjugate, PCV7 (Prevnar7) 2006-11-01 00:00:00 Completed [facility] DTaP, Unspecified Formulation 2006-11-01 00:00:00 Completed [facility] HIB 4 Dose Schedule 2006-11-01 00:00:00 Completed [facility] MMR 2006-11-01 00:00:00 Completed [facility] Pneumococcal 7 Conjugate, PCV7 (Prevnar7) 2006-11-01 00:00:00 Completed [facility] DTaP, Unspecified Formulation 2006-11-01 00:00:00 Completed [facility] HIB 4 Dose Schedule 2006-11-01 00:00:00 Completed [facility] MMR 2006-11-01 00:00:00 Completed [facility] Pneumococcal 7 Conjugate, PCV7 (Prevnar7) 2006-11-01 00:00:00 Completed [facility] DTaP, Unspecified Formulation 2006-11-01 00:00:00 Completed [facility] HIB 4 Dose Schedule 2006-11-01 00:00:00 Completed [facility] MMR 2006-11-01 00:00:00 Completed [facility] Pneumococcal 7 Conjugate, PCV7 (Prevnar7) 2006-11-01 00:00:00 Completed [facility] DTaP, Unspecified Formulation 2006-11-01 00:00:00 Completed [facility] HIB 4 Dose Schedule 2006-11-01 00:00:00 Completed [facility] MMR 2006-11-01 00:00:00 Completed [facility] Pneumococcal 7 Conjugate, PCV7 (Prevnar7) 2006-11-01 00:00:00 Completed [facility] DTaP, Unspecified Formulation 2006-11-01 00:00:00 Completed [facility] HIB 4 Dose Schedule 2006-11-01 00:00:00 Completed [facility] MMR 2006-11-01 00:00:00 Completed [facility] Pneumococcal 7 Conjugate, PCV7 (Prevnar7) 2006-11-01 00:00:00 Completed [facility] DTaP, Unspecified Formulation 2006-11-01 00:00:00 Completed [facility] HIB 4 Dose Schedule 2006-11-01 00:00:00 Completed [facility] MMR 2006-11-01 00:00:00 Completed [facility] Pneumococcal 7 Conjugate, PCV7 (Prevnar7) 2006-11-01 00:00:00 Completed [facility] DTaP, Unspecified Formulation 2006-11-01 00:00:00 Completed [facility] HIB 4 Dose Schedule 2006-11-01 00:00:00 Completed [facility] MMR 2006-11-01 00:00:00 Completed [facility] Pneumococcal 7 Conjugate, PCV7 (Prevnar7) 2006-11-01 00:00:00 Completed [facility] HEPATITIS A 2006-04-02 00:00:00 Completed [facility] HEPATITIS A 2006-04-02 00:00:00 Completed [facility] HEPATITIS A 2006-04-02 00:00:00 Completed [facility] HEPATITIS A 2006-04-02 00:00:00 Completed [facility] HEPATITIS A 2006-04-02 00:00:00 Completed [facility] HEPATITIS A 2006-04-02 00:00:00 Completed [facility] HEPATITIS A 2006-04-02 00:00:00 Completed [facility] HEPATITIS A 2006-04-02 00:00:00 Completed [facility] HEPATITIS A 2006-04-02 00:00:00 Completed [facility] HEPATITIS A 2006-04-02 00:00:00 Completed [facility] HEPATITIS A 2006-04-02 00:00:00 Completed [facility] HEPATITIS A 2006-04-02 00:00:00 Completed [facility] HEPATITIS A 2006-04-02 00:00:00 Completed [facility] HEPATITIS A 2006-04-02 00:00:00 Completed [facility] HEPATITIS A 2006-04-02 00:00:00 Completed [facility] HEPATITIS A 2006-04-02 00:00:00 Completed [facility] HEPATITIS A 2006-04-02 00:00:00 Completed [facility] HEPATITIS A 2006-04-02 00:00:00 Completed [facility] HEPATITIS A 2006-04-02 00:00:00 Completed [facility] HEPATITIS A 2006-04-02 00:00:00 Completed [facility] HEPATITIS A 2006-04-02 00:00:00 Completed [facility] HEPATITIS A 2006-04-02 00:00:00 Completed [facility] HEPATITIS A 2006-04-02 00:00:00 Completed [facility] HEPATITIS A 2006-04-02 00:00:00 Completed [facility] HEPATITIS A 2006-04-02 00:00:00 Completed [facility] HEPATITIS A 2006-04-02 00:00:00 Completed [facility] IPV 2005-04-04 00:00:00 Completed [facility] Varicella (varivax)(chicken pox) 2005-04-04 00:00:00 Completed [facility] IPV 2005-04-04 00:00:00 Completed [facility] Varicella (varivax)(chicken pox) 2005-04-04 00:00:00 Completed [facility] IPV 2005-04-04 00:00:00 Completed [facility] Varicella (varivax)(chicken pox) 2005-04-04 00:00:00 Completed [facility] IPV 2005-04-04 00:00:00 Completed [facility] Varicella (varivax)(chicken pox) 2005-04-04 00:00:00 Completed [facility] IPV 2005-04-04 00:00:00 Completed [facility] Varicella (varivax)(chicken pox) 2005-04-04 00:00:00 Completed [facility] IPV 2005-04-04 00:00:00 Completed [facility] Varicella (varivax)(chicken pox) 2005-04-04 00:00:00 Completed [facility] IPV 2005-04-04 00:00:00 Completed [facility] Varicella (varivax)(chicken pox) 2005-04-04 00:00:00 Completed [facility] IPV 2005-04-04 00:00:00 Completed [facility] Varicella (varivax)(chicken pox) 2005-04-04 00:00:00 Completed [facility] IPV 2005-04-04 00:00:00 Completed [facility] Varicella (varivax)(chicken pox) 2005-04-04 00:00:00 Completed [facility] IPV 2005-04-04 00:00:00 Completed [facility] Varicella (varivax)(chicken pox) 2005-04-04 00:00:00 Completed [facility] IPV 2005-04-04 00:00:00 Completed [facility] Varicella (varivax)(chicken pox) 2005-04-04 00:00:00 Completed [facility] IPV 2005-04-04 00:00:00 Completed [facility] Varicella (varivax)(chicken pox) 2005-04-04 00:00:00 Completed [facility] IPV 2005-04-04 00:00:00 Completed [facility] Varicella (varivax)(chicken pox) 2005-04-04 00:00:00 Completed [facility] IPV 2005-04-04 00:00:00 Completed [facility] Varicella (varivax)(chicken pox) 2005-04-04 00:00:00 Completed [facility] IPV 2005-04-04 00:00:00 Completed [facility] Varicella (varivax)(chicken pox) 2005-04-04 00:00:00 Completed [facility] IPV 2005-04-04 00:00:00 Completed [facility] Varicella (varivax)(chicken pox) 2005-04-04 00:00:00 Completed [facility] IPV 2005-04-04 00:00:00 Completed [facility] Varicella (varivax)(chicken pox) 2005-04-04 00:00:00 Completed [facility] IPV 2005-04-04 00:00:00 Completed [facility] Varicella (varivax)(chicken pox) 2005-04-04 00:00:00 Completed [facility] IPV 2005-04-04 00:00:00 Completed [facility] Varicella (varivax)(chicken pox) 2005-04-04 00:00:00 Completed [facility] IPV 2005-04-04 00:00:00 Completed [facility] Varicella (varivax)(chicken pox) 2005-04-04 00:00:00 Completed [facility] IPV 2005-04-04 00:00:00 Completed [facility] Varicella (varivax)(chicken pox) 2005-04-04 00:00:00 Completed [facility] IPV 2005-04-04 00:00:00 Completed [facility] Varicella (varivax)(chicken pox) 2005-04-04 00:00:00 Completed [facility] IPV 2005-04-04 00:00:00 Completed [facility] Varicella (varivax)(chicken pox) 2005-04-04 00:00:00 Completed [facility] IPV 2005-04-04 00:00:00 Completed [facility] Varicella (varivax)(chicken pox) 2005-04-04 00:00:00 Completed [facility] IPV 2005-04-04 00:00:00 Completed [facility] Varicella (varivax)(chicken pox) 2005-04-04 00:00:00 Completed [facility] IPV 2005-04-04 00:00:00 Completed [facility] Varicella (varivax)(chicken pox) 2005-04-04 00:00:00 Completed [facility] Pediarix (dtap/hep B/ipv) 2004 00:00:00 Completed [facility] HIB 4 Dose Schedule 2004 00:00:00 Completed [facility] Pediarix (dtap/hep B/ipv) 2004 00:00:00 Completed [facility] HIB 4 Dose Schedule 2004 00:00:00 Completed [facility] Pediarix (dtap/hep B/ipv) 2004 00:00:00 Completed [facility] HIB 4 Dose Schedule 2004 00:00:00 Completed [facility] Pediarix (dtap/hep B/ipv) 2004 00:00:00 Completed [facility] HIB 4 Dose Schedule 2004 00:00:00 Completed [facility] Pediarix (dtap/hep B/ipv) 2004 00:00:00 Completed [facility] HIB 4 Dose Schedule 2004 00:00:00 Completed [facility] Pediarix (dtap/hep B/ipv) 2004 00:00:00 Completed [facility] HIB 4 Dose Schedule 2004 00:00:00 Completed [facility] Pediarix (dtap/hep B/ipv) 2004 00:00:00 Completed [facility] HIB 4 Dose Schedule 2004 00:00:00 Completed [facility] Pediarix (dtap/hep B/ipv) 2004 00:00:00 Completed [facility] HIB 4 Dose Schedule 2004 00:00:00 Completed [facility] Pediarix (dtap/hep B/ipv) 2004 00:00:00 Completed [facility] HIB 4 Dose Schedule 2004 00:00:00 Completed [facility] Pediarix (dtap/hep B/ipv) 2004 00:00:00 Completed [facility] HIB 4 Dose Schedule 2004 00:00:00 Completed [facility] Pediarix (dtap/hep B/ipv) 2004 00:00:00 Completed [facility] HIB 4 Dose Schedule 2004 00:00:00 Completed [facility] Pediarix (dtap/hep B/ipv) 2004 00:00:00 Completed [facility] HIB 4 Dose Schedule 2004 00:00:00 Completed [facility] Pediarix (dtap/hep B/ipv) 2004 00:00:00 Completed [facility] HIB 4 Dose Schedule 2004 00:00:00 Completed [facility] Pediarix (dtap/hep B/ipv) 2004 00:00:00 Completed [facility] HIB 4 Dose Schedule 2004 00:00:00 Completed [facility] Pediarix (dtap/hep B/ipv) 2004 00:00:00 Completed [facility] HIB 4 Dose Schedule 2004 00:00:00 Completed [facility] Pediarix (dtap/hep B/ipv) 2004 00:00:00 Completed [facility] HIB 4 Dose Schedule 2004 00:00:00 Completed [facility] Pediarix (dtap/hep B/ipv) 2004 00:00:00 Completed [facility] HIB 4 Dose Schedule 2004 00:00:00 Completed [facility] Pediarix (dtap/hep B/ipv) 2004 00:00:00 Completed [facility] HIB 4 Dose Schedule 2004 00:00:00 Completed [facility] Pediarix (dtap/hep B/ipv) 2004 00:00:00 Completed [facility] HIB 4 Dose Schedule 2004 00:00:00 Completed [facility] Pediarix (dtap/hep B/ipv) 2004 00:00:00 Completed [facility] HIB 4 Dose Schedule 2004 00:00:00 Completed [facility] Pediarix (dtap/hep B/ipv) 2004 00:00:00 Completed [facility] HIB 4 Dose Schedule 2004 00:00:00 Completed [facility] Pediarix (dtap/hep B/ipv) 2004 00:00:00 Completed [facility] HIB 4 Dose Schedule 2004 00:00:00 Completed [facility] Pediarix (dtap/hep B/ipv) 2004 00:00:00 Completed [facility] HIB 4 Dose Schedule 2004 00:00:00 Completed [facility] Pediarix (dtap/hep B/ipv) 2004 00:00:00 Completed [facility] HIB 4 Dose Schedule 2004 00:00:00 Completed [facility] Pediarix (dtap/hep B/ipv) 2004 00:00:00 Completed [facility] HIB 4 Dose Schedule 2004 00:00:00 Completed [facility] Pediarix (dtap/hep B/ipv) 2004 00:00:00 Completed [facility] HIB 4 Dose Schedule 2004 00:00:00 Completed [facility] DTaP, Unspecified Formulation 2004 00:00:00 Completed [facility] Pneumococcal 7 Conjugate, PCV7 (Prevnar7) 2004 00:00:00 Completed [facility] DTaP, Unspecified Formulation 2004 00:00:00 Completed [facility] Pneumococcal 7 Conjugate, PCV7 (Prevnar7) 2004 00:00:00 Completed [facility] DTaP, Unspecified Formulation 2004 00:00:00 Completed [facility] Pneumococcal 7 Conjugate, PCV7 (Prevnar7) 2004 00:00:00 Completed [facility] DTaP, Unspecified Formulation 2004 00:00:00 Completed [facility] Pneumococcal 7 Conjugate, PCV7 (Prevnar7) 2004 00:00:00 Completed [facility] DTaP, Unspecified Formulation 2004 00:00:00 Completed [facility] Pneumococcal 7 Conjugate, PCV7 (Prevnar7) 2004 00:00:00 Completed [facility] DTaP, Unspecified Formulation 2004 00:00:00 Completed [facility] Pneumococcal 7 Conjugate, PCV7 (Prevnar7) 2004 00:00:00 Completed [facility] DTaP, Unspecified Formulation 2004 00:00:00 Completed [facility] Pneumococcal 7 Conjugate, PCV7 (Prevnar7) 2004 00:00:00 Completed [facility] DTaP, Unspecified Formulation 2004 00:00:00 Completed [facility] Pneumococcal 7 Conjugate, PCV7 (Prevnar7) 2004 00:00:00 Completed [facility] DTaP, Unspecified Formulation 2004 00:00:00 Completed [facility] Pneumococcal 7 Conjugate, PCV7 (Prevnar7) 2004 00:00:00 Completed [facility] DTaP, Unspecified Formulation 2004 00:00:00 Completed [facility] Pneumococcal 7 Conjugate, PCV7 (Prevnar7) 2004 00:00:00 Completed [facility] DTaP, Unspecified Formulation 2004 00:00:00 Completed [facility] Pneumococcal 7 Conjugate, PCV7 (Prevnar7) 2004 00:00:00 Completed [facility] DTaP, Unspecified Formulation 2004 00:00:00 Completed [facility] Pneumococcal 7 Conjugate, PCV7 (Prevnar7) 2004 00:00:00 Completed [facility] DTaP, Unspecified Formulation 2004 00:00:00 Completed [facility] Pneumococcal 7 Conjugate, PCV7 (Prevnar7) 2004 00:00:00 Completed [facility] DTaP, Unspecified Formulation 2004 00:00:00 Completed [facility] Pneumococcal 7 Conjugate, PCV7 (Prevnar7) 2004 00:00:00 Completed [facility] DTaP, Unspecified Formulation 2004 00:00:00 Completed [facility] Pneumococcal 7 Conjugate, PCV7 (Prevnar7) 2004 00:00:00 Completed [facility] DTaP, Unspecified Formulation 2004 00:00:00 Completed [facility] Pneumococcal 7 Conjugate, PCV7 (Prevnar7) 2004 00:00:00 Completed [facility] DTaP, Unspecified Formulation 2004 00:00:00 Completed [facility] Pneumococcal 7 Conjugate, PCV7 (Prevnar7) 2004 00:00:00 Completed [facility] DTaP, Unspecified Formulation 2004 00:00:00 Completed [facility] Pneumococcal 7 Conjugate, PCV7 (Prevnar7) 2004 00:00:00 Completed [facility] DTaP, Unspecified Formulation 2004 00:00:00 Completed [facility] Pneumococcal 7 Conjugate, PCV7 (Prevnar7) 2004 00:00:00 Completed [facility] DTaP, Unspecified Formulation 2004 00:00:00 Completed [facility] Pneumococcal 7 Conjugate, PCV7 (Prevnar7) 2004 00:00:00 Completed [facility] DTaP, Unspecified Formulation 2004 00:00:00 Completed [facility] Pneumococcal 7 Conjugate, PCV7 (Prevnar7) 2004 00:00:00 Completed [facility] DTaP, Unspecified Formulation 2004 00:00:00 Completed [facility] Pneumococcal 7 Conjugate, PCV7 (Prevnar7) 2004 00:00:00 Completed [facility] DTaP, Unspecified Formulation 2004 00:00:00 Completed [facility] Pneumococcal 7 Conjugate, PCV7 (Prevnar7) 2004 00:00:00 Completed [facility] DTaP, Unspecified Formulation 2004 00:00:00 Completed [facility] Pneumococcal 7 Conjugate, PCV7 (Prevnar7) 2004 00:00:00 Completed [facility] DTaP, Unspecified Formulation 2004 00:00:00 Completed [facility] Pneumococcal 7 Conjugate, PCV7 (Prevnar7) 2004 00:00:00 Completed [facility] DTaP, Unspecified Formulation 2004 00:00:00 Completed [facility] Pneumococcal 7 Conjugate, PCV7 (Prevnar7) 2004 00:00:00 Completed [facility] HIB 4 Dose Schedule 2004 00:00:00 Completed [facility] Pneumococcal 7 Conjugate, PCV7 (Prevnar7) 2004 00:00:00 Completed [facility] HIB 4 Dose Schedule 2004 00:00:00 Completed [facility] Pneumococcal 7 Conjugate, PCV7 (Prevnar7) 2004 00:00:00 Completed [facility] HIB 4 Dose Schedule 2004 00:00:00 Completed [facility] Pneumococcal 7 Conjugate, PCV7 (Prevnar7) 2004 00:00:00 Completed [facility] HIB 4 Dose Schedule 2004 00:00:00 Completed [facility] Pneumococcal 7 Conjugate, PCV7 (Prevnar7) 2004 00:00:00 Completed [facility] HIB 4 Dose Schedule 2004 00:00:00 Completed [facility] Pneumococcal 7 Conjugate, PCV7 (Prevnar7) 2004 00:00:00 Completed [facility] HIB 4 Dose Schedule 2004 00:00:00 Completed [facility] Pneumococcal 7 Conjugate, PCV7 (Prevnar7) 2004 00:00:00 Completed [facility] HIB 4 Dose Schedule 2004 00:00:00 Completed [facility] Pneumococcal 7 Conjugate, PCV7 (Prevnar7) 2004 00:00:00 Completed [facility] HIB 4 Dose Schedule 2004 00:00:00 Completed [facility] Pneumococcal 7 Conjugate, PCV7 (Prevnar7) 2004 00:00:00 Completed [facility] HIB 4 Dose Schedule 2004 00:00:00 Completed [facility] Pneumococcal 7 Conjugate, PCV7 (Prevnar7) 2004 00:00:00 Completed [facility] HIB 4 Dose Schedule 2004 00:00:00 Completed [facility] Pneumococcal 7 Conjugate, PCV7 (Prevnar7) 2004 00:00:00 Completed [facility] HIB 4 Dose Schedule 2004 00:00:00 Completed [facility] Pneumococcal 7 Conjugate, PCV7 (Prevnar7) 2004 00:00:00 Completed [facility] HIB 4 Dose Schedule 2004 00:00:00 Completed [facility] Pneumococcal 7 Conjugate, PCV7 (Prevnar7) 2004 00:00:00 Completed [facility] HIB 4 Dose Schedule 2004 00:00:00 Completed [facility] Pneumococcal 7 Conjugate, PCV7 (Prevnar7) 2004 00:00:00 Completed [facility] HIB 4 Dose Schedule 2004 00:00:00 Completed [facility] Pneumococcal 7 Conjugate, PCV7 (Prevnar7) 2004 00:00:00 Completed [facility] HIB 4 Dose Schedule 2004 00:00:00 Completed [facility] Pneumococcal 7 Conjugate, PCV7 (Prevnar7) 2004 00:00:00 Completed [facility] HIB 4 Dose Schedule 2004 00:00:00 Completed [facility] Pneumococcal 7 Conjugate, PCV7 (Prevnar7) 2004 00:00:00 Completed [facility] HIB 4 Dose Schedule 2004 00:00:00 Completed [facility] Pneumococcal 7 Conjugate, PCV7 (Prevnar7) 2004 00:00:00 Completed [facility] HIB 4 Dose Schedule 2004 00:00:00 Completed [facility] Pneumococcal 7 Conjugate, PCV7 (Prevnar7) 2004 00:00:00 Completed [facility] HIB 4 Dose Schedule 2004 00:00:00 Completed [facility] Pneumococcal 7 Conjugate, PCV7 (Prevnar7) 2004 00:00:00 Completed [facility] HIB 4 Dose Schedule 2004 00:00:00 Completed [facility] Pneumococcal 7 Conjugate, PCV7 (Prevnar7) 2004 00:00:00 Completed [facility] HIB 4 Dose Schedule 2004 00:00:00 Completed [facility] Pneumococcal 7 Conjugate, PCV7 (Prevnar7) 2004 00:00:00 Completed [facility] HIB 4 Dose Schedule 2004 00:00:00 Completed [facility] Pneumococcal 7 Conjugate, PCV7 (Prevnar7) 2004 00:00:00 Completed [facility] HIB 4 Dose Schedule 2004 00:00:00 Completed [facility] Pneumococcal 7 Conjugate, PCV7 (Prevnar7) 2004 00:00:00 Completed [facility] HIB 4 Dose Schedule 2004 00:00:00 Completed [facility] Pneumococcal 7 Conjugate, PCV7 (Prevnar7) 2004 00:00:00 Completed [facility] HIB 4 Dose Schedule 2004 00:00:00 Completed [facility] Pneumococcal 7 Conjugate, PCV7 (Prevnar7) 2004 00:00:00 Completed [facility] HIB 4 Dose Schedule 2004 00:00:00 Completed [facility] Pneumococcal 7 Conjugate, PCV7 (Prevnar7) 2004 00:00:00 Completed [facility] Pneumococcal 7 Conjugate, PCV7 (Prevnar7) 2004 00:00:00 Completed [facility] Pediarix (dtap/hep B/ipv) 2004 00:00:00 Completed [facility] HIB 4 Dose Schedule 2004 00:00:00 Completed [facility] Pediarix (dtap/hep B/ipv) 2004 00:00:00 Completed [facility] HIB 4 Dose Schedule 2004 00:00:00 Completed [facility] Pneumococcal 7 Conjugate, PCV7 (Prevnar7) 2004 00:00:00 Completed [facility] Pediarix (dtap/hep B/ipv) 2004 00:00:00 Completed [facility] HIB 4 Dose Schedule 2004 00:00:00 Completed [facility] Pneumococcal 7 Conjugate, PCV7 (Prevnar7) 2004 00:00:00 Completed [facility] Pediarix (dtap/hep B/ipv) 2004 00:00:00 Completed [facility] HIB 4 Dose Schedule 2004 00:00:00 Completed [facility] Pneumococcal 7 Conjugate, PCV7 (Prevnar7) 2004 00:00:00 Completed [facility] Pediarix (dtap/hep B/ipv) 2004 00:00:00 Completed [facility] HIB 4 Dose Schedule 2004 00:00:00 Completed [facility] Pneumococcal 7 Conjugate, PCV7 (Prevnar7) 2004 00:00:00 Completed [facility] Pediarix (dtap/hep B/ipv) 2004 00:00:00 Completed [facility] HIB 4 Dose Schedule 2004 00:00:00 Completed [facility] Pneumococcal 7 Conjugate, PCV7 (Prevnar7) 2004 00:00:00 Completed [facility] Pediarix (dtap/hep B/ipv) 2004 00:00:00 Completed [facility] HIB 4 Dose Schedule 2004 00:00:00 Completed [facility] Pneumococcal 7 Conjugate, PCV7 (Prevnar7) 2004 00:00:00 Completed [facility] Pediarix (dtap/hep B/ipv) 2004 00:00:00 Completed [facility] HIB 4 Dose Schedule 2004 00:00:00 Completed [facility] Pneumococcal 7 Conjugate, PCV7 (Prevnar7) 2004 00:00:00 Completed [facility] Pediarix (dtap/hep B/ipv) 2004 00:00:00 Completed [facility] HIB 4 Dose Schedule 2004 00:00:00 Completed [facility] Pneumococcal 7 Conjugate, PCV7 (Prevnar7) 2004 00:00:00 Completed [facility] Pediarix (dtap/hep B/ipv) 2004 00:00:00 Completed [facility] HIB 4 Dose Schedule 2004 00:00:00 Completed [facility] Pneumococcal 7 Conjugate, PCV7 (Prevnar7) 2004 00:00:00 Completed [facility] Pediarix (dtap/hep B/ipv) 2004 00:00:00 Completed [facility] HIB 4 Dose Schedule 2004 00:00:00 Completed [facility] Pneumococcal 7 Conjugate, PCV7 (Prevnar7) 2004 00:00:00 Completed [facility] Pediarix (dtap/hep B/ipv) 2004 00:00:00 Completed [facility] HIB 4 Dose Schedule 2004 00:00:00 Completed [facility] Pneumococcal 7 Conjugate, PCV7 (Prevnar7) 2004 00:00:00 Completed [facility] Pediarix (dtap/hep B/ipv) 2004 00:00:00 Completed [facility] HIB 4 Dose Schedule 2004 00:00:00 Completed [facility] Pneumococcal 7 Conjugate, PCV7 (Prevnar7) 2004 00:00:00 Completed [facility] Pediarix (dtap/hep B/ipv) 2004 00:00:00 Completed [facility] HIB 4 Dose Schedule 2004 00:00:00 Completed [facility] Pneumococcal 7 Conjugate, PCV7 (Prevnar7) 2004 00:00:00 Completed [facility] Pediarix (dtap/hep B/ipv) 2004 00:00:00 Completed [facility] HIB 4 Dose Schedule 2004 00:00:00 Completed [facility] Pneumococcal 7 Conjugate, PCV7 (Prevnar7) 2004 00:00:00 Completed [facility] Pediarix (dtap/hep B/ipv) 2004 00:00:00 Completed [facility] HIB 4 Dose Schedule 2004 00:00:00 Completed [facility] Pneumococcal 7 Conjugate, PCV7 (Prevnar7) 2004 00:00:00 Completed [facility] Pediarix (dtap/hep B/ipv) 2004 00:00:00 Completed [facility] HIB 4 Dose Schedule 2004 00:00:00 Completed [facility] Pneumococcal 7 Conjugate, PCV7 (Prevnar7) 2004 00:00:00 Completed [facility] Pediarix (dtap/hep B/ipv) 2004 00:00:00 Completed [facility] HIB 4 Dose Schedule 2004 00:00:00 Completed [facility] Pneumococcal 7 Conjugate, PCV7 (Prevnar7) 2004 00:00:00 Completed [facility] Pediarix (dtap/hep B/ipv) 2004 00:00:00 Completed [facility] HIB 4 Dose Schedule 2004 00:00:00 Completed [facility] Pneumococcal 7 Conjugate, PCV7 (Prevnar7) 2004 00:00:00 Completed [facility] Pediarix (dtap/hep B/ipv) 2004 00:00:00 Completed [facility] HIB 4 Dose Schedule 2004 00:00:00 Completed [facility] Pneumococcal 7 Conjugate, PCV7 (Prevnar7) 2004 00:00:00 Completed [facility] Pediarix (dtap/hep B/ipv) 2004 00:00:00 Completed [facility] HIB 4 Dose Schedule 2004 00:00:00 Completed [facility] Pneumococcal 7 Conjugate, PCV7 (Prevnar7) 2004 00:00:00 Completed [facility] Pediarix (dtap/hep B/ipv) 2004 00:00:00 Completed [facility] HIB 4 Dose Schedule 2004 00:00:00 Completed [facility] Pneumococcal 7 Conjugate, PCV7 (Prevnar7) 2004 00:00:00 Completed [facility] Pediarix (dtap/hep B/ipv) 2004 00:00:00 Completed [facility] HIB 4 Dose Schedule 2004 00:00:00 Completed [facility] Pneumococcal 7 Conjugate, PCV7 (Prevnar7) 2004 00:00:00 Completed [facility] Pediarix (dtap/hep B/ipv) 2004 00:00:00 Completed [facility] HIB 4 Dose Schedule 2004 00:00:00 Completed [facility] Pneumococcal 7 Conjugate, PCV7 (Prevnar7) 2004 00:00:00 Completed [facility] Pediarix (dtap/hep B/ipv) 2004 00:00:00 Completed [facility] HIB 4 Dose Schedule 2004 00:00:00 Completed [facility] Pneumococcal 7 Conjugate, PCV7 (Prevnar7) 2004 00:00:00 Completed [facility] Pediarix (dtap/hep B/ipv) 2004 00:00:00 Completed [facility] HIB 4 Dose Schedule 2004 00:00:00 Completed [facility] Pneumococcal 7 Conjugate, PCV7 (Prevnar7) 2004 00:00:00 Completed [facility] Hep B, Adol or Pedi Dosage 2004 00:00:00 Completed [facility] Hep B, Adol or Pedi Dosage 2004 00:00:00 Completed [facility] Hep B, Adol or Pedi Dosage 2004 00:00:00 Completed [facility] Hep B, Adol or Pedi Dosage 2004 00:00:00 Completed [facility] Hep B, Adol or Pedi Dosage 2004 00:00:00 Completed [facility] Hep B, Adol or Pedi Dosage 2004 00:00:00 Completed [facility] Hep B, Adol or Pedi Dosage 2004 00:00:00 Completed [facility] Hep B, Adol or Pedi Dosage 2004 00:00:00 Completed [facility] Hep B, Adol or Pedi Dosage 2004 00:00:00 Completed [facility] Hep B, Adol or Pedi Dosage 2004 00:00:00 Completed [facility] Hep B, Adol or Pedi Dosage 2004 00:00:00 Completed [facility] Hep B, Adol or Pedi Dosage 2004 00:00:00 Completed [facility] Hep B, Adol or Pedi Dosage 2004 00:00:00 Completed [facility] Hep B, Adol or Pedi Dosage 2004 00:00:00 Completed [facility] Hep B, Adol or Pedi Dosage 2004 00:00:00 Completed [facility] Hep B, Adol or Pedi Dosage 2004 00:00:00 Completed [facility] Hep B, Adol or Pedi Dosage 2004 00:00:00 Completed [facility] Hep B, Adol or Pedi Dosage 2004 00:00:00 Completed [facility] Hep B, Adol or Pedi Dosage 2004 00:00:00 Completed [facility] Hep B, Adol or Pedi Dosage 2004 00:00:00 Completed [facility] Hep B, Adol or Pedi Dosage 2004 00:00:00 Completed [facility] Hep B, Adol or Pedi Dosage 2004 00:00:00 Completed [facility] Hep B, Adol or Pedi Dosage 2004 00:00:00 Completed [facility] Hep B, Adol or Pedi Dosage 2004 00:00:00 Completed [facility] Hep B, Adol or Pedi Dosage 2004 00:00:00 Completed [facility] Hep B, Adol or Pedi Dosage 2004 00:00:00 Completed [facility] DTaP, Unspecified Formulation Unknown Completed [facility] Pediarix (dtap/hep B/ipv) Unknown Completed [facility] HEPATITIS A Unknown Completed [facility] Hep B, Adol or Pedi Dosage Unknown Completed [facility] HIB 4 Dose Schedule Unknown Completed [facility] HPV Unknown Completed [facility] HPV9 Unknown Completed [facility] Meningococcal Polysaccharide (groups A, C, Y and W-135) conjugate vaccine (MCV4P) Unknown Completed [facility] MMR Unknown Completed [facility] Pneumococcal 7 Conjugate, PCV7 (Prevnar7) Unknown Completed [facility] IPV Unknown Completed [facility] TDAP Unknown Completed [facility] Varicella (varivax)(chicken pox) Unknown Completed [facility] DTaP, Unspecified Formulation Unknown Completed [facility] Pediarix (dtap/hep B/ipv) Unknown Completed [facility] HEPATITIS A Unknown Completed [facility] Hep B, Adol or Pedi Dosage Unknown Completed [facility] HIB 4 Dose Schedule Unknown Completed [facility] HPV Unknown Completed [facility] HPV9 Unknown Completed [facility] Meningococcal Polysaccharide (groups A, C, Y and W-135) conjugate vaccine (MCV4P) Unknown Completed [facility] MMR Unknown Completed [facility] Pneumococcal 7 Conjugate, PCV7 (Prevnar7) Unknown Completed [facility] IPV Unknown Completed [facility] TDAP Unknown Completed [facility] Varicella (varivax)(chicken pox) Unknown Completed [facility] DTaP, Unspecified Formulation Unknown Completed [facility] Pediarix (dtap/hep B/ipv) Unknown Completed [facility] HEPATITIS A Unknown Completed [facility] Hep B, Adol or Pedi Dosage Unknown Completed [facility] HIB 4 Dose Schedule Unknown Completed [facility] HPV Unknown Completed [facility] HPV9 Unknown Completed [facility] Meningococcal Polysaccharide (groups A, C, Y and W-135) conjugate vaccine (MCV4P) Unknown Completed [facility] MMR Unknown Completed [facility] Pneumococcal 7 Conjugate, PCV7 (Prevnar7) Unknown Completed [facility] IPV Unknown Completed [facility] TDAP Unknown Completed [facility] Varicella (varivax)(chicken pox) Unknown Completed [facility] Hep B, Adol or Pedi Dosage Unknown Completed [facility] HPV Unknown Completed [facility] Meningococcal Polysaccharide (groups A, C, Y and W-135) conjugate vaccine (MCV4P) Unknown Completed [facility] DTaP, Unspecified Formulation Unknown Completed [facility] Pediarix (dtap/hep B/ipv) Unknown Completed [facility] HEPATITIS A Unknown Completed [facility] HIB 4 Dose Schedule Unknown Completed [facility] HPV9 Unknown Completed [facility] MMR Unknown Completed [facility] Pneumococcal 7 Conjugate, PCV7 (Prevnar7) Unknown Completed [facility] IPV Unknown Completed [facility] TDAP Unknown Completed [facility] Varicella (varivax)(chicken pox) Unknown Completed [facility] DTaP, Unspecified Formulation Unknown Completed [facility] Pediarix (dtap/hep B/ipv) Unknown Completed [facility] HEPATITIS A Unknown Completed [facility] Hep B, Adol or Pedi Dosage Unknown Completed [facility] HIB 4 Dose Schedule Unknown Completed [facility] HPV Unknown Completed [facility] HPV9 Unknown Completed [facility] Meningococcal Polysaccharide (groups A, C, Y and W-135) conjugate vaccine (MCV4P) Unknown Completed [facility] MMR Unknown Completed [facility] Pneumococcal 7 Conjugate, PCV7 (Prevnar7) Unknown Completed [facility] IPV Unknown Completed [facility] TDAP Unknown Completed [facility] Varicella (varivax)(chicken pox) Unknown Completed [facility] DTaP, Unspecified Formulation Unknown Completed [facility] Pediarix (dtap/hep B/ipv) Unknown Completed [facility] HEPATITIS A Unknown Completed [facility] Hep B, Adol or Pedi Dosage Unknown Completed [facility] HIB 4 Dose Schedule Unknown Completed [facility] HPV Unknown Completed [facility] HPV9 Unknown Completed [facility] Meningococcal Polysaccharide (groups A, C, Y and W-135) conjugate vaccine (MCV4P) Unknown Completed [facility] MMR Unknown Completed [facility] Pneumococcal 7 Conjugate, PCV7 (Prevnar7) Unknown Completed [facility] IPV Unknown Completed [facility] TDAP Unknown Completed [facility] Varicella (varivax)(chicken pox) Unknown Completed [facility] DTaP, Unspecified Formulation Unknown Completed [facility] Pediarix (dtap/hep B/ipv) Unknown Completed [facility] HEPATITIS A Unknown Completed [facility] Hep B, Adol or Pedi Dosage Unknown Completed [facility] HIB 4 Dose Schedule Unknown Completed [facility] HPV Unknown Completed [facility] HPV9 Unknown Completed [facility] Meningococcal Polysaccharide (groups A, C, Y and W-135) conjugate vaccine (MCV4P) Unknown Completed [facility] MMR Unknown Completed [facility] Pneumococcal 7 Conjugate, PCV7 (Prevnar7) Unknown Completed [facility] IPV Unknown Completed [facility] TDAP Unknown Completed [facility] Varicella (varivax)(chicken pox) Unknown Completed [facility] DTaP, Unspecified Formulation Unknown Completed [facility] Pediarix (dtap/hep B/ipv) Unknown Completed [facility] HEPATITIS A Unknown Completed [facility] Hep B, Adol or Pedi Dosage Unknown Completed [facility] HIB 4 Dose Schedule Unknown Completed [facility] HPV Unknown Completed [facility] HPV9 Unknown Completed [facility] Meningococcal Polysaccharide (groups A, C, Y and W-135) conjugate vaccine (MCV4P) Unknown Completed [facility] MMR Unknown Completed [facility] Pneumococcal 7 Conjugate, PCV7 (Prevnar7) Unknown Completed [facility] IPV Unknown Completed [facility] TDAP Unknown Completed [facility] Varicella (varivax)(chicken pox) Unknown Completed [facility] Hep B, Adol or Pedi Dosage Unknown Completed [facility] HPV Unknown Completed [facility] Meningococcal Polysaccharide (groups A, C, Y and W-135) conjugate vaccine (MCV4P) Unknown Completed [facility] DTaP, Unspecified Formulation Unknown Completed [facility] Pediarix (dtap/hep B/ipv) Unknown Completed [facility] HEPATITIS A Unknown Completed [facility] HIB 4 Dose Schedule Unknown Completed [facility] HPV9 Unknown Completed [facility] MMR Unknown Completed [facility] Pneumococcal 7 Conjugate, PCV7 (Prevnar7) Unknown Completed [facility] IPV Unknown Completed [facility] TDAP Unknown Completed [facility] Varicella (varivax)(chicken pox) Unknown Completed [facility] DTaP, Unspecified Formulation Unknown Completed [facility] Pediarix (dtap/hep B/ipv) Unknown Completed [facility] HEPATITIS A Unknown Completed [facility] Hep B, Adol or Pedi Dosage Unknown Completed [facility] HIB 4 Dose Schedule Unknown Completed [facility] HPV Unknown Completed [facility] HPV9 Unknown Completed [facility] Meningococcal Polysaccharide (groups A, C, Y and W-135) conjugate vaccine (MCV4P) Unknown Completed [facility] MMR Unknown Completed [facility] Pneumococcal 7 Conjugate, PCV7 (Prevnar7) Unknown Completed [facility] IPV Unknown Completed [facility] TDAP Unknown Completed [facility] Varicella (varivax)(chicken pox) Unknown Completed [facility] DTaP, Unspecified Formulation Unknown Completed [facility] Pediarix (dtap/hep B/ipv) Unknown Completed [facility] HEPATITIS A Unknown Completed [facility] Hep B, Adol or Pedi Dosage Unknown Completed [facility] HIB 4 Dose Schedule Unknown Completed [facility] HPV Unknown Completed [facility] HPV9 Unknown Completed [facility] Meningococcal Polysaccharide (groups A, C, Y and W-135) conjugate vaccine (MCV4P) Unknown Completed [facility] MMR Unknown Completed [facility] Pneumococcal 7 Conjugate, PCV7 (Prevnar7) Unknown Completed [facility] IPV Unknown Completed [facility] TDAP Unknown Completed [facility] Varicella (varivax)(chicken pox) Unknown Completed [facility] DTaP, Unspecified Formulation Unknown Completed [facility] Pediarix (dtap/hep B/ipv) Unknown Completed [facility] HEPATITIS A Unknown Completed [facility] Hep B, Adol or Pedi Dosage Unknown Completed [facility] HIB 4 Dose Schedule Unknown Completed [facility] HPV Unknown Completed [facility] HPV9 Unknown Completed [facility] Meningococcal Polysaccharide (groups A, C, Y and W-135) conjugate vaccine (MCV4P) Unknown Completed [facility] MMR Unknown Completed [facility] Pneumococcal 7 Conjugate, PCV7 (Prevnar7) Unknown Completed [facility] IPV Unknown Completed [facility] TDAP Unknown Completed [facility] Varicella (varivax)(chicken pox) Unknown Completed [facility] Vital Signs Vital Name Observation Time Observation Value Comments S ource Systolic blood pressure 2024-04-11 20:02:00 122 mm[Hg] [facility] Diastolic blood pressure 2024-04-11 20:02:00 73 mm[Hg] [facility] Heart rate 2024-04-11 20:02:00 67 /min [facility] Respiratory rate 2024-04-11 20:02:00 18 /min [facility] Body height 2024-04-11 20:02:00 170.2 cm [facility] Body weight 2024-04-11 20:02:00 72.576 kg [facility] BMI 2024-04-11 20:02:00 25.06 kg/m2 [facility] Systolic blood pressure 2024-03-23 16:00:00 91 mm[Hg] [facility] Diastolic blood pressure 2024-03-23 16:00:00 53 mm[Hg] [facility] Heart rate 2024-03-23 16:00:00 53 /min [facility] Respiratory rate 2024-03-23 16:00:00 18 /min [facility] Oxygen saturation in Arterial blood by Pulse oximetry 2024-03-23 16:00:00 98 /min [facility] Body temperature 2024-03-23 12:30:00 37 Priya [facility] Body height 2024-03-23 09:24:00 170.2 cm [facility] Body weight 2024-03-23 09:24:00 72.576 kg [facility] BMI 2024-03-23 09:24:00 25.06 kg/m2 [facility] Systolic blood pressure 2024-03-23 10:45:00 109 mm[Hg] [facility] Diastolic blood pressure 2024-03-23 10:45:00 58 mm[Hg] [facility] Heart rate 2024-03-23 10:45:00 73 /min [facility] Respiratory rate 2024-03-23 10:45:00 13 /min [facility] Oxygen saturation in Arterial blood by Pulse oximetry 2024-03-23 10:45:00 98 /min [facility] Body temperature 2024-03-23 10:30:00 37 Priya [facility] Body height 2024-03-23 09:24:00 170.2 cm Univ [facility] Body weight 2024-03-23 09:24:00 72.576 kg [facility] BMI 2024-03-23 09:24:00 25.06 kg/m2 Univ [facility] Systolic blood pressure 2024-02-26 17:26:00 126 mm[Hg] [facility] Diastolic blood pressure 2024-02-26 17:26:00 78 mm[Hg] [facility] Heart rate 2024-02-26 17:26:00 84 /min [facility] Body temperature 2024-02-26 17:26:00 36.56 Priya [facility] Respiratory rate 2024-02-26 17:26:00 18 /min [facility] Body weight 2024-02-26 17:26:00 74.39 kg Univ [facility] Systolic blood pressure 2024-01-29 18:44:00 92 mm[Hg] [facility] Diastolic blood pressure 2024-01-29 18:44:00 61 mm[Hg] [facility] Heart rate 2024-01-29 18:44:00 61 /min [facility] Body temperature 2024-01-29 18:44:00 36.56 Priya [facility] Body height 2024-01-29 18:44:00 170.2 cm [facility] Body weight 2024-01-29 18:44:00 74.662 kg Univ [facility] BMI 2024-01-29 18:44:00 25.78 kg/m2 [facility] Systolic blood pressure 2023-07-12 18:14:00 130 mm[Hg] [facility] Diastolic blood pressure 2023-07-12 18:14:00 81 mm[Hg] [facility] Heart rate 2023-07-12 18:14:00 87 /min [facility] Body temperature 2023-07-12 18:14:00 36.67 Priya [facility] Respiratory rate 2023-07-12 18:14:00 18 /min [facility] Body height 2023-07-12 18:14:00 170.2 cm [facility] Body weight 2023-07-12 18:14:00 79.833 kg Univ [facility] BMI 2023-07-12 18:14:00 27.57 kg/m2 [facility] Systolic blood pressure 2023-04-11 19:44:00 109 mm[Hg] [facility] Diastolic blood pressure 2023-04-11 19:44:00 65 mm[Hg] [facility] Heart rate 2023-04-11 19:44:00 82 /min [facility] Body temperature 2023-04-11 19:44:00 36.11 Priya [facility] Respiratory rate 2023-04-11 19:44:00 18 /min [facility] Body height 2023-04-11 19:44:00 170.2 cm [facility] Body weight 2023-04-11 19:44:00 82.243 kg [facility] BMI 2023-04-11 19:44:00 28.40 kg/m2 [facility] Systolic blood pressure 2023-03-21 15:27:00 114 mm[Hg] [facility] Diastolic blood pressure 2023-03-21 15:27:00 76 mm[Hg] [facility] Heart rate 2023-03-21 15:27:00 61 /min [facility] Body temperature 2023-03-21 15:27:00 36.78 Priya [facility] Respiratory rate 2023-03-21 15:27:00 18 /min [facility] Body height 2023-03-21 15:27:00 170.2 cm [facility] Body weight 2023-03-21 15:27:00 81.194 kg [facility] BMI 2023-03-21 15:27:00 28.04 kg/m2 [facility] Body mass index (BMI) [Percentile] Per age and sex 2023-03-21 15:27:00 90.72 % [facility] Systolic blood pressure 2023-03-02 13:33:00 104 mm[Hg] [facility] Diastolic blood pressure 2023-03-02 13:33:00 56 mm[Hg] [facility] Heart rate 2023-03-02 13:33:00 68 /min [facility] Body temperature 2023-03-02 13:33:00 36.89 Priya [facility] Respiratory rate 2023-03-02 13:33:00 18 /min [facility] Oxygen saturation in Arterial blood by Pulse oximetry 2023-03-02 13:33:00 95 /min [facility] Body height 2023-02-28 14:33:00 170.2 cm [facility] Body weight 2023-02-28 14:33:00 91.717 kg [facility] BMI 2023-02-28 14:33:00 31.67 kg/m2 [facility] Body mass index (BMI) [Percentile] Per age and sex 2023-02-28 14:33:00 95.64 % [facility] Systolic blood pressure 2023-02-27 17:43:00 120 mm[Hg] [facility] Diastolic blood pressure 2023-02-27 17:43:00 74 mm[Hg] [facility] Heart rate 2023-02-27 17:43:00 82 /min [facility] Body temperature 2023-02-27 17:43:00 36.39 Priya [facility] Respiratory rate 2023-02-27 17:43:00 18 /min [facility] Body height 2023-02-27 17:43:00 170.2 cm [facility] Body weight 2023-02-27 17:43:00 91.371 kg [facility] BMI 2023-02-27 17:43:00 31.55 kg/m2 [facility] Body mass index (BMI) [Percentile] Per age and sex 2023-02-27 17:43:00 95.55 % [facility] Systolic blood pressure 2023-02-24 04:50:00 106 mm[Hg] [facility] Diastolic blood pressure 2023-02-24 04:50:00 62 mm[Hg] [facility] Heart rate 2023-02-24 04:50:00 65 /min [facility] Oxygen saturation in Arterial blood by Pulse oximetry 2023-02-24 04:50:00 99 /min [facility] Body temperature 2023-02-24 04:45:00 36.61 Priya [facility] Respiratory rate 2023-02-24 04:24:00 18 /min [facility] Body height 2023-02-24 04:24:00 170.2 cm [facility] Body weight 2023-02-24 04:24:00 89.948 kg [facility] BMI 2023-02-24 04:24:00 31.06 kg/m2 [facility] Body mass index (BMI) [Percentile] Per age and sex 2023-02-24 04:24:00 95.13 % [facility] Systolic blood pressure 2023-02-21 17:52:00 117 mm[Hg] [facility] Diastolic blood pressure 2023-02-21 17:52:00 70 mm[Hg] [facility] Heart rate 2023-02-21 17:52:00 74 /min [facility] Body temperature 2023-02-21 17:52:00 36.39 Priya [facility] Respiratory rate 2023-02-21 17:52:00 20 /min [facility] Body height 2023-02-21 17:52:00 170.2 cm [facility] Body weight 2023-02-21 17:52:00 89.812 kg [facility] BMI 2023-02-21 17:52:00 31.01 kg/m2 [facility] Body mass index (BMI) [Percentile] Per age and sex 2023-02-21 17:52:00 95.09 % [facility] Heart rate 2023-02-20 02:30:00 68 /min [facility] Oxygen saturation in Arterial blood by Pulse oximetry 2023-02-20 02:30:00 100 /min [facility] Systolic blood pressure 2023-02-20 00:45:00 109 mm[Hg] [facility] Diastolic blood pressure 2023-02-20 00:45:00 61 mm[Hg] [facility] Body temperature 2023-02-20 00:33:00 37.61 Priya [facility] Respiratory rate 2023-02-20 00:33:00 18 /min [facility] Body height 2023-02-20 00:33:00 170.2 cm [facility] Body weight 2023-02-20 00:09:00 89.858 kg [facility] BMI 2023-02-20 00:09:00 31.02 kg/m2 [facility] Body mass index (BMI) [Percentile] Per age and sex 2023-02-20 00:09:00 95.10 % [facility] Systolic blood pressure 2023-02-14 20:48:00 125 mm[Hg] [facility] Diastolic blood pressure 2023-02-14 20:48:00 79 mm[Hg] [facility] Heart rate 2023-02-14 20:48:00 99 [facility] Body temperature 2023-02-14 20:48:00 35.17 Priya [facility] Respiratory rate 2023-02-14 20:48:00 18 /min [facility] Body height 2023-02-14 20:48:00 170.2 cm [facility] Body weight 2023-02-14 20:48:00 89.223 kg [facility] BMI 2023-02-14 20:48:00 30.81 kg/m2 [facility] Body mass index (BMI) [Percentile] Per age and sex 2023-02-14 20:48:00 94.91 % [facility] Systolic blood pressure 2023-02-07 19:05:00 120 mm[Hg] [facility] Diastolic blood pressure 2023-02-07 19:05:00 90 mm[Hg] [facility] Heart rate 2023-02-07 19:05:00 98 /min [facility] Body temperature 2023-02-07 19:05:00 35.89 Priya [facility] Respiratory rate 2023-02-07 19:05:00 18 /min [facility] Body height 2023-02-07 19:05:00 170.2 cm [facility] Body weight 2023-02-07 19:05:00 88.27 kg [facility] BMI 2023-02-07 19:05:00 30.48 kg/m2 [facility] Body mass index (BMI) [Percentile] Per age and sex 2023-02-07 19:05:00 94.58 % [facility] Systolic blood pressure 2023-02-01 02:46:00 134 mm[Hg] [facility] Diastolic blood pressure 2023-02-01 02:46:00 85 mm[Hg] [facility] Heart rate 2023-02-01 02:46:00 99 /min [facility] Body temperature 2023-02-01 02:46:00 36.89 Priya [facility] Respiratory rate 2023-02-01 02:46:00 18 /min [facility] Body height 2023-02-01 02:46:00 170.2 cm [facility] Body weight 2023-02-01 02:46:00 88.043 kg [facility] BMI 2023-02-01 02:46:00 30.40 kg/m2 [facility] Body mass index (BMI) [Percentile] Per age and sex 2023-02-01 02:46:00 94.51 % [facility] Oxygen saturation in Arterial blood by Pulse oximetry 2023-02-01 02:46:00 99 /min [facility] Systolic blood pressure 2023-01-24 19:58:00 113 mm[Hg] [facility] Diastolic blood pressure 2023-01-24 19:58:00 64 mm[Hg] [facility] Heart rate 2023-01-24 19:58:00 78 /min [facility] Body temperature 2023-01-24 19:58:00 36.11 Priya [facility] Respiratory rate 2023-01-24 19:58:00 18 /min [facility] Body height 2023-01-24 19:58:00 170.2 cm [facility] Body weight 2023-01-24 19:58:00 86.183 kg [facility] BMI 2023-01-24 19:58:00 29.76 kg/m2 [facility] Body mass index (BMI) [Percentile] Per age and sex 2023-01-24 19:58:00 93.76 % [facility] Systolic blood pressure 2023-01-08 20:11:00 127 mm[Hg] [facility] Diastolic blood pressure 2023-01-08 20:11:00 74 mm[Hg] [facility] Heart rate 2023-01-08 20:11:00 87 /min Unive [facility] Body temperature 2023-01-08 20:11:00 36.17 Priya [facility] Respiratory rate 2023-01-08 20:11:00 18 /min [facility] Body height 2023-01-08 20:11:00 170.2 cm [facility] Body weight 2023-01-08 20:11:00 84.46 kg [facility] BMI 2023-01-08 20:11:00 29.16 kg/m2 [facility] Body mass index (BMI) [Percentile] Per age and sex 2023-01-08 20:11:00 92.95 % [facility] Systolic blood pressure 2022-12-25 19:37:00 121 mm[Hg] [facility] Diastolic blood pressure 2022-12-25 19:37:00 74 mm[Hg] [facility] Heart rate 2022-12-25 19:37:00 101 /min Unive [facility] Body temperature 2022-12-25 19:37:00 36.22 Priya [facility] Respiratory rate 2022-12-25 19:37:00 18 /min [facility] Body weight 2022-12-25 19:37:00 82.963 kg [facility] Systolic blood pressure 2022-12-11 17:56:00 96 mm[Hg] [facility] Diastolic blood pressure 2022-12-11 17:56:00 64 mm[Hg] [facility] Heart rate 2022-12-11 17:56:00 70 /min [facility] Body temperature 2022-12-11 17:56:00 35.72 Priya [facility] Respiratory rate 2022-12-11 17:56:00 18 /min [facility] Body height 2022-12-11 17:56:00 170.2 cm [facility] Body weight 2022-12-11 17:56:00 81.058 kg [facility] BMI 2022-12-11 17:56:00 27.99 kg/m2 [facility] Body mass index (BMI) [Percentile] Per age and sex 2022-12-11 17:56:00 90.92 % [facility] Systolic blood pressure 2022-11-20 19:01:00 114 mm[Hg] [facility] Diastolic blood pressure 2022-11-20 19:01:00 59 mm[Hg] [facility] Heart rate 2022-11-20 19:01:00 82 /min [facility] Body temperature 2022-11-20 19:01:00 36.61 Priya [facility] Respiratory rate 2022-11-20 19:01:00 16 /min [facility] Body height 2022-11-20 19:01:00 170.2 cm [facility] Body weight 2022-11-20 19:01:00 76.522 kg [facility] BMI 2022-11-20 19:01:00 26.42 kg/m2 [facility] Body mass index (BMI) [Percentile] Per age and sex 2022-11-20 19:01:00 86.76 % [facility] Systolic blood pressure 2022-10-23 21:30:00 110 mm[Hg] [facility] Diastolic blood pressure 2022-10-23 21:30:00 72 mm[Hg] [facility] Heart rate 2022-10-23 21:30:00 85 /min [facility] Body temperature 2022-10-23 21:30:00 36.39 Priya [facility] Respiratory rate 2022-10-23 21:30:00 18 /min [facility] Body height 2022-10-23 21:30:00 170.2 cm [facility] Body weight 2022-10-23 21:30:00 73.284 kg [facility] BMI 2022-10-23 21:30:00 25.30 kg/m2 [facility] Body mass index (BMI) [Percentile] Per age and sex 2022-10-23 21:30:00 82.42 % [facility] Systolic blood pressure 2022-09-19 21:42:00 114 mm[Hg] [facility] Diastolic blood pressure 2022-09-19 21:42:00 81 mm[Hg] [facility] Heart rate 2022-09-19 21:42:00 88 /min Unive [facility] Body temperature 2022-09-19 21:42:00 36.89 Priya [facility] Respiratory rate 2022-09-19 21:42:00 18 /min [facility] Body height 2022-09-19 21:42:00 170.2 cm [facility] Body weight 2022-09-19 21:42:00 72.15 kg [facility] BMI 2022-09-19 21:42:00 24.91 kg/m2 [facility] Body mass index (BMI) [Percentile] Per age and sex 2022-09-19 21:42:00 80.66 % [facility] Systolic blood pressure 2022-08-22 22:11:00 125 mm[Hg] [facility] Diastolic blood pressure 2022-08-22 22:11:00 84 mm[Hg] [facility] Heart rate 2022-08-22 22:11:00 84 /min [facility] Body temperature 2022-08-22 22:11:00 36.28 Priya [facility] Respiratory rate 2022-08-22 22:11:00 18 /min [facility] Body height 2022-08-22 22:11:00 170.2 cm [facility] Body weight 2022-08-22 22:11:00 70.478 kg [facility] BMI 2022-08-22 22:11:00 24.34 kg/m2 [facility] Body mass index (BMI) [Percentile] Per age and sex 2022-08-22 22:11:00 77.58 % [facility] Systolic blood pressure 2022-07-25 19:39:00 130 mm[Hg] [facility] Diastolic blood pressure 2022-07-25 19:39:00 68 mm[Hg] [facility] Heart rate 2022-07-25 19:39:00 80 /min [facility] Body temperature 2022-07-25 19:39:00 37.06 Priya [facility] Respiratory rate 2022-07-25 19:39:00 18 /min [facility] Body height 2022-07-25 19:39:00 170.2 cm [facility] Body weight 2022-07-25 19:39:00 71.385 kg [facility] BMI 2022-07-25 19:39:00 24.65 kg/m2 [facility] Body mass index (BMI) [Percentile] Per age and sex 2022-07-25 19:39:00 79.58 % [facility] Systolic blood pressure 2022-06-27 19:42:00 123 mm[Hg] [facility] Diastolic blood pressure 2022-06-27 19:42:00 72 mm[Hg] [facility] Heart rate 2022-06-27 19:42:00 72 /min [facility] Body temperature 2022-06-27 19:42:00 36.67 Priya [facility] Respiratory rate 2022-06-27 19:42:00 18 /min [facility] Body height 2022-06-27 19:42:00 170.2 cm [facility] Body weight 2022-06-27 19:42:00 69.57 kg [facility] BMI 2022-06-27 19:42:00 24.02 kg/m2 [facility] Body mass index (BMI) [Percentile] Per age and sex 2022-06-27 19:42:00 75.89 % [facility] Systolic blood pressure 2021-11-28 20:44:00 125 mm[Hg] [facility] Diastolic blood pressure 2021-11-28 20:44:00 84 mm[Hg] [facility] Heart rate 2021-11-28 20:44:00 99 /min [facility] Body temperature 2021-11-28 20:44:00 36.94 Priya [facility] Respiratory rate 2021-11-28 20:44:00 18 /min [facility] Body height 2021-11-28 20:44:00 170.2 cm [facility] Body weight 2021-11-28 20:44:00 62.596 kg [facility] BMI 2021-11-28 20:44:00 21.61 kg/m2 [facility] Body mass index (BMI) [Percentile] Per age and sex 2021-11-28 20:44:00 55.74 % [facility] Procedures Procedure Date / Time Performed Performing Clinicia n Source DILATION AND EVACUATION OF UTERINE CONTENTS 2024-03-23 10:41:00 Caroline Bower [facility] CBC WITH DIFF 2024-03-23 10:00:00 Mason Bower [facility] HB ABO GROUPING 2024-03-23 10:00:00 Elizabeth Bower [facility] CBC WITH DIFF 2024-03-23 10:00:00 Mason Bower [facility] HB ABO GROUPING 2024-03-23 10:00:00 Elizabeth Bower [facility] POCT URINALYSIS 2024-02-26 17:33:00 Olu Da Silva [facility] FIRST TRIMESTER ULTRASOUND 2024-02-15 20:04:00 Olu Da Silva [facility] CBC WITH DIFF 2024-01-29 19:57:00 Olu Da Silva [facility] RUBELLA SCREEN IGG 2024-01-29 19:57:00 Thee Da Silva [facility] VZV ANTIBODY SCREEN 2024-01-29 19:57:00 Augustin Da Silva [facility] HEPATITIS B SURFACE ANTIGEN 2024-01-29 19:57:00 Olu Da Silva [facility] HCV ANTIBODY 2024-01-29 19:57:00 Olu Da Silva [facility] HB ABO GROUPING 2024-01-29 19:57:00 Olu Da Silva [facility] URINE CULTURE 2024-01-29 19:57:00 Olu Da Silva [facility] GC & CHLAMYDIA AMPLIFIED ASSAY 2024-01-29 19:57:00 Olu Da Silva [facility] HIV 1/2 AG-AB WITH REFLEX 2024-01-29 19:57:00 Olu Da Silva [facility] SYPHILIS IGG/IGM 2024-01-29 19:57:00 Jose Da Silva [facility] POCT TEST 2024-01-29 18:39:00 Augustin Da Silva [facility] POCT URINALYSIS W/O SPECIFIC GRAVITY 2024-01-29 18:39:00 Olu Da Silva [facility] POCT TEST 2023-07-12 18:29:00 Emma Zhang [facility] PATIENT FINANCIAL POLICY 2023-07-12 18:05:06 Doctor Unassigned, Tiburones [facility] GALV ONLY - VAGINAL PATHOGENS BY NUCLEIC ACID TESTING 2023-04-11 20:35:00 Elaine Zhang [facility] POCT TEST 2023-04-11 20:34:00 Emma Zhang [facility] CBC WITH DIFF 2023-03-21 16:42:00 Elaine Zhang [facility] CBC WITH DIFF 2023-03-01 09:42:00 Bernadette Wall [facility] VENOUS CORD GAS 2023-03-01 03:15:00 Mariajose Cortez [facility] CENTRAL NEURAXIAL BLOCK 2023-02-28 17:35[facility]00 [facility] 2023-02-28 15:06:00 [facility] HEPATITIS B SURFACE ANTIGEN 2023-02-28 15:06:00 [facility] HB ABO GROUPING 2023-02-28 15:06:00 [facility] RHO (D) IMMUNE GLOBULIN 2023-02-28 15:06:00 Bernadette Wall [facility] SYPHILIS IGG/IGM 2023-02-28 15:06:00 [facility] HOSPITAL ADMISSION 2023-02-28 05:01:00 Doctor Un assigned, Tiburones [facility] POCT URINALYSIS 2023-02-27 17:44:00 Ezequiel Mcwilliams [facility] ADC ONLY - FERN TEST 2023-02-24 05:32:00 Caroline Bower [facility] ASSIGNMENT OF BENEFITS 2023-02-24 04:18:27 Docto r Unassigned, Tiburones [facility] NON-STRESS TEST 2023-02-21 18:39:51 Laron Da Silva [facility] POCT URINALYSIS 2023-02-21 00:00:00 Ezequiel Mcwilliams [facility] ASSIGNMENT OF BENEFITS 2023-02-20 00:00:06 Docto r Unassigned, Tiburones [facility] CONSENT/REFUSAL FOR DIAGNOSIS AND TREATMENT 2023-02-19 23:59:41 Doctor Unassigned, Tiburones [facility] POCT URINALYSIS 2023-02-14 20:49:00 Ezequiel Mcwilliams [facility] POCT URINALYSIS 2023-02-07 19:12:00 Ezequiel Mcwilliams [facility] ADC ONLY - FERN TEST 2023-02-01 03:11:00 Saida Rand [facility] NOTICE OF PRIVACY PRACTICES 2023-02-01 02:26:54 Doctor Unassigned, Tiburones [facility] ASSIGNMENT OF BENEFITS 2023-02-01 02:21:13 Docto r Unassigned, Tiburones [facility] L&D VISIT (NON-DELIVERED) 2023-01-31 05:01:00 Doctor Unassigned, Tiburones [facility] POCT URINALYSIS 2023-01-24 20:00:00 Ezequiel Mcwilliams [facility] POCT URINALYSIS 2023-01-08 20:12:00 Ezequiel Mcwilliams [facility] POCT URINALYSIS 2022-12-25 19:38:00 Ezequiel Mcwilliams [facility] TDAP VACCINE, >11 YRS, IM 2022-12-11 18:22:35 Olu Da Silva [facility] POCT URINALYSIS 2022-12-11 18:01:00 Ezequiel Mcwilliams [facility] GLUCOSE 1 HOUR POST PRANDIAL 2022-11-20 07:56:00 Olu Da Silva [facility] CBC WITH DIFF 2022-11-20 07:56:00 Olu Da Silva [facility] POCT URINALYSIS 2022-11-20 00:00:00 Ezequiel Mcwilliams [facility] POCT URINALYSIS 2022-10-23 21:31:00 Ezequiel Mcwilliams [facility] POCT URINALYSIS 2022-09-19 21:44:00 Ezequiel Mcwilliams [facility] POCT URINALYSIS 2022-08-22 22:12:00 Ezequiel Mcwilliams [facility] POCT URINALYSIS 2022-07-25 19:40:00 Ezequiel Mcwilliams [facility] POCT TEST 2022-06-27 19:36:00 Charly Mcwilliams [facility] POCT URINALYSIS W/O SPECIFIC GRAVITY 2022-06-27 19:36:00 Ezequiel Mcwilliams [facility] ASSIGNMENT OF BENEFITS 2022-06-27 19:11:21 Docto r Unassigned, Tiburones [facility] POCT TEST 2021-11-28 00:00:00 Christopher Velasquez [facility] Encounters Start Date/Time End Date/Time Encounter Type Admission Type Attending [facility] Facility Care Department Encounter ID Source 2024-10-13 15:30:00 2024-10-13 15:30:00 Outpatient R LINCOLN-AURY S, CAROLINE LINCOLN-AURY S, CAROLINE [facility] [id number] [facility] 2024-05-05 13:00:00 2024-05-05 13:00:00 Outpatient P [facility] [id number] [facility] 2024-04-14 13:30:00 2024-04-14 13:30:00 Outpatient R AKINSIPE, LOU [facility] [id number] [facility] 2024-04-11 15:00:00 2024-04-11 15:25:36 Outpatient R LINCOLN-AURY S, CAROLINE LINCOLN-AURY S, CAROLINE [facility] [id number] [facility] 2024-04-11 15:00:00 2024-04-11 15:25:36 Office Visit Lincoln-Aury s, Caroline [facility] 1.2.840.114 350.1.13.10 4.2.7.2.686 [id number] [facility] 2024-04-07 15:00:00 2024-04-07 15:00:00 Outpatient R LINCOLN-AURY S, CAROLINE LINCOLN-AURY S, CAROLINE [facility] [id number] [facility] 2024-03-25 12:45:00 2024-03-25 12:45:00 Outpatient R AKINSIPE, OLU [facility] [id number] [facility] 2024-03-23 03:56:00 2024-03-23 15:20:00 Outpatient P LINCOLN-AURY S, CAROLINE LINCOLN-AURY S, CAROLINE NEM[facility] JANNETTE [id number] [facility] 2024-03-23 03:56:00 2024-03-23 15:20:00 Hospital Encounter Lincoln-Aury s, Caroline [facility] 1.2.840.114 350.1.13.10 4.2.7.2.686 [id number] [facility] 2024-03-23 05:25:00 2024-03-23 06:25:00 [facility] 1.2.840.114 350.1.13.10 4.2.7.2.686 [id number] [facility] 2024-02-26 12:45:00 2024-02-26 12:49:53 Outpatient R OLU DA SILVA [facility] [id number] [facility] 2024-02-26 12:45:00 2024-02-26 12:49:53 Routine Visit Olu Da Silva [facility] [employer] PRINCIPAL [facility] MATERNAL & CHILD [facility] 1.2.840.114 350.1.13.10 4.2.7.2.686 [id number] 107 [id number] [facility] 2024-02-19 00:00:00 2024-02-19 14:14:24 Abstract Olu Da Silva [facility] [employer] [facility] PRINCIPAL [facility] CHILD [facility] 1.2.840.114 350.1.13.10 4.2.7.2.686 [id number] 107 [id number] [facility] 2024-02-15 15:30:00 2024-02-15 15:30:00 Optical Assistant Visit 3, [facility] Jaiden Petersen [facility] 1.2.840.114 350.1.13.10 4.2.7.2.686 [id number] 104 [id number] [facility] 2024-02-15 15:30:00 2024-02-15 15:08:06 [facility] [id number] [facility] 2024-02-05 13:15:00 2024-02-05 14:12:15 Outpatient R OLU DA SILVA [facility] [id number] [facility] 2024-02-05 13:15:00 2024-02-05 14:12:15 Optical Assistant Visit Lab, Ang-Rmchp Rekha Olu Manning [facility] [employer]INCIPAL [facility] CHILD [facility] 1.2.840.114 350.1.13.10 4.2.7.2.686 [id number] 107 [id number] [facility] 2024-02-05 00:00:00 2024-02-05 13:05:02 Case Management Olu Da Silva [facility] CHILD [facility] 1.2.840.114 350.1.13.10 4.2.7.2.686 [id number] 107 [id number] [facility] 2024-01-31 00:00:00 2024-01-31 00:00:00 Telephone Manuelitoterrelltoñito Olu C [facility] K [employer] S[employer] PRINCIPAL [facility] CHILD [facility] 1..840.114 350.1.13.10 4.2.7.2.686 [id number] 107 [id number] [facility] 2024-01-29 13:45:00 2024-01-29 14:57:28 Outpatient R OLU DA SILVA [facility] [id number] [facility] 2024-01-29 13:45:00 2024-01-29 14:57:28 Initial Visit Olu Da Silva [facility]INC[facility]AL [facility] CHILD [facility] 1.840.114 350.1.13.10 4.2.7.2.686 [id number] 107 [id number] [facility] 2023-07-12 13:30:00 2023-07-12 13:48:13 Outpatient R ELAINE ZHANG [facility] [id number] [facility] 2023-07-12 13:30:00 2023-07-12 13:48:13 Office Visit Elaine Zhang [facility]AL [facility] CHILD [facility] 1.2.840.114 350.1.13.10 4.2.7.2.686 [id number] 107 [id number] [facility] 2023-07-12 00:00:00 2023-07-12 00:00:00 Orders Only Doctor Unassigned, Tiburones [facility] 1.2.840.114 350.1.13.10 4.2.7.2.686 [id number] [facility] 2023-04-12 00:00:00 2023-04-12 00:00:00 Telephone Elaine Zhang [facility]INCIPAL [facility] CHILD [facility] 1.2840.114 350.1.13.10 4.2.7.2.686 [id number] 107 [id number] [facility] 2023-04-11 14:15:00 2023-04-11 15:22:39 Outpatient R ELAINE ZHANG [facility] [id number] [facility] 2023-04-11 14:15:00 2023-04-11 15:22:39 Office Visit Elaine Zhang [facility]AL [facility] CHILD [facility] 1.20.114 350.1.13.10 4.2.7.2.686 [id number] 107 [id number] [facility] 2023-03-26 00:00:00 2023-03-26 00:00:00 Nurse Triage Leidy Pryor [facility] 1.20.114 350.1.13.10 4.2.7.2.686 [id number] [facility] 2023-03-21 10:30:00 2023-03-21 11:39:29 Outpatient R ELAINE ZHANG [facility] [id number] [facility] 2023-03-21 10:30:00 2023-03-21 11:39:29 Routine Visit Elaine Zhang [facility] [employer] [facility] PRINCIPAL [facility] CHILD [facility] 1.2.840.114 350.1.13.10 4.2.7.2.686 [id number] 107 [id number] [facility] 2023-02-28 09:22:00 2023-03-02 16:40:00 Hospital Encounter Marcos Castrokimber rome [facility] 1.2.840.114 350.1.13.10 4.2.7.2.686 [id number] [facility] 2023-02-28 09:22:00 2023-03-02 16:40:00 Inpatient X MARCOS MENAKIMBER [place] [facility] [id number] [facility] 2023-02-28 12:20:00 2023-02-28 23:00:00 Anesthesia Event Yony Valiente Rakesh [facility] 1.2.840.114 350.1.13.10 4.2.7.2.686 [id number] [facility] 2023-02-28 00:00:00 2023-02-28 00:00:00 Orders Only Doctor Unassigned, Tiburones [facility] 1.2.840.114 350.1.13.10 4.2.7.2.686 [id number] [facility] 2023-02-27 12:45:00 2023-02-27 13:06:14 Outpatient R OLU DA SILVA [facility] [id number] [facility] 2023-02-27 12:45:00 2023-02-27 13:06:14 Routine Visit Olu Da Silva [facility] [employer] [facility] PRINC[facility]AL [facility] CHILD [facility] 1.2.840.114 350.1.13.10 4.2.7.2.686 [id number] 107 [id number] [facility] 2023-02-23 23:37:00 2023-02-24 01:00:00 Outpatient P LINCOLN-AURY S, CAROLINE LINCOLN-AURY S, CAROLINE [facility] [id number] [facility] 2023-02-23 23:37:00 2023-02-24 01:00:00 Hospital Encounter Lincoln-Aury s, Caroline [facility] 1.2840.114 350.1.13.10 4.2.7.2.686 [id number] [id number] [facility] 2023-02-23 00:00:00 2023-02-23 00:00:00 Orders Only Doctor Unassigned, Tiburones [facility] 1.840.114 350.1.13.10 4.2.7.2.686 [id number] [facility] 2023-02-21 15:00:00 2023-02-21 15:00:00 Routine Visit Olu Da Silva [facility] K [facility] PRINCIPAL [facility] MATERNAL & [facility]ILD [facility] 1.840.114 350.1.13.10 4.2.7.2.686 [id number] 107 [id number] [facility] 2023-02-21 15:00:00 2023-02-21 13:50:28 Outpatient R OLU DA SILVA [facility] [id number] [facility] 2023-02-21 00:00:00 2023-02-21 00:00:00 Telephone Olu Da Silva [facility] K [employer] PRINCIPAL [facility]ERNAL & [facility]ILD [facility] 1.84.114 350.1.13.10 4.2.7.2.686 [id number] 107 [id number] [facility] 2023-02-19 19:13:00 2023-02-19 21:33:00 Outpatient X LINCOLN-AURY S, CAROLINE LINCOLN-AURY S, CAROLINE [facility] [id number] [facility] 2023-02-19 19:13:00 2023-02-19 21:33:00 Emergency Caroline Rivera [facility] 1.2.840.114 350.1.13.10 4.2.7.2.686 [id number] [id number] [facility] 2023-02-19 00:00:00 2023-02-19 00:00:00 Telephone Olu Da Silva [facility] K 8 [facility] PRINCIPAL [facility] MATERNAL & CHILD [facility] 1.2.840.114 350.1.13.10 4.2.7.2.686 [id number] 107 [id number] [facility] 2023-02-19 00:00:00 2023-02-19 00:00:00 Orders Only Doctor Unassigned, Tiburones [facility] 1.2.840.114 350.1.13.10 4.2.7.2.686 [id number] [id number] [facility] 2023-02-14 15:45:00 2023-02-14 16:05:13 Routine Visit Olu Da Silva [facility] K [facility] PRINCIPAL [facility] CHILD [facility] 1.2.840.114 350.1.13.10 4.2.7.2.686 [id number] 107 [id number] [facility] 2023-02-14 15:45:00 2023-02-14 16:05:13 Outpatient OLU CONTRERAS [facility] [id number] [facility] 2023-02-09 00:00:00 2023-02-09 00:00:00 Telephone Olu Da Silva [facility] [employer] [facility] PRINCIPAL [facility] CHILD [facility] 1.2.840.114 350.1.13.10 4.2.7.2.686 [id number] 107 [id number] [facility] 2023-02-07 14:15:00 2023-02-07 14:37:07 Outpatient R OLU DA SILVA [facility] [id number] [facility] 2023-02-07 14:15:00 2023-02-07 14:37:07 Routine Visit Olu Da Silva [facility] K 8 S[facility] PRINCIPAL [facility] MATERNAL & CHILD [facility] 1.2.840.114 350.1.13.10 4.2.7.2.686 [id number] 107 [id number] [facility] 2023-01-31 21:27:00 2023-01-31 23:03:00 Outpatient X KEYONA SAIDA [facility] [id number] [facility] 2023-01-31 21:27:00 2023-01-31 23:03:[address] [facility] 1.2.840.114 350.1.13.10 4.2.7.2.686 [id number] [facility] 2023-01-31 00:00:00 2023-01-31 00:00:00 Orders Only Doctor Unassigned, Tiburones [facility] 1.2840.114 350.1.13.10 4.2.7.2.686 [id number] [facility] 2023-01-24 15:00:00 2023-01-24 15:20:50 Outpatient R OLU DA SILVA [facility] [id number] [facility] 2023-01-24 15:00:00 2023-01-24 15:20:50 Routine Visit Olu Da Silva [facility] K [employer] [facility] PRINCIPAL [facility] & CHILD [facility] 1.2.840.114 350.1.13.10 4.2.7.2.686 [id number] 107 [id number] [facility] 2023-01-08 15:15:00 2023-01-08 15:27:33 Outpatient R OLU DA SILVA [facility] [id number] [facility] 2023-01-08 15:15:00 2023-01-08 15:27:33 Routine Visit Olu Da Silva [facility] K 8 S[facility] PRINCIPAL [facility] MATERNAL & CHILD [facility] 1.2.840.114 350.1.13.10 4.2.7.2.686 [id number] 107 [id number] [facility] 2022-12-28 15:15:00 2022-12-28 16:00:00 Optical Assistant Visit Ultrasound, Jeramie-Geeta Shipman [facility] [employer] [facility] PRINCIPAL [facility] & CHILD [facility] 1.2.840.114 350.1.13.10 4.2.7.2.686 [id number] [facility] 2022-12-28 15:15:00 2022-12-28 15:15:00 Outpatient P GEETA PAGE [facility] [id number] [facility] 2022-12-25 14:45:00 2022-12-25 14:52:51 Outpatient R OLU DA SILVA [facility] [id number] [facility] 2022-12-25 14:45:00 2022-12-25 14:52:51 Routine Visit Olu Da Silva [facility] K 8 S[facility] PRINCIPAL [facility] MATERNAL & CHILD [facility] 1.2.840.114 350.1.13.10 4.2.7.2.686 [id number] 107 [id number] [facility] 2022-12-20 14:45:00 2022-12-20 14:45:00 Outpatient P GEETA PAGE [facility] [id number] [facility] 2022-12-12 00:00:00 2022-12-12 00:00:00 Outpatient GC_SWHAOMC_ Black_D [facility] [id number] [facility] 2022-12-11 12:45:00 2022-12-11 13:47:04 Outpatient R OLU DA SILVA [facility] [id number] [facility] 2022-12-11 12:45:00 2022-12-11 13:47:04 Routine Visit Olu Da Silva [facility] K [employer] [facility] PRINCIPAL [facility] & CHILD [facility] .840.114 350.1.13.10 4.2.7.2.686 [id number] 107 [id number] [facility] 2022-11-20 12:45:00 2022-11-20 14:00:54 Outpatient R OLU DA SILVA [facility] [id number] [facility] 2022-11-20 12:45:00 2022-11-20 14:00:54 Routine Visit Olu Da Silva [facility] K [facility] PRINCIPAL [facility] & CHILD [facility] 1.840.114 350.1.13.10 4.2.7.2.686 [id number] 107 [id number] [facility] 2022-11-14 09:00:00 2022-11-14 09:00:00 Outpatient R OLU DA SILVA [facility] [id number] [facility] 2022-11-03 00:00:00 2022-11-03 00:00:00 Case Management Elaine Zhang [facility] [employer]AL [facility] CHILD [facility] 1..840.114 350.1.13.10 4.2.7.2.686 [id number] 107 [id number] [facility] 2022-10-23 15:30:00 2022-10-23 16:03:50 Outpatient R OLU DA SILVA [facility] [id number] [facility] 2022-10-23 15:30:00 2022-10-23 16:03:50 Routine Visit Olu Da Silva [facility] CHILD [facility] 1..840.114 350.1.13.10 4.2.7.2.686 [id number] 107 [id number] [facility] 2022-10-17 14:00:00 2022-10-17 14:00:00 Outpatient R OLU DA SILVA [facility] [id number] [facility] 2022-10-13 13:00:00 2022-10-13 14:00:00 Optical Assistant Visit Ultrasound, Alexandre Gunn [facility] [employer] PRINCIPAL [facility] MATERNAL & CHILD [facility] 1.840.114 350.1.13.10 4.2.7.2.686 [id number] [facility] 2022-10-13 13:00:00 2022-10-13 13:00:00 Outpatient P ALEXANDRE SO [facility] [id number] [facility] 2022-09-19 15:45:00 2022-09-19 16:08:33 Outpatient R OLU DA SILVA [facility] [id number] [facility] 2022-09-19 15:45:00 2022-09-19 16:08:33 Routine Visit Olu Da Silva [facility]INC[facility]AL [facility] & CHILD [facility] .840.114 350.1.13.10 4.2.7.2.686 [id number] 107 [id number] [facility] 2022-09-14 13:00:00 2022-09-14 13:00:00 Outpatient P ALEXANDRE SO [facility] [id number] [facility] 2022-08-22 15:45:00 2022-08-22 16:30:53 Outpatient R OLU DA SILVA [facility] [id number] [facility] 2022-08-22 15:45:00 2022-08-22 16:30:53 Routine Visit Olu Da Silva Roshunda R [facility] CHILD [facility] 1..840.114 350.1.13.10 4.2.7.2.686 [id number] 107 [id number] [facility] 2022-08-22 15:45:00 2022-08-22 15:45:00 Outpatient R EZEQUIEL MCWILLIAMS [facility] [id number] [facility] 2022-07-28 00:00:00 2022-07-28 00:00:00 Abstract WilltoñitoTheeOlu C [facility] PRINCIPAL [facility] MATERNAL & CHILD [facility] 1..840.114 350.1.13.10 4.2.7.2.686 [id number] 107 [id number] [facility] 2022-07-25 14:30:00 2022-07-25 15:15:16 Outpatient R EZEQUIEL MCWILLIAMS [facility] [id number] [facility] 2022-07-25 14:30:00 2022-07-25 15:15:16 Routine Visit Provider, MaryEzequiel Samayoa [facility] & CHILD [facility] 1.840.114 350.1.13.10 4.2.7.2.686 [id number] 107 [id number] [facility] 2022-07-19 08:30:00 2022-07-19 09:00:00 Optical Assistant Visit Ultrasound, Jaiden Murcia [facility] & CHILD [facility] 1..840.114 350.1.13.10 4.2.7.2.686 [id number] [facility] 2022-07-19 08:30:00 2022-07-19 08:30:00 Outpatient JAIDEN HALL SANGEETA [facility] [id number] [facility] 2022-06-29 00:00:00 2022-06-29 00:00:00 Telephone Ezequiel Mcwilliams [facility] & CHILD [facility] 1..840.114 350.1.13.10 4.2.7.2.686 [id number] 107 [id number] [facility] 2022-06-27 14:45:00 2022-06-27 15:49:45 Outpatient R EZEQUIEL MCWILLIAMS [facility] [id number] [facility] 2022-06-27 14:45:00 2022-06-27 15:49:45 Initial Visit Ezequeil Mcwilliams [facility] K [facility]INCIPAL [facility] MATERNAL & CHILD [facility] 1..840.114 350.1.13.10 4.2.7.2.686 [id number] 107 [id number] [facility] 2022-06-27 00:00:00 2022-06-27 00:00:00 Orders Only Doctor Unassigned, Tiburones [facility] 1.84.114 350.1.13.10 4.2.7.2.686 [id number] [id number] [facility] 2022-04-12 13:30:00 2022-04-12 13:30:00 Outpatient JAGDEEP WOOD [facility] [id number] [facility] 2021-11-28 14:30:00 2021-11-28 14:55:01 Office Visit Jagdeep Velasquez [facility] 1.840.114 350.1.13.10 4.2.7.2.686 [id number] 134 [id number] [facility] 2021-11-28 14:30:00 2021-11-28 14:55:01 Outpatient [facility] [id number] [facility] 2021-11-28 14:30:00 2021-11-28 14:30:00 Outpatient Nahomy VELASQUEZ [facility] [id number] [facility] 2021-11-28 00:00:00 2021-11-28 00:00:00 Orders Only Doctor Unassigned, Tiburones [facility] 1.840.114 350.1.13.10 4.2.7.2.686 [id number] [facility] 2021-11-23 00:00:00 2021-11-23 00:00:00 Telephone Jagdeep Velasquez [facility] 1.2.840.114 350.1.13.10 4.2.7.2.686 [id number] 134 [id number] [facility] 2021-09-09 00:00:00 2021-09-09 00:00:00 Letter (Out) Tyler Ontiveros [facility] 1.2.840.114 350.1.13.10 4.2.7.2.686 [id number] [facility] 2021-09-08 16:47:28 2021-09-08 17:07:28 [facility] 1.2.840.114 350.1.13.10 4.2.7.2.686 [id number] [facility] 2021-09-08 17:00:00 2021-09-08 17:00:00 Outpatient R PACHECO ELKE [facility] [id number] [facility] 2021-09-08 00:00:00 2021-09-08 00:00:00 Telephone Jagdeep Velasquez [facility] 1.2.840.114 350.1.13.10 4.2.7.2.686 [id number] [facility] 2021-07-27 00:00:00 2021-07-27 00:00:00 Telephone Jagdeep Velasquez [facility] 1.2.840.114 350.1.13.10 4.2.7.2.686 [id number] 134 [id number] [facility] 2021-06-17 16:00:00 2021-06-17 16:00:00 Outpatient R [facility] [id number] [facility] 2021-05-24 00:00:00 2021-05-24 00:00:00 Case Management Jagdeep Velasquez [facility] 1.2840.114 350.1.13.10 4.2.7.2.686 [id number] [facility] 2021-05-23 14:39:42 2021-05-23 14:54:42 Optical Assistant Visit 2, [facility] Jagdeep Velasquez [facility] Building 1.2840.114 350.1.13.10 4.2.7.2.686 [id number] [facility] 2021-05-23 14:45:00 2021-05-23 14:45:00 Outpatient R [facility] [id number] [facility] 2021-05-23 14:30:00 2021-05-23 14:30:00 Outpatient R JAGDEEP VELASQUEZ [facility] [id number] [facility] 2021-05-23 00:00:00 2021-05-23 00:00:00 [facility] 1.2840.114 350.1.13.10 4.2.7.2.686 [id number] [facility] 2021-04-21 00:00:00 2021-04-21 00:00:00 Telephone Jagdeep Velasquez [facility] Building 1.2840.114 350.1.13.10 4.2.7.2.686 [id number] 134 [id number] [facility] 2021-04-14 00:00:00 2021-04-14 00:00:00 Case Management Karoline [facility] nal Building 1.2840.114 350.1.13.10 4.2.7.2.686 [id number] 134 [id number] [facility] 2021-04-12 12:43:44 2021-04-12 14:08:08 Office Visit Jagdeep Velasquez [facility] Building 1.114 350.1.13.10 4.2.7.2.686 [id number] [facility] 2021-04-12 13:00:00 2021-04-12 13:00:00 Outpatient R JAGDEEP VELASQUEZ [facility] [id number] [facility] 2021-04-12 00:00:00 2021-04-12 00:00:00 Orders Only Doctor Unassigned, [facility] 1.114 350.1.13.10 4.2.7.2.686 [id number] [facility] 2021-01-14 11:10:21 2021-01-14 11:10:21 Outpatient Braeden Hussein [facility] [id number] [facility] 2020-10-08 18:30:00 2020-10-08 18:30:00 Outpatient R [facility] [id number] [facility] 2020-10-08 17:51:43 2020-10-08 18:11:43 Laboratory Only Lab, [facility] Fam Pob I [place], [facility] Office Building One ..114 350.1.13.10 4.2.7.2.686 [id number] [facility] 2020-10-08 17:51:43 2020-10-08 18:11:43 Laboratory Only Lab, [facility] Fam Pob I [facility] Office Building One 1.114 350.1.13.10 4.2.7.2.686 [id number] 2020-07-21 00:00:00 2020-07-21 00:00:00 Telephone Provider, [facility] Office Building One 1.840.114 350.1.13.10 4.2.7.2.686 [id number] [id number] [facility] 2020-07-21 00:00:00 2020-07-21 00:00:00 Telephone Provider, [facility] Office Building One 1.0.114 350.1.13.10 4.2.7.2.686 [id number] 2020-07-20 15:20:00 2020-07-20 15:20:00 Outpatient R BENJAMIN BLOCK [facility] [id number] [facility] 2020-07-20 14:50:44 2020-07-20 15:10:44 Laboratory Only Lab, [facility] One 1.0.114 350.1.13.10 4.2.7.2.686 [id number] [facility] 2020-07-20 14:50:44 2020-07-20 15:10:44 Laboratory Only [facility] Office [facility] One 1.0.114 350.1.13.10 4.2.7.2.686 [id number] 044 [id number] Results Test Description Test Time Test Comments Results Result Co mments Source [facility] with [id number] 10:36:28* Test Item Value Reference Range Interpretation Comme nts WBC (test code = 6690-2) 12.84 4.30-11.10 H RBC (test code = 789-8) 3.65 3.93-5.25 L HGB (test code = 718-7) 10.8 g/dL 11.6-15.0 L HCT (test code = 4544-3) 31.6 % 35.7-45.2 L MCV (test code = 787-2) 86.6 fL 80.6-95.5 MCH (test code = 785-6) 29.6 pg 25.9-32.8 MCHC (test code = 786-4) 34.2 g/dL 31.6-35.1 RDW-SD (test code = 16823-6) 39.6 fL 39.0-49.9 RDW-CV (test code = 788-0) 12.6 % 12.0-15.5 PLT (test code = 777-3) 330 166-358 MPV (test code = 68211-7) 11.6 fL 9.5-12.9 NRBC/100 WBC (test code = 9790753434) 0.0 0.0-10.0 NRBC x10^3 (test code = 6711201113) See_Comment [Automated messa ge] The system which generated this result transmitted reference range: 10*3/?L. The reference range was not used to interpret this result as normal/abnormal. GRAN MAT (NEUT) % (test code = 770-8) 63.5 % IMM GRAN % (test code = 9819508145) 0.50 % LYMPH % (test code = 736-9) 29.0 % MONO % (test code = 5905-5) 5.5 % EOS % (test code = 713-8) 1.0 % BASO % (test code = 706-2) 0.5 % GRAN MAT x10^3(ANC) (test code = 0936166213) 8.17 10*3/uL 1.88-7.09 H IMM GRAN x10^3 (test code = 1535789734) 0.06 10*3/uL 0.00-0.06 LYMPH x10^3 (test code = 731-0) 3.72 10*3/uL 1.32-3.29 H MONO x10^3 (test code = 742-7) 0.70 10*3/uL 0.33-0.92 EOS x10^3 (test code = 711-2) 0.13 10*3/uL 0.03-0.39 BASO x10^3 (test code = 704-7) 0.06 10*3/uL 0.01-0.07 Lab Interpretation (test code = 08856-2) [facility] [id number] 10:29:00 * Test Item Value Reference Range Interpretation Comme nts ABO & RH (test code = 20) A POSITIVE IAT (test code = 1185) Negative [facility] [id number] 10:29:00 * Test Item Value Reference Range Interpretation Comme nts ABO & RH (test code = 20) A POSITIVE IAT (test code = 1185) Negative [facility] SPECIFIC [id number] 17:34:00* Test Item Value Reference Range Interpretation [...] POCT U APPEAR (test code = 3267) [facility]IFIC [id number] 17:34:00* Test Item Value Reference Range Interpretation [...] POCT U APPEAR (test code = 3267) [facility] Urinalysis w/o Specific [id number] 18:40:00* Test Item Value Reference Range Interpretation [...] = 3257) neg Negative - Negati ve [facility] [id number] 18:39:00* Test Item Value Reference Range Interpretation Comme nts POCT PREG (test code = 1605) Positive On board controls acceptable with C Line (test code = 3574) Yes POCT PREG LOT # (test code = 3575) POCT PREG TEST DATE ( test code = 3576) [facility] [id number] 18:29:00* Test Item Value Reference Range Interpretation Comme nts POCT PREG (test code = 1605) Negative On board controls acceptable with C Line (test code = 3574) Yes POCT PREG LOT # (test code = 3575) POCT PREG TEST DATE ( test code = 3576) [facility] [id number] 18:29:00* Test Item Value Reference Range Interpretation Comme nts POCT PREG (test code = 1605) Negative On board controls acceptable with C Line (test code = 3574) Yes POCT PREG LOT # (test code = 3575) POCT PREG TEST DATE ( test code = 3576) [facility] [id number] 20:34:00* Test Item Value Reference Range Interpretation Comme nts POCT PREG (test code = 1605) Negative On board controls acceptable with C Line (test code = 3574) Yes POCT PREG LOT # (test code = 3575) POCT PREG TEST DATE ( test code = 3576) [facility] [id number] 20:34:00* Test Item Value Reference Range Interpretation Comme nts POCT PREG (test code = 1605) Negative On board controls acceptable with C Line (test code = 3574) Yes POCT PREG LOT # (test code = 3575) POCT PREG TEST DATE ( test code = 357) [facility] WITH [id number] 05:34:01* Test Item Value Reference Range Interpretation [...] g/dL 32.0-36.0 L RDW-SD (test code = 78399-6) 43.4 fL 38.5-49.0 RDW-CV (test code = 788-0) 13.4 % 11.5-14.0 PLT (test code = 777-3) 459 See_Comment H [Automated messa ge] The system which generated this result transmitted reference range: 135 - 361 10*3/?L. The reference range was not used to interpret this result as normal/abnormal. MPV (test code = 96994-6) 11.2 fL 9.4-13.3 NRBC/100 WBC (test code = 2825693666) 0.0 See_Comment [Automated me ssage] The system which generated this result transmitted reference range: 0.0 - 10.0 /100 WBCs. The reference range was not used to interpret this result as normal/abnormal. NRBC x10^3 (test code = 4355078904) See_Comment [Automated messa ge] The system which generated this result transmitted reference range: 10*3/?L. The reference range was not used to interpret this result as normal/abnormal. GRAN MAT (NEUT) % (test code = 770-8) 56.6 % IMM GRAN % (test code = 3339860305) 0.20 % LYMPH % (test code = 736-9) 28.6 % MONO % (test code = 5905-5) 6.2 % EOS % (test code = 713-8) 7.3 % BASO % (test code = 706-2) 1.1 % GRAN MAT x10^3(ANC) (test code = 6560066275) 4.66 10*3/uL 1.50-10.30 IMM GRAN x10^3 (test code = 1361534890) 0.00-0.06 LYMPH x10^3 (test code = 731-0) 2.36 10*3/uL 0.70-7.40 MONO x10^3 (test code = 742-7) 0.51 10*3/uL 0.00-0.50 H EOS x10^3 (test code = 711-2) 0.60 10*3/uL 0.00-0.40 H BASO x10^3 (test code = 704-7) 0.09 10*3/uL 0.00-0.10 Lab Interpretation (test code = 49528-8) [facility]normal [facility] IMMUNE [id number] 06:47:31* Test Item Value Reference Range Interpretation Comme nts RHIG CANDIDATE? (test code = 5188) No- see comment Patient is not a candidate for RhIg- Patient is Rh Positive.Performed at [facility] Laboratory Services - [facility] Blood [address] [address]Ovy[place] Free: [phone] No. [id number] [facility] Cord [id number] 03:30:20* Test Item Value Reference Range Interpretation Comme nts VENOUS BASE EXCESS, CORD (test code = 6491890565) -4.8 mEq/L VENOUS PH, CORD (test code = 6141819014) 7.32 7.25-7.45 VENOUS PC02, CORD (test code = 9760245326) 42 See_Comment [Automated messa ge] The system which generated this result transmitted reference range: 27 - 49 mmHg. The reference range was not used to interpret this result as normal/abnormal. VENOUS PO2, CORD (test code = 0629343014) 23 See_Comment [Automated me ssage] The system which generated this result transmitted reference range: 17 - 41 mmHg. The reference range was not used to interpret this result as normal/abnormal. VENOUS BICARBONATE, CORD (test code = 9928974611) 21 See_Comment QUES [Automated message] The system which generated this result transmitted reference range: 12 - 29 mEq/L. The reference range was not used to interpret this result as normal/abnormal. [facility] Cord [id number] 03:29:55* Test Item Value Reference Range Interpretation Comme nts BASE EXCESS, CORD (test code = 3132696532) -2.7 mEq/L QUES AC PH, CORD (BEAKER) (test code = 8545174261) 7.27 7.18-7.38 PC02, CORD (test code = 6927721919) 56 See_Comment [Automated messa ge] The system which generated this result transmitted reference range: 32 - 66 mmHg. The reference range was not used to interpret this result as normal/abnormal. PO2, CORD (test code = 0858056568) 18 See_Comment [Automated messa ge] The system which generated this result transmitted reference range: 10 - 30 mmHg. The reference range was not used to interpret this result as normal/abnormal. BICARBONATE, CORD (test code = 7421625612) 26 See_Comment [Automated messa ge] The system which generated this result transmitted reference range: 17 - 27 mEq/L. The reference range was not used to interpret this result as normal/abnormal. [facility] URINALYSIS W SPECIFIC [id number] 17:44:00* Test Item Value Reference Range Interpretation [...] U APPEAR (test code = 3267) ... [facility] URINALYSIS W SPECIFIC [id number] 17:54:00* Test Item Value Reference Range Interpretation [...] U APPEAR (test code = 3267) . [facility] URINALYSIS W SPECIFIC [id number] 20:50:00* Test Item Value Reference Range Interpretation [...] U APPEAR (test code = 3267) . [facility] URINALYSIS W SPECIFIC [id number] 19:13:00* Test Item Value Reference Range Interpretation [...] U APPEAR (test code = 3267) . [facility] URINALYSIS W SPECIFIC [id number] 20:00:00* Test Item Value Reference Range Interpretation [...] U APPEAR (test code = 3267) . [facility] URINALYSIS W SPECIFIC [id number] 20:00:00* Test Item Value Reference Range Interpretation [...] U APPEAR (test code = 3267) . [facility] URINALYSIS W SPECIFIC [id number] 20:00:00* Test Item Value Reference Range Interpretation [...] U APPEAR (test code = 3267) . [facility] URINALYSIS W SPECIFIC [id number] 20:13:00* Test Item Value Reference Range Interpretation [...] U APPEAR (test code = 3267) . [facility] URINALYSIS W SPECIFIC [id number] 19:39:00* Test Item Value Reference Range Interpretation [...] POCT U APPEAR (test code = 3267) [facility]CIFIC [id number] 18:01:00* Test Item Value Reference Range Interpretation [...] U APPEAR (test code = 3267) [facility] [id number] 07:52:47* Test Item Value Reference Range Interpretation [...] 33.0 g/dL 32.0-36.0 RDW-SD (test code = 25198-9) 43.4 fL 38.5-49.0 RDW-CV (test code = 788-0) 13.0 % 11.5-14.0 PLT (test code = 777-3) 367 See_Comment H [Automated messa ge] The system which generated this result transmitted reference range: 135 - 361 10*3/?L. The reference range was not used to interpret this result as normal/abnormal. MPV (test code = 49847-1) 10.5 fL 9.4-13.3 NRBC/100 WBC (test code = 4592577590) 0.0 See_Comment [Automated me ssage] The system which generated this result transmitted reference range: 0.0 - 10.0 /100 WBCs. The reference range was not used to interpret this result as normal/abnormal. NRBC x10^3 (test code = 0619601891) See_Comment [Automated messa ge] The system which generated this result transmitted reference range: 10*3/?L. The reference range was not used to interpret this result as normal/abnormal. GRAN MAT (NEUT) % (test code = 770-8) 69.0 % IMM GRAN % (test code = 3359844535) 0.50 % LYMPH % (test code = 736-9) 21.1 % MONO % (test code = 5905-5) 5.5 % EOS % (test code = 713-8) 3.5 % BASO % (test code = 706-2) 0.4 % GRAN MAT x10^3(ANC) (test code = 2483401408) 7.67 10*3/uL 1.50-10.30 IMM GRAN x10^3 (test code = 0245912747) 0.06 10*3/uL 0.00-0.06 LYMPH x10^3 (test code = 731-0) 2.35 10*3/uL 0.70-7.40 MONO x10^3 (test code = 742-7) 0.61 10*3/uL 0.00-0.50 H EOS x10^3 (test code = 711-2) 0.39 10*3/uL 0.00-0.40 BASO x10^3 (test code = 704-7) 0.05 10*3/uL 0.00-0.10 Lab Interpretation (test code = 26559-7) [facility]normal [facility] 1 Hour Post [id number] 06:41:02* Test Item Value Reference Range Interpretation Comme nts GLUC 1 HR (test code = 0446059421) 88 mg/dL 120-170 L Lab Interpretation (test cod e = 62948-9) [facility]normal [facility] W SPECIFIC [id number] 19:03:00* Test Item Value Reference Range Interpretation [...] U APPEAR (test code = 3267) . [facility] SPECIFIC [id number] 21:31:00* Test Item Value Reference Range Interpretation [...] U APPEAR (test code = 3267) . [facility] URINALYSIS W SPECIFIC [id number] 21:44:00* Test Item Value Reference Range Interpretation [...] POCT U APPEAR (test code = 3267) [facility] URINALYSIS W SPECIFIC [id number] 22:12:00* Test Item Value Reference Range Interpretation [...] POCT U APPEAR (test code = 3267) [facility] URINALYSIS W SPECIFIC [id number] 19:40:00* Test Item Value Reference Range Interpretation [...] POCT U APPEAR (test code = 3267) [facility] [id number] 19:36:00* Test Item Value Reference Range Interpretation Comme nts POCT PREG (test code = 1605) Positive On board controls acceptable with C Line (test code = 3574) Yes POCT PREG LOT # (test code = 3573) POCT PREG TEST DATE ( test code = 3576) [facility] URINALYSIS W/O SPECIFIC [id number] 19:36:00* Test Item Value Reference Range Interpretation [...] = 3257) Trace Negative - Negati ve [facility] [id number] 21:24:00* Test Item Value Reference Range Interpretation Comme nts POCT PREG (test code = 1605) Negative On board controls acceptable with C Line (test code = 3574) Yes POCT PREG LOT # (test code = 3575) POCT PREG TEST DATE ( test code = 3576) [facility] [id number] 21:24:00* Test Item Value Reference Range Interpretation Comme nts POCT PREG (test code = 1605) Negative On board controls acceptable with C Line (test code = 3574) Yes POCT PREG LOT # (test code = 3575) POCT PREG TEST DATE ( test code = 3576) [facility] Asymptomatic IH [id number] 15:05:00 * Test Item Value Reference Range [...] testsfor detection and/or diagnosis of COVID-19 under Lcuvivq554(b)(1) of the Act, 21 U.S.C. 360bbb-3(b)(1), unless theauthorization is terminated or revoked sooner. UR HCG [id number] 12:36:00* Test Item Value Reference Range Interpretation Comme nts UR HCG QUAL (test code = HCGQLU) NEGATIVE 1. Very dilute u rine specimens, as indicated by a lowspecific gravity, may not contain sales representative sales manager levels ofhCG. 2. False negative results may occur when the levels of hCGare below the sensitivity level of the test. If is still suspected, a first morningurine specimen should be collected 48 hours later andtested. History and Physical Notes Date/Time Note Provider Source 2024-03-23 04:36:16 TELEVISION SERVICER ADMISSION H&P NOTE Date of Service: 03/23/2024 Chief Complaint: Asked to see and give opinion regarding Angela Dong, 18 year old, female who presents with incomplete . Last menstrual period: Patient's last menstrual period was 11/20/2023 (exact date). Patient with 14 week with several appointments. PNC complicated by chlamydia infection in 01/29/24 with test of cure 02/26/24. Went to [facility] ER for cramping and vaginal. Passed fetus. Placenta was not passed but was attempted but cord from placenta. Pt with some cramping and bleeding still. Sexual History: Social History Substance and Sexual Activity Sexual Activity Yes Partners: Male control/protection: None Comment: last sexual intercourse 12/29/2023 Current Medications: Current Facility-Administered Medications Medication Dose Route Frequency Last Rate Last Admin miSOPROStoL (CYTOTEC) tablet 800 mcg 800 mcg Oral ONCE Home Medications: No medications prior to admission. Allergies: Patient has no known allergies. History: Past Medical History: Diagnosis Date ADHD add ongoing, not on medication Anemia 10/2021 ongoing, taking medication Anxiety not on meds dx by Dr. Lombardi Chlamydia infection affecting 09/19/2022 Family History Problem Relation Age of Onset Diabetes Mother Arthritis Father Depression Brother Depression Paternal Grandmother High cholesterol Paternal Grandmother Diabetes Paternal Grandmother Other - see comments Paternal Grandfather alzheimers Skin Cancer Paternal Grandfather Asthma NoFHx defects NoFHx Breast Cancer NoFHx Colon Cancer NoFHx Ovarian Cancer NoFHx Uterine Cancer NoFHx Cancer NoFHx Genetic NoFHx Heart NoFHx Hypertension NoFHx Mental retardation NoFHx Neurological NoFHx Osteoporosis NoFHx Psychiatry NoFHx Family Status Relation Name Status Mo Alive Fa Alive Bro (Not Specified) PGMo (Not Specified) PGFa Alive NoFHx (Not Specified) Past Surgical History: Procedure Laterality Date TONSILLECTOMY WITH ADENOIDECTOMY TONSILLECTOMY WITH ADENOIDECTOMY age 15 TOOTH EXTRACTION 2021 Social History Socioeconomic History Marital status: Single Number of children: 1 Tobacco Use Smoking status: Never Smokeless tobacco: Never Tobacco comments: Vaping-nicotine Vaping Use Vaping status: Every Day Substances: Nicotine, Flavoring, Menthol Devices: Pre-filled pod Substance and Sexual Activity Alcohol use: Never Drug use: Not Currently Types: Marijuana Sexual activity: Yes Partners: Male control/protection: None Comment: last sexual intercourse 12/29/2023 Social History Narrative Pt lives with family. No cats. Feels safe at home Denied domestic abuse Surgical History: Past Surgical History: Procedure Laterality Date TONSILLECTOMY WITH ADENOIDECTOMY TONSILLECTOMY WITH ADENOIDECTOMY age 15 TOOTH EXTRACTION 2021 OB History: OB History Para Term AB Living 2 1 1 0 0 1 SAB IAB Ectopic Multiple Live Births 0 0 0 0 1 # Outcome Date GA Lbr Farzad/2nd Weight Sex Delivery Anes PTL Lv 2 Current 1 Term 02/28/23 39w3d 2810 g M NORMAL SPONT EPI DEE DEE Vaginal delivery: x1 ROS: Constitutional: negative Eyes: negative ENT/Mouth: negative Cardiovascular: negative Respiratory: negative Gastrointestinal:pain Genitourinary: abnormal bleeding Musculoskeletal: negative Skin/breast: negative Neurological: negative Psychiatric: crying Endocrine: negative Hemat/Lymph: negative Allergic/Immuno:none Physical Exam: BP 115/59 | Pulse 63 | Temp 37.1 ?C (98.7 ?F) (Oral) | Resp 19 | Wt 74.4 kg (164 lb) | LMP 11/20/2023 (Exact Date) | SpO2 100% Constitutional: alert, no apparent distress, appearing age appropriate Respiratory: good inspiratory effort to inspections, lungs clear to auscultation Cardiovascular: regular rate and rhythm, no murmurs, gallops or rubs, no clubbing, cyanosis or edema,pulses equal Gastrointestinal: Abdomen soft, non-tender, nondistended, no masses,no hepatosplenomegaly, no hernia none Neurological/Psychiatric: Alert and oriented times three, normal mood and affect Gynecologic: External Genitalia: normal external genitalia without lesion, mass, discharge, or tenderness Vagina/pelvic support: large clots in uterus Cervix: Some placental tissue through cervix attempted to remove placenta but unsuccessful with forceps Uterus: bedside US with Placenta in lower uterus Labs: CBC WBC (10*3/?L) Date Value 01/29/2024 9.23 RBC (10*6/?L) Date Value 01/29/2024 3.99 PLT (10*3/?L) Date Value 01/29/2024 394 (H) HGB (g/dL) Date Value 01/29/2024 11.6 HCT (%) Date Value 01/29/2024 35.4 (L) No results found for: "ALT" No results found for: "AST" No results found for: "CREAT" No results found for: "LDHU" No results found for: "URICACID" No results found for: "UPROTEIN" No results found for: "UPH" No results found for: "UGLUCOSE" No results found for: "UKETONES" No results found for: "UBILI" No results found for: "UBLOOD" No results found for: "UUROBILIN" No results found for: "ULEUKEST" No results found for: "UNITRITE" No results found for: "USPGRAV" No results found for: "T4" No results found for: "TSH" Assessment/Plan: Incomplete with retained placenta Misoprostol treatment, NPO diet, and Plan to proceed with Dilatation and curettage of placenta. Informed consent obtained. OR team called in. Caroline Bower MD [facility]
[2024-09-20 18:49] LABS: Specific Gravity 1.014 (1.005-1.030)
[2024-09-20 18:50] LABS: Specific Gravity 1.014 (1.005-1.030); Sqamous Epithelial <5 /HPF (None Seen); Urine Bacteria None Seen /HPF (<20); Urine Bilirubin NEGATIVE (Negative); Urine Blood 3+ (OVER) (Negative); Urine Clarity Extremely Turbid (Clear); Urine Color Colorless (Yellow); Urine Crystals Unidentified Few /HPF (None Seen); Urine Culture Reflex Order NOT NEEDED; Urine Glucose NEGATIVE (Negative); Urine Ketones NEGATIVE (Negative); Urine Microscopic Reflex YN ORDER UMIC; Urine Mucus Slight /HPF (None Seen); Urine Nitrite NEGATIVE (Negative); Urine Protein TRACE (Negative); Urine RBC 21-50 /HPF (None Seen); Urine Urobilinogen Normal (Normal); Urine WBC Clump Rare /HPF (None Seen); Urine Yeast (Budding) Trace /HPF (None Seen)
[2024-09-20] MEDS ORDERED: NA CHLORIDE 0.9% 1,000 ML ONE (19:24)
[2024-09-20] MEDS ORDERED: CEFTRIAXONE 1000 MG/VIAL ONE (19:24)
[2024-09-20 19:30] LABS: Absolute Eosinophils 0.2 K/uL (0-0.5); Absolute Lymphocytes (CBC) 1.8 K/uL (0.7-4.9); Absolute Monocytes 0.8 K/uL (0.1-1.3); Absolute Neutrophil 6.3 K/uL (1.8-8.0); Basophils % 0.5 % (0-1.3); Eosinophils % 1.8 % (0-4.4); Hematocrit 34.8 % (36.0-45.0); Hemoglobin 11.6 g/dL (12.0-15.0); Lymphocytes % 20.1 % (15.3-44.8); MCH 28.6 pg (27.0-35.0); MCHC 33.3 g/dL (32.0-36.0); MCV 86.1 fL (80-100); MPV 8.6 fL (7.6-11.3); Monocytes % 8.6 % (3.3-12.3); Platelets 354 thou/uL (152-406); RBC Red Blood Cell Count 4.04 M/uL (3.86-4.86); Red Cell Distribution Width 14.2 % (12.1-15.2)
[2024-09-20 19:49] LABS: AST/SGOT 14 U/L (15-37); Albumin 3.3 g/dL (3.4-5.0); Albumin/Globulin Ratio 0.8 (1.1-1.8); Alkaline Phosphatase 59 U/L (45-117); Anion Gap 7.6 mEq/L (5.0-15.0); BUN Blood Urea Nitrogen 6 mg/dL (7-18); Bicarbonate 27 mEq/L (21-32); Bilirubin Total 0.2 mg/dL (0.2-1.0); Globulin 3.9 g/dL (2.3-3.5); Glomerular Filtration Rate 96 ml/min (=/>90); Glucose Level 94 mg/dL (74-106); Potassium 3.6 mEq/L (3.5-5.1); Protein, Total 7.2 g/dL (6.4-8.2); Sodium Level 140 mEq/L (136-145)
[2024-09-20 19:51] LABS: ALT/SGPT < 14 U/L (13-56); HCG, Quantitative < 1 mIU/mL (1-3)
--- NOTE | 2024-09-20 19:59 | RAD REPORT ---
Transvaginal Study Probe CLINICAL INDICATION: Female 19 years old PAIN TECHNIQUE: Real-time ultrasonography of the pelvis was performed transvaginally. Color and spectral D oppler evaluation of the ovaries was performed. [id number]. COMPARISON: No prior exam. FINDINGS: UTERUS AND CERVIX: The uterus measures 7 x 3.8 x 4.4 cm (cervix to fundus x AP x transverse). The suresh darrin is normal. No masses seen The endometrium is normal,0.3 cm in thickness. RIGHT OVARY: The right ovary measures 3 x 2.9 x 2.4 cm with volume of 11 cc Normal color and spectral Doppler evaluation of the right ovary.. Corpus luteum in the right ovary. LEFT OVARY: The left ovary measures 3 x 3.6 x 3.2 cm with volume of 17.8 cc Normal Color and spec tral Doppler evaluation of the left ovary.. There is a solid, slightly hyperechoic area in the left ovary that demonstrates hypervascularity. This could represent a solid lesion though it is not well a ssessed. FREE FLUID: No free fluid. IMPRESSION: Though both ovaries are prominent in size, the left ovary is asymmetrically larger. There is a sugges tion of a possible solid, hypervascular lesion in the left ovary which is overwhelmingly likely be benign in a patient of this age. It is, however, not well characterized. Recommend short-term follow- up pelvic ultrasound to reassess and/or ensure resolution. Corpus luteum in the right ovary. Bilateral ovarian blood flow.
--- NOTE | 2024-09-20 21:00 | EDPHYS ---
Physician Documentation [facility] Name: Angela Dong Age: 19 yrs Sex: Female : 2005 Arrival Date: 09/20/2024 Time: 18:10 Bed 6 Private MD: ED Physician Alexandre Duque HPI: 09/20 19:04 This 19 yrs old Female presents to ER via Ambulatory with complaints of fred Pelvic Pain. 19:04 The patient presents with pelvic pain, that is located in/on the right lower quadrant fred and left lower quadrant, urinary symptoms. Onset: The symptoms/episode began/occurred 2 day(s) ago. Modifying factors: The symptoms are alleviated by nothing, the symptoms are aggravated by nothing. Associated signs and symptoms: The patient has no apparent associated signs or symptoms. Severity of symptoms: At their worst the symptoms were mild, moderate, in the emergency department the symptoms are unchanged. The patient is sexually active. The patient has experienced similar episodes in the past, a few times. 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 - Infectious Disease History:: Denies. - Social history:: Smoking status: Reported history of juuling and/or vaping. - Family history:: not pertinent. ROS: 19:04 Constitutional: Negative for fever, chills, and weight loss, Eyes: Negative for injury, fred pain, redness, and discharge, ENT: Negative for injury, pain, and discharge, Neck: Negative for injury, pain, and swelling, Cardiovascular: Negative for chest pain, palpitations, and edema, Respiratory: Negative for shortness of breath, cough, wheezing, and pleuritic chest pain, Back: Negative for injury and pain, : Negative for injury, bleeding, discharge, and swelling, MS/Extremity: Negative for injury and deformity, Skin: Negative for injury, rash, and discoloration, Neuro: Negative for headache, weakness, numbness, tingling, and seizure, Psych: Negative for depression, anxiety, suicide ideation, homicidal ideation, and hallucinations, Allergy/Immunology: Negative for hives, rash, and allergies, Endocrine: Negative for neck swelling, polydipsia, polyuria, polyphagia, and marked weight changes, Hematologic/Lymphatic: Negative for swollen nodes, abnormal bleeding, and unusual bruising, 19:04 Abdomen/GI: Positive for abdominal pain, of the suprapubic area, right lower quadrant and left lower quadrant, Exam: 19:04 Constitutional: This is a well developed, well nourished patient who is awake, alert, fred and in no acute distress. Head/Face: Normocephalic, atraumatic. Eyes: Pupils equal round and reactive to light, extra-ocular motions intact. Lids and lashes normal. Conjunctiva and sclera are non-icteric and not injected. Cornea within normal limits. Periorbital areas with no swelling, redness, or edema. ENT: Nares patent. No nasal discharge, no septal abnormalities noted. Tympanic membranes are normal and external auditory canals are clear. Oropharynx with no redness, swelling, or masses, exudates, or evidence of obstruction, uvula midline. Mucous membranes moist. Neck: Trachea midline, no thyromegaly or masses palpated, and no cervical lymphadenopathy. Supple, full range of motion without nuchal rigidity, or vertebral point tenderness. No Meningismus. Chest/axilla: Normal chest wall appearance and motion. Nontender with no deformity. No lesions are appreciated. Cardiovascular: Regular rate and rhythm with a normal S1 and S2. No gallops, murmurs, or rubs. Normal PMI, no JVD. No pulse deficits. Respiratory: Lungs have equal breath sounds bilaterally, clear to auscultation and percussion. No rales, rhonchi or wheezes noted. No increased work of breathing, no retractions or nasal flaring. Abdomen/GI: Soft, non-tender, with normal bowel sounds. No distension or tympany. No guarding or rebound. No evidence of tenderness throughout. Back: No spinal tenderness. No costovertebral tenderness. Full range of motion. Skin: Warm, dry with normal turgor. Normal color with no rashes, no lesions, and no evidence of cellulitis. MS/ Extremity: Pulses equal, no cyanosis. Neurovascular intact. Full, normal range of motion., bilateral aka Neuro: Awake and alert, GCS 15, oriented to person, place, time, and situation. Cranial nerves II-XII grossly intact. Motor strength 5/5 in all extremities. Sensory grossly intact. Cerebellar exam normal. Normal gait. Psych: Awake, alert, with orientation to person, place and time. Behavior, mood, and affect are within normal limits. Vital Signs: 18:19 BP 125 / 76; Pulse 94; Resp 16; Temp 97.6; Pulse Ox 100% ; Weight 65.77 kg; Height 5 iw ft. 7 in. ; Pain 2/10; 19:15 BP 124 / 86; Pulse 92; Resp 18; Temp 97.6; Pulse Ox 100% ; Pain 2/10; bm8 21:21 BP 116 / 74; Pulse 82; Resp 17; Temp 97.6; Pulse Ox 97% ; Pain 0/10; bm8 18:19 Body Mass Index 22.71 (65.77 kg, 170.18 cm) iw 18:19 Pain Scale: Adult iw 19:15 Pain Scale: Adult bm8 21:21 Pain Scale: Adult bm8 [place] Coma Score: 19:15 Eye Response: spontaneous(4). Motor Response: obeys commands(6). Verbal Response: bm8 oriented(5). Total: 15. 21:21 Eye Response: spontaneous(4). Motor Response: obeys commands(6). Verbal Response: bm8 oriented(5). Total: 15. MDM: 18:25 Medical Screening Exam initiated fred 19:07 Differential diagnosis: kidney stone, uterine fibroids, urinary tract infection. Data [facility] reviewed: vital signs, nurses notes, lab test result(s), radiologic studies, ultrasound. Consideration of Admission/Observation Escalation of care including admission/observation considered. I considered the following discharge prescriptions or medication management in the emergency department Medications were administered in the Emergency Department. See MAR. Independent interpretation of the following test(s) in the Emergency Department Radiology Department Ultrasound: My interpretation is vag probe. Test considered but Not performed: CT: no ct ab/pelvis. Historians other than the Patient: patient well informed. Care significantly affected by the following chronic conditions: none. Counseling: I had a detailed discussion with the patient and/or guardian regarding the historical points, exam findings, and any diagnostic results supporting the discharge/admit diagnosis, lab results, radiology results, the need for outpatient follow up, for definitive care, an OB/Gyne specialist. 09/20 18:26 Order name: CBC with Diff; Complete Time: 19:58 [facility] 09/20 19:59 Interpretation: Normal except: HGB 11.6; HCT 34.8. cp 09/20 18:26 Order name: Comprehensive Metabolic Panel; Complete Time: 19:58 [facility] 09/20 19:59 Interpretation: Normal except: CL 109; BUN 6; AST 14; ALB 3.3; GLOB 3.9; A/G 0.8. cp 09/20 18:26 Order name: Urinalysis w/ reflexes; Complete Time: 19:01 [facility] 09/20 19:59 Interpretation: Normal except: [facility] Extremely Turbid; UBLD 3+ (OVER); UPROT TRACE; cp UESTR 25; URBC 21-50; BYST Trace. 09/20 18:26 Order name: PREGU; Complete Time: 19:01 [facility] 09/20 18:26 Order name: Test, Serum; Complete Time: 19:58 [facility] 09/20 18:26 Order name: Quantitative Hcg; Complete Time: 19:58 [facility] 09/20 19:02 Order name: Urine Culture [facility] 09/20 18:26 Order name: US Transvaginal Study (Probe); Complete Time: 20:53 [facility] 09/20 20:53 Interpretation: Reviewed report. cp Administered Medications: 19:26 Drug: NS 0.9% IV 1000 ml IV at 1 bolus Per protocol; to be given as a bolus over 60 bm8 minutes Route: IV; Rate: 1 bolus; Site: left antecubital; :22 Follow up: Response: No adverse reaction; IV Status: Completed infusion; IV Intake: bm8 1000ml 19:26 Drug: Rocephin IV 1 grams IV at per protocol once; Given slow IV push per pharmacy bm8 instructions Route: IV; Rate: per protocol; Site: left antecubital; :22 Follow up: Response: No adverse reaction; IV Status: Completed infusion; IV Intake: [id number] Disposition Summary: 09/20/24 21:00 Discharge Ordered Notes: Location: Home cp Problem: new cp Symptoms: have improved cp Condition: Stable cp Diagnosis - Pelvic and perineal pain cp - Other ovarian cysts cp Followup: fred - With: Private Physician - When: 2 - 3 days - Reason: Recheck today's complaints, Continuance of care, Re-evaluation by your physician Followup: fred - With: Dasha Spencer MD - When: 2 - 3 days - Reason: Recheck today's complaints, Re-evaluation by your physician Discharge Instructions: - Discharge Summary Sheet fred - Dysuria fred - Pelvic Pain, Female fred - Urinary Tract Infection, Adult fred - Urinary Tract Infection, Adult, [id number] fred - Ovarian Cyst cp Forms: - Medication Reconciliation Form cp - Antibiotic Education cp - Prescription Opioid Use cp - Patient Portal Instructions cp - Leadership Thank You Letter cp Signatures: Dispatcher [employer] Alexandre Urbina MD MD cha Williams, Irene, RN RN Alexandre Choudhury PA PA cp Rolando Rothman, RN RN bm8 Corrections: (The following items were deleted from the chart) 19:02 19:02 Urine Culture+[id number].LAB.BRZ ordered. [facility] 21:00 21:00 UTI/ Urinary tract infection, site not specified cp cp
--- NOTE | 2024-09-20 21:00 | ER ---
Nurse's Notes [facility] Name: Angela Dong Age: 19 yrs Sex: Female : 2005 Arrival Date: 09/20/2024 Time: 18:10 Bed 6 Private MD: Diagnosis: Pelvic and perineal pain;Other ovarian cysts Presentation: 09/20 18:19 Chief complaint: Patient states: last week my stomach has been cramping , I started iw spotting , we have been trying to get , my home UPT has been negative , I started having increased bleeding today and I had my normal period already this month. Coronavirus screen: At this time, the client does not indicate any symptoms associated with coronavirus-19. Ebola Screen: No symptoms or risks identified at this time. Initial Sepsis Screen: Does the patient meet any 2 criteria? No. Patient's initial sepsis screen is negative. Does the patient have a suspected source of infection? No. Patient's initial sepsis screen is negative. Risk Assessment: Do you want to hurt yourself or someone else? Patient reports no desire to harm self or others. Onset of symptoms was September 13, 2024. 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 - Infectious Disease History:: Denies. - Social history:: Smoking status: Reported history of juuling and/or vaping. - Family history:: not pertinent. Screenin:44 [facility] ED Fall Risk Assessment (Adult) History of falling in the last 3 months, ph including since admission No falls in past 3 months (0 pts) Confusion or Disorientation No (0 pts) Intoxicated or Sedated No (0 pts) Impaired Gait No (0 pts) Mobility Assist Device Used No (0 pt) Altered Elimination No (0 pt) Score/Fall Risk Level 0 - 2 = Low Risk Oriented to surroundings, Maintained a safe environment, Hourly rounding (assess needs \T\ fall precautionary measures) done. Abuse screen: Denies threats or abuse. Denies injuries from another. Nutritional screening: No deficits noted. Tuberculosis screening: No symptoms or risk factors identified. Assessment: 18:43 General: Appears in no apparent distress. comfortable, slender, well groomed, Behavior ph is calm, cooperative, appropriate for age. Pain: Complains of pain in suprapubic area. Neuro: Level of Consciousness is awake, alert, obeys commands, Oriented to person, place, time, situation. Cardiovascular: Capillary refill < 3 seconds in bilateral fingers Patient's skin is warm and dry. Respiratory: Airway is patent Respiratory effort is even, unlabored. : Reports cramping, vaginal bleeding that is light flow, spotty. Derm: Skin is pink, warm \T\ dry. 19:15 Reassessment: Patient appears in no apparent distress at this time. Patient and/or bm8 family updated on plan of care and expected duration. Pain level reassessed. Patient is alert, oriented x 3, equal unlabored respirations, skin warm/dry/pink. General: Appears in no apparent distress. comfortable, Behavior is calm, cooperative, appropriate for age. Pain: Complains of pain in suprapubic area, right inguinal area and left inguinal area Pain currently is 2 out of 10 on a pain scale. Neuro: No deficits noted. Level of Consciousness is awake, alert, obeys commands, Oriented to person, place, time, situation, Appropriate for age. Cardiovascular: Denies chest pain, Capillary refill < 3 seconds in bilateral fingers Patient's skin is warm and dry. Respiratory: Airway is patent Trachea midline Respiratory effort is even, unlabored, Respiratory pattern is regular, symmetrical, Breath sounds are clear. GI: No signs and/or symptoms were reported involving the gastrointestinal system. : Reports cramping, urinary frequency, vaginal bleeding that is light flow, spotty. EENT: No signs and/or symptoms were reported regarding the EENT system. Derm: No signs and/or symptoms reported regarding the dermatologic system. Musculoskeletal: No signs and/or symptoms reported regarding the musculoskeletal system. 21:21 Reassessment: Patient appears in no apparent distress at this time. Patient and/or bm8 family updated on plan of care and expected duration. Pain level reassessed. Patient is alert, oriented x 3, equal unlabored respirations, skin warm/dry/pink. Patient denies pain at this time. Patient states feeling better. Patient states symptoms have improved. Vital Signs: 18:19 BP 125 / 76; Pulse 94; Resp 16; Temp 97.6; Pulse Ox 100% ; Weight 65.77 kg; Height 5 iw ft. 7 in. ; Pain 2/10; 19:15 BP 124 / 86; Pulse 92; Resp 18; Temp 97.6; Pulse Ox 100% ; Pain 2/10; bm8 21:21 BP 116 / 74; Pulse 82; Resp 17; Temp 97.6; Pulse Ox 97% ; Pain 0/10; bm8 18:19 Body Mass Index 22.71 (65.77 kg, 170.18 cm) iw 18:19 Pain Scale: Adult iw 19:15 Pain Scale: Adult bm8 21:21 Pain Scale: Adult bm8 [place] Coma Score: 19:15 Eye Response: spontaneous(4). Motor Response: obeys commands(6). Verbal Response: bm8 oriented(5). Total: 15. 21:21 Eye Response: spontaneous(4). Motor Response: obeys commands(6). Verbal Response: bm8 oriented(5). Total: 15. ED Course: 18:16 Patient arrived in ED. ra3 18:22 Triage completed. iw 18:23 Arm band placed on. iw 18:25 Alexandre Duque MD is Attending Physician. fred 18:33 Gwen Tomlinson RN is Primary Nurse. ph 18:43 Urinalysis w/ reflexes Sent. ph 18:43 PREGU Sent. ph 19:15 Patient has correct armband on for positive identification. Client placed on continuous bm8 cardiac and pulse oximetry monitoring. NIBP monitoring applied. Pulse ox on. NIBP on. Door closed. Noise minimized. Warm blanket given. Pillow given. Verbal reassurance given. Head of bed elevated. 19:15 No provider procedures requiring assistance completed. bm8 19:26 Initial lab(s) drawn, by me, sent to lab. Urine collected: clean catch specimen, bm8 cloudy. Inserted saline lock: 20 gauge in left antecubital area, using aseptic technique. Blood collected. Flushed with 10 mL NS. Patient maintains SpO2 saturation greater than 95% on room air. 19:42 US Transvaginal Study (Probe) In Process Unspecified. EDMS 21:00 Dasha Spencer MD is Referral Physician. cp 21:21 Provided Education on: post er care. bm8 21:21 IV discontinued, intact, bleeding controlled, No redness/swelling at site. Pressure bm8 dressing applied. Administered Medications: 19:26 Drug: NS 0.9% IV 1000 ml IV at 1 bolus Per protocol; to be given as a bolus over 60 bm8 minutes Route: IV; Rate: 1 bolus; Site: left antecubital; 21:22 Follow up: Response: No adverse reaction; IV Status: Completed infusion; IV Intake: bm8 1000ml 19:26 Drug: Rocephin IV 1 grams IV at per protocol once; Given slow IV push per pharmacy bm8 instructions Route: IV; Rate: per protocol; Site: left antecubital; 21:22 Follow up: Response: No adverse reaction; IV Status: Completed infusion; IV Intake: [id number] Medication: 19:15 VIS not applicable for this client. bm8 Intake: 21:22 IV: 10ml; Total: 10ml. bm8 21:22 IV: 1000ml; Total: 1010ml. bm8 Outcome: 21:00 Discharge ordered by . cp 21:21 Discharged to home ambulatory, bm8 21:21 Condition: stable 21:21 Discharge instructions given to patient, family, Instructed on discharge instructions, follow up and referral plans. Demonstrated understanding of instructions, follow-up care, medications, 21:23 Patient left the ED. bm8 Signatures: Dispatcher [employer] EDNH Alexandre Duque MD MD cha Williams, Irene, RN RN iw Gwen Tomlinson RN RN Alexandre Dey, PA PA Mary Alice Murphy ra3 Rolando Rothman, RN RN bm8 Corrections: (The following items were deleted from the chart) 18:23 18:19 BP 125 / 76; Pulse 94bpm; Resp 16bpm; Pulse Ox 100%; Temp 97.6F; Pain 2/10, iw Adult; iw
[2024-09-20 21:28] VITALS: TEMP 97.6
[2024-09-20 21:32] VITALS: BP 116/74; O2SAT 97
== END 2024-09-20 21:23 | disposition home or self-care (01) ==
LOC: ER 18:10
DX: N83.299 Other ovarian cyst, unspecified side (principal)
CPT/HCPCS: 36415; 76830; 80053; 81001; 81025; 84702; 84703; 85025; 87086; 87088; 96365; 96366; 99284; J0696; J7030

== ENCOUNTER 2024-09-30 10:40 | Emergency (ER) | payer SELFPAY ==
--- OUTSIDE RECORDS SUMMARY | 2024-09-30 10:49 | XMS REPORT | Continuity of Care Document ---
Author Name Unknown Address [address] [facility] [address] [place] [address] [facility] Address [address] [facility] [address] [place] [address] Care Team Providers Care Hall Cleaner Name Role Phone Olu Maldonado Primary Care Physicia n CAROLINE BOWER Attending Clinician CAROLINE Mccain Attending Clinician OLU Russell Attending Clinician Unavail able Olu Maldonado Attending Clinician + , [facility] Room Attending Clinician Jaiden Ngo MD Attending Clinician JAIDEN PETERSEN Attending Clinician Unavailable JAIDEN PETERSEN Attending Clinician Unavailable [facility], [facility] Attending Clinician Unavailable PICKHARDT, ELAINE A Attending Clinician Unavaila jewel BRONSONM, Elaine A Attending Clinician [phone] Doctor Unassigned, [place] Attending Clinician U cynthia Pryor RN, Leidy Attending Clinician UnavailSHREE Castro Attending Clinician Unavailable Marcos Quinn MD, Geeta Attending Clinician + GEETA CORONA Attending Clinician Unav foster Valiente MD, Yony Attending Clinician [phone] Stephanie ROSA, Silvio Yates Attending Clinician + [phone] SAIDA RAND Attending Clinician Unavailable Keyona ROSA, Saida Diallo Attending Clinician [phone] Ultrasound, [facility] Attending Clinician Unavaila jewel PATIÑO_SWHAOMC_Black_D Attending Clinician Unavailab Alexandre Cancino DO Attending Clinician [phone] Ezequiel Valentino Attending Clinician + [phone] EZEQUIEL MCWILLIAMS Attending Clinician Unavailab dian Provider, [facility] Temp Attending Clinician Sofia vailable JAGDEEP VELASQUEZ Attending Clinician Unavailable Jagdeep Velasquez PA-C Attending Clinician [phone] EbTyler Presley Attending Clinician [phone] Elke Storey Attending Clinician [phone] ELKE BERGMAN Attending Clinician Unavailable 2, [facility] Attending Clinician Unavailable Braeden Hussein Attending Clinician Unavailabl maddi Lab, [facility] I Attending Clinician Unavailab Shere Maciel PA-C Attending Clinician [phone] [facility] Attending Clinician Un available BENJAMNI BLOCK Attending Clinician Unavailable Anene MANAGER GOVERNMENT, Benjamin Attending Clinician [phone] CAROLINE BOWER Admitting Clinician Zulay Quinn MD, Geeta Admitting Clinician + GEETA CORONA Admitting Clinician Unav ailSAIDA Stephenson Admitting Clinician Unavailable Keyona ROSA, Saida Diallo Admitting Clinician [phone] [email or web address] Admitting Clinician Unavailab le Payers Payer Name Policy Type Policy Number Effective Date Expirati on Date Source [facility] [id number] 2019 00:00:00 Problems Condition Name Condition Details Condition Category Status Onset Date Resolution Date Last Treatment Date Treating Clinician Comments Source Incomplete Incomplete Disease Active 03-23 00:00: 00 [facility] S/P D&C (status post dilation and curettage) S/P D&C (status post dilation and curettage) Disease Active 03-23 00:00: 00 [facility] Chlamydia infection during Chlamydia infection during Disease Active 01-30 00:00: 00 Overview: Formattin g of this note might be different from the original. neg drew [facility] Susceptibl e to varicella (non-immun e), currently Susceptibl e to varicella (non-immun e), currently Disease Active 01-29 00:00: 00 Overview: Formattin g of this note might be different from the original. Address pp [facility] Supervisio n of high-risk Supervisio n of high-risk Disease Active 4 00:00: 00 [facility] Multiparit y Multiparit y Disease Active 430 00:00: 00 [facility] Anemia of mother in , antepartum Anemia of mother in , antepartum Disease Active 2-21 00:00: 00 [facility] History of anxiety History of anxiety Disease Active 9-27 00:00: 00 [facility] No known active problems No known active problems Disease [facility] Overweight (BMI 25.0-29.9) Overweight (BMI 25.0-29.9) Disease Resolve d 7-13 00:00: 00 2024-01-29 00:00:00 2024-01-29 14:14:37 [facility] (spontaneo us vaginal delivery) (spontaneo us vaginal delivery) Disease Resolve d 6- 00:00: 00 2023-03-25 00:00:00 2023-03-25 15:02:56 [facility] Single live Single live Disease Resolve d 6- 00:00: 00 2023-03-25 00:00:00 2023-03-25 15:02:54 [facility] Obstetrica l laceration Obstetrica l laceration Disease Resolve d 6- 00:00: 00 2023-03-25 00:00:00 2023-03-25 15:02:38 [facility] Acute blood loss anemia Acute blood loss anemia Disease Resolve d 6- 00:00: 00 2023-03-25 00:00:00 2023-03-25 15:02:41 [facility] 39 weeks gestation of 39 weeks gestation of Disease Resolve d 5-31 00:00: 00 2023-03-25 00:00:00 2023-03-25 15:02:39 [facility] GBS (group B Streptococ cus carrier), +RV culture, currently GBS (group B Streptococ cus carrier), +RV culture, currently Disease Resolve d 5-31 00:00: 00 2023-03-25 00:00:00 2023-03-25 15:02:43 [facility] Obesity (BMI 30-39.9) Obesity (BMI 30-39.9) Disease Resolve d 5-22 00:00: 00 2023-03-25 00:00:00 2023-03-25 15:02:47 [facility] Anemia of mother in , antepartum Anemia of mother in , antepartum Disease Resolve d 2-21 00:00: 00 2023-03-25 00:00:00 2023-03-25 15:02:42 [facility] Scoliosis Scoliosis Disease Resolve d 2-21 00:00: 00 2023-03-25 00:00:00 2023-03-25 15:02:52 Overview: Formattin g of this note might be different from the original. Address Intrapart um [facility] Chlamydia infection affecting Chlamydia infection affecting Disease Resolve d 2021-10 2-20 00:00: 00 2023-03-25 00:00:00 2023-03-25 15:02:35 Overview: Formattin g of this note might be different from the original. Drew neg [facility] Supervisio n of high risk , antepartum Supervisio n of high risk , antepartum Disease Resolve d 9 00:00: 00 2023-03-25 00:00:00 2023-03-25 15:02:55 [facility] Primigravi da in first trimester Primigravi da in first trimester Disease Resolve d 9 00:00: 00 2023-03-25 00:00:00 2023-03-25 15:02:49 [facility] High risk teen in first trimester High risk teen in first trimester Disease Resolve d 9 00:00: 00 2022-08-22 00:00:00 2022-08-22 16:24:56 [facility] Allergies, Adverse Reactions, Alerts Allergy Name Allergy Type Status Severity Reaction(s) Onset Date Inactive Date Treating Clinician Comments Source No Known Allergie s DA Active U 01-18 00:00: 00 [facility] No Known Allergie s DA Active U 01-18 00:00: 00 [facility] NO KNOWN ALLERGIE S Drug Class Active [facility] Social History Social Habit Start Date Stop Date Quantity Comments Source ASSERTION 2023-12-30 00:00:00 [facility] Alcoholic beverage intake 2024-04-11 00:00:00 2024-04-11 00:00:00 Lifetime non-drinker (finding) [facility] Tobacco use and exposure 2024-03-23 00:00:00 2024-03-23 00:00:00 Smokeless tobacco non-user [facility] Tobacco Comment 2024-03-23 00:00:00 2024-03-23 00:00:00 Vaping-nicotine [facility] History of Social function 2024-01-29 00:00:00 2024-01-29 00:00:00 [facility] Alcohol intake 2024-01-29 00:00:00 2024-01-29 00:00:00 Lifetime non-drinker (finding) [facility] Exposure to SARS-CoV-2 (event) 2023-02-17 00:00:00 2023-02-27 12:24:[address] [facility] Sex assigned at 2004 00:00:00 2004 00:00:00 [facility] Smoking Status Start Date Stop Date Source Never smoked tobacco [facility] Medications Ordered Medication Name Filled Medication Name Start Date Stop Date Current Medication? Ordering Clinician Indication Dosage Frequency Signature (SIG) Comments Components Source dasha ronestryeimy ioL-iron (LOESTRIN FE 10/20) 1 mg-20 mcg (21)/75 mg (7) tablet 04-11 00:00: 00 Yes [id number] 1{tbl} Take 1 tablet by mouth in the morning. [facility] HYDROcodone -acetaminop hen (NORCO 5) 5-325 mg tablet 1 tablet 03-23 12:47: 17 03-23 23:07 :24 No 1{tbl} [facility] ibuprofen (IBU) tablet 800 mg 03-23 12:47: 17 03-23 23:07 :24 No 800mg [facility] lactated ringers IV infusion 1,000 mL 03-23 12:00: 00 03-23 23:07 :24 No 1000mL at 100 mL/hr, 1,000 mL, IV Infusion, CONTINUOUS , Starting on Sun03/23/24 at 0700, Until Sun03/23/24 at 1807, Routine, PACU [facility] silver nitrate applicator 03-23 11:19: 00 03-23 11:43 :59 No PRN, Starting on Sun03/23/24 at 0619, Until 03/23/24 at 0643, Routine, Intra-op [facility] sodium chloride 0.9 % irrigation solution 03-23 11:08: 00 03-23 11:43 :59 No PRN, Starting on 03/23/24 at 0608, Until 03/23/24 at 0643, Intra-op [facility] miSOPROStoL (CYTOTEC) tablet 800 mcg 03-23 10:30: 00 03-23 09:51 :00 No 800ug 800 mcg, Oral, ONCE, 1 dose, On 03/23/24 at 0530, Routine [facility] lactated ringers IV infusion 1,000 mL 03-23 09:00: 00 03-23 23:07 :24 No 1000mL at 125 mL/hr, 1,000 mL, IV Infusion, CONTINUOUS , Starting on Sun03/23/24 at 0400, Until Sun03/23/24 at 1807, Routine [facility] metroNIDAZO LE 500 mg tablet 03-23 00:00: 00 03-31 04:59 :00 No [id number] 500mg Take 1 tablet by mouth in the morning and 1 tablet in the evening. Do all this for 7 days. [facility] azithromyci n 500 mg tablet - 00:00: 00 01-31 04:59 :00 No [id number] 1000mg Take 2 tablets by mouth once now for 1 dose. [facility] metroNIDAZO LE 500 mg tablet 04-12 00:00: 00 04-20 04:59 :00 No [id number] 500mg Take 1 tablet by mouth in the morning and 1 tablet in the evening. Do all this for 7 days. [facility] Norethindro ne Acet-Ethiny l Est (ADDIE) 1.5-30 mg-mcg per tablet - 00:00: 00 01-28 00:00 :00 No [id number] 1{tbl} Take 1 tablet by mouth in the morning. [facility] [id number] fum-folic () 27 mg iron- 1 mg folic tablet 03-02 00:00: 00 Yes [id number] 1{tbl} Take 1 tablet by mouth in the morning. [facility] ferrous sulfate 325 mg (65 mg iron) tablet 03-02 00:00: 00 Yes [id number] 325mg Take 1 tablet by mouth in the morning. [facility] [id number] fum-folic () 27 mg iron- 1 mg folic tablet 03-02 00:00: 00 04-11 00:00 :00 No [id number] 1{tbl} Take 1 tablet by mouth in the morning. [facility] docusate 100 mg capsule 03-02 00:00: 00 04-11 00:00 :00 No [id number] 200mg Take 2 capsules by mouth once daily as needed for Constipati on. [facility] ibuprofen 600 mg tablet 03-02 00:00: 00 04-11 00:00 :00 No [id number] 600mg Take 1 tablet by mouth every 6 (six) hours as needed (Pain). Take with food or milk. [facility] varicella virus vaccine live (VARIVAX) injection and diluent vial 03-01 12:48: 14 Yes 1{each} 0.5 mL (1 Each), Subcutaneo us, ONCE-PRIOR TO DISCHARGE, 1 dose, Starting on Sun03/01/23 at 0748, Until Discontinu ed, Routine, Give vaccine prior to discharge [facility] rho(D) immune globulin (RHOGAM) syringe 300 mcg 03-01 06:35: 41 Yes 300ug 300 mcg, Intramuscu lar, ONCE, For 1 dose, Conditiona l, Routine [facility] ibuprofen (IBU) tablet 600 mg 03-01 06:35: 37 Yes 600mg 600 mg, Oral, Q6HPRN, Starting on Sun03/01/23 at 0135, Until Discontinu ed, Routine, Pain (scale 4-6), and pain 7-10 [facility] acetaminoph en (TYLENOL) tablet 650 mg 03-01 06:35: 37 Yes 650mg 650 mg, Oral, Q6HPRN, Starting on Sun03/01/23 at 0135, Until Discontinu ed, Routine, Pain (scale 1-3) [facility] diphenhydrA MINE (BENADRYL) tablet 25 mg 03-01 06:35: 37 Yes 25mg 25 mg, Oral, Q6HPRN, Starting on Sun03/01/23 at 0135, Until Discontinu ed, Routine, Sleep, Itching [facility] ondansetron (ZOFRAN (PF)) injection 4 mg 03-01 06:35: 37 Yes 4mg 4 mg, Slow IV Push, Q8HPRN, Starting on Sun03/01/23 at 0135, Until Discontinu ed, Routine, Nausea and Vomiting (N/V) [facility] simethicone (GAS RELIEF (SIMETHICON E)) chewable tablet 160 mg 03-01 06:35: 37 Yes 160mg 160 mg, Oral, PC+HSPRN, Starting on Sun03/01/23 at 013, Until Discontinu ed, Routine, Gas [facility] docusate (COLACE) capsule 200 mg 03-01 06:35: 37 Yes 200mg 200 mg, Oral, QDAILYPRN, Starting on Sun03/01/23 at 013, Until Discontinu ed, Routine, Constipati on [facility] magnesium hydroxide (MILK OF MAGNESIA) 400 mg/5 mL suspension 30 mL 03-01 06:35: 37 Yes 30mL 30 mL, Oral, QDAILYPRN, Starting on Sun03/01/23 at 0135, Until Discontinu ed, Routine, Constipati on [facility] benzocaine- menthol (DERMOPLAST ) 20-0.5 % topical spray 03-01 06:35: 37 Yes Topical, PRN, Starting on Sun03/01/23 at 0135, Until Discontinu ed, Routine, Perineum discomfort [facility] oxytocin (PITOCIN) 30 units in NS 500 mL IV infusion 02-28 22:29: 00 03-01 06:35 :39 No 2mU/min at 2-40 mL/hr, IV Infusion, TITRATE, Starting on Sun02/28/23 at 1729, Until Atiya 03/01/23 at 0135, JAMEL [facility] ropivacaine 0.2 % (NAROPIN (PF)) epidural infusion 02-28 17:40: 00 03-01 04:00 :18 No Epidural, CONTINUOUS PRN, Starting on Sun02/28/23 at 1240, Until Discontinu ed, Routine, Intra-op [facility] lidocaine-e pinephrine (XYLOCAINE W/EPINEPHRI NE) 2 %-1:200,000 injection 02-28 17:39: 00 03-01 04:00 :18 No Intravenou s, ONCE INTRA PROCEDURE, Starting on Sun02/28/23 at 1239, Until Discontinu ed, Routine, Intra-op [facility] lactated ringers IV infusion 500 mL 02-28 16:54: 54 02-28 17:19 :15 No 500mL at 999 mL/hr, 500 mL, IV Infusion, PRN - SEE INSTRUCTIO NS, 1 dose, Starting on Sun02/28/23 at 1154, Until Sun02/28/23 at 1219, Routine [facility] sodium citrate-cit lidya acid (BICITRA) 500-334 mg/5 mL solution 30 mL 02-28 16:54: 54 02-28 17:20 :00 No 30mL 30 mL, Oral, PRE-PROCED URE ONCE, 1 dose, Starting on Sun02/28/23 at 1154, Until Sun02/28/23 at 1220, Routine, Surgery/Pr ocedure [facility] lactated ringers IV infusion 500 mL 02-28 15:02: 38 03-01 06:35 :39 No 500mL at 999 mL/hr, 500 mL, IV Infusion, PRN - SEE INSTRUCTIO NS, Starting on Sun02/28/23 at 1002, Until Atiya 23 at 0135, Routine [facility] D5W-LR IV infusion 1,000 mL 02-28 15:02: 38 03-01 06:35 :39 No 1000mL at 1-125 mL/hr, IV Infusion, TITRATE, Starting on Sun02/28/23 at 1002, Until Atiya 03/01/23 at 0135, Routine [facility] metroNIDAZO LE (FLAGYL) tablet 500 mg 02-01 03:55: 00 02-01 04:00 :00 No 500mg 500 mg, Oral, ONCE NOW, 1 dose, On Sun01/31/23 at 2300, Routine
Reason for Anti-Infec tive: Documented Infection< br>Documen patti Infection Site: Pelvic
Duration of Therapy: 7 days [facility] metroNIDAZO LE (FLAGYL) 500 mg tablet 02-01 00:00: 00 03-02 00:00 :00 No [id number] 500mg Take 1 tablet by mouth every 12 (twelve) hours. [facility] ferrous sulfate 325 mg (65 mg iron) tablet 11-21 00:00: 00 03-02 00:00 :00 No [id number] 325mg Take 1 tablet by mouth in the morning and 1 tablet in the evening. [facility] ascorbic acid, vitamin C, 500 mg tablet 11-21 00:00: 00 03-02 00:00 :00 No [id number] 500mg Take 1 tablet by mouth in the morning and 1 tablet at noon and 1 tablet in the evening. [facility] azithromyci n 500 mg tablet 06-29 00:00: 00 07-01 04:59 :00 No [id number] 1000mg Take 2 tablets by mouth in the morning for 1 day. [facility] vit 33-iron-fol ic-dha (SELECT-OB + DHA) 29 mg iron-1 mg -250 mg combo pack 06-27 00:00: 00 03-02 00:00 :00 No [id number] 1{packe t} Take 1 Packet by mouth in the morning. [facility] fluconazole (DIFLUCAN) 150 mg tablet 2020-10 00:00: 00 06-29 00:00 :00 No [id number] Take one pill now and may repeat in 3 days if needed [facility] Norethindro ne Acet-Ethiny l Est (ADDIE) 1.5-30 mg-mcg per tablet 04-12 00:00: 00 Yes [id number] 1{tbl} Take 1 tablet by mouth daily. [facility] VYVANSE 40 mg capsule 04-08 00:00: 00 04-11 00:00 :00 No [facility] DENTA 5000 PLUS 1.1 % Crea 03-22 00:00: 00 03-02 00:00 :00 No BRUSH WITH A PEA SIZED AMOUNT [facility] Immunizations Ordered Immunization Name Filled Immunization Name Date Status Comments Source TDAP 2022-12-11 00:00:[address] [facility] TDAP 2022-12-11 00:00:[address] [facility] TDAP 2022-12-11 00:00:[address] [facility] TDAP 2022-12-11 00:00:[address] [facility] TDAP 2022-12-11 00:00:[address] [facility] TDAP 2022-12-11 00:00:[address] [facility] TDAP 2022-12-11 00:00:[address] [facility] TDAP 2022-12-11 00:00:[address] [facility] TDAP 2022-12-11 00:00:[address] [facility] TDAP 2022-12-11 00:00:[address] [facility] TDAP 2022-12-11 00:00:[address] [facility] TDAP 2022-12-11 00:00:[address] [facility] TDAP 2022-12-11 00:00:[address] [facility] TDAP 2022-12-11 00:00:[address] [facility] TDAP 2022-12-11 00:00:00 Completed [facility] TDAP 2022-12-11 00:00:00 Completed [facility] TDAP 2022-12-11 00:00:00 Completed [facility] TDAP 2022-12-11 00:00:[address] [facility] TDAP 2022-12-11 00:00:[address] [facility] TDAP 2022-12-11 00:00:[address] [facility] TDAP 2022-12-11 00:00:[address] [facility] TDAP 2022-12-11 00:00:[address] [facility] TDAP 2022-12-11 00:00:[address] [facility] TDAP 2022-12-11 00:00:[address] [facility] TDAP 2022-12-11 00:00:[address] [facility] HPV9 2018-08-29 00:00:00 Completed [facility] HPV9 2018-08-29 00:00:00 Completed [facility] HPV9 2018-08-29 00:00:00 Completed [facility] HPV9 2018-08-29 00:00:00 Completed [facility] HPV9 2018-08-29 00:00:00 Completed [facility] HPV9 2018-08-29 00:00:00 Completed [facility] HPV9 2018-08-29 00:00:00 Completed [facility] HPV9 2018-08-29 00:00:00 Completed [facility] HPV9 2018-08-29 00:00:00 Completed [facility] HPV9 2018-08-29 00:00:00 Completed [facility] HPV9 2018-08-29 00:00:00 Completed [facility] HPV9 2018-08-29 00:00:00 Completed [facility] HPV9 2018-08-29 00:00:00 Completed [facility] HPV9 2018-08-29 00:00:00 Completed [facility] HPV9 2018-08-29 00:00:00 Completed [facility] HPV9 2018-08-29 00:00:00 Completed [facility] HPV9 2018-08-29 00:00:00 Completed [facility] HPV9 2018-08-29 00:00:00 Completed [facility] HPV9 2018-08-29 00:00:00 Completed [facility] HPV9 2018-08-29 00:00:00 Completed [facility] HPV9 2018-08-29 00:00:00 Completed [facility] HPV9 2018-08-29 00:00:00 Completed [facility] HPV9 2018-08-29 00:00:00 Completed [facility] HPV9 2018-08-29 00:00:00 Completed [facility] HPV9 2018-08-29 00:00:[address] [facility] HPV9 2018-08-29 00:00:[address] [facility] HPV9 2017-01-02 00:00:[address] [facility] HPV9 2017-01-02 00:00:[address] [facility] HPV9 2017-01-02 00:00:00 Completed [facility] HPV9 2017-01-02 00:00:00 Completed [facility] HPV9 2017-01-02 00:00:00 Completed [facility] HPV9 2017-01-02 00:00:00 Completed [facility] HPV9 2017-01-02 00:00:00 Completed [facility] HPV9 2017-01-02 00:00:00 Completed [facility] HPV9 2017-01-02 00:00:00 Completed [facility] HPV9 2017-01-02 00:00:00 Completed [facility] HPV9 2017-01-02 00:00:00 Completed [facility] HPV9 2017-01-02 00:00:00 Completed [facility] HPV9 2017-01-02 00:00:00 Completed [facility] HPV9 2017-01-02 00:00:00 Completed [facility] HPV9 2017-01-02 00:00:00 Completed [facility] HPV9 2017-01-02 00:00:00 Completed [facility] HPV9 2017-01-02 00:00:00 Completed [facility] HPV9 2017-01-02 00:00:[address] [facility] HPV9 2017-01-02 00:00:[address] [facility] HPV9 2017-01-02 00:00:[address] [facility] HPV9 2017-01-02 00:00:[address] [facility] HPV9 2017-01-02 00:00:[address] [facility] HPV9 2017-01-02 00:00:[address] [facility] HPV9 2017-01-02 00:00:[address] [facility] HPV9 2017-01-02 00:00:[address] [facility] HPV9 2017-01-02 00:00:[address] [facility] TDAP 2016-05-18 00:00:[address] [facility] TDAP 2016-05-18 00:00:[address] [facility] TDAP 2016-05-18 00:00:[address] [facility] TDAP 2016-05-18 00:00:[address] [facility] TDAP 2016-05-18 00:00:[address] [facility] TDAP 2016-05-18 00:00:[address] [facility] TDAP 2016-05-18 00:00:[address] [facility] TDAP 2016-05-18 00:00:[address] [facility] TDAP 2016-05-18 00:00:[address] [facility] TDAP 2016-05-18 00:00:[address] [facility] TDAP 2016-05-18 00:00:[address] [facility] TDAP 2016-05-18 00:00:[address] [facility] TDAP 2016-05-18 00:00:[address] [facility] TDAP 2016-05-18 00:00:[address] [facility] TDAP 2016-05-18 00:00:[address] [facility] TDAP 2016-05-18 00:00:[address] [facility] TDAP 2016-05-18 00:00:[address] [facility] TDAP 2016-05-18 00:00:[address] [facility] TDAP 2016-05-18 00:00:[address] [facility] TDAP 2016-05-18 00:00:[address] [facility] TDAP 2016-05-18 00:00:[address] [facility] TDAP 2016-05-18 00:00:[address] [facility] TDAP 2016-05-18 00:00:[address] [facility] TDAP 2016-05-18 00:00:[address] [facility] TDAP 2016-05-18 00:00:[address] [facility] TDAP 2016-05-18 00:00:[address] [facility] Meningococcal Polysaccharide (groups A, C, Y and W-135) conjugate vaccine (MCV4P) 2016-05-12 00:00:[address] [facility] HPV 2016-05-12 00:00:[address] [facility] Meningococcal Polysaccharide (groups A, C, Y and W-135) conjugate vaccine (MCV4P) 2016-05-12 00:00:[address] [facility] HPV 2016-05-12 00:00:[address] [facility] Meningococcal Polysaccharide (groups A, C, Y and W-135) conjugate vaccine (MCV4P) 2016-05-12 00:00:[address] [facility] HPV 2016-05-12 00:00:[address] [facility] Meningococcal Polysaccharide (groups A, C, Y and W-135) conjugate vaccine (MCV4P) 2016-05-12 00:00:[address] [facility] HPV 2016-05-12 00:00:[address] [facility] Meningococcal Polysaccharide (groups A, C, Y and W-135) conjugate vaccine (MCV4P) 2016-05-12 00:00:[address] [facility] HPV 2016-05-12 00:00:[address] [facility] Meningococcal Polysaccharide (groups A, C, Y and W-135) conjugate vaccine (MCV4P) 2016-05-12 00:00:[address] [facility] HPV 2016-05-12 00:00:[address] [facility] Meningococcal Polysaccharide (groups A, C, Y and W-135) conjugate vaccine (MCV4P) 2016-05-12 00:00:[address] [facility] HPV 2016-05-12 00:00:[address] [facility] Meningococcal Polysaccharide (groups A, C, Y and W-135) conjugate vaccine (MCV4P) 2016-05-12 00:00:[address] [facility] HPV 2016-05-12 00:00:[address] [facility] Meningococcal Polysaccharide (groups A, C, Y and W-135) conjugate vaccine (MCV4P) 2016-05-12 00:00:[address] [facility] HPV 2016-05-12 00:00:[address] [facility] Meningococcal Polysaccharide (groups A, C, Y and W-135) conjugate vaccine (MCV4P) 2016-05-12 00:00:[address] [facility] HPV 2016-05-12 00:00:[address] [facility] Meningococcal Polysaccharide (groups A, C, Y and W-135) conjugate vaccine (MCV4P) 2016-05-12 00:00:[address] [facility] HPV 2016-05-12 00:00:[address] [facility] Meningococcal Polysaccharide (groups A, C, Y and W-135) conjugate vaccine (MCV4P) 2016-05-12 00:00:[address] [facility] HPV 2016-05-12 00:00:[address] [facility] Meningococcal Polysaccharide (groups A, C, Y and W-135) conjugate vaccine (MCV4P) 2016-05-12 00:00:[address] [facility] HPV 2016-05-12 00:00:[address] [facility] Meningococcal Polysaccharide (groups A, C, Y and W-135) conjugate vaccine (MCV4P) 2016-05-12 00:00:[address] [facility] HPV 2016-05-12 00:00:[address] [facility] Meningococcal Polysaccharide (groups A, C, Y and W-135) conjugate vaccine (MCV4P) 2016-05-12 00:00:[address] [facility] HPV 2016-05-12 00:00:[address] [facility] Meningococcal Polysaccharide (groups A, C, Y and W-135) conjugate vaccine (MCV4P) 2016-05-12 00:00:[address] [facility] HPV 2016-05-12 00:00:[address] [facility] Meningococcal Polysaccharide (groups A, C, Y and W-135) conjugate vaccine (MCV4P) 2016-05-12 00:00:[address] [facility] HPV 2016-05-12 00:00:[address] [facility] Meningococcal Polysaccharide (groups A, C, Y and W-135) conjugate vaccine (MCV4P) 2016-05-12 00:00:[address] [facility] HPV 2016-05-12 00:00:[address] [facility] Meningococcal Polysaccharide (groups A, C, Y and W-135) conjugate vaccine (MCV4P) 2016-05-12 00:00:[address] [facility] HPV 2016-05-12 00:00:[address] [facility] Meningococcal Polysaccharide (groups A, C, Y and W-135) conjugate vaccine (MCV4P) 2016-05-12 00:00:[address] [facility] HPV 2016-05-12 00:00:[address] [facility] Meningococcal Polysaccharide (groups A, C, Y and W-135) conjugate vaccine (MCV4P) 2016-05-12 00:00:[address] [facility] HPV 2016-05-12 00:00:[address] [facility] Meningococcal Polysaccharide (groups A, C, Y and W-135) conjugate vaccine (MCV4P) 2016-05-12 00:00:[address] [facility] HPV 2016-05-12 00:00:[address] [facility] Meningococcal Polysaccharide (groups A, C, Y and W-135) conjugate vaccine (MCV4P) 2016-05-12 00:00:[address] [facility] HPV 2016-05-12 00:00:[address] [facility] Meningococcal Polysaccharide (groups A, C, Y and W-135) conjugate vaccine (MCV4P) 2016-05-12 00:00:[address] [facility] HPV 2016-05-12 00:00:[address] [facility] Meningococcal Polysaccharide (groups A, C, Y and W-135) conjugate vaccine (MCV4P) 2016-05-12 00:00:[address] [facility] HPV 2016-05-12 00:00:[address] [facility] Meningococcal Polysaccharide (groups A, C, Y and W-135) conjugate vaccine (MCV4P) 2016-05-12 00:00:[address] [facility] HPV 2016-05-12 00:00:[address] [facility] IPV 2008-04-23 00:00:[address] [facility] Varicella (varivax)(chicken pox) 2008-04-23 00:00:[address] [facility] DTaP, Unspecified Formulation 2008-04-23 00:00:[address] [facility] MMR 2008-04-23 00:00:[address] [facility] DTaP, Unspecified Formulation 2008-04-23 00:00:[address] [facility] MMR 2008-04-23 00:00:[address] [facility] IPV 2008-04-23 00:00:[address] [facility] Varicella (varivax)(chicken pox) 2008-04-23 00:00:[address] [facility] DTaP, Unspecified Formulation 2008-04-23 00:00:[address] [facility] MMR 2008-04-23 00:00:[address] [facility] IPV 2008-04-23 00:00:[address] [facility] Varicella (varivax)(chicken pox) 2008-04-23 00:00:[address] [facility] DTaP, Unspecified Formulation 2008-04-23 00:00:[address] [facility] MMR 2008-04-23 00:00:[address] [facility] IPV 2008-04-23 00:00:[address] [facility] Varicella (varivax)(chicken pox) 2008-04-23 00:00:[address] [facility] DTaP, Unspecified Formulation 2008-04-23 00:00:[address] [facility] MMR 2008-04-23 00:00:[address] [facility] IPV 2008-04-23 00:00:[address] [facility] Varicella (varivax)(chicken pox) 2008-04-23 00:00:[address] [facility] DTaP, Unspecified Formulation 2008-04-23 00:00:[address] [facility] MMR 2008-04-23 00:00:[address] [facility] IPV 2008-04-23 00:00:[address] [facility] Varicella (varivax)(chicken pox) 2008-04-23 00:00:[address] [facility] DTaP, Unspecified Formulation 2008-04-23 00:00:[address] [facility] MMR 2008-04-23 00:00:[address] [facility] IPV 2008-04-23 00:00:[address] [facility] Varicella (varivax)(chicken pox) 2008-04-23 00:00:[address] [facility] DTaP, Unspecified Formulation 2008-04-23 00:00:[address] [facility] MMR 2008-04-23 00:00:[address] [facility] IPV 2008-04-23 00:00:[address] [facility] Varicella (varivax)(chicken pox) 2008-04-23 00:00:[address] [facility] DTaP, Unspecified Formulation 2008-04-23 00:00:[address] [facility] MMR 2008-04-23 00:00:[address] [facility] IPV 2008-04-23 00:00:[address] [facility] Varicella (varivax)(chicken pox) 2008-04-23 00:00:[address] [facility] DTaP, Unspecified Formulation 2008-04-23 00:00:[address] [facility] MMR 2008-04-23 00:00:[address] [facility] IPV 2008-04-23 00:00:[address] [facility] Varicella (varivax)(chicken pox) 2008-04-23 00:00:[address] [facility] DTaP, Unspecified Formulation 2008-04-23 00:00:[address] [facility] MMR 2008-04-23 00:00:[address] [facility] IPV 2008-04-23 00:00:[address] [facility] Varicella (varivax)(chicken pox) 2008-04-23 00:00:[address] [facility] DTaP, Unspecified Formulation 2008-04-23 00:00:[address] [facility] MMR 2008-04-23 00:00:[address] [facility] IPV 2008-04-23 00:00:[address] [facility] Varicella (varivax)(chicken pox) 2008-04-23 00:00:[address] [facility] DTaP, Unspecified Formulation 2008-04-23 00:00:[address] [facility] MMR 2008-04-23 00:00:[address] [facility] IPV 2008-04-23 00:00:[address] [facility] Varicella (varivax)(chicken pox) 2008-04-23 00:00:[address] [facility] DTaP, Unspecified Formulation 2008-04-23 00:00:[address] [facility] MMR 2008-04-23 00:00:[address] [facility] IPV 2008-04-23 00:00:[address] [facility] Varicella (varivax)(chicken pox) 2008-04-23 00:00:[address] [facility] DTaP, Unspecified Formulation 2008-04-23 00:00:[address] [facility] MMR 2008-04-23 00:00:[address] [facility] IPV 2008-04-23 00:00:[address] [facility] Varicella (varivax)(chicken pox) 2008-04-23 00:00:[address] [facility] DTaP, Unspecified Formulation 2008-04-23 00:00:[address] [facility] MMR 2008-04-23 00:00:[address] [facility] IPV 2008-04-23 00:00:[address] [facility] Varicella (varivax)(chicken pox) 2008-04-23 00:00:[address] [facility] DTaP, Unspecified Formulation 2008-04-23 00:00:[address] [facility] MMR 2008-04-23 00:00:[address] [facility] IPV 2008-04-23 00:00:[address] [facility] Varicella (varivax)(chicken pox) 2008-04-23 00:00:[address] [facility] DTaP, Unspecified Formulation 2008-04-23 00:00:[address] [facility] MMR 2008-04-23 00:00:[address] [facility] IPV 2008-04-23 00:00:[address] [facility] Varicella (varivax)(chicken pox) 2008-04-23 00:00:00 Completed [facility] DTaP, Unspecified Formulation 2008-04-23 00:00:[address] [facility] MMR 2008-04-23 00:00:[address] [facility] IPV 2008-04-23 00:00:[address] [facility] Varicella (varivax)(chicken pox) 2008-04-23 00:00:[address] [facility] DTaP, Unspecified Formulation 2008-04-23 00:00:[address] [facility] MMR 2008-04-23 00:00:[address] [facility] IPV 2008-04-23 00:00:[address] [facility] Varicella (varivax)(chicken pox) 2008-04-23 00:00:[address] [facility] DTaP, Unspecified Formulation 2008-04-23 00:00:[address] [facility] MMR 2008-04-23 00:00:[address] [facility] IPV 2008-04-23 00:00:[address] [facility] Varicella (varivax)(chicken pox) 2008-04-23 00:00:[address] [facility] DTaP, Unspecified Formulation 2008-04-23 00:00:[address] [facility] MMR 2008-04-23 00:00:[address] [facility] IPV 2008-04-23 00:00:[address] [facility] Varicella (varivax)(chicken pox) 2008-04-23 00:00:[address] [facility] DTaP, Unspecified Formulation 2008-04-23 00:00:[address] [facility] MMR 2008-04-23 00:00:[address] [facility] IPV 2008-04-23 00:00:[address] [facility] Varicella (varivax)(chicken pox) 2008-04-23 00:00:[address] [facility] DTaP, Unspecified Formulation 2008-04-23 00:00:[address] [facility] MMR 2008-04-23 00:00:[address] [facility] IPV 2008-04-23 00:00:[address] [facility] Varicella (varivax)(chicken pox) 2008-04-23 00:00:[address] [facility] DTaP, Unspecified Formulation 2008-04-23 00:00:[address] [facility] MMR 2008-04-23 00:00:[address] [facility] IPV 2008-04-23 00:00:[address] [facility] Varicella (varivax)(chicken pox) 2008-04-23 00:00:[address] [facility] DTaP, Unspecified Formulation 2008-04-23 00:00:[address] [facility] MMR 2008-04-23 00:00:[address] [facility] IPV 2008-04-23 00:00:[address] [facility] Varicella (varivax)(chicken pox) 2008-04-23 00:00:[address] [facility] HEPATITIS A 2007-04-16 00:00:[address] [facility] HEPATITIS A 2007-04-16 00:00:[address] [facility] HEPATITIS A 2007-04-16 00:00:[address] [facility] HEPATITIS A 2007-04-16 00:00:[address] [facility] HEPATITIS A 2007-04-16 00:00:[address] [facility] HEPATITIS A 2007-04-16 00:00:[address] [facility] HEPATITIS A 2007-04-16 00:00:[address] [facility] HEPATITIS A 2007-04-16 00:00:[address] [facility] HEPATITIS A 2007-04-16 00:00:[address] [facility] HEPATITIS A 2007-04-16 00:00:[address] [facility] HEPATITIS A 2007-04-16 00:00:[address] [facility] HEPATITIS A 2007-04-16 00:00:[address] [facility] HEPATITIS A 2007-04-16 00:00:[address] [facility] HEPATITIS A 2007-04-16 00:00:[address] [facility] HEPATITIS A 2007-04-16 00:00:[address] [facility] HEPATITIS A 2007-04-16 00:00:[address] [facility] HEPATITIS A 2007-04-16 00:00:[address] [facility] HEPATITIS A 2007-04-16 00:00:[address] [facility] HEPATITIS A 2007-04-16 00:00:[address] [facility] HEPATITIS A 2007-04-16 00:00:[address] [facility] HEPATITIS A 2007-04-16 00:00:[address] [facility] HEPATITIS A 2007-04-16 00:00:[address] [facility] HEPATITIS A 2007-04-16 00:00:[address] [facility] HEPATITIS A 2007-04-16 00:00:[address] [facility] HEPATITIS A 2007-04-16 00:00:[address] [facility] HEPATITIS A 2007-04-16 00:00:[address] [facility] Pneumococcal 7 Conjugate, PCV7 (Prevnar7) 2006-11-01 00:00:[address] [facility] DTaP, Unspecified Formulation 2006-11-01 00:00:[address] [facility] HIB 4 Dose Schedule 2006-11-01 00:00:[address] [facility] MMR 2006-11-01 00:00:[address] [facility] DTaP, Unspecified Formulation 2006-11-01 00:00:[address] [facility] HIB 4 Dose Schedule 2006-11-01 00:00:[address] [facility] MMR 2006-11-01 00:00:[address] [facility] Pneumococcal 7 Conjugate, PCV7 (Prevnar7) 2006-11-01 00:00:[address] [facility] DTaP, Unspecified Formulation 2006-11-01 00:00:[address] [facility] HIB 4 Dose Schedule 2006-11-01 00:00:[address] [facility] MMR 2006-11-01 00:00:[address] [facility] Pneumococcal 7 Conjugate, PCV7 (Prevnar7) 2006-11-01 00:00:[address] [facility] DTaP, Unspecified Formulation 2006-11-01 00:00:[address] [facility] HIB 4 Dose Schedule 2006-11-01 00:00:[address] [facility] MMR 2006-11-01 00:00:[address] [facility] Pneumococcal 7 Conjugate, PCV7 (Prevnar7) 2006-11-01 00:00:[address] [facility] DTaP, Unspecified Formulation 2006-11-01 00:00:[address] [facility] HIB 4 Dose Schedule 2006-11-01 00:00:[address] [facility] MMR 2006-11-01 00:00:[address] [facility] Pneumococcal 7 Conjugate, PCV7 (Prevnar7) 2006-11-01 00:00:[address] [facility] DTaP, Unspecified Formulation 2006-11-01 00:00:[address] [facility] HIB 4 Dose Schedule 2006-11-01 00:00:[address] [facility] MMR 2006-11-01 00:00:[address] [facility] Pneumococcal 7 Conjugate, PCV7 (Prevnar7) 2006-11-01 00:00:[address] [facility] DTaP, Unspecified Formulation 2006-11-01 00:00:[address] [facility] HIB 4 Dose Schedule 2006-11-01 00:00:[address] [facility] MMR 2006-11-01 00:00:[address] [facility] Pneumococcal 7 Conjugate, PCV7 (Prevnar7) 2006-11-01 00:00:[address] [facility] DTaP, Unspecified Formulation 2006-11-01 00:00:[address] [facility] HIB 4 Dose Schedule 2006-11-01 00:00:[address] [facility] MMR 2006-11-01 00:00:[address] [facility] Pneumococcal 7 Conjugate, PCV7 (Prevnar7) 2006-11-01 00:00:[address] [facility] DTaP, Unspecified Formulation 2006-11-01 00:00:[address] [facility] HIB 4 Dose Schedule 2006-11-01 00:00:[address] [facility] MMR 2006-11-01 00:00:[address] [facility] Pneumococcal 7 Conjugate, PCV7 (Prevnar7) 2006-11-01 00:00:[address] [facility] DTaP, Unspecified Formulation 2006-11-01 00:00:[address] [facility] HIB 4 Dose Schedule 2006-11-01 00:00:[address] [facility] MMR 2006-11-01 00:00:[address] [facility] Pneumococcal 7 Conjugate, PCV7 (Prevnar7) 2006-11-01 00:00:[address] [facility] DTaP, Unspecified Formulation 2006-11-01 00:00:[address] [facility] HIB 4 Dose Schedule 2006-11-01 00:00:[address] [facility] MMR 2006-11-01 00:00:[address] [facility] Pneumococcal 7 Conjugate, PCV7 (Prevnar7) 2006-11-01 00:00:[address] [facility] DTaP, Unspecified Formulation 2006-11-01 00:00:[address] [facility] HIB 4 Dose Schedule 2006-11-01 00:00:[address] [facility] MMR 2006-11-01 00:00:[address] [facility] Pneumococcal 7 Conjugate, PCV7 (Prevnar7) 2006-11-01 00:00:[address] [facility] DTaP, Unspecified Formulation 2006-11-01 00:00:[address] [facility] HIB 4 Dose Schedule 2006-11-01 00:00:[address] [facility] MMR 2006-11-01 00:00:[address] [facility] Pneumococcal 7 Conjugate, PCV7 (Prevnar7) 2006-11-01 00:00:[address] [facility] DTaP, Unspecified Formulation 2006-11-01 00:00:[address] [facility] HIB 4 Dose Schedule 2006-11-01 00:00:[address] [facility] MMR 2006-11-01 00:00:[address] [facility] Pneumococcal 7 Conjugate, PCV7 (Prevnar7) 2006-11-01 00:00:[address] [facility] DTaP, Unspecified Formulation 2006-11-01 00:00:[address] [facility] HIB 4 Dose Schedule 2006-11-01 00:00:[address] [facility] MMR 2006-11-01 00:00:[address] [facility] Pneumococcal 7 Conjugate, PCV7 (Prevnar7) 2006-11-01 00:00:[address] [facility] DTaP, Unspecified Formulation 2006-11-01 00:00:[address] [facility] HIB 4 Dose Schedule 2006-11-01 00:00:[address] [facility] MMR 2006-11-01 00:00:[address] [facility] Pneumococcal 7 Conjugate, PCV7 (Prevnar7) 2006-11-01 00:00:00 Completed [facility] DTaP, Unspecified Formulation 2006-11-01 00:00:[address] [facility] HIB 4 Dose Schedule 2006-11-01 00:00:[address] [facility] MMR 2006-11-01 00:00:[address] [facility] Pneumococcal 7 Conjugate, PCV7 (Prevnar7) 2006-11-01 00:00:[address] [facility] DTaP, Unspecified Formulation 2006-11-01 00:00:[address] [facility] HIB 4 Dose Schedule 2006-11-01 00:00:[address] [facility] MMR 2006-11-01 00:00:[address] [facility] Pneumococcal 7 Conjugate, PCV7 (Prevnar7) 2006-11-01 00:00:[address] [facility] DTaP, Unspecified Formulation 2006-11-01 00:00:[address] [facility] HIB 4 Dose Schedule 2006-11-01 00:00:[address] [facility] MMR 2006-11-01 00:00:[address] [facility] Pneumococcal 7 Conjugate, PCV7 (Prevnar7) 2006-11-01 00:00:[address] [facility] DTaP, Unspecified Formulation 2006-11-01 00:00:[address] [facility] HIB 4 Dose Schedule 2006-11-01 00:00:[address] [facility] MMR 2006-11-01 00:00:[address] [facility] Pneumococcal 7 Conjugate, PCV7 (Prevnar7) 2006-11-01 00:00:[address] [facility] DTaP, Unspecified Formulation 2006-11-01 00:00:[address] [facility] HIB 4 Dose Schedule 2006-11-01 00:00:[address] [facility] MMR 2006-11-01 00:00:[address] [facility] Pneumococcal 7 Conjugate, PCV7 (Prevnar7) 2006-11-01 00:00:[address] [facility] DTaP, Unspecified Formulation 2006-11-01 00:00:[address] [facility] HIB 4 Dose Schedule 2006-11-01 00:00:[address] [facility] MMR 2006-11-01 00:00:[address] [facility] Pneumococcal 7 Conjugate, PCV7 (Prevnar7) 2006-11-01 00:00:[address] [facility] DTaP, Unspecified Formulation 2006-11-01 00:00:[address] [facility] HIB 4 Dose Schedule 2006-11-01 00:00:[address] [facility] MMR 2006-11-01 00:00:[address] [facility] Pneumococcal 7 Conjugate, PCV7 (Prevnar7) 2006-11-01 00:00:[address] [facility] DTaP, Unspecified Formulation 2006-11-01 00:00:[address] [facility] HIB 4 Dose Schedule 2006-11-01 00:00:[address] [facility] MMR 2006-11-01 00:00:[address] [facility] Pneumococcal 7 Conjugate, PCV7 (Prevnar7) 2006-11-01 00:00:[address] [facility] DTaP, Unspecified Formulation 2006-11-01 00:00:[address] [facility] HIB 4 Dose Schedule 2006-11-01 00:00:[address] [facility] MMR 2006-11-01 00:00:[address] [facility] Pneumococcal 7 Conjugate, PCV7 (Prevnar7) 2006-11-01 00:00:[address] [facility] DTaP, Unspecified Formulation 2006-11-01 00:00:[address] [facility] HIB 4 Dose Schedule 2006-11-01 00:00:[address] [facility] MMR 2006-11-01 00:00:[address] [facility] Pneumococcal 7 Conjugate, PCV7 (Prevnar7) 2006-11-01 00:00:[address] [facility] HEPATITIS A 2006-04-02 00:00:[address] [facility] HEPATITIS A 2006-04-02 00:00:[address] [facility] HEPATITIS A 2006-04-02 00:00:[address] [facility] HEPATITIS A 2006-04-02 00:00:[address] [facility] HEPATITIS A 2006-04-02 00:00:[address] [facility] HEPATITIS A 2006-04-02 00:00:[address] [facility] HEPATITIS A 2006-04-02 00:00:[address] [facility] HEPATITIS A 2006-04-02 00:00:[address] [facility] HEPATITIS A 2006-04-02 00:00:[address] [facility] HEPATITIS A 2006-04-02 00:00:[address] [facility] HEPATITIS A 2006-04-02 00:00:[address] [facility] HEPATITIS A 2006-04-02 00:00:[address] [facility] HEPATITIS A 2006-04-02 00:00:[address] [facility] HEPATITIS A 2006-04-02 00:00:[address] [facility] HEPATITIS A 2006-04-02 00:00:[address] [facility] HEPATITIS A 2006-04-02 00:00:[address] [facility] HEPATITIS A 2006-04-02 00:00:[address] [facility] HEPATITIS A 2006-04-02 00:00:[address] [facility] HEPATITIS A 2006-04-02 00:00:[address] [facility] HEPATITIS A 2006-04-02 00:00:[address] [facility] HEPATITIS A 2006-04-02 00:00:[address] [facility] HEPATITIS A 2006-04-02 00:00:[address] [facility] HEPATITIS A 2006-04-02 00:00:[address] [facility] HEPATITIS A 2006-04-02 00:00:[address] [facility] HEPATITIS A 2006-04-02 00:00:[address] [facility] HEPATITIS A 2006-04-02 00:00:[address] [facility] IPV 2005-04-04 00:00:[address] [facility] Varicella (varivax)(chicken pox) 2005-04-04 00:00:[address] [facility] IPV 2005-04-04 00:00:[address] [facility] Varicella (varivax)(chicken pox) 2005-04-04 00:00:[address] [facility] IPV 2005-04-04 00:00:[address] [facility] Varicella (varivax)(chicken pox) 2005-04-04 00:00:[address] [facility] IPV 2005-04-04 00:00:[address] [facility] Varicella (varivax)(chicken pox) 2005-04-04 00:00:[address] [facility] IPV 2005-04-04 00:00:[address] [facility] Varicella (varivax)(chicken pox) 2005-04-04 00:00:[address] [facility] IPV 2005-04-04 00:00:[address] [facility] Varicella (varivax)(chicken pox) 2005-04-04 00:00:[address] [facility] IPV 2005-04-04 00:00:[address] [facility] Varicella (varivax)(chicken pox) 2005-04-04 00:00:[address] [facility] IPV 2005-04-04 00:00:[address] [facility] Varicella (varivax)(chicken pox) 2005-04-04 00:00:[address] [facility] IPV 2005-04-04 00:00:[address] [facility] Varicella (varivax)(chicken pox) 2005-04-04 00:00:[address] [facility] IPV 2005-04-04 00:00:[address] [facility] Varicella (varivax)(chicken pox) 2005-04-04 00:00:[address] [facility] IPV 2005-04-04 00:00:[address] [facility] Varicella (varivax)(chicken pox) 2005-04-04 00:00:[address] [facility] IPV 2005-04-04 00:00:[address] [facility] Varicella (varivax)(chicken pox) 2005-04-04 00:00:[address] [facility] IPV 2005-04-04 00:00:[address] [facility] Varicella (varivax)(chicken pox) 2005-04-04 00:00:[address] [facility] IPV 2005-04-04 00:00:[address] [facility] Varicella (varivax)(chicken pox) 2005-04-04 00:00:[address] [facility] IPV 2005-04-04 00:00:[address] [facility] Varicella (varivax)(chicken pox) 2005-04-04 00:00:[address] [facility] IPV 2005-04-04 00:00:[address] [facility] Varicella (varivax)(chicken pox) 2005-04-04 00:00:[address] [facility] IPV 2005-04-04 00:00:[address] [facility] Varicella (varivax)(chicken pox) 2005-04-04 00:00:[address] [facility] IPV 2005-04-04 00:00:[address] [facility] Varicella (varivax)(chicken pox) 2005-04-04 00:00:[address] [facility] IPV 2005-04-04 00:00:[address] [facility] Varicella (varivax)(chicken pox) 2005-04-04 00:00:[address] [facility] IPV 2005-04-04 00:00:[address] [facility] Varicella (varivax)(chicken pox) 2005-04-04 00:00:[address] [facility] IPV 2005-04-04 00:00:[address] [facility] Varicella (varivax)(chicken pox) 2005-04-04 00:00:[address] [facility] IPV 2005-04-04 00:00:[address] [facility] Varicella (varivax)(chicken pox) 2005-04-04 00:00:[address] [facility] IPV 2005-04-04 00:00:[address] [facility] Varicella (varivax)(chicken pox) 2005-04-04 00:00:[address] [facility] IPV 2005-04-04 00:00:[address] [facility] Varicella (varivax)(chicken pox) 2005-04-04 00:00:[address] [facility] IPV 2005-04-04 00:00:[address] [facility] Varicella (varivax)(chicken pox) 2005-04-04 00:00:[address] [facility] IPV 2005-04-04 00:00:[address] [facility] Varicella (varivax)(chicken pox) 2005-04-04 00:00:[address] [facility] Pediarix (dtap/hep B/ipv) 2004 00:00:[address] [facility] HIB 4 Dose Schedule 2004 00:00:[address] [facility] Pediarix (dtap/hep B/ipv) 2004 00:00:[address] [facility] HIB 4 Dose Schedule 2004 00:00:[address] [facility] Pediarix (dtap/hep B/ipv) 2004 00:00:[address] [facility] HIB 4 Dose Schedule 2004 00:00:[address] [facility] Pediarix (dtap/hep B/ipv) 2004 00:00:[address] [facility] HIB 4 Dose Schedule 2004 00:00:[address] [facility] Pediarix (dtap/hep B/ipv) 2004 00:00:[address] [facility] HIB 4 Dose Schedule 2004 00:00:[address] [facility] Pediarix (dtap/hep B/ipv) 2004 00:00:[address] [facility] HIB 4 Dose Schedule 2004 00:00:[address] [facility] Pediarix (dtap/hep B/ipv) 2004 00:00:[address] [facility] HIB 4 Dose Schedule 2004 00:00:[address] [facility] Pediarix (dtap/hep B/ipv) 2004 00:00:[address] [facility] HIB 4 Dose Schedule 2004 00:00:[address] [facility] Pediarix (dtap/hep B/ipv) 2004 00:00:[address] [facility] HIB 4 Dose Schedule 2004 00:00:[address] [facility] Pediarix (dtap/hep B/ipv) 2004 00:00:[address] [facility] HIB 4 Dose Schedule 2004 00:00:[address] [facility] Pediarix (dtap/hep B/ipv) 2004 00:00:[address] [facility] HIB 4 Dose Schedule 2004 00:00:[address] [facility] Pediarix (dtap/hep B/ipv) 2004 00:00:[address] [facility] HIB 4 Dose Schedule 2004 00:00:[address] [facility] Pediarix (dtap/hep B/ipv) 2004 00:00:[address] [facility] HIB 4 Dose Schedule 2004 00:00:[address] [facility] Pediarix (dtap/hep B/ipv) 2004 00:00:[address] [facility] HIB 4 Dose Schedule 2004 00:00:[address] [facility] Pediarix (dtap/hep B/ipv) 2004 00:00:[address] [facility] HIB 4 Dose Schedule 2004 00:00:[address] [facility] Pediarix (dtap/hep B/ipv) 2004 00:00:[address] [facility] HIB 4 Dose Schedule 2004 00:00:[address] [facility] Pediarix (dtap/hep B/ipv) 2004 00:00:[address] [facility] HIB 4 Dose Schedule 2004 00:00:[address] [facility] Pediarix (dtap/hep B/ipv) 2004 00:00:[address] [facility] HIB 4 Dose Schedule 2004 00:00:[address] [facility] Pediarix (dtap/hep B/ipv) 2004 00:00:[address] [facility] HIB 4 Dose Schedule 2004 00:00:[address] [facility] Pediarix (dtap/hep B/ipv) 2004 00:00:[address] [facility] HIB 4 Dose Schedule 2004 00:00:[address] [facility] Pediarix (dtap/hep B/ipv) 2004 00:00:[address] [facility] HIB 4 Dose Schedule 2004 00:00:[address] [facility] Pediarix (dtap/hep B/ipv) 2004 00:00:[address] [facility] HIB 4 Dose Schedule 2004 00:00:[address] [facility] Pediarix (dtap/hep B/ipv) 2004 00:00:[address] [facility] HIB 4 Dose Schedule 2004 00:00:[address] [facility] Pediarix (dtap/hep B/ipv) 2004 00:00:[address] [facility] HIB 4 Dose Schedule 2004 00:00:[address] [facility] Pediarix (dtap/hep B/ipv) 2004 00:00:[address] [facility] HIB 4 Dose Schedule 2004 00:00:[address] [facility] Pediarix (dtap/hep B/ipv) 2004 00:00:[address] [facility] HIB 4 Dose Schedule 2004 00:00:[address] [facility] DTaP, Unspecified Formulation 2004 00:00:[address] [facility] Pneumococcal 7 Conjugate, PCV7 (Prevnar7) 2004 00:00:[address] [facility] DTaP, Unspecified Formulation 2004 00:00:[address] [facility] Pneumococcal 7 Conjugate, PCV7 (Prevnar7) 2004 00:00:[address] [facility] DTaP, Unspecified Formulation 2004 00:00:[address] [facility] Pneumococcal 7 Conjugate, PCV7 (Prevnar7) 2004 00:00:[address] [facility] DTaP, Unspecified Formulation 2004 00:00:[address] [facility] Pneumococcal 7 Conjugate, PCV7 (Prevnar7) 2004 00:00:[address] [facility] DTaP, Unspecified Formulation 2004 00:00:[address] [facility] Pneumococcal 7 Conjugate, PCV7 (Prevnar7) 2004 00:00:[address] [facility] DTaP, Unspecified Formulation 2004 00:00:[address] [facility] Pneumococcal 7 Conjugate, PCV7 (Prevnar7) 2004 00:00:[address] [facility] DTaP, Unspecified Formulation 2004 00:00:[address] [facility] Pneumococcal 7 Conjugate, PCV7 (Prevnar7) 2004 00:00:[address] [facility] DTaP, Unspecified Formulation 2004 00:00:[address] [facility] Pneumococcal 7 Conjugate, PCV7 (Prevnar7) 2004 00:00:[address] [facility] DTaP, Unspecified Formulation 2004 00:00:[address] [facility] Pneumococcal 7 Conjugate, PCV7 (Prevnar7) 2004 00:00:[address] [facility] DTaP, Unspecified Formulation 2004 00:00:[address] [facility] Pneumococcal 7 Conjugate, PCV7 (Prevnar7) 2004 00:00:[address] [facility] DTaP, Unspecified Formulation 2004 00:00:[address] [facility] Pneumococcal 7 Conjugate, PCV7 (Prevnar7) 2004 00:00:[address] [facility] DTaP, Unspecified Formulation 2004 00:00:[address] [facility] Pneumococcal 7 Conjugate, PCV7 (Prevnar7) 2004 00:00:[address] [facility] DTaP, Unspecified Formulation 2004 00:00:[address] [facility] Pneumococcal 7 Conjugate, PCV7 (Prevnar7) 2004 00:00:[address] [facility] DTaP, Unspecified Formulation 2004 00:00:[address] [facility] Pneumococcal 7 Conjugate, PCV7 (Prevnar7) 2004 00:00:[address] [facility] DTaP, Unspecified Formulation 2004 00:00:[address] [facility] Pneumococcal 7 Conjugate, PCV7 (Prevnar7) 2004 00:00:[address] [facility] DTaP, Unspecified Formulation 2004 00:00:[address] [facility] Pneumococcal 7 Conjugate, PCV7 (Prevnar7) 2004 00:00:[address] [facility] DTaP, Unspecified Formulation 2004 00:00:[address] [facility] Pneumococcal 7 Conjugate, PCV7 (Prevnar7) 2004 00:00:[address] [facility] DTaP, Unspecified Formulation 2004 00:00:[address] [facility] Pneumococcal 7 Conjugate, PCV7 (Prevnar7) 2004 00:00:[address] [facility] DTaP, Unspecified Formulation 2004 00:00:[address] [facility] Pneumococcal 7 Conjugate, PCV7 (Prevnar7) 2004 00:00:[address] [facility] DTaP, Unspecified Formulation 2004 00:00:[address] [facility] Pneumococcal 7 Conjugate, PCV7 (Prevnar7) 2004 00:00:[address] [facility] DTaP, Unspecified Formulation 2004 00:00:[address] [facility] Pneumococcal 7 Conjugate, PCV7 (Prevnar7) 2004 00:00:[address] [facility] DTaP, Unspecified Formulation 2004 00:00:[address] [facility] Pneumococcal 7 Conjugate, PCV7 (Prevnar7) 2004 00:00:[address] [facility] DTaP, Unspecified Formulation 2004 00:00:[address] [facility] Pneumococcal 7 Conjugate, PCV7 (Prevnar7) 2004 00:00:[address] [facility] DTaP, Unspecified Formulation 2004 00:00:[address] [facility] Pneumococcal 7 Conjugate, PCV7 (Prevnar7) 2004 00:00:[address] [facility] DTaP, Unspecified Formulation 2004 00:00:[address] [facility] Pneumococcal 7 Conjugate, PCV7 (Prevnar7) 2004 00:00:[address] [facility] DTaP, Unspecified Formulation 2004 00:00:[address] [facility] Pneumococcal 7 Conjugate, PCV7 (Prevnar7) 2004 00:00:[address] [facility] HIB 4 Dose Schedule 2004 00:00:[address] [facility] Pneumococcal 7 Conjugate, PCV7 (Prevnar7) 2004 00:00:[address] [facility] HIB 4 Dose Schedule 2004 00:00:[address] [facility] Pneumococcal 7 Conjugate, PCV7 (Prevnar7) 2004 00:00:[address] [facility] HIB 4 Dose Schedule 2004 00:00:[address] [facility] Pneumococcal 7 Conjugate, PCV7 (Prevnar7) 2004 00:00:[address] [facility] HIB 4 Dose Schedule 2004 00:00:[address] [facility] Pneumococcal 7 Conjugate, PCV7 (Prevnar7) 2004 00:00:[address] [facility] HIB 4 Dose Schedule 2004 00:00:[address] [facility] Pneumococcal 7 Conjugate, PCV7 (Prevnar7) 2004 00:00:[address] [facility] HIB 4 Dose Schedule 2004 00:00:[address] [facility] Pneumococcal 7 Conjugate, PCV7 (Prevnar7) 2004 00:00:[address] [facility] HIB 4 Dose Schedule 2004 00:00:[address] [facility] Pneumococcal 7 Conjugate, PCV7 (Prevnar7) 2004 00:00:[address] [facility] HIB 4 Dose Schedule 2004 00:00:[address] [facility] Pneumococcal 7 Conjugate, PCV7 (Prevnar7) 2004 00:00:[address] [facility] HIB 4 Dose Schedule 2004 00:00:[address] [facility] Pneumococcal 7 Conjugate, PCV7 (Prevnar7) 2004 00:00:[address] [facility] HIB 4 Dose Schedule 2004 00:00:[address] [facility] Pneumococcal 7 Conjugate, PCV7 (Prevnar7) 2004 00:00:[address] [facility] HIB 4 Dose Schedule 2004 00:00:[address] [facility] Pneumococcal 7 Conjugate, PCV7 (Prevnar7) 2004 00:00:[address] [facility] HIB 4 Dose Schedule 2004 00:00:[address] [facility] Pneumococcal 7 Conjugate, PCV7 (Prevnar7) 2004 00:00:[address] [facility] HIB 4 Dose Schedule 2004 00:00:[address] [facility] Pneumococcal 7 Conjugate, PCV7 (Prevnar7) 2004 00:00:[address] [facility] HIB 4 Dose Schedule 2004 00:00:[address] [facility] Pneumococcal 7 Conjugate, PCV7 (Prevnar7) 2004 00:00:[address] [facility] HIB 4 Dose Schedule 2004 00:00:[address] [facility] Pneumococcal 7 Conjugate, PCV7 (Prevnar7) 2004 00:00:[address] [facility] HIB 4 Dose Schedule 2004 00:00:[address] [facility] Pneumococcal 7 Conjugate, PCV7 (Prevnar7) 2004 00:00:[address] [facility] HIB 4 Dose Schedule 2004 00:00:[address] [facility] Pneumococcal 7 Conjugate, PCV7 (Prevnar7) 2004 00:00:[address] [facility] HIB 4 Dose Schedule 2004 00:00:[address] [facility] Pneumococcal 7 Conjugate, PCV7 (Prevnar7) 2004 00:00:[address] [facility] HIB 4 Dose Schedule 2004 00:00:[address] [facility] Pneumococcal 7 Conjugate, PCV7 (Prevnar7) 2004 00:00:[address] [facility] HIB 4 Dose Schedule 2004 00:00:[address] [facility] Pneumococcal 7 Conjugate, PCV7 (Prevnar7) 2004 00:00:[address] [facility] HIB 4 Dose Schedule 2004 00:00:[address] [facility] Pneumococcal 7 Conjugate, PCV7 (Prevnar7) 2004 00:00:[address] [facility] HIB 4 Dose Schedule 2004 00:00:[address] [facility] Pneumococcal 7 Conjugate, PCV7 (Prevnar7) 2004 00:00:[address] [facility] HIB 4 Dose Schedule 2004 00:00:[address] [facility] Pneumococcal 7 Conjugate, PCV7 (Prevnar7) 2004 00:00:[address] [facility] HIB 4 Dose Schedule 2004 00:00:[address] [facility] Pneumococcal 7 Conjugate, PCV7 (Prevnar7) 2004 00:00:[address] [facility] HIB 4 Dose Schedule 2004 00:00:[address] [facility] Pneumococcal 7 Conjugate, PCV7 (Prevnar7) 2004 00:00:[address] [facility] HIB 4 Dose Schedule 2004 00:00:[address] [facility] Pneumococcal 7 Conjugate, PCV7 (Prevnar7) 2004 00:00:[address] [facility] Pneumococcal 7 Conjugate, PCV7 (Prevnar7) 2004 00:00:[address] [facility] Pediarix (dtap/hep B/ipv) 2004 00:00:[address] [facility] HIB 4 Dose Schedule 2004 00:00:[address] [facility] Pediarix (dtap/hep B/ipv) 2004 00:00:[address] [facility] HIB 4 Dose Schedule 2004 00:00:[address] [facility] Pneumococcal 7 Conjugate, PCV7 (Prevnar7) 2004 00:00:[address] [facility] Pediarix (dtap/hep B/ipv) 2004 00:00:[address] [facility] HIB 4 Dose Schedule 2004 00:00:[address] [facility] Pneumococcal 7 Conjugate, PCV7 (Prevnar7) 2004 00:00:[address] [facility] Pediarix (dtap/hep B/ipv) 2004 00:00:[address] [facility] HIB 4 Dose Schedule 2004 00:00:[address] [facility] Pneumococcal 7 Conjugate, PCV7 (Prevnar7) 2004 00:00:[address] [facility] Pediarix (dtap/hep B/ipv) 2004 00:00:[address] [facility] HIB 4 Dose Schedule 2004 00:00:[address] [facility] Pneumococcal 7 Conjugate, PCV7 (Prevnar7) 2004 00:00:[address] [facility] Pediarix (dtap/hep B/ipv) 2004 00:00:[address] [facility] HIB 4 Dose Schedule 2004 00:00:[address] [facility] Pneumococcal 7 Conjugate, PCV7 (Prevnar7) 2004 00:00:[address] [facility] Pediarix (dtap/hep B/ipv) 2004 00:00:[address] [facility] HIB 4 Dose Schedule 2004 00:00:[address] [facility] Pneumococcal 7 Conjugate, PCV7 (Prevnar7) 2004 00:00:[address] [facility] Pediarix (dtap/hep B/ipv) 2004 00:00:[address] [facility] HIB 4 Dose Schedule 2004 00:00:[address] [facility] Pneumococcal 7 Conjugate, PCV7 (Prevnar7) 2004 00:00:[address] [facility] Pediarix (dtap/hep B/ipv) 2004 00:00:[address] [facility] HIB 4 Dose Schedule 2004 00:00:[address] [facility] Pneumococcal 7 Conjugate, PCV7 (Prevnar7) 2004 00:00:[address] [facility] Pediarix (dtap/hep B/ipv) 2004 00:00:[address] [facility] HIB 4 Dose Schedule 2004 00:00:[address] [facility] Pneumococcal 7 Conjugate, PCV7 (Prevnar7) 2004 00:00:[address] [facility] Pediarix (dtap/hep B/ipv) 2004 00:00:[address] [facility] HIB 4 Dose Schedule 2004 00:00:[address] [facility] Pneumococcal 7 Conjugate, PCV7 (Prevnar7) 2004 00:00:[address] [facility] Pediarix (dtap/hep B/ipv) 2004 00:00:[address] [facility] HIB 4 Dose Schedule 2004 00:00:[address] [facility] Pneumococcal 7 Conjugate, PCV7 (Prevnar7) 2004 00:00:[address] [facility] Pediarix (dtap/hep B/ipv) 2004 00:00:[address] [facility] HIB 4 Dose Schedule 2004 00:00:[address] [facility] Pneumococcal 7 Conjugate, PCV7 (Prevnar7) 2004 00:00:[address] [facility] Pediarix (dtap/hep B/ipv) 2004 00:00:[address] [facility] HIB 4 Dose Schedule 2004 00:00:[address] [facility] Pneumococcal 7 Conjugate, PCV7 (Prevnar7) 2004 00:00:[address] [facility] Pediarix (dtap/hep B/ipv) 2004 00:00:[address] [facility] HIB 4 Dose Schedule 2004 00:00:[address] [facility] Pneumococcal 7 Conjugate, PCV7 (Prevnar7) 2004 00:00:[address] [facility] Pediarix (dtap/hep B/ipv) 2004 00:00:[address] [facility] HIB 4 Dose Schedule 2004 00:00:[address] [facility] Pneumococcal 7 Conjugate, PCV7 (Prevnar7) 2004 00:00:[address] [facility] Pediarix (dtap/hep B/ipv) 2004 00:00:[address] [facility] HIB 4 Dose Schedule 2004 00:00:[address] [facility] Pneumococcal 7 Conjugate, PCV7 (Prevnar7) 2004 00:00:[address] [facility] Pediarix (dtap/hep B/ipv) 2004 00:00:[address] [facility] HIB 4 Dose Schedule 2004 00:00:[address] [facility] Pneumococcal 7 Conjugate, PCV7 (Prevnar7) 2004 00:00:[address] [facility] Pediarix (dtap/hep B/ipv) 2004 00:00:[address] [facility] HIB 4 Dose Schedule 2004 00:00:[address] [facility] Pneumococcal 7 Conjugate, PCV7 (Prevnar7) 2004 00:00:[address] [facility] Pediarix (dtap/hep B/ipv) 2004 00:00:[address] [facility] HIB 4 Dose Schedule 2004 00:00:[address] [facility] Pneumococcal 7 Conjugate, PCV7 (Prevnar7) 2004 00:00:[address] [facility] Pediarix (dtap/hep B/ipv) 2004 00:00:[address] [facility] HIB 4 Dose Schedule 2004 00:00:[address] [facility] Pneumococcal 7 Conjugate, PCV7 (Prevnar7) 2004 00:00:[address] [facility] Pediarix (dtap/hep B/ipv) 2004 00:00:[address] [facility] HIB 4 Dose Schedule 2004 00:00:[address] [facility] Pneumococcal 7 Conjugate, PCV7 (Prevnar7) 2004 00:00:[address] [facility] Pediarix (dtap/hep B/ipv) 2004 00:00:[address] [facility] HIB 4 Dose Schedule 2004 00:00:[address] [facility] Pneumococcal 7 Conjugate, PCV7 (Prevnar7) 2004 00:00:[address] [facility] Pediarix (dtap/hep B/ipv) 2004 00:00:[address] [facility] HIB 4 Dose Schedule 2004 00:00:[address] [facility] Pneumococcal 7 Conjugate, PCV7 (Prevnar7) 2004 00:00:[address] [facility] Pediarix (dtap/hep B/ipv) 2004 00:00:[address] [facility] HIB 4 Dose Schedule 2004 00:00:[address] [facility] Pneumococcal 7 Conjugate, PCV7 (Prevnar7) 2004 00:00:[address] [facility] Pediarix (dtap/hep B/ipv) 2004 00:00:[address] [facility] HIB 4 Dose Schedule 2004 00:00:[address] [facility] Pneumococcal 7 Conjugate, PCV7 (Prevnar7) 2004 00:00:[address] [facility] Hep B, Adol or Pedi Dosage 2004 00:00:[address] [facility] Hep B, Adol or Pedi Dosage 2004 00:00:[address] [facility] Hep B, Adol or Pedi Dosage 2004 00:00:[address] [facility] Hep B, Adol or Pedi Dosage 2004 00:00:[address] [facility] Hep B, Adol or Pedi Dosage 2004 00:00:[address] [facility] Hep B, Adol or Pedi Dosage 2004 00:00:[address] [facility] Hep B, Adol or Pedi Dosage 2004 00:00:[address] [facility] Hep B, Adol or Pedi Dosage 2004 00:00:[address] [facility] Hep B, Adol or Pedi Dosage 2004 00:00:[address] [facility] Hep B, Adol or Pedi Dosage 2004 00:00:[address] [facility] Hep B, Adol or Pedi Dosage 2004 00:00:[address] [facility] Hep B, Adol or Pedi Dosage 2004 00:00:[address] [facility] Hep B, Adol or Pedi Dosage 2004 00:00:[address] [facility] Hep B, Adol or Pedi Dosage 2004 00:00:[address] [facility] Hep B, Adol or Pedi Dosage 2004 00:00:[address] [facility] Hep B, Adol or Pedi Dosage 2004 00:00:[address] [facility] Hep B, Adol or Pedi Dosage 2004 00:00:[address] [facility] Hep B, Adol or Pedi Dosage 2004 00:00:[address] [facility] Hep B, Adol or Pedi Dosage 2004 00:00:[address] [facility] Hep B, Adol or Pedi Dosage 2004 00:00:[address] [facility] Hep B, Adol or Pedi Dosage 2004 00:00:[address] [facility] Hep B, Adol or Pedi Dosage 2004 00:00:[address] [facility] Hep B, Adol or Pedi Dosage 2004 00:00:[address] [facility] Hep B, Adol or Pedi Dosage 2004 00:00:[address] [facility] Hep B, Adol or Pedi Dosage 2004 00:00:[address] [facility] Hep B, Adol or Pedi Dosage 2004 00:00:[address] [facility] DTaP, Unspecified Formulation Unknown Completed [facility] Pediarix (dtap/hep B/ipv) Unknown Completed [facility] HEPATITIS A Unknown Completed [facility] Hep B, Adol or Pedi Dosage Unknown Completed [facility] HIB 4 Dose Schedule Unknown Completed [facility] HPV Unknown Completed [facility] HPV9 Unknown Com[address] [facility] Meningococcal Polysaccharide (groups A, C, Y and W-135) conjugate vaccine (MCV4P) Unknown Completed [facility] MMR Unknown Completed [facility] Pneumococcal 7 Conjugate, PCV7 (Prevnar7) Unknown Completed [facility] IPV Unknown Completed [facility] TDAP Unknown Completed [facility] Varicella (varivax)(chicken pox) Unknown Completed [facility] DTaP, Unspecified Formulation Unknown Completed [facility] Pediarix (dtap/hep B/ipv) Unknown Completed [facility] HEPATITIS A Unknown Completed [facility] Hep B, Adol or Pedi Dosage Unknown Completed [facility] HIB 4 Dose Schedule Unknown Completed [facility] HPV Unknown Completed [facility] HPV9 Unknown Completed [facility] Meningococcal Polysaccharide (groups A, C, Y and W-135) conjugate vaccine (MCV4P) Unknown Completed [facility] MMR Unknown Completed [facility] Pneumococcal 7 Conjugate, PCV7 (Prevnar7) Unknown Completed [facility] IPV Unknown Completed [facility] TDAP Unknown Completed [facility] Varicella (varivax)(chicken pox) Unknown Completed [facility] DTaP, Unspecified Formulation Unknown Completed [facility] Pediarix (dtap/hep B/ipv) Unknown Completed [facility] HEPATITIS A Unknown Completed [facility] Hep B, Adol or Pedi Dosage Unknown Completed [facility] HIB 4 Dose Schedule Unknown Completed [facility] HPV Unknown Completed [facility] HPV9 Unknown Completed [facility] Meningococcal Polysaccharide (groups A, C, Y and W-135) conjugate vaccine (MCV4P) Unknown Completed [facility] MMR Unknown Completed [facility] Pneumococcal 7 Conjugate, PCV7 (Prevnar7) Unknown Completed [facility] IPV Unknown Completed [facility] TDAP Unknown Completed [facility] Varicella (varivax)(chicken pox) Unknown Completed [facility] Hep B, Adol or Pedi Dosage Unknown Completed [facility] HPV Unknown Completed [facility] Meningococcal Polysaccharide (groups A, C, Y and W-135) conjugate vaccine (MCV4P) Unknown Completed [facility] DTaP, Unspecified Formulation Unknown Completed [facility] Pediarix (dtap/hep B/ipv) Unknown Completed [facility] HEPATITIS A Unknown Completed [facility] HIB 4 Dose Schedule Unknown Completed [facility] HPV9 Unknown Completed [facility] MMR Unknown Completed [facility] Pneumococcal 7 Conjugate, PCV7 (Prevnar7) Unknown Completed [facility] IPV Unknown Completed [facility] TDAP Unknown Completed [facility] Varicella (varivax)(chicken pox) Unknown Completed [facility] DTaP, Unspecified Formulation Unknown Completed [facility] Pediarix (dtap/hep B/ipv) Unknown Completed [facility] HEPATITIS A Unknown Completed [facility] Hep B, Adol or Pedi Dosage Unknown Completed [facility] HIB 4 Dose Schedule Unknown Completed [facility] HPV Unknown Completed [facility] HPV9 Unknown Completed [facility] Meningococcal Polysaccharide (groups A, C, Y and W-135) conjugate vaccine (MCV4P) Unknown Completed [facility] MMR Unknown Completed [facility] Pneumococcal 7 Conjugate, PCV7 (Prevnar7) Unknown Completed [facility] IPV Unknown Completed [facility] TDAP Unknown Completed [facility] Varicella (varivax)(chicken pox) Unknown Completed [facility] DTaP, Unspecified Formulation Unknown Completed [facility] Pediarix (dtap/hep B/ipv) Unknown Completed [facility] HEPATITIS A Unknown Completed [facility] Hep B, Adol or Pedi Dosage Unknown Completed [facility] HIB 4 Dose Schedule Unknown Completed [facility] HPV Unknown Completed [facility] HPV9 Unknown Completed [facility] Meningococcal Polysaccharide (groups A, C, Y and W-135) conjugate vaccine (MCV4P) Unknown Completed [facility] MMR Unknown Completed [facility] Pneumococcal 7 Conjugate, PCV7 (Prevnar7) Unknown Completed [facility] IPV Unknown Completed [facility] TDAP Unknown Completed [facility] Varicella (varivax)(chicken pox) Unknown Completed [facility] DTaP, Unspecified Formulation Unknown Completed [facility] Pediarix (dtap/hep B/ipv) Unknown Completed [facility] HEPATITIS A Unknown Completed [facility] Hep B, Adol or Pedi Dosage Unknown Completed [facility] HIB 4 Dose Schedule Unknown Completed [facility] HPV Unknown Completed [facility] HPV9 Unknown Completed [facility] Meningococcal Polysaccharide (groups A, C, Y and W-135) conjugate vaccine (MCV4P) Unknown Completed [facility] MMR Unknown Completed [facility] Pneumococcal 7 Conjugate, PCV7 (Prevnar7) Unknown Completed [facility] IPV Unknown Completed [facility] TDAP Unknown Completed [facility] Varicella (varivax)(chicken pox) Unknown Completed [facility] DTaP, Unspecified Formulation Unknown Completed [facility] Pediarix (dtap/hep B/ipv) Unknown Completed [facility] HEPATITIS A Unknown Completed [facility] Hep B, Adol or Pedi Dosage Unknown Completed [facility] HIB 4 Dose Schedule Unknown Completed [facility] HPV Unknown Completed [facility] HPV9 Unknown Completed [facility] Meningococcal Polysaccharide (groups A, C, Y and W-135) conjugate vaccine (MCV4P) Unknown Completed [facility] MMR Unknown Completed [facility] Pneumococcal 7 Conjugate, PCV7 (Prevnar7) Unknown Completed [facility] IPV Unknown Completed [facility] TDAP Unknown Completed [facility] Varicella (varivax)(chicken pox) Unknown Completed [facility] Hep B, Adol or Pedi Dosage Unknown Completed [facility] HPV Unknown Completed [facility] Meningococcal Polysaccharide (groups A, C, Y and W-135) conjugate vaccine (MCV4P) Unknown Completed [facility] DTaP, Unspecified Formulation Unknown Completed [facility] Pediarix (dtap/hep B/ipv) Unknown Completed [facility] HEPATITIS A Unknown Completed [facility] HIB 4 Dose Schedule Unknown Completed [facility] HPV9 Unknown Completed [facility] MMR Unknown Completed [facility] Pneumococcal 7 Conjugate, PCV7 (Prevnar7) Unknown Completed [facility] IPV Unknown Completed [facility] TDAP Unknown Completed [facility] Varicella (varivax)(chicken pox) Unknown Completed [facility] DTaP, Unspecified Formulation Unknown Completed [facility] Pediarix (dtap/hep B/ipv) Unknown Completed [facility] HEPATITIS A Unknown Completed [facility] Hep B, Adol or Pedi Dosage Unknown Completed [facility] HIB 4 Dose Schedule Unknown Completed [facility] HPV Unknown Completed [facility] HPV9 Unknown Completed [facility] Meningococcal Polysaccharide (groups A, C, Y and W-135) conjugate vaccine (MCV4P) Unknown Completed [facility] MMR Unknown Completed [facility] Pneumococcal 7 Conjugate, PCV7 (Prevnar7) Unknown Completed [facility] IPV Unknown Completed [facility] TDAP Unknown Completed [facility] Varicella (varivax)(chicken pox) Unknown Completed [facility] DTaP, Unspecified Formulation Unknown Completed [facility] Pediarix (dtap/hep B/ipv) Unknown Completed [facility] HEPATITIS A Unknown Completed [facility] Hep B, Adol or Pedi Dosage Unknown Completed [facility] HIB 4 Dose Schedule Unknown Completed [facility] HPV Unknown Completed [facility] HPV9 Unknown Completed [facility] Meningococcal Polysaccharide (groups A, C, Y and W-135) conjugate vaccine (MCV4P) Unknown Completed [facility] MMR Unknown Completed [facility] Pneumococcal 7 Conjugate, PCV7 (Prevnar7) Unknown Completed [facility] IPV Unknown Completed [facility] TDAP Unknown Completed [facility] Varicella (varivax)(chicken pox) Unknown Completed [facility] DTaP, Unspecified Formulation Unknown Completed [facility] Pediarix (dtap/hep B/ipv) Unknown Completed [facility] HEPATITIS A Unknown Completed [facility] Hep B, Adol or Pedi Dosage Unknown Completed [facility] HIB 4 Dose Schedule Unknown Completed [facility] HPV Unknown Completed [facility] HPV9 [address] [facility] Meningococcal Polysaccharide (groups A, C, Y and W-135) conjugate vaccine (MCV4P) Unknown Completed [facility] MMR Unknown Completed [facility] Pneumococcal 7 Conjugate, PCV7 (Prevnar7) Unknown Completed [facility] IPV Unknown Completed [facility] TDAP Unknown Completed [facility] Varicella (varivax)(chicken pox) Unknown Completed [facility] Vital Signs Vital Name Observation Time Observation Value Comments S ource Systolic blood pressure 2024-04-11 20:02:00 122 mm[Hg] [facility] Diastolic blood pressure 2024-04-11 20:02:00 73 mm[Hg] [facility] Heart rate 2024-04-11 20:02:00 67 /min [facility] 2024-04-11 20:02:00 18 /min [facility] Body height 2024-04-11 20:02:00 170.2 cm [facility] Body weight 2024-04-11 20:02:00 72.576 kg [facility] BMI 2024-04-11 20:02:00 25.06 kg/m2 [facility] Systolic blood pressure 2024-03-23 16:00:00 91 mm[Hg] [facility] Diastolic blood pressure 2024-03-23 16:00:00 53 mm[Hg] [facility] Heart rate 2024-03-23 16:00:00 53 /[facility] 2024-03-23 16:00:00 18 /min [facility] Oxygen saturation in Arterial blood by Pulse oximetry 2024-03-23 16:00:00 98 /min [facility] Body temperature 2024-03-23 12:30:[address] [facility] Body height 2024-03-23 09:24:00 170.2 cm [facility] Body weight 2024-03-23 09:24:00 72.576 kg [facility] BMI 2024-03-23 09:24:00 25.06 kg/m2 [facility] Systolic blood pressure 2024-03-23 10:45:00 109 mm[Hg] [facility] Diastolic blood pressure 2024-03-23 10:45:00 58 mm[Hg] [facility] Heart rate 2024-03-23 10:45:00 73 /min [facility] 2024-03-23 10:45:00 13 /min [facility] Oxygen saturation in Arterial blood by Pulse oximetry 2024-03-23 10:45:00 98 /min [facility] Body temperature 2024-03-23 10:30:[address] [facility] Body height 2024-03-23 09:24:00 170.2 cm [facility] Body weight 2024-03-23 09:24:00 72.576 kg [facility] BMI 2024-03-23 09:24:00 25.06 kg/m2 [facility] Systolic blood pressure 2024-02-26 17:26:00 126 mm[Hg] [facility] Diastolic blood pressure 2024-02-26 17:26:00 78 mm[Hg] [facility] Heart rate 2024-02-26 17:26:00 84 /min Unive [facility] Body temperature 2024-02-26 17:26:[address] [facility] Respiratory rate 2024-02-26 17:26:00 18 /min [facility] Body weight 2024-02-26 17:26:00 74.39 kg [facility] Systolic blood pressure 2024-01-29 18:44:00 92 mm[Hg] [facility] Diastolic blood pressure 2024-01-29 18:44:00 61 mm[Hg] [facility] Heart rate 2024-01-29 18:44:00 61 /min Unive [facility] Body temperature 2024-01-29 18:44:[address] [facility] Body height 2024-01-29 18:44:00 170.2 cm [facility] Body weight 2024-01-29 18:44:00 74.662 kg [facility] BMI 2024-01-29 18:44:00 25.78 kg/m2 [facility] Systolic blood pressure 2023-07-12 18:14:00 130 mm[Hg] [facility] Diastolic blood pressure 2023-07-12 18:14:00 81 mm[Hg] [facility] Heart rate 2023-07-12 18:14:00 87 /min Unive [facility] Body temperature 2023-07-12 18:14:[address] [facility] Respiratory rate 2023-07-12 18:14:00 18 /min [facility] Body height 2023-07-12 18:14:00 170.2 cm [facility] Body weight 2023-07-12 18:14:00 79.833 kg [facility] BMI 2023-07-12 18:14:00 27.57 kg/m2 [facility] Systolic blood pressure 2023-04-11 19:44:00 109 mm[Hg] [facility] Diastolic blood pressure 2023-04-11 19:44:00 65 mm[Hg] [facility] Heart rate 2023-04-11 19:44:00 82 /min Unive [facility] Body temperature 2023-04-11 19:44:[address] [facility] Respiratory rate 2023-04-11 19:44:00 18 /min [facility] Body height 2023-04-11 19:44:00 170.2 cm [facility] Body weight 2023-04-11 19:44:00 82.243 kg [facility] BMI 2023-04-11 19:44:00 28.40 kg/m2 [facility] Systolic blood pressure 2023-03-21 15:27:00 114 mm[Hg] [facility] Diastolic blood pressure 2023-03-21 15:27:00 76 mm[Hg] [facility] Heart rate 2023-03-21 15:27:00 61 /min Un[facility] Body temperature 2023-03-21 15:27:[address] [facility] Respiratory rate 2023-03-21 15:27:00 18 /min [facility] Body height 2023-03-21 15:27:00 170.2 cm [facility] Body weight 2023-03-21 15:27:00 81.194 kg [facility] BMI 2023-03-21 15:27:00 28.04 kg/m2 [facility] Body mass index (BMI) [Percentile] Per age and sex 2023-03-21 15:27:00 90.72 % [facility] Systolic blood pressure 2023-03-02 13:33:00 104 mm[Hg] [facility] Diastolic blood pressure 2023-03-02 13:33:00 56 mm[Hg] [facility] Heart rate 2023-03-02 13:33:00 68 /min Unive [facility] Body temperature 2023-03-02 13:33:[address] [facility] Respiratory rate 2023-03-02 13:33:00 18 /min [facility] Oxygen saturation in Arterial blood by Pulse oximetry 2023-03-02 13:33:00 95 /min [facility] Body height 2023-02-28 14:33:00 170.2 cm [facility] Body weight 2023-02-28 14:33:00 91.717 kg [facility] BMI 2023-02-28 14:33:00 31.67 kg/m2 [facility] Body mass index (BMI) [Percentile] Per age and sex 2023-02-28 14:33:00 95.64 % [facility] Systolic blood pressure 2023-02-27 17:43:00 120 mm[Hg] [facility] Diastolic blood pressure 2023-02-27 17:43:00 74 mm[Hg] [facility] Heart rate 2023-02-27 17:43:00 82 /min Unive [facility] Body temperature 2023-02-27 17:43:[address] [facility] Respiratory rate 2023-02-27 17:43:00 18 /min [facility] Body height 2023-02-27 17:43:00 170.2 cm [facility] Body weight 2023-02-27 17:43:00 91.371 kg [facility] BMI 2023-02-27 17:43:00 31.55 kg/m2 [facility] Body mass index (BMI) [Percentile] Per age and sex 2023-02-27 17:43:00 95.55 % [facility] Systolic blood pressure 2023-02-24 04:50:00 106 mm[Hg] [facility] Diastolic blood pressure 2023-02-24 04:50:00 62 mm[Hg] [facility] Heart rate 2023-02-24 04:50:00 65 /min [facility] Oxygen saturation in Arterial blood by Pulse oximetry 2023-02-24 04:50:00 99 /min [facility] Body temperature 2023-02-24 04:45:[address] [facility] Respiratory rate 2023-02-24 04:24:00 18 /min [facility] Body height 2023-02-24 04:24:00 170.2 cm [facility] Body weight 2023-02-24 04:24:00 89.948 kg [facility] BMI 2023-02-24 04:24:00 31.06 kg/m2 [facility] Body mass index (BMI) [Percentile] Per age and sex 2023-02-24 04:24:00 95.13 % [facility] Systolic blood pressure 2023-02-21 17:52:00 117 mm[Hg] [facility] Diastolic blood pressure 2023-02-21 17:52:00 70 mm[Hg] [facility] Heart rate 2023-02-21 17:52:00 74 /min [facility] Body temperature 2023-02-21 17:52:[address] [facility] Respiratory rate 2023-02-21 17:52:00 20 /min [facility] Body height 2023-02-21 17:52:00 170.2 cm [facility] Body weight 2023-02-21 17:52:00 89.812 kg [facility] BMI 2023-02-21 17:52:00 31.01 kg/m2 [facility] Body mass index (BMI) [Percentile] Per age and sex 2023-02-21 17:52:00 95.09 % [facility] Heart rate 2023-02-20 02:30:00 68 /min [facility] Oxygen saturation in Arterial blood by Pulse oximetry 2023-02-20 02:30:00 100 /min [facility] Systolic blood pressure 2023-02-20 00:45:00 109 mm[Hg] [facility] Diastolic blood pressure 2023-02-20 00:45:00 61 mm[Hg] [facility] Body temperature 2023-02-20 00:33:[address] [facility] Respiratory rate 2023-02-20 00:33:00 18 /min [facility] Body height 2023-02-20 00:33:00 170.2 cm [facility] Body weight 2023-02-20 00:09:00 89.858 kg [facility] BMI 2023-02-20 00:09:00 31.02 kg/m2 [facility] Body mass index (BMI) [Percentile] Per age and sex 2023-02-20 00:09:00 95.10 % [facility] Systolic blood pressure 2023-02-14 20:48:00 125 mm[Hg] [facility] Diastolic blood pressure 2023-02-14 20:48:00 79 mm[Hg] [facility] Heart rate 2023-02-14 20:48:00 99 [facility] Body temperature 2023-02-14 20:48:[address] [facility] Respiratory rate 2023-02-14 20:48:00 18 /min [facility] Body height 2023-02-14 20:48:00 170.2 cm [facility] Body weight 2023-02-14 20:48:00 89.223 kg [facility] BMI 2023-02-14 20:48:00 30.81 kg/m2 [facility] Body mass index (BMI) [Percentile] Per age and sex 2023-02-14 20:48:00 94.91 % [facility] Systolic blood pressure 2023-02-07 19:05:00 120 mm[Hg] [facility] Diastolic blood pressure 2023-02-07 19:05:00 90 mm[Hg] [facility] Heart rate 2023-02-07 19:05:00 98 /min [facility] Body temperature 2023-02-07 19:05:[address] [facility] Respiratory rate 2023-02-07 19:05:00 18 /min [facility] Body height 2023-02-07 19:05:00 170.2 cm [facility] Body weight 2023-02-07 19:05:00 88.27 kg [facility] BMI 2023-02-07 19:05:00 30.48 kg/m2 [facility] Body mass index (BMI) [Percentile] Per age and sex 2023-02-07 19:05:00 94.58 % [facility] Systolic blood pressure 2023-02-01 02:46:00 134 mm[Hg] [facility] Diastolic blood pressure 2023-02-01 02:46:00 85 mm[Hg] [facility] Heart rate 2023-02-01 02:46:00 99 /min [facility] Body temperature 2023-02-01 02:46:[address] [facility] Respiratory rate 2023-02-01 02:46:00 18 /min [facility] Body height 2023-02-01 02:46:00 170.2 cm [facility] Body weight 2023-02-01 02:46:00 88.043 kg [facility] BMI 2023-02-01 02:46:00 30.40 kg/m2 [facility] Body mass index (BMI) [Percentile] Per age and sex 2023-02-01 02:46:00 94.51 % [facility] Oxygen saturation in Arterial blood by Pulse oximetry 2023-02-01 02:46:00 99 /min [facility] Systolic blood pressure 2023-01-24 19:58:00 113 mm[Hg] [facility] Diastolic blood pressure 2023-01-24 19:58:00 64 mm[Hg] [facility] Heart rate 2023-01-24 19:58:00 78 /min [facility] Body temperature 2023-01-24 19:58:[address] [facility] Respiratory rate 2023-01-24 19:58:00 18 /min [facility] Body height 2023-01-24 19:58:00 170.2 cm [facility] Body weight 2023-01-24 19:58:00 86.183 kg [facility] BMI 2023-01-24 19:58:00 29.76 kg/m2 [facility] Body mass index (BMI) [Percentile] Per age and sex 2023-01-24 19:58:00 93.76 % [facility] Systolic blood pressure 2023-01-08 20:11:00 127 mm[Hg] [facility] Diastolic blood pressure 2023-01-08 20:11:00 74 mm[Hg] [facility] Heart rate 2023-01-08 20:11:00 87 /min [facility] Body temperature 2023-01-08 20:11:[address] [facility] Respiratory rate 2023-01-08 20:11:00 18 /min [facility] Body height 2023-01-08 20:11:00 170.2 cm [facility] Body weight 2023-01-08 20:11:00 84.46 kg [facility] BMI 2023-01-08 20:11:00 29.16 kg/m2 [facility] Body mass index (BMI) [Percentile] Per age and sex 2023-01-08 20:11:00 92.95 % [facility] Systolic blood pressure 2022-12-25 19:37:00 121 mm[Hg] [facility] Diastolic blood pressure 2022-12-25 19:37:00 74 mm[Hg] [facility] Heart rate 2022-12-25 19:37:00 101 /min [facility] Body temperature 2022-12-25 19:37:[address] [facility] Respiratory rate 2022-12-25 19:37:00 18 /min [facility] Body weight 2022-12-25 19:37:00 82.963 kg [facility] Systolic blood pressure 2022-12-11 17:56:00 96 mm[Hg] [facility] Diastolic blood pressure 2022-12-11 17:56:00 64 mm[Hg] [facility] Heart rate 2022-12-11 17:56:00 70 /min Unive [facility] Body temperature 2022-12-11 17:56:[address] [facility] Respiratory rate 2022-12-11 17:56:00 18 /min [facility] Body height 2022-12-11 17:56:00 170.2 cm [facility] Body weight 2022-12-11 17:56:00 81.058 kg [facility] BMI 2022-12-11 17:56:00 27.99 kg/m2 [facility] Body mass index (BMI) [Percentile] Per age and sex 2022-12-11 17:56:00 90.92 % [facility] Systolic blood pressure 2022-11-20 19:01:00 114 mm[Hg] [facility] Diastolic blood pressure 2022-11-20 19:01:00 59 mm[Hg] [facility] Heart rate 2022-11-20 19:01:00 82 /min Unive [facility] Body temperature 2022-11-20 19:01:[address] [facility] Respiratory rate 2022-11-20 19:01:00 16 /min [facility] Body height 2022-11-20 19:01:00 170.2 cm [facility] Body weight 2022-11-20 19:01:00 76.522 kg [facility] BMI 2022-11-20 19:01:00 26.42 kg/m2 [facility] Body mass index (BMI) [Percentile] Per age and sex 2022-11-20 19:01:00 86.76 % [facility] Systolic blood pressure 2022-10-23 21:30:00 110 mm[Hg] [facility] Diastolic blood pressure 2022-10-23 21:30:00 72 mm[Hg] [facility] Heart rate 2022-10-23 21:30:00 85 /min Unive [facility] Body temperature 2022-10-23 21:30:[address] [facility] Respiratory rate 2022-10-23 21:30:00 18 /min [facility] Body height 2022-10-23 21:30:00 170.2 cm [facility] Body weight 2022-10-23 21:30:00 73.284 kg [facility] BMI 2022-10-23 21:30:00 25.30 kg/m2 [facility] Body mass index (BMI) [Percentile] Per age and sex 2022-10-23 21:30:00 82.42 % [facility] Systolic blood pressure 2022-09-19 21:42:00 114 mm[Hg] [facility] Diastolic blood pressure 2022-09-19 21:42:00 81 mm[Hg] [facility] Heart rate 2022-09-19 21:42:00 88 /min [facility] Body temperature 2022-09-19 21:42:[address] [facility] Respiratory rate 2022-09-19 21:42:00 18 /min [facility] Body height 2022-09-19 21:42:00 170.2 cm [facility] Body weight 2022-09-19 21:42:00 72.15 kg [facility] BMI 2022-09-19 21:42:00 24.91 kg/m2 [facility] Body mass index (BMI) [Percentile] Per age and sex 2022-09-19 21:42:00 80.66 % [facility] Systolic blood pressure 2022-08-22 22:11:00 125 mm[Hg] [facility] Diastolic blood pressure 2022-08-22 22:11:00 84 mm[Hg] [facility] Heart rate 2022-08-22 22:11:00 84 /min [facility] Body temperature 2022-08-22 22:11:[address] [facility] Respiratory rate 2022-08-22 22:11:00 18 /min [facility] Body height 2022-08-22 22:11:00 170.2 cm [facility] Body weight 2022-08-22 22:11:00 70.478 kg [facility] BMI 2022-08-22 22:11:00 24.34 kg/m2 [facility] Body mass index (BMI) [Percentile] Per age and sex 2022-08-22 22:11:00 77.58 % [facility] Systolic blood pressure 2022-07-25 19:39:00 130 mm[Hg] [facility] Diastolic blood pressure 2022-07-25 19:39:00 68 mm[Hg] [facility] Heart rate 2022-07-25 19:39:00 80 /min [facility] Body temperature 2022-07-25 19:39:[address] [facility] Respiratory rate 2022-07-25 19:39:00 18 /min [facility] Body height 2022-07-25 19:39:00 170.2 cm [facility] Body weight 2022-07-25 19:39:00 71.385 kg [facility] BMI 2022-07-25 19:39:00 24.65 kg/m2 [facility] Body mass index (BMI) [Percentile] Per age and sex 2022-07-25 19:39:00 79.58 % [facility] Systolic blood pressure 2022-06-27 19:42:00 123 mm[Hg] [facility] Diastolic blood pressure 2022-06-27 19:42:00 72 mm[Hg] [facility] Heart rate 2022-06-27 19:42:00 72 /min [facility] Body temperature 2022-06-27 19:42:[address] [facility] Respiratory rate 2022-06-27 19:42:00 18 /min [facility] Body height 2022-06-27 19:42:00 170.2 cm [facility] Body weight 2022-06-27 19:42:00 69.57 kg [facility] BMI 2022-06-27 19:42:00 24.02 kg/m2 [facility] Body mass index (BMI) [Percentile] Per age and sex 2022-06-27 19:42:00 75.89 % [facility] Systolic blood pressure 2021-11-28 20:44:00 125 mm[Hg] [facility] Diastolic blood pressure 2021-11-28 20:44:00 84 mm[Hg] [facility] Heart rate 2021-11-28 20:44:00 99 /min [facility] Body temperature 2021-11-28 20:44:[address] [facility] Respiratory rate 2021-11-28 20:44:00 18 /min [facility] Body height 2021-11-28 20:44:00 170.2 cm [facility] Body weight 2021-11-28 20:44:00 62.596 kg [facility] BMI 2021-11-28 20:44:00 21.61 kg/m2 [facility] Body mass index (BMI) [Percentile] Per age and sex 2021-11-28 20:44:00 55.74 % [facility] Procedures Procedure Date / Time Performed Performing Clinicia n Source DILATION AND EVACUATION OF UTERINE CONTENTS 2024-03-23 10:41:00 Caroline Bower [facility] CBC WITH DIFF 2024-03-23 10:00:[address] [facility] HB ABO GROUPING 2024-03-23 10:00:[address] [facility] CBC WITH DIFF 2024-03-23 10:00:[address] [facility] HB ABO GROUPING 2024-03-23 10:00:[address] [facility] POCT URINALYSIS 2024-02-26 17:33:[address] [facility] FIRST TRIMESTER ULTRASOUND 2024-02-15 20:04:[address] [facility] CBC WITH DIFF 2024-01-29 19:57:[address] [facility] RUBELLA SCREEN IGG 2024-01-29 19:57:[address] [facility] VZV ANTIBODY SCREEN 2024-01-29 19:57:[address] [facility] HEPATITIS B SURFACE ANTIGEN 2024-01-29 19:57:[address] [facility] HCV ANTIBODY 2024-01-29 19:57:[address] [facility] HB ABO GROUPING 2024-01-29 19:57:[address] [facility] URINE CULTURE 2024-01-29 19:57:[address] [facility] GC & CHLAMYDIA AMPLIFIED ASSAY 2024-01-29 19:57:[address] [facility] HIV 1/2 AG-AB WITH REFLEX 2024-01-29 19:57:[address] [facility] SYPHILIS IGG/IGM 2024-01-29 19:57:[address] [facility] POCT TEST 2024-01-29 18:39:[address] [facility] POCT URINALYSIS W/O SPECIFIC GRAVITY 2024-01-29 18:39:[address] [facility] POCT TEST 2023-07-12 18:29:00 Emma Zhang [facility] PATIENT FINANCIAL POLICY 2023-07-12 18:05:06 Doctor Unassigned, [place] [facility] GALV ONLY - VAGINAL PATHOGENS BY NUCLEIC ACID TESTING 2023-04-11 20:35:[address] [facility] POCT TEST 2023-04-11 20:34:[address] [facility] CBC WITH DIFF 2023-03-21 16:42:[address] [facility] CBC WITH DIFF 2023-03-01 09:42:00 Bernadette Wall [facility] VENOUS CORD GAS 2023-03-01 03:15:00 Mariajose Cortez [facility] CENTRAL NEURAXIAL BLOCK 2023-02-28 17:35:[address] [facility] CBC WITH DIFF 2023-02-28 15:06:00 CaneadeaMariajose [facility] HEPATITIS B SURFACE ANTIGEN 2023-02-28 15:06:[address] [facility] HB ABO GROUPING 2023-02-28 15:06:00 [facility] IMMUNE GLOBULIN 2023-02-28 15:06:[address] [facility] SYPHILIS IGG/IGM 2023-02-28 15:06:00 CaneadeaMariajose [facility] HOSPITAL ADMISSION 2023-02-28 05:01:00 Doctor Un assigned, [place] [facility] POCT URINALYSIS 2023-02-27 17:44:[address] [facility] ADC ONLY - FERN TEST 2023-02-24 05:32:[address] [facility] ASSIGNMENT OF BENEFITS 2023-02-24 04:18:27 Docto r Unassigned, [place] [facility] NON-STRESS TEST 2023-02-21 18:39:[address] [facility] POCT URINALYSIS 2023-02-21 00:00:[address] [facility] ASSIGNMENT OF BENEFITS 2023-02-20 00:00:06 Docto r Unassigned, [place] [facility] CONSENT/REFUSAL FOR DIAGNOSIS AND TREATMENT 2023-02-19 23:59:41 Doctor Unassigned, [place] [facility] POCT URINALYSIS 2023-02-14 20:49:[address] [facility] POCT URINALYSIS 2023-02-07 19:12:[address] [facility] [facility] ADC ONLY - FERN TEST 2023-02-01 03:11:[address] [facility] NOTICE OF PRIVACY PRACTICES 2023-02-01 02:26:54 Doctor Unassigned, [place] [facility] ASSIGNMENT OF BENEFITS 2023-02-01 02:21:13 Docto r Unassigned, [place] [facility] L&D VISIT (NON-DELIVERED) 2023-01-31 05:01:00 Doctor Unassigned, [place] [facility] POCT URINALYSIS 2023-01-24 20:00:[address] [facility] POCT URINALYSIS 2023-01-08 20:12:[address] [facility] POCT URINALYSIS 2022-12-25 19:38:[address] [facility] TDAP VACCINE, >11 YRS, IM 2022-12-11 18:22:[address] [facility] POCT URINALYSIS 2022-12-11 18:01:[address] [facility] GLUCOSE 1 HOUR POST PRANDIAL 2022-11-20 07:56:[address] [facility] CBC WITH DIFF 2022-11-20 07:56:[address] [facility] POCT URINALYSIS 2022-11-20 00:00:[address] [facility] POCT URINALYSIS 2022-10-23 21:31:[address] [facility] POCT URINALYSIS 2022-09-19 21:44:[address] [facility] POCT URINALYSIS 2022-08-22 22:12:[address] [facility] POCT URINALYSIS 2022-07-25 19:40:[address] [facility] POCT TEST 2022-06-27 19:36:[address] [facility] POCT URINALYSIS W/O SPECIFIC GRAVITY 2022-06-27 19:36:[address] [facility] ASSIGNMENT OF BENEFITS 2022-06-27 19:11:21 Docto r Unassigned, [place] [facility] POCT TEST 2021-11-28 00:00:[address] [facility] Encounters Start Date/Time End Date/Time Encounter Type Admission Type Attending Clinicians Care Facility Care Department Encounter ID Source 2024-10-13 15:30:00 2024-10-13 15:30:00 Outpatient R LINCOLN-AURY S, CAROLINE LINCOLN-AURY S, CAROLINE [facility] [id number] [facility] 2024-05-05 13:00:00 2024-05-05 13:00:00 Outpatient P [facility] [id number] [facility] 2024-04-14 13:30:00 2024-04-14 13:30:00 Outpatient R AKINSIPE, OLU [facility] [id number] [facility] 2024-04-11 15:00:00 2024-04-11 15:25:36 Outpatient R LINCOLN-AURY S, CAROLINE LINCOLN-AURY S, CAROLINE [facility] [id number] [facility] 2024-04-11 15:00:00 2024-04-11 15:25:36 Office Visit Lincoln-Aury s, Caroline [facility] 1.2.840.114 350.1.13.10 4.2.7.2.686 [id number] [facility] 2024-04-07 15:00:00 2024-04-07 15:00:00 Outpatient R LINCOLN-AURY S, CAROLINE LINCOLN-AURY S, CAROLINE [facility] [id number] [facility] 2024-03-25 12:45:00 2024-03-25 12:45:00 Outpatient R AKINSIPE, OLU [facility] [id number] [facility] 2024-03-23 03:56:00 2024-03-23 15:20:00 Outpatient P LINCOLN-AURY S, CAROLINE LINCOLN-AURY S, CAROLINE [facility] [id number] [facility] 2024-03-23 03:56:00 2024-03-23 15:20:00 Hospital Encounter Lincoln-Aury s, Caroline [facility] 1.2.840.114 350.1.13.10 4.2.7.2.686 [id number] [facility] 2024-03-23 05:25:00 2024-03-23 06:25:00 Surgery Elizabeth Riverasol [facility] 1.2.840.114 350.1.13.10 4.2.7.2.686 [id number] [facility] 2024-02-26 12:45:00 2024-02-26 12:49:53 Outpatient R OLU DA SILVA [facility] [id number] [facility] 2024-02-26 12:45:00 2024-02-26 12:49:53 Routine Visit Olu Da Silva 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 [facility] 1.2840.114 350.1.13.10 4.2.7.2.686 [id number] [facility] 2024-02-19 00:00:00 2024-02-19 14:14:24 Abstract Olu Da Silva 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 [facility] CHILD [facility] 1.2.840.114 350.1.13.10 4.2.7.2.686 [id number] [facility] 2024-02-15 15:30:00 2024-02-15 15:30:00 Sourcing Intern Visit 3, [facility] Us Room Jaiden Petersen [facility] 1.2840.114 350.1.13.10 4.2.7.2.686 [id number] [facility] 2024-02-15 15:30:00 2024-02-15 15:08:06 Outpatient P JAIDEN PEETRSEN SANGEETA [facility] [id number] [facility] 2024-02-05 13:15:00 2024-02-05 14:12:15 Outpatient R OLU DA SILVA [facility] [id number] [facility] 2024-02-05 13:15:00 2024-02-05 14:12:15 Sourcing Intern Visit Lab, Ang-Rmchp WillOlu sibley 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 CHILD [facility] 1.2.840.114 350.1.13.10 4.2.7.2.686 [id number] [facility] 2024-02-05 00:00:00 2024-02-05 13:05:02 Case Management Olu Da Silva [facility] 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 [facility] CHILD [facility] 1.2.840.114 350.1.13.10 4.2.7.2.686 [id number] [facility] 2024-01-31 00:00:00 2024-01-31 00:00:00 Telephone Manuelitoterrelltoñito Olu C [facility] 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 [facility] CHILD [facility] 1.2.840.114 350.1.13.10 4.2.7.2.686 [id number] [facility] 2024-01-29 13:45:00 2024-01-29 14:57:28 Outpatient R OLU DA SILVA [facility] [id number] [facility] 2024-01-29 13:45:00 2024-01-29 14:57:28 Initial Visit Olu Da Silva [facility] 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 [facility] CHILD [facility] 1.840.114 350.1.13.10 4.2.7.2.686 [id number] [facility] 2023-07-12 13:30:00 2023-07-12 13:48:13 Outpatient R ELAINE ZHANG [facility] [id number] [facility] 2023-07-12 13:30:00 2023-07-12 13:48:13 Office Visit Elaine Zhang [facility] 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 [facility] CHILD [facility] 1.20.114 350.1.13.10 4.2.7.2.686 [id number] [facility] 2023-07-12 00:00:00 2023-07-12 00:00:00 Orders Only Doctor Unassigned, [place] [facility] 1.20.114 350.1.13.10 4.2.7.2.686 [id number] [facility] 2023-04-12 00:00:00 2023-04-12 00:00:00 Telephone Elaine Zhang [facility] 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 [facility] CHILD [facility] 1.0.114 350.1.13.10 4.2.7.2.686 [id number] [facility] 2023-04-11 14:15:00 2023-04-11 15:22:39 [facility] [id number] [facility] 2023-04-11 14:15:00 2023-04-11 15:22:39 Office Visit Elaine Zhang [facility] 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 [facility] CHILD [facility] 1..114 350.1.13.10 4.2.7.2.686 [id number] [facility] 2023-03-26 00:00:00 2023-03-26 00:00:00 Nurse Triage Leidy Pryor [facility] 1..114 350.1.13.10 4.2.7.2.686 [id number] [facility] 2023-03-21 10:30:00 2023-03-21 11:39:29 Outpatient R ELAINE ZHANG [facility] [id number] [facility] 2023-03-21 10:30:00 2023-03-21 11:39:29 Routine Visit Elaine Zhang [facility] 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 [facility] CHILD [facility] 1.2.840.114 350.1.13.10 4.2.7.2.686 [id number] [facility] 2023-02-28 09:22:00 2023-03-02 16:40:00 Hospital Encounter Marcos [place] [facility] 1.840.114 350.1.13.10 4.2.7.2.686 [id number] [facility] 2023-02-28 09:22:00 2023-03-02 16:40:00 Inpatient X MARCOS [facility] [place] [facility] [id number] [facility] 2023-02-28 12:20:00 2023-02-28 23:00:00 Anesthesia Event Yony Valiente [facility] 1.840.114 350.1.13.10 4.2.7.2.686 [id number] [facility] 2023-02-28 00:00:00 2023-02-28 00:00:00 Orders Only Doctor Unassigned, [place] [facility] 1.840.114 350.1.13.10 4.2.7.2.686 [id number] [facility] 2023-02-27 12:45:00 2023-02-27 13:06:14 Outpatient R OLU DA SILVA [facility] [id number] [facility] 2023-02-27 12:45:00 2023-02-27 13:06:14 Routine Visit Olu Da Silva [facility] 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 [facility] CHILD [facility] 1.2.840.114 350.1.13.10 4.2.7.2.686 [id number] [facility] 2023-02-23 23:37:00 2023-02-24 01:00:00 Outpatient P LINCOLN-AURY S, CAROLINE LINCOLN-AURY S, CAROLINE [facility] [id number] [facility] 2023-02-23 23:37:00 2023-02-24 01:00:00 Hospital Encounter Lincoln-Aury s, Caroline [facility] 1.0.114 350.1.13.10 4.2.7.2.686 [id number] [facility] 2023-02-23 00:00:00 2023-02-23 00:00:00 Orders Only Doctor Unassigned, [place] [facility] 1.840.114 350.1.13.10 4.2.7.2.686 [id number] [facility] 2023-02-21 15:00:00 2023-02-21 15:00:00 Routine Visit Olu Da Silva [facility] 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 [facility] 1.84.114 350.1.13.10 4.2.7.2.686 [id number] [facility] 2023-02-21 15:00:00 2023-02-21 13:50:28 Outpatient R OLU DA SILVA [facility] [id number] [facility] 2023-02-21 00:00:00 2023-02-21 00:00:00 Telephone Olu Da Silva [facility] 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 [facility] 1..114 350.1.13.10 4.2.7.2.686 [id number] [facility] 2023-02-19 19:13:00 2023-02-19 21:33:00 Outpatient X LINCOLN-AURY S, CAROLINE LINCOLN-AURY S, CAROLINE [facility] [id number] [facility] 2023-02-19 19:13:00 2023-02-19 21:33:00 Emergency Caroline Rivera [facility] 1.2.840.114 350.1.13.10 4.2.7.2.686 [id number] [facility] 2023-02-19 00:00:00 2023-02-19 00:00:00 Telephone Olu Da Silva [facility] 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 [facility] 1.2840.114 350.1.13.10 4.2.7.2.686 [id number] [facility] 2023-02-19 00:00:00 2023-02-19 00:00:00 Orders Only Doctor Unassigned, [place] [facility] 1.2840.114 350.1.13.10 4.2.7.2.686 [id number] [facility] 2023-02-14 15:45:00 2023-02-14 16:05:13 Routine Visit Olu Da Silva [facility] 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 [facility] CHILD [facility] 1.2840.114 350.1.13.10 4.2.7.2.686 [id number] [facility] 2023-02-14 15:45:00 2023-02-14 16:05:13 Outpatient R OLU DA SILVA [facility] [id number] [facility] 2023-02-09 00:00:00 2023-02-09 00:00:00 Telephone Olu Da Silva [facility] 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 [facility] 1.2840.114 350.1.13.10 4.2.7.2.686 [id number] [facility] 2023-02-07 14:15:00 2023-02-07 14:37:07 Outpatient R OLU DA SILVA [facility] [id number] [facility] 2023-02-07 14:15:00 2023-02-07 14:37:07 Routine Visit Olu Da Silva [facility] 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 [facility] 1.2.840.114 350.1.13.10 4.2.7.2.686 [id number] [facility] 2023-01-31 21:27:00 2023-01-31 23:03:00 Outpatient X KEYONA SAIDA [facility] [id number] [facility] 2023-01-31 21:27:00 2023-01-31 23:03:00 Emergency Saida Rand [facility] 1.2.840.114 350.1.13.10 4.2.7.2.686 [id number] [facility] 2023-01-31 00:00:00 2023-01-31 00:00:00 Orders Only Doctor Unassigned, [place] [facility] 1.2.840.114 350.1.13.10 4.2.7.2.686 [id number] [facility] 2023-01-24 15:00:00 2023-01-24 15:20:50 Outpatient R OLU DA SILVA [facility] [id number] [facility] 2023-01-24 15:00:00 2023-01-24 15:20:50 Routine Visit Olu Da Silva [facility] 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 [facility] CHILD [facility] 1.2.840.114 350.1.13.10 4.2.7.2.686 [id number] [facility] 2023-01-08 15:15:00 2023-01-08 15:27:33 Outpatient R OLU DA SILVA [facility] [id number] [facility] 2023-01-08 15:15:00 2023-01-08 15:27:33 Routine Visit Olu Da Silva [facility] 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 [facility] 1.2.840.114 350.1.13.10 4.2.7.2.686 [id number] [facility] 2022-12-28 15:15:00 2022-12-28 16:00:00 Sourcing Intern Visit Ultrasound, Jeramie-Geeta Shipman [facility] 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 [facility] 1.2.840.114 350.1.13.10 4.2.7.2.686 [id number] [facility] 2022-12-28 15:15:00 2022-12-28 15:15:00 Outpatient P GEETA PAGE [facility] [id number] [facility] 2022-12-25 14:45:00 2022-12-25 14:52:51 Outpatient R OLU DA SILVA [facility] [id number] [facility] 2022-12-25 14:45:00 2022-12-25 14:52:51 Routine Visit Olu Da Silva [facility] 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 [facility] 1.2.840.114 350.1.13.10 4.2.7.2.686 [id number] [facility] 2022-12-20 14:45:00 2022-12-20 14:45:00 Outpatient P GEETA PAGE [facility] [id number] [facility] 2022-12-12 00:00:00 2022-12-12 00:00:00 Outpatient GC_SWHAOMC_ Black_D [facility] [id number] [facility] 2022-12-11 12:45:00 2022-12-11 13:47:04 Outpatient R OLU DA SILVA [facility] [id number] [facility] 2022-12-11 12:45:00 2022-12-11 13:47:04 Routine Visit Olu Da Silva [facility] 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 [facility] CHILD [facility] 1.840.114 350.1.13.10 4.2.7.2.686 [id number] [facility] 2022-11-20 12:45:00 2022-11-20 14:00:54 Outpatient R OLU DA SILVA [facility] [id number] [facility] 2022-11-20 12:45:00 2022-11-20 14:00:54 Routine Visit Olu Da Silva [facility] 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 [facility] CH[facility] 1.840.114 350.1.13.10 4.2.7.2.686 [id number] [facility] 2022-11-14 09:00:00 2022-11-14 09:00:00 Outpatient R OLU DA SILVA [facility] [id number] [facility] 2022-11-03 00:00:00 2022-11-03 00:00:00 Case Management Elaine Zhang 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 1..840.114 350.1.13.10 4.2.7.2.686 [id number] [facility] 2022-10-23 15:30:00 2022-10-23 16:03:50 Outpatient R OLU DA SILVA [facility] [id number] [facility] 2022-10-23 15:30:00 2022-10-23 16:03:50 Routine Visit Olu Da Silva [facility] 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 [facility] CHILD [facility] 1.840.114 350.1.13.10 4.2.7.2.686 [id number] [facility] 2022-10-17 14:00:00 2022-10-17 14:00:00 Outpatient R OLU DA SILVA [facility] [id number] [facility] 2022-10-13 13:00:00 2022-10-13 14:00:00 Sourcing Intern Visit Ultrasound, Alexandre Gunn [facility] 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 [facility] 1.840.114 350.1.13.10 4.2.7.2.686 [id number] [facility] 2022-10-13 13:00:00 2022-10-13 13:00:00 Outpatient ALEXANDRE LYLES [facility] [id number] [facility] 2022-09-19 15:45:00 2022-09-19 16:08:33 Outpatient R OLU DA SILVA [facility] [id number] [facility] 2022-09-19 15:45:00 2022-09-19 16:08:33 Routine Visit Olu Da Silva [facility] 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 [facility] CHILD [facility] 1.840.114 350.1.13.10 4.2.7.2.686 [id number] [facility] 2022-09-14 13:00:00 2022-09-14 13:00:00 Outpatient ALEXANDRE LYLES [facility] [id number] [facility] 2022-08-22 15:45:00 2022-08-22 16:30:53 Outpatient R OLU DA SILVA [facility] [id number] [facility] 2022-08-22 15:45:00 2022-08-22 16:30:53 Routine Visit Olu Da Silva Roshunda R [facility] 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 [facility] CHILD [facility] 1..840.114 350.1.13.10 4.2.7.2.686 [id number] [facility] 2022-08-22 15:45:00 2022-08-22 15:45:00 Outpatient R EZEQUIEL MCWILLIAMS [facility] [id number] [facility] 2022-07-28 00:00:00 2022-07-28 00:00:00 Abstract Manuelitoterrelltoñito Olu C [facility] 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 [facility] CHILD [facility] 1..840.114 350.1.13.10 4.2.7.2.686 [id number] [facility] 2022-07-25 14:30:00 2022-07-25 15:15:16 Outpatient R EZEQUIEL MCWILLIAMS [facility] [id number] [facility] 2022-07-25 14:30:00 2022-07-25 15:15:16 Routine Visit Provider, Ezequiel Mansfield [facility] 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 [facility] CH[facility] 1.840.114 350.1.13.10 4.2.7.2.686 [id number] [facility] 2022-07-19 08:30:00 2022-07-19 09:00:00 Sourcing Intern Visit Ultrasound, Jaiden Murcia [facility] 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 [facility] 1..840.114 350.1.13.10 4.2.7.2.686 [id number] [facility] 2022-07-19 08:30:00 2022-07-19 08:30:00 Outpatient JAIDEN HALL SANGEETA [facility] [id number] [facility] 2022-06-29 00:00:00 2022-06-29 00:00:00 Ezequiel Gonzalez [facility] [place] 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 [facility] CH[facility] 1..840.114 350.1.13.10 4.2.7.2.686 [id number] [facility] 2022-06-27 14:45:00 2022-06-27 15:49:45 Outpatient EZEQUIEL CARTER [facility] [id number] [facility] 2022-06-27 14:45:00 2022-06-27 15:49:45 Initial Visit Mcwilliams, Ezequiel Corea [facility] [place] 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 1..840.114 350.1.13.10 4.2.7.2.686 [id number] [facility] 2022-06-27 00:00:00 2022-06-27 00:00:00 Orders Only Doctor Unassigned, [place] [facility] 1..114 350.1.13.10 4.2.7.2.686 [id number] [facility] 2022-04-12 13:30:00 2022-04-12 13:30:00 Outpatient JAGDEEP WOOD [facility] [id number] [facility] 2021-11-28 14:30:00 2021-11-28 14:55:01 Office Visit Jagdeep Velasquez [facility] 1.840.114 350.1.13.10 4.2.7.2.686 [id number] [facility] 2021-11-28 14:30:00 2021-11-28 14:55:01 Outpatient JAGDEEP WOOD [facility] [id number] [facility] 2021-11-28 14:30:00 2021-11-28 14:30:00 Outpatient Nahomy VELASQUEZ [facility] [id number] [facility] 2021-11-28 00:00:00 2021-11-28 00:00:00 Orders Only Doctor Unassigned, [place] [facility] 1.840.114 350.1.13.10 4.2.7.2.686 [id number] [facility] 2021-11-23 00:00:00 2021-11-23 00:00:00 Telephone Jagdeep Velasquez [facility] 1.2.840.114 350.1.13.10 4.2.7.2.686 [id number] [facility] 2021-09-09 00:00:00 2021-09-09 00:00:00 Letter (Out) Tyler Ontiveros [facility] 1.2.840.114 350.1.13.10 4.2.7.2.686 [id number] [facility] 2021-09-08 16:47:28 2021-09-08 17:07:28 [facility] 1..840.114 350.1.13.10 4.2.7.2.686 [id number] [facility] 2021-09-08 17:00:00 2021-09-08 17:00:00 Outpatient R PACHECO [facility] [id number] [facility] 2021-09-08 00:00:00 2021-09-08 00:00:00 Telephone Karoline [facility] 1.2.840.114 350.1.13.10 4.2.7.2.686 [id number] [facility] 2021-07-27 00:00:00 2021-07-27 00:00:00 Telephone Jagdeep Velasquez [facility] 1.2.840.114 350.1.13.10 4.2.7.2.686 [id number] [facility] 2021-06-17 16:00:00 2021-06-17 16:00:00 Outpatient R [facility] [id number] [facility] 2021-05-24 00:00:00 2021-05-24 00:00:00 Case Management Jagdeep Velasquez [facility] 1.284.114 350.1.13.10 4.2.7.2.686 [id number] [facility] 2021-05-23 14:39:42 2021-05-23 14:54:42 Sourcing Intern Visit 2, Adc Lab Jagdeep Velasquez [facility] 1.2.114 350.1.13.10 4.2.7.2.686 [id number] [facility] 2021-05-23 14:45:00 2021-05-23 14:45:00 Outpatient R [facility] [id number] [facility] 2021-05-23 14:30:00 2021-05-23 14:30:00 Outpatient R JAGDEEP VELASQUEZ [facility] [id number] [facility] 2021-05-23 00:00:00 2021-05-23 00:00:00 Case Management Karoline [facility] 1.2840.114 350.1.13.10 4.2.7.2.686 [id number] [facility] 2021-04-21 00:00:00 2021-04-21 00:00:00 Telephone Jagdeep Velasquez [facility] 1.2.840.114 350.1.13.10 4.2.7.2.686 [id number] [facility] 2021-04-14 00:00:00 2021-04-14 00:00:00 Case Management Karoline [facility] Building 1.2840.114 350.1.13.10 4.2.7.2.686 [id number] [facility] 2021-04-12 12:43:44 2021-04-12 14:08:08 Office Visit Jagdeep Velasquez [facility] Building 1.114 350.1.13.10 4.2.7.2.686 [id number] 134 [id number] [facility] 2021-04-12 13:00:00 2021-04-12 13:00:00 Outpatient R JAGDEEP VELASQUEZ [facility] [id number] [facility] 2021-04-12 00:00:00 2021-04-12 00:00:00 Orders Only Doctor Unassigned, [place] [facility] 1.114 350.1.13.10 4.2.7.2.686 [id number] [facility] 2021-01-14 11:10:21 2021-01-14 11:10:21 [facility] [id number] [facility] 2020-10-08 18:30:00 2020-10-08 18:30:00 Outpatient R [facility] [id number] [facility] 2020-10-08 17:51:43 2020-10-08 18:11:43 Laboratory Only Lab, [facility] Office Building One .114 350.1.13.10 4.2.7.2.686 [id number] 044 [id number] [facility] 2020-10-08 17:51:43 2020-10-08 18:11:43 Laboratory Only Lab, [facility] Office Building One .114 350.1.13.10 4.2.7.2.686 [id number] 2020-07-21 00:00:00 2020-07-21 00:00:00 Telephone Provider, [facility] Office Building One 1.0.114 350.1.13.10 4.2.7.2.686 [id number] 044 [id number] [facility] 2020-07-21 00:00:00 2020-07-21 00:00:00 Telephone Provider, [facility] Office Building One 1.840.114 350.1.13.10 4.2.7.2.686 [id number] 2020-07-20 15:20:00 2020-07-20 15:20:00 Outpatient R OFE BLOCKTHIA [facility] [id number] [facility] 2020-07-20 14:50:44 2020-07-20 15:10:44 Laboratory Only Lab, [facility] One 1.0.114 350.1.13.10 4.2.7.2.686 [id number] [facility] 2020-07-20 14:50:44 2020-07-20 15:10:44 Laboratory Only Lab, [facility] Office [facility] One 1.0.114 350.1.13.10 4.2.7.2.686 [id number] 044 [id number] Results Test Description Test Time Test Comments Results Result Co mments Source [facility] with [id number] 10:36:28* Test Item Value Reference Range Interpretation [...] 34.2 g/dL 31.6-35.1 RDW-SD (test code = 13672-0) 39.6 fL 39.0-49.9 RDW-CV (test code = 788-0) 12.6 % 12.0-15.5 PLT (test code = 777-3) 330 166-358 MPV (test code = 04837-0) 11.6 fL 9.5-12.9 NRBC/100 WBC (test code = 4051219997) 0.0 0.0-10.0 NRBC x10^3 (test code = 8565730175) See_Comment [Automated messa ge] The system which generated this result transmitted reference range: 10*3/?L. The reference range was not used to interpret this result as normal/abnormal. GRAN MAT (NEUT) % (test code = 770-8) 63.5 % IMM GRAN % (test code = 4341556824) 0.50 % LYMPH % (test code = 736-9) 29.0 % MONO % (test code = 5905-5) 5.5 % EOS % (test code = 713-8) 1.0 % BASO % (test code = 706-2) 0.5 % GRAN MAT x10^3(ANC) (test code = 0770599172) 8.17 10*3/uL 1.88-7.09 H IMM GRAN x10^3 (test code = 3757828919) 0.06 10*3/uL 0.00-0.06 LYMPH x10^3 (test code = 731-0) 3.72 10*3/uL 1.32-3.29 H MONO x10^3 (test code = 742-7) 0.70 10*3/uL 0.33-0.92 EOS x10^3 (test code = 711-2) 0.13 10*3/uL 0.03-0.39 BASO x10^3 (test code = 704-7) 0.06 10*3/uL 0.01-0.07 Lab Interpretation (test code = 49403-4) [facility]normal [facility] [id number] 10:29:00 * Test Item Value Reference Range Interpretation Comme nts ABO & RH (test code = 20) A POSITIVE IAT (test code = 1185) Negative [facility] [id number] 10:29:00 * Test Item Value Reference Range Interpretation Comme nts ABO & RH (test code = 20) A POSITIVE IAT (test code = 1185) Negative [facility] W SPECIFIC [id number] 17:34:00* Test Item Value Reference Range Interpretation [...] U APPEAR (test code = 3267) [facility] W SPECIFIC [id number] 17:34:00* Test Item Value Reference Range Interpretation [...] POCT U APPEAR (test code = 3267) [facility] Urinalysis w/o Specific [id number] 18:40:00* Test Item Value Reference Range Interpretation [...] = 3257) neg Negative - Negati ve [facility] [id number] 18:39:00* Test Item Value Reference Range Interpretation Comme nts POCT PREG (test code = 1605) Positive On board controls acceptable with C Line (test code = 3574) Yes POCT PREG LOT # (test code = 3575) POCT PREG TEST DATE ( test code = 3576) [facility] [id number] 18:29:00* Test Item Value Reference Range Interpretation Comme nts POCT PREG (test code = 1605) Negative On board controls acceptable with C Line (test code = 3574) Yes POCT PREG LOT # (test code = 3575) POCT PREG TEST DATE ( test code = 3576) [facility] [id number] 18:29:00* Test Item Value Reference Range Interpretation Comme nts POCT PREG (test code = 1605) Negative On board controls acceptable with C Line (test code = 3574) Yes POCT PREG LOT # (test code = 3575) POCT PREG TEST DATE ( test code = 3576) [facility] [id number] 20:34:00* Test Item Value Reference Range Interpretation Comme nts POCT PREG (test code = 1605) Negative On board controls acceptable with C Line (test code = 3574) Yes POCT PREG LOT # (test code = 3575) POCT PREG TEST DATE ( test code = 3576) [facility] [id number] 20:34:00* Test Item Value Reference Range Interpretation Comme nts POCT PREG (test code = 1605) Negative On board controls acceptable with C Line (test code = 3574) Yes POCT PREG LOT # (test code = 3575) POCT PREG TEST DATE ( test code = 3576) [facility] WITH [id number] 05:34:01* Test Item Value Reference Range Interpretation [...] g/dL 32.0-36.0 L RDW-SD (test code = 43663-1) 43.4 fL 38.5-49.0 RDW-CV (test code = 788-0) 13.4 % 11.5-14.0 PLT (test code = 777-3) 459 See_Comment H [Automated messa ge] The system which generated this result transmitted reference range: 135 - 361 10*3/?L. The reference range was not used to interpret this result as normal/abnormal. MPV (test code = 18870-1) 11.2 fL 9.4-13.3 NRBC/100 WBC (test code = 3450940414) 0.0 See_Comment [Automated me ssage] The system which generated this result transmitted reference range: 0.0 - 10.0 /100 WBCs. The reference range was not used to interpret this result as normal/abnormal. NRBC x10^3 (test code = 0038242803) See_Comment [Automated messa ge] The system which generated this result transmitted reference range: 10*3/?L. The reference range was not used to interpret this result as normal/abnormal. GRAN MAT (NEUT) % (test code = 770-8) 56.6 % IMM GRAN % (test code = 2426310476) 0.20 % LYMPH % (test code = 736-9) 28.6 % MONO % (test code = 5905-5) 6.2 % EOS % (test code = 713-8) 7.3 % BASO % (test code = 706-2) 1.1 % GRAN MAT x10^3(ANC) (test code = 6799921255) 4.66 10*3/uL 1.50-10.30 IMM GRAN x10^3 (test code = 7081657183) 0.00-0.06 LYMPH x10^3 (test code = 731-0) 2.36 10*3/uL 0.70-7.40 MONO x10^3 (test code = 742-7) 0.51 10*3/uL 0.00-0.50 H EOS x10^3 (test code = 711-2) 0.60 10*3/uL 0.00-0.40 H BASO x10^3 (test code = 704-7) 0.09 10*3/uL 0.00-0.10 Lab Interpretation (test code = 34670-8) Abnormal [facility] IMMUNE [id number] 06:47:31* Test Item Value Reference Range Interpretation Comme nts RHIG CANDIDATE? (test code = 5188) No- see comment Patient is not a candidate for RhIg- Patient is Rh Positive.Performed at [facility] Laboratory Services - [facility] Blood [address] [place] [address]Htmf Free: [phone] No. [id number] [facility] Hospital[facility] Cord [id number] 03:30:20* Test Item Value Reference Range Interpretation Comme nts VENOUS BASE EXCESS, CORD (test code = 0096054413) -4.8 mEq/L VENOUS PH, CORD (test code = 0920324668) 7.32 7.25-7.45 VENOUS PC02, CORD (test code = 1575505195) 42 See_Comment [Automated messa ge] The system which generated this result transmitted reference range: 27 - 49 mmHg. The reference range was not used to interpret this result as normal/abnormal. VENOUS PO2, CORD (test code = 0826868499) 23 See_Comment [Automated me ssage] The system which generated this result transmitted reference range: 17 - 41 mmHg. The reference range was not used to interpret this result as normal/abnormal. VENOUS BICARBONATE, CORD (test code = 2725738352) 21 See_Comment QUES [Automated message] The system which generated this result transmitted reference range: 12 - 29 mEq/L. The reference range was not used to interpret this result as normal/abnormal. [facility] Hospital[facility] Cord [id number] 03:29:55* Test Item Value Reference Range Interpretation Comme nts BASE EXCESS, CORD (test code = 2010621737) -2.7 mEq/L QUES AC PH, CORD (BEAKER) (test code = 6952712430) 7.27 7.18-7.38 PC02, CORD (test code = 9817760608) 56 See_Comment [Automated messa ge] The system which generated this result transmitted reference range: 32 - 66 mmHg. The reference range was not used to interpret this result as normal/abnormal. PO2, CORD (test code = 3587017165) 18 See_Comment [Automated messa ge] The system which generated this result transmitted reference range: 10 - 30 mmHg. The reference range was not used to interpret this result as normal/abnormal. BICARBONATE, CORD (test code = 5253480629) 26 See_Comment [Automated messa ge] The system which generated this result transmitted reference range: 17 - 27 mEq/L. The reference range was not used to interpret this result as normal/abnormal. [facility] URINALYSIS W SPECIFIC [id number] 17:44:00* Test Item Value Reference Range Interpretation [...] U APPEAR (test code = 3267) ... [facility] URINALYSIS W SPECIFIC [id number] 17:54:00* Test Item Value Reference Range Interpretation [...] U APPEAR (test code = 3267) . [facility] URINALYSIS W SPECIFIC [id number] 20:50:00* Test Item Value Reference Range Interpretation [...] U APPEAR (test code = 3267) . [facility] URINALYSIS W SPECIFIC [id number] 19:13:00* Test Item Value Reference Range Interpretation [...] U APPEAR (test code = 3267) . [facility] URINALYSIS W SPECIFIC [id number] 20:00:00* Test Item Value Reference Range Interpretation [...] U APPEAR (test code = 3267) . [facility] URINALYSIS W SPECIFIC [id number] 20:00:00* Test Item Value Reference Range Interpretation [...] U APPEAR (test code = 3267) . [facility] URINALYSIS W SPECIFIC [id number] 20:00:00* Test Item Value Reference Range Interpretation [...] U APPEAR (test code = 3267) . [facility] URINALYSIS W SPECIFIC [id number] 20:13:00* Test Item Value Reference Range Interpretation [...] U APPEAR (test code = 3267) . [facility] URINALYSIS W SPECIFIC [id number] 19:39:00* Test Item Value Reference Range Interpretation [...] U APPEAR (test code = 3267) [facility] URINALYS[facility] W SPECIFIC [id number] 18:01:00* Test Item Value Reference Range Interpretation [...] code = 3267) . [facility] with [id number] 07:52:47* Test Item Value Reference Range Interpretation [...] 33.0 g/dL 32.0-36.0 RDW-SD (test code = 97859-9) 43.4 fL 38.5-49.0 RDW-CV (test code = 788-0) 13.0 % 11.5-14.0 PLT (test code = 777-3) 367 See_Comment H [Automated messa ge] The system which generated this result transmitted reference range: 135 - 361 10*3/?L. The reference range was not used to interpret this result as normal/abnormal. MPV (test code = 53933-4) 10.5 fL 9.4-13.3 NRBC/100 WBC (test code = 1649458543) 0.0 See_Comment [Automated me ssage] The system which generated this result transmitted reference range: 0.0 - 10.0 /100 WBCs. The reference range was not used to interpret this result as normal/abnormal. NRBC x10^3 (test code = 5905597927) See_Comment [Automated messa ge] The system which generated this result transmitted reference range: 10*3/?L. The reference range was not used to interpret this result as normal/abnormal. GRAN MAT (NEUT) % (test code = 770-8) 69.0 % IMM GRAN % (test code = 7896428898) 0.50 % LYMPH % (test code = 736-9) 21.1 % MONO % (test code = 5905-5) 5.5 % EOS % (test code = 713-8) 3.5 % BASO % (test code = 706-2) 0.4 % GRAN MAT x10^3(ANC) (test code = 0879115595) 7.67 10*3/uL 1.50-10.30 IMM GRAN x10^3 (test code = 0617825101) 0.06 10*3/uL 0.00-0.06 LYMPH x10^3 (test code = 731-0) 2.35 10*3/uL 0.70-7.40 MONO x10^3 (test code = 742-7) 0.61 10*3/uL 0.00-0.50 H EOS x10^3 (test code = 711-2) 0.39 10*3/uL 0.00-0.40 BASO x10^3 (test code = 704-7) 0.05 10*3/uL 0.00-0.10 Lab Interpretation (test code = 73741-9) [facility]normal [facility] 1 Hour Post [id number] 06:41:02* Test Item Value Reference Range Interpretation Comme nts GLUC 1 HR (test code = 3028841960) 88 mg/dL 120-170 L Lab Interpretation (test cod e = 99690-9) Abnormal [facility] URINALYSIS W SPECIFIC [id number] 19:03:00* Test Item Value Reference Range Interpretation [...] U APPEAR (test code = 3267) . [facility] URINALYSIS W SPECIFIC [id number] 21:31:00* Test Item Value Reference Range Interpretation [...] U APPEAR (test code = 3267) . [facility] URINALYSIS W SPECIFIC [id number] 21:44:00* Test Item Value Reference Range Interpretation [...] POCT U APPEAR (test code = 3267) [facility] URINALYSIS W SPECIFIC [id number] 22:12:00* Test Item Value Reference Range Interpretation [...] POCT U APPEAR (test code = 3267) [facility] URINALYSIS W SPECIFIC [id number] 19:40:00* Test Item Value Reference Range Interpretation [...] POCT U APPEAR (test code = 3267) [facility] [id number] 19:36:00* Test Item Value Reference Range Interpretation Comme nts POCT PREG (test code = 1605) Positive On board controls acceptable with C Line (test code = 3574) Yes POCT PREG LOT # (test code = 3575) POCT PREG TEST DATE ( test code = 3576) [facility] URINALYSIS W/O SPECIFIC [id number] 19:36:00* Test Item Value Reference Range Interpretation [...] = 3257) Trace Negative - Negati ve [facility] [id number] 21:24:00* Test Item Value Reference Range Interpretation Comme nts POCT PREG (test code = 1605) Negative On board controls acceptable with C Line (test code = 3574) Yes POCT PREG LOT # (test code = 3575) POCT PREG TEST DATE ( test code = 3576) [facility] [id number] 21:24:00* Test Item Value Reference Range Interpretation Comme nts POCT PREG (test code = 1605) Negative On board controls acceptable with C Line (test code = 3574) Yes POCT PREG LOT # (test code = 3575) POCT PREG TEST DATE ( test code = 3576) [facility] Asymptomatic [facility]H [id number] 15:05:00 * Test Item Value Reference Range [...] i.e., in patient care settingsoperating under a [place] Certificate of Waiver, Certificate ofCompliance, or Certificate of Accreditation. This test is only authorized for the duration of thedeclaration that circumstances exist justifying theauthorization of emergency use of in vitro diagnostic testsfor detection and/or diagnosis of COVID-19 under Svfzujd585(b)(1) of the Act, 21 U.S.C. 360bbb-3(b)(1), unless theauthorization is terminated or revoked sooner. UR HCG [id number] 12:36:00* Test Item Value Reference Range Interpretation Comme nts UR HCG QUAL (test code = HCGQLU) NEGATIVE 1. Very dilute u rine specimens, as indicated by a lowspecific gravity, may not contain mill representative levels ofhCG. 2. False negative results may occur when the levels of hCGare below the sensitivity level of the test. If is still suspected, a first morningurine specimen should be collected 48 hours later andtested. History and Physical Notes Date/Time Note Provider Source 2024-03-23 04:36:16 DIRECTOR LOSS PREVENTION ADMISSION H&P NOTE Date of Service: 03/23/2024 Chief Complaint: Asked to see and give opinion regarding Angela Dong, 18 year old, female who presents with incomplete . Last menstrual period: Patient's last menstrual period was 11/20/2023 (exact date). Patient with 14 week with several appointments. PNC complicated by chlamydia infection in 01/29/24 with test of cure 02/26/24. Went to [facility] ER for cramping and vaginal. Passed fetus. [...] OR team called in. Caroline Bower MD [facility]
[2024-09-30] MEDS ORDERED: KETOROLAC 30 MG/ML INJ ONE (11:16)
--- NOTE | 2024-09-30 11:25 | RAD REPORT ---
Procedure: Chest Pa And Lat (2 Views) HISTORY: Cough COMPARISON: none FINDINGS: The lungs appear clear of acute infiltrate. No significant pleural effusion noted. The heart is normal size. IMPRESSION: No acute abnormality is displayed.
[2024-09-30 11:44] LABS: Absolute Eosinophils 0.2 K/uL (0-0.5); Absolute Lymphocytes (CBC) 2.1 K/uL (0.7-4.9); Absolute Monocytes 0.6 K/uL (0.1-1.3); Absolute Neutrophil 6.7 K/uL (1.8-8.0); Basophils % 0.5 % (0-1.3); Eosinophils % 1.9 % (0-4.4); Hematocrit 35.7 % (36.0-45.0); Hemoglobin 11.4 g/dL (12.0-15.0); MCHC 31.9 g/dL (32.0-36.0); MCV 87.6 fL (80-100); MPV 8.9 fL (7.6-11.3); Monocytes % 6.2 % (3.3-12.3); Neutrophils % 69.4 % (41.7-73.7); Platelets 392 thou/uL (152-406); RBC Red Blood Cell Count 4.08 M/uL (3.86-4.86)
[2024-09-30 11:45] LABS: Specific Gravity > 1.030 (1.005-1.030); Sqamous Epithelial <5 /HPF (None Seen); Urine Bacteria <20 /HPF (<20); Urine Bilirubin NEGATIVE (Negative); Urine Blood Negative (Negative); Urine Clarity Extremely Turbid (Clear); Urine Color Yellow (Yellow); Urine Culture Reflex Order NOT NEEDED; Urine Glucose NEGATIVE (Negative); Urine Ketones NEGATIVE (Negative); Urine Microscopic Reflex YN ORDER UMIC; Urine Mucus 4+ /HPF (None Seen); Urine Nitrite NEGATIVE (Negative); Urine Protein TRACE (Negative); Urine Urobilinogen Normal (Normal); Urine WBC Clump Rare /HPF (None Seen); Urine Yeast (Budding) Trace /HPF (None Seen)
[2024-09-30 11:56] LABS: Anion Gap 7.9 mEq/L (5.0-15.0); Potassium 3.9 mEq/L (3.5-5.1)
--- NOTE | 2024-09-30 12:39 | RAD REPORT ---
EXAMINATION: CTA CHEST PE CLINICAL INDICATION: Chest pain TECHNIQUE: 100 cc 370 Isovue administered intravenously. This examination was performed according to an angiographic protocol with 3D post-processing. This involves 3D reconstructions, MIPs, volume rendered images and/or shaded surface rendering. One or more of the following dose reduction techniqu es were used: Automated exposure control, adjustment of the mA and/or kV according to patient size, and/or iterative reconstruction. Unless otherwise specified, incidental findings do not require dedic ated imaging follow-up. [id number]. COMPARISON: No prior exam. FINDINGS: A pulmonary embolus is not seen. An aortic aneurysm not noted. No pleural effusion. No pericardial effusion. Lungs are clear. IMPRESSION: No evidence of a pulmonary embolism
--- NOTE | 2024-09-30 13:00 | EDPHYS ---
Physician Documentation [facility] Name: Angela Dong Age: 19 yrs Sex: Female : 2005 Arrival Date: 09/30/2024 Time: 10:40 Bed 11 Private MD: ED Physician Tre Alfaro HPI: 09/30 12:17 This 19 yrs old Female presents to ER via Ambulatory with complaints of rib pain. rn 12:17 The patient or guardian reports chest pain that is located primarily in the anterior rn chest wall, right. The pain does not radiate. The chest pain is described as sharp. Severity of pain: At its worst the pain was mild in the emergency department the pain is unchanged. The patient has not experienced similar symptoms in the past. The patient has not recently seen a physician. Patient reports right-sided chest pain/rib pain that began last night. Thought it would get better after sleeping and did not. Reports mild cough. No hemoptysis. No history of DVT or PE. No recent surgery. Reports worse with inspiration. Denies abdominal pain or back pain. No fever or chills.. Historical: - Allergies: 10:51 No Known Allergies; ko1 - Home Meds: 10:51 None [Active]; ko1 - PMHx: 10:51 None; ko1 - PSHx: 10:51 Tonsillectomy; D\T\C; ko1 - Immunization history:: Adult Immunizations unknown. - Infectious Disease History:: Denies. - Social history:: Smoking status: Reported history of juuling and/or vaping. - Family history:: not pertinent. - Hospitalizations: : No recent hospitalization is reported. ROS: 12:17 Constitutional: Negative for fever, chills, and weight loss, Neck: Negative for injury, rn pain, and swelling, Cardiovascular: Positive for right-sided chest pain Respiratory: Positive for pleuritic chest pain on the right side Abdomen/GI: Negative for abdominal pain, nausea, vomiting, diarrhea, and constipation, MS/Extremity: Negative for injury and deformity, Skin: Negative for injury, rash, and discoloration, Neuro: Negative for headache, weakness, numbness, tingling, and seizure, Exam: 11:35 ECG was reviewed by the Attending Physician. rn 12:17 Constitutional: This is a well developed, well nourished patient who is awake, alert, rn and in no acute distress. Chest/axilla: Normal chest wall appearance and motion. Nontender with no deformity. No lesions are appreciated. Cardiovascular: Regular rate and rhythm. No pulse deficits. Respiratory: No increased work of breathing, no retractions or nasal flaring. Abdomen/GI: Soft, non-tender MS/ Extremity: Pulses equal, no cyanosis. Neurovascular intact. Full, normal range of motion. Equal circumference. Neuro: Awake and alert, GCS 15 Vital Signs: 10:47 BP 116 / 85; Pulse 88; Resp 14; Temp 97; Pulse Ox 99% on R/A; ko1 13:13 BP 105 / 81; Pulse 80; Resp 15; Temp 97; Pulse Ox 100% on R/A; MAP 89 mmHg; Pain 0/10; tm6 13:13 Pain Scale: Adult tm6 MDM: 10:55 Medical Screening Exam initiated rn 12:58 Differential diagnosis: anxiety, chest wall pain, costochondritis, esophagitis, rn pleurisy, pneumonia, pneumothorax, pulmonary embolus. Data reviewed: vital signs, nurses notes, lab test result(s), EKG, radiologic studies, CT scan, plain films, and as a result, I will discharge patient. Counseling: I had a detailed discussion with the patient and/or guardian regarding the historical points, exam findings, and any diagnostic results supporting the discharge/admit diagnosis, lab results, radiology results, the need for outpatient follow up, to return to the emergency department if symptoms worsen or persist or if there are any questions or concerns that arise at home. Special discussion: Based on the patient's history, exam, and Dx evaluation, there is no indication for emergent intervention or inpatient Tx. It is understood by the patient/guardian that if the Sx's persist or worsen they need to return immediately for re-evaluation. I discussed with the patient/guardian in detail that at this point there is no indication for admission to the hospital. It is understood, however, that if the symptoms persist or worsen the patient needs to return immediately for re-evaluation. ED course: No acute findings and imaging including CT chest for PE which was obtained after elevated D-dimer. No oxygen requirement. Will discharge home with instructions to quit vaping and take [id number] ibuprofen.. 09/30 11:01 Order name: CBC with Diff; Complete Time: 12:12 rn 09/30 11:01 Order name: Basic Metabolic Panel; Complete Time: 12:12 rn 09/30 11:01 Order name: Test, Urine; Complete Time: 12:12 rn 09/30 11:01 Order name: Urinalysis w/ reflexes; Complete Time: 12:12 rn 09/30 11:01 Order name: D-Dimer; Complete Time: 12:12 rn 09/30 11:01 Order name: XRAY Chest Pa And Lat (2 Views); Complete Time: 11:27 rn 09/30 12:12 Order name: CT Chest For PE Angio; Complete Time: 12:50 rn 09/30 11:01 Order name: EKG; Complete Time: 11: rn 09/30 11:01 Order name: IV Start; Complete Time: 11:32 rn 09/30 11:01 Order name: EKG - Nurse/Tech; Complete Time: 11:32 rn EC:35 Rate is 69 beats/min. Rhythm is regular. WA interval is normal. QRS interval is normal. rn QT interval is normal. No Q waves. T waves are Normal. No ST changes noted. Clinical impression: NSR w/ Non-specific ST/T Changes. Interpreted by me. Reviewed by me. Administered Medications: 11:32 Drug: Ketorolac IVP 15 mg IVP once Route: IVP; Site: right antecubital; ld1 13:14 Follow up: Response: No adverse reaction tm6 Disposition Summary: 09/30/24 12:59 Discharge Ordered Notes: Location: Home rn Problem: new rn Symptoms: have improved rn Condition: Stable rn Diagnosis - Chest pain, unspecified rn Followup: rn - With: Private Physician - When: As needed - Reason: Recheck today's complaints, Re-evaluation by your physician Discharge Instructions: - Discharge Summary Sheet rn - Nonspecific Chest Pain, Adult rn Forms: - Medication Reconciliation Form rn - Antibiotic commissioner of internal revenue - Prescription Opioid Use rn - Patient Portal Instructions rn - Leadership Thank You Letter rn Signatures: Dispatcher [employer] Tre Vidal MD MD rn Sims, Lauren, RN RN ld1 Laurel Huddleston RN RN Андрей De Dios RN tm6 Corrections: (The following items were deleted from the chart) 12:13 12:13 Chest For PE Angio+CT.RAD.BRZ ordered. EDMS EDMS
--- NOTE | 2024-09-30 13:00 | ER ---
Nurse's Notes [facility] Name: Angela Dong Age: 19 yrs Sex: Female : 2005 Arrival Date: 09/30/2024 Time: 10:40 Bed 11 Private MD: Diagnosis: Chest pain, unspecified Presentation: 09/30 10:47 Chief complaint: Patient states: Right rib pain since this morning only when I breathe, ko1 move and stretch. Coronavirus screen: At this time, the client does not indicate any symptoms associated with coronavirus-19. Ebola Screen: No symptoms or risks identified at this time. Initial Sepsis Screen: Does the patient meet any 2 criteria? No. Patient's initial sepsis screen is negative. Does the patient have a suspected source of infection? No. Patient's initial sepsis screen is negative. Risk Assessment: Do you want to hurt yourself or someone else? Patient reports no desire to harm self or others. Onset of symptoms was September 30, 2024. 10:47 Method Of Arrival: Ambulatory ko1 10:47 Acuity: CECILIA 3 ko1 Triage Assessment: 10:51 General: Appears in no apparent distress. Behavior is calm, cooperative, appropriate ko1 for age. Pain: Complains of pain in right ribs. Historical: - Allergies: 10:51 No Known Allergies; ko1 - Home Meds: 10:51 None [Active]; ko1 - PMHx: 10:51 None; ko1 - PSHx: 10:51 Tonsillectomy; D\T\C; ko1 - Immunization history:: Adult Immunizations unknown. - Infectious Disease History:: Denies. - Social history:: Smoking status: Reported history of juuling and/or vaping. - Family history:: not pertinent. - Hospitalizations: : No recent hospitalization is reported. Screenin:[address] [facility] ED Fall Risk Assessment (Adult) History of falling in the last 3 months, ld1 including since admission No falls in past 3 months (0 pts) Confusion or Disorientation No (0 pts) Intoxicated or Sedated No (0 pts) Impaired Gait No (0 pts) Mobility Assist Device Used No (0 pt) Altered Elimination No (0 pt) Score/Fall Risk Level 0 - 2 = Low Risk Oriented to surroundings, Maintained a safe environment, Educated pt \T\ family on fall prevention, incl call for assistance when getting out of bed, Assessed \T\ reinforced patient's understanding of fall precautions, Provided non-skid footwear, Hourly rounding (assess needs \T\ fall precautionary measures) done, Used ambulatory aids as needed (educated on \T\ assisted with), Used gait belt as appropriate. Abuse screen: Denies threats or abuse. Denies injuries from another. Nutritional screening: No deficits noted. Tuberculosis screening: No symptoms or risk factors identified. Assessment: 11:00 General: Appears in no apparent distress. comfortable, Behavior is calm, cooperative, ld1 appropriate for age. Pain: Complains of pain in anterior aspect of left lateral abdomen Pain does not radiate. Pain currently is 8 out of 10 on a pain scale. Quality of pain is described as throbbing. Neuro: Level of Consciousness is awake, alert, obeys commands, Oriented to person, place, time, situation. Cardiovascular: Capillary refill < 3 seconds Patient's skin is warm and dry. Respiratory: Airway is patent Respiratory effort is even, unlabored. GI: Abdomen is flat, non-distended. : No signs and/or symptoms were reported regarding the genitourinary system. EENT: No signs and/or symptoms were reported regarding the EENT system. Derm: No signs and/or symptoms reported regarding the dermatologic system. Musculoskeletal: No signs and/or symptoms reported regarding the musculoskeletal system. 13:14 Reassessment: Patient and/or family updated on plan of care and expected duration. Pain tm6 level reassessed. Patient is alert, oriented x 3, equal unlabored respirations, skin warm/dry/pink. Vital Signs: 10:47 BP 116 / 85; Pulse 88; Resp 14; Temp 97; Pulse Ox 99% on R/A; ko1 13:13 BP 105 / 81; Pulse 80; Resp 15; Temp 97; Pulse Ox 100% on R/A; MAP 89 mmHg; Pain 0/10; tm6 13:13 Pain Scale: Adult tm6 ED Course: 10:43 Patient arrived in ED. im 10:44 Tre Alfaro MD is Attending Physician. rn 10:51 Triage completed. ko1 10:51 Arm band placed on left wrist. Patient placed in an exam room, on a stretcher, Patient ko1 notified of wait time. 11:00 Cheryle Mckenna, RN is Primary Nurse. ld1 11:00 Patient has correct armband on for positive identification. Placed in gown. Bed in low ld1 position. Call light in reach. Side rails up X2. nurse monitoring on. Pulse ox on. NIBP on. Door closed. Noise minimized. Warm blanket given. 11:00 No provider procedures requiring assistance completed. ld1 11:20 XRAY Chest Pa And Lat (2 Views) In Process Unspecified. EDMS 11:32 Basic Metabolic Panel Sent. ld1 11:32 CBC with Diff Sent. ld1 11:32 Test, Urine Sent. ld1 11:32 Urinalysis w/ reflexes Sent. ld1 11:32 D-Dimer Sent. ld1 11:32 Inserted saline lock: 20 gauge in right antecubital area, using aseptic technique. ld1 Blood collected. Flushed with 10 mL NS. 12:32 CT Chest For PE Angio In Process Unspecified. EDMS 13:14 Provided Education on: follow up with PCP. tm6 13:14 IV discontinued, intact, bleeding controlled, No redness/swelling at site. Pressure tm6 dressing applied. Administered Medications: 11:32 Drug: Ketorolac IVP 15 mg IVP once Route: IVP; Site: right antecubital; ld1 13:14 Follow up: Response: No adverse reaction tm6 Medication: 11:00 VIS not applicable for this client. ld1 Outcome: 12:59 Discharge ordered by . rn 13:14 Discharged to home ambulatory, with family, tm6 13:14 Condition: stable 13:14 Discharge instructions given to patient, family, Instructed on discharge instructions, follow up and referral plans. Demonstrated understanding of instructions, follow-up care, 13:14 Patient left the ED. tm6 Signatures: Dispatcher [employer] EDMS Tre Alfaro MD MD rn Sims, Lauren, RN RN ld1 Laurel Huddleston RN RN ko1 Hannah Joshi Tawney RN RN tm6 Corrections: (The following items were deleted from the chart) 10:51 10:47 Chief complaint: Patient states: Right rib pain since this morning ko1 ko1
[2024-09-30 18:54] VITALS: TEMP 97
[2024-09-30 18:56] VITALS: BP 116/85; O2SAT 99
--- NOTE | 2024-10-03 12:49 | EKG ---
Test Date: 2024-09-30 Test Time: 11:23:49 Ice Sculptor: Darius SI MEASUREMENT RESULTS: Intervals: Rate: 69 IA: 132 QRSD: 80 QT: 360 QTc: 385 [place]: P: 55 IA: 132 QRS: 90 T: 5 INTERPRETIVE STATEMENTS: Normal sinus rhythm with sinus arrhythmia Rightward axis Borderline ECG Compared to ECG 09/11/2021 11:30:23 No significant changes Electronically Signed On 10-03-24 12:45:57 NURSERY SUPERVISOR by Myles Pena
== END 2024-09-30 13:14 | disposition home or self-care (01) ==
LOC: ER 10:40
DX: R07.89 Other chest pain (principal)
CPT/HCPCS: 36415; 71046; 71275; 80048; 81001; 81025; 85025; 85379; 93005; 96374; 99285; Q9967